=== PATIENT | male | born 1950 | race Caucasian/White ===

== ENCOUNTER 2018-06-02 07:58 | Day surgery (SDC) | payer MEDICARE, SELFPAY ==
[2018-06-02] VITALS (7 sets, daily range): BP systolic 91–133; BP diastolic 58–88; PULSE 68–73; RESP 16–18; TEMP 36.1–36.5; O2SAT 90–98; BMI 29.9
--- NOTE | 2018-06-02 09:47 | PCM.HP.STD ---
Problem List (1) Screening for intestinal cancer Status: Acute History of Present Illness Date of Admission: 06/02/18 The patient is a 68 year old M presents for screening colonoscopy. He enjoys good health. He denies any personal history of colon polyps. No family history of colon cancer. He denies any abdominal pain or bright red blood per rectum or melena.. He otherwise enjoys good health. Past Medical History Allergies hydrocodone [From Vicodin] Allergy (Verified 05/29/18 10:38) HYPOTENSION Home Medications: Ambulatory Orders Medication Instructions Recorded Gabapentin [Neurontin] 100 mg PO TIDCM 05/29/18 Lansoprazole 15 mg PO DAILY 05/29/18 Propranolol HCl [Inderal (Beta 20 mg PO BID 05/29/18 Jimbo)] Quinapril HCl [Accupril] 10 mg PO DAILY 05/29/18 Smoking Status: Never smoker Tobacco Use: Non-smoker Review of Systems Constitutional: Denies: Anorexia HEENT: Denies: Difficulty Hearing Cardiovascular: Denies: Chest Pain, Claudication, Chest Pressure, Chest Tightness Respiratory: Denies: Cough Gastrointestinal: Denies: Abdominal Pain Genitourinary: Denies: Dysuria Psychiatric: Denies: Anxiety Endocrine: Denies: Change in Body Habitus VTE Information - Inpt Only VTE Present on Admission: No Patient Problems: Active and Suspected Problems Screening for intestinal cancer (Acute) - Physical Exam General: Alert, Oriented x3, Cooperative, No apparent distress HEENT: Atraumatic Oral: Moist Mucosa Neck: Supple Lungs: Clear to auscultation Cardiovascular: Regular rate, Regular Rhythm Abdomen: Bowel Sounds Present, Soft, Non Tender, Non-Distended Extremities: No clubbing Skin: No rashes Musculoskeletal: No Tenderness to Palpation of Joints or Extremities Lymphatic: No Cervical, Supraclavicular, or Inguinal Adenopathy Neurological: Cranial nerves II-XII grossly intact Psych/Mental Status: Normal Affect Vital Signs Temp Pulse Resp BP Pulse Ox 97.2 F L 73 16 133/88 H 93 06/02/18 08:14 06/02/18 08:14 06/02/18 08:14 06/02/18 08:14 06/02/18 08:14 Oxygen Delivery Method Room Air Weight: 221 lb 1.978 oz Body Mass Index (BMI) 29.9 Assessment/Plan All Active Problems Screening for intestinal cancer (Acute) I am recommending a screening colonoscopy with possible biopsy or polypectomy is indicated. He is aware of the technique, benefits, risks, alternatives. He has had an opportunity to ask and have questions answered. We will proceed as noted. Primary care physician is Dr. Abdoulaye Davidson, [facility] Rashi Davidson M.D., F.A.C.S.
--- NOTE | 2018-06-02 10:51 | OP.ENDO_ITS ---
Patient Name: Brennon Souza Procedure Date: 06/02/2018 9:39 AM Date of : 1950 Age: 68 Procedure: Colonoscopy Indications: Screening for colorectal malignant neoplasm Patient Profile: Last Colonoscopy: more than 10 years ago. Providers: Rashi Davidson MD Referring MD: Rashi Davidson MD Medicines: See the Anesthesia note for documentation of the administered medications Complications: No immediate complications. Procedure: Pre-Anesthesia Assessment: - Prior to the procedure, a History and Physical was performed, and patient medications and allergies were reviewed. The patient's tolerance of previous anesthesia was also reviewed. The risks and benefits of the procedure and the sedation options and risks were discussed with the patient. All questions were answered, and informed consent was obtained. Prior Anticoagulants: The patient has taken no previous anticoagulant or antiplatelet agents. ASA Grade Assessment: II - A patient with mild systemic disease. After reviewing the risks and benefits, the patient was deemed in satisfactory condition to undergo the procedure. After I obtained informed consent, the scope was passed under direct vision. Throughout the procedure, the patient's blood pressure, pulse, and oxygen saturations were monitored continuously. The pediatric colonoscope was introduced through the anus and advanced to the cecum, identified by appendiceal orifice and ileocecal valve. The colonoscopy was performed without difficulty. The patient tolerated the procedure well. The quality of the bowel preparation was good. Scope In: 9:55:10 AM Scope Withdrawal Time 0 hours 7 minutes 30 seconds Scope Out: 10:08:16 AM Total Procedure Duration Time 0 hours 13 minutes 6 seconds Findings: The perianal and digital rectal examinations were normal. Pertinent negatives include normal sphincter tone. The perianal and digital rectal examinations were normal. Pertinent negatives include normal prostate (size, shape, and consistency). A few diverticula were found in the sigmoid colon. The exam was otherwise without abnormality. Impression: - Diverticulosis in the sigmoid colon. - The examination was otherwise normal. - No specimens collected. Recommendation: - Discharge patient to home. - Resume previous diet. - Continue present medications. - Repeat colonoscopy in 10 years for screening purposes. Procedure Code(s): --- Professional --- 76293, Colonoscopy, flexible; diagnostic, including collection of specimen(s) by brushing or washing, when performed (separate procedure) Diagnosis Code(s): --- Professional --- Z12.11, Encounter for screening for malignant neoplasm of colon K57.30, Diverticulosis of large intestine without perforation or abscess without bleeding CPT copyright 2017 [employer]. All rights reserved. The codes documented in this report are preliminary and upon hims coder review may be revised to meet current compliance requirements. MD Rashi Martinez MD 06/02/2018 10:12:19 AM This report has been signed electronically. Number of Addenda: 0 Note Initiated On: 06/02/2018 9:39 AM
== END 2018-06-02 10:53 | disposition home or self-care (01) ==
LOC: EN 07:59 → AC 08:01
PROVIDERS: Family Provider Family Medicine; PCP Family Medicine; Visit Provider Surgery
PROC: 0DJD8ZZ Inspection of Lower Intestinal Tract, Via Natural or Artificial Opening Endoscopic (ICD-10-PCS; CPT 45378; principal; 2018-06-02 09:10)
DX: Z12.11 Encounter for screening for malignant neoplasm of colon (principal); K57.30 Diverticulosis of large intestine without perforation or abscess without bleeding; K21.9 Gastro-esophageal reflux disease without esophagitis; I10 Essential (primary) hypertension; G47.30 Sleep apnea, unspecified; Z79.899 Other long term (current) drug therapy
CPT/HCPCS: G0121; J7120

== ENCOUNTER → 2020-10-10 20:43 | Outpatient (CLI) | payer MEDICARE, SELFPAY | PROVIDERS: PCP Family Medicine; Referring Provider Psychiatry & Neurology Sleep Medicine; Visit Provider Psychiatry & Neurology Sleep Medicine | DX: G47.33 Obstructive sleep apnea (adult) (pediatric) (principal) | CPT/HCPCS: 95811 ==

== ENCOUNTER → 2021-06-14 13:06 | Outpatient (CLI) | payer MEDICARE, SELFPAY ==
--- NOTE | 2021-06-14 13:08 | CT_ITS ---
STUDY: CT SCAN LOWER EXTREMITY RIGHT REASON FOR EXAM: Male, 71 years old. UNILATERAL PRIMARY OSTEOARTHRITIS, R KNEE.APOLINAR protocol. RADIATION DOSAGE (If Supplied By Facility): CTDIvol = ( 20.10 ) mGy, DLP = ( 1863.03 ) mGycm. Individualized dose optimization techniques were used for this CT.? TECHNIQUE: Multiple axial tomographic images of the hip joint, knee joint and ankle joint were obtained. Coronal and sagittal reconstruction was obtained as well. COMPARISON: None. FINDINGS: Imaging of the right hip joint was obtained. Small acetabular spur along the superior aspect of the acetabulum. No significant joint space narrowing is seen. Incidental note was made of the disc space narrowing and disc degeneration of the lower lumbar spine. Imaging of the right knee joint was obtained. There is a marked degree of joint space narrowing with degenerative spur formation of the medial compartment of the knee joint. Mild degree of Osteoarthritis of the patellofemoral joint. Imaging of the ankle joint was obtained. There is evidence of a small plantar spur. CT/Extremity Lower without Contra IMPRESSION: Marked degree of joint space narrowing of the medial compartment of the knee joint with mild degree of joint space narrowing of the femoral patellar joint. Electronically Signed: Abhilash Gustafson MD at 14:20 EDT , Service support ,
== END ==
PROVIDERS: PCP Family Medicine; Referring Provider Specialist; Visit Provider Specialist
DX: M17.11 Unilateral primary osteoarthritis, right knee (principal)
CPT/HCPCS: 73700

== ENCOUNTER 2021-06-27 05:26 | Day surgery (SDC) | payer MEDICARE, SELFPAY ==
--- NOTE | 2021-06-08 14:01 | HP.PCM_ITS ---
History and Physical History and Physical [facility] Patient Name: Brennon Souza : 1950 From: NICKY DANG PA-C DATE OF SURGERY: 06/27/2021 SCHEDULED PROCEDURE: right total knee arthroplasty HISTORY OF PRESENT ILLNESS: Preoperative history and physical exam was performed on June 06, 2021. This is a 71-year-old male who has had ongoing pain since October 2020. At that time patient was pushing a cart when he felt a twinge in his knee. Patient also reports tweaking his knee again while shopping with his granddaughters. Patient has had pain going up and down stairs and sitting. Pain has been intermittent, aching, stabbing, sore. He has difficulty with leisure activities such as walking and cycling. Patient has tripped/stumbled due to the knee pain. He does report having a previous right [place] arthrosc[place] [address] Brennon Torres. He has also had a left unicompartmental knee [place] [address] Brennon Torres. He has attempted conservative measures including ice, elevation with minimal relief. He has had previous corticosteroid injection with no relief in symptoms. Patient has had previous gel injection with the last injection on March 16, 2021. This provided no relief in symptoms. Patient has tried previous bracing without relief. He has tried oral medications including Tylenol and Advil minimal relief. He has had previous MRI of the right knee which does show chronic ACL tear with medial meniscus tear and chondromalacia in the medial compartment, patellofemoral compartment and lateral compartment. After failing conservative measures and discussing treatment options, the patient does wish to proceed with a right total knee arthroplasty. He does have medical history pertinent for essential tremor, sleep apnea, gastroesophageal reflux disease and a previous blood clot in 1972. We have obtain surgical clearance from the primary care physician Dr. Funk. Patient recently one week ago sustained a dog bite to his right hand in which he has been treating with the primary care physician. He states it is continuing to improve. No fevers, chills at home. No drainage. He currently denies any chest pain, shortness of breath, fevers chills. REVIEW OF SYSTEMS: ROS: Const: Denies anorexia, anxiety, change in appetite, fever and weight change,hard of hearing, and vision problems. REPORTS HARD OF HEARING CV: Denies chest pain, heart murmur, irregular heartbeat and peripheral vascular disease. Resp: Reports sleep apnea, but denies asthma, cough, pneumonia, shortness of breath, tuberculosis and wheezing. GI: Denies constipation, diarrhea, heartburn, nausea, bloody stools and vomiting, and difficulty swallowing. : Denies incontinence. Musculo: Denies leg swelling, trouble walking and weakness and limp. REPORTS TROUBLE WALKING AND LIMP Skin: Denies Raynaud's, history of shingles and tattoo. Neuro: Reports tremor but denies ambulatory dysfunction, dizziness and numbness/tingling. Psych: Denies anxiety, depression, insomnia, mental illness and stress. Feliciano/Lymph: Denies anemia, bleeding/bruising tendency and past transfusion. Reviewed and updated. PAST MEDICAL HISTORY: Advance Care Plan: Other Directive, POA Effective Date: 07/22/2018 Other Directive, LIVING WILL Effective Date: 07/22/2018 PMH: Medical Problems: Essential Benign Tremor History of a blood clot - 1972 Sleep Apnea, Reflux Accidents: Fracture - Ankle/Fall Surgical Hx: Kidney - (1989) Vessel Repair - [facility] Arthroscopy - (1984) KNEE R [facility] - [facility] LT Knee - (1974) [facility] - [place] Arthroscopy - (08/21/2006) LT KNEE [facility] LT Knee Arhthroscopy - (2007) [place] [place] LT Unicompartmental Knee Replacement - (09/19/2009) [email or web address] Cement Removal LT Knee - (12/28/2009) NELLIE @ [facility] Anesthesia Complications: Nausea - YEARS AGO Assistive Devices: Glasses, Brace, Hearing Aid, Cpap Reviewed and updated. SOCIAL HISTORY: SH: Marital: .Occupation: Retired.Work Status: Retired.Hand Dominance: Right- handed. Personal Habits: Tobacco Use: Patient has never smoked.Cigarette Use: Never.Smokeless Tobacco: Never Used Smokeless Tobacco.E-Cigarette Use: Never used.Alcohol: Weekly use.Drug Use: Denies Use.Enjoy Exercising: Exercises 1-3 X/Week. Reviewed, no changes. VITALS: Ht: 71 Wt: 227lb Wt k.967 BMI: 31.7 BP: 134/88 Pulse: 68 Resp: 16 T: 97 T: 36.1C Pain Level: 2 ALLERGIES: Vicodin - Severe Drop In Blood Pressure MEDICATIONS: Oxycodone HCL 5 mg 1-2 tab by mouth every 4 hours, Promethazine HCL 12.5 mg 1-2 tablets by mouth every 6 hours, Xarelto 10 mg 1 by mouth every day, Lansoprazole 15 mg 1 po qdAY, Propranolol HCL 20 mg 1 tab PO bid, Ibuprofen 200 mg 2 tablets by mouth for pain as needed, Gabapentin 300 mg up to 3 daily, Vitamin D 1000 Unit daily, Multivitamin take one(1) tablet daily., Glucosamine Chondroitin Complex 400-500 PRE-OP EXAM: General appearance:NORMAL Other: Eyes: Conjunctivae and lids: NORMAL Pupils: ERR Ears, Nose, Mouth, and Throat: NORMAL Other: Inspection of lips, teeth and gums: NORMAL Other: Neck: Examination of neck: no masses noted. Respiratory: Assessment of respiratory effort: NORMAL Other: Auscultation of lungs: clear to auscultation no wheezes, rhonchi or rales. Cardiovascular: Auscultation of heart: regular rate and rhythm, no murmurs, gallops or rubs. Exam of carotid arteries: NORMAL Other: PHYSICAL EXAMINATION: Patient does walk with an antalgic gait. Right knee is cool to touch without erythema or signs of infection. Patient does have moderate effusion. There is tenderness to palpation along the medial joint line. Patient has varus alignment which is correctable on exam. Range of motion: 0 extension to 115 flexion. There is also laxity appreciated on the anterior drawer exam. Negative varus/valgus stress test. IMAGING STUDIES: Previous MRI and x-rays revealed chondromalacia and thinning of the cartilage in the medial compartment and patellofemoral compartment. There is thinning in the lateral compartment on the MRI. He has chronic ACL tear. There is medial meniscus tear. Previous x-rays reveal medial joint space narrowing, subchondral sclerosis, osteophyte formation consistent with moderate osteoarthritis. IMPRESSION: 1. Right knee osteoarthritis with chronic ACL tear and medial meniscus tear 2. Essential benign tremor 3. Sleep apnea 4. Gastroesophageal reflux disease 5. History of blood clot 1973 PLAN: I did discuss and review with the patient all treatment options including surgical versus nonsurgical options. Patient does wish to proceed with the above-stated procedure. Potential risks, benefits, and complications of the procedure were discussed in detail including but not limited to , infection, nerve and blood vessel damage, persistent pain, numbness, tingling, paresthesias, blood clot, pulmonary embolism, and requirement for possible further surgery. The patient expressed full understanding and has no further questions for the doctor. Patient does agree to proceed with the above-stated procedure and has signed the surgery consent form. We discussed the current risks associated with COVID 19. This does include the risk of exposure while in the hospital. Patient was reassured local hospitals have low infection rates and are taking all necessary precautions to avoid exposure to patients. In addition, we discussed strategies that can be used to help limit exposure including those that limit the patient's time in the hospital. Also using strategies to limit the patient's need for continued inpatient services after being discharged from the hospital. Patient was notified that we will need to comply with any screening or testing the hospital wishes to perform or that surgery may be delayed for any positive results. This dictation was created using voice recognition software. Phonetic and/or grammatical errors may exist. ___ I have re-examined the patient. There are no clinical changes since date of exam. ___ See progress notes for changes. ___ Dictated on admission Date: Time: Signature:
[2021-06-14 15:01] LABS: Magnesium 2.1 mg/dL (1.6-2.6)
[2021-06-27] VITALS (13 sets, daily range): BP systolic 120–138; BP diastolic 76–89; PULSE 51–71; RESP 16–18; TEMP 35.7–36.5; O2SAT 94–100; BMI 32.6
[2021-06-27] MEDS: Lactated Ringers 1,000 ML 999 ML IV ×2 (06:00→10:01)
[2021-06-27] MEDS: Celecoxib 200 MG Capsule 400 MG PO (06:30)
[2021-06-27] MEDS: Acetaminophen 500 MG Tablet 1000 MG PO ×2 (06:30→13:22)
[2021-06-27] MEDS: Gabapentin 600 MG Tablet PO (06:41)
--- NOTE | 2021-06-27 07:11 | RAD_ITS ---
STUDY: X-RAY - RIGHT KNEE REASON FOR EXAM: Male, 71 years old. TKA. TECHNIQUE: 2 view(s) of the knee. COMPARISON: CTA of the right lower extremity, 06/14/2021. FINDINGS: There is a total knee replacement. The prosthetic components are intact and articulate normally with each other. There is no evidence of loosening from the underlying bone. There is no evidence of osseous fracture or destructive osseous pathology. There is air and swelling in the anterior soft tissues with midline skin clips. . RAD/Knee 1 or 2 Views IMPRESSION: Status post right TKA. Electronically Signed: Williams Ace DO at 17:03 EDT Tel [phone], Service support ,
--- NOTE | 2021-06-27 07:13 | PCM.OPRPT ---
Report of Operation Date of Procedure: 06/27/21 Pre-Operative Diagnosis: Right knee primary osteoarthritis Post-Operative Diagnosis: Right knee primary osteoarthritis Surgery/Procedure Performed:: Right minimally invasive robotic total knee replacement Description of Surgical Findings:: Stable knee with good patella tracking Surgeon: Nasim Jacobson external grinder tender: Fredy Mercer Type of Anesthesia: Spinal Anesthesiologist: Mak Samson Special Medications: 2 g Ancef, 1 g TXA at incision, 1 g TXA closure, 10 mg Decadron, joint cocktail (5 mg Duramorph, 30 mL of 0.5% Ropivicaine, 1000 units of epinephrine, 30 mg of Toradol) Specimen's removed: Bony cuts Estimated Blood Loss (mL): 50 Fluids Replaced: 1400 ML Description of Procedure: Implants used: 1. Rosa Elena size 5 triathlon cruciate retaining distal femoral press-fit component 2. Rosa Elena size 5 press-fit tritanium tibial baseplate 3. [place] X3 9 mm CS polyethylene 4. [place] X3 38 mm asymmetric patella Brief history operative indications: 71-year-old M with history of right knee osteoarthritis with radiographic findings with loss of joint space, osteophyte formation and subchondral sclerosis. Failed conservative measures as mentioned in the H&P. Discussion of total knee arthroplasty as well as risk and benefits were discussed the patient including but not limited to blood loss, DVTs, PEs, neurovascular damage, general risk of anesthesia including loss of life, and stiffness or instability were discussed with patient. Patient demonstrated understanding and was able to sign informed consent. Procedure: On the date of procedure patient's right lower extremity was marked in the preoperative area. The patient was then taken back to the operating room where the patient was placed on the table in the supine position. All bony prominences were identified a well-padded. Anesthesia assumed control of the C-spine and airway and remained controlled throughout the remainder of the procedure. A tourniquet was placed on the right upper thigh and the leg was prepped in a sterile fashion. The surgeon then scrubbed at this time .Upon reentering the room right lower extremity was draped in a standard orthopedic fashion. A timeout was then called and everyone agreed upon the side, the site, the procedure to be performed, patient's identity and antibiotics given. Esmarch bandage was used to exsanguinate the extremity and the tourniquet was placed up to 250 mmHg with the knee in flexion. A midline skin incision was made and sharp dissection was taken down through skin subcutaneous tissue and fat. The standard medial parapatellar incision was made and the patella was subluxed laterally. An Appropriate deep MCL release was done and the fat pad was resected. Our attention was then directed to the patella. The patella was everted and a flat resection was made. The knee was then flexed up in 2 femoral pins were placed inside the incision and 2 tibial pins were placed outside the incision in the medial tibia bicortically. Once this was completed the 2 checkpoints in the femur and tibia were placed. Knee was then flexed up and the bony landmarks were registered. Once this was completed knee was taken through range of motion and manually stressed allowing us to a plan for an appropriate tibial cut. The robotic arm was brought into the field sterilely and checkpoint and saw were registered. Based on the patient's deformity the tibial cut was made 2 degrees of varus. At this time the tensioner was then placed in the joint and ligament tension was checked at 90 degrees and full extension. Based on the patient's ligamentous tension appropriate adjustments were made to the operative plan and ligament releases were done. Once we were happy with our operative plan with balanced flexion and extension gaps our attention was directed to the femur. The robot was brought into the field sterilely and registered. Posterior condylar cuts, anterior chamfer cuts and anterior cuts were appropriately made for a size 5 femur. When these were completed the saws were switched out in the distal femoral and posterior chamfer cuts were made. Protecting the soft tissue throughout this time. A size 5 tibial base plate was selected. the knee was flexed to 90 degrees and the soft tissues and posterior osteophytes were removed from the joint. 40 cc of the periarticular injection was injected into the posterior medial corner of the joint. The appropriate trials were then placed on the femur and tibia. A trial polyethylene was trialed to ensure proper balancing and stability of the knee. The appropriate tibial internal rotation was then marked with a bovie. Our attention was then directed to the patella. The lug holes were drilled and the patella trial was placed. Patellar tracking was checked and deemed appropriate. Once we were happy lug holes were drilled for the femur and trial components were removed. the tibia was subluxed and pinned into place and the keel was punched and drilled appropriately. Final components were verified and opened, and cement was mixed in a vacuum. [employer] Simplex cement was used. The wound was copiously irrigated with normal saline. When the cement was ready the components were impacted into place starting with the tibia, femur and finally cementing the patella. The trial poly component was placed and the knee was placed in full extension. All excess cement was removed in the process. Once the cement had cured the tracking, alignment and balance were verified and a size 9 mm CS polyethylene component was placed. Once the final components were placed a 3-minute dilute Betadine lavage was performed followed by an Irrisept lavage was performed and the wound was copiously irrigated with normal saline solution and the periarticular injection was given. The wound was closed in a layer thompson fashion using #1 vicryl interrupted sutures for the arthrotomy, 2-0 interrupted Vicryl suture for the subcuticular layer and meet for final skin closure. A sterile compressive dressing was then placed. The patient was then awakened from anesthesia, transferred to the [place] and transferred to the PACU for recovery. Post op plan DVT ppx: ASA 81mg BID, thigh high compression stockings Follow up: in office in 2 weeks for wound check PT: to start POD #0 at hospital, outpatient PT should be arranged. My physician operational assistant was a vital part of this case. He was important in appropriate retraction during the case, and protection of soft tissues during bony cuts. His intimate knowledge of the case and my steps aided in safe and expedient completion of the procedure as well as appropriate position of the leg during the case. He was also vital in assisting with closure under my direct supervision. Due to the complexity of this case robotic arm was used to assist in the surgery to improve accuracy and clinical outcomes. Complications No intraoperative complications Admit VTE Documentation VTE Present on Admission: No VTE Mechan Device Prophylaxis: SCD's and Thigh High DAVIDSON Hose VTE Pharm Prophylaxis ordered?: Yes
[2021-06-27] MEDS: Cefazolin 2 GM in 0.9% Normal Saline 100 ML IV (07:37)
[2021-06-27] MEDS: Lactated Ringers 1,000 ML 75 ML IV (08:48)
[2021-06-27] MEDS: Lactated Ringers 1,000 ML 125 ML IV (10:56)
[2021-06-27] MEDS: Cefazolin 1 GM/50 ML BAG IV (12:17)
[2021-06-27] MEDS: oxyCODONE 5 MG Tablet PO (13:22)
--- NOTE | 2021-06-27 14:26 | SUR.PHASEII ---
ABLE TO STAND AT BEDSIDE AND MARCH IN PLACE USING WALKER WITH 1 ASSIST. REPORTS PAIN TOLERABLE AFTER MEDICATING. NOTIFIED SARAH PT, THAT PATIENT READY FOR EVAL & EDUCATION.
== END 2021-06-27 15:22 | disposition home or self-care (01) ==
LOC: SDC 05:28 → AC 05:29
PROVIDERS: Anesthesiology; PCP Family Medicine; Referring Provider Specialist; Visit Provider Specialist
PROC: 0SRC0JZ Replacement of Right Knee Joint with Synthetic Substitute, Open Approach (ICD-10-PCS; CPT 27447; principal; 2021-06-27 07:00)
DX: M17.11 Unilateral primary osteoarthritis, right knee (principal); K21.9 Gastro-esophageal reflux disease without esophagitis; G47.30 Sleep apnea, unspecified; G25.0 Essential tremor; Z86.718 Personal history of other venous thrombosis and embolism; Z79.01 Long term (current) use of anticoagulants; Z79.899 Other long term (current) drug therapy
CPT/HCPCS: 01402; 27447; 64447; S2900; 36415; 73560; 83735; 97162; C1776; J7120; A4216; J2405; J3475

== ENCOUNTER 2022-06-03 05:53 | Day surgery (SDC) | payer MEDICARE, SELFPAY ==
--- NOTE | 2022-05-28 11:11 | EKG12_ITS ---
Test Reason : PRE OP Blood Pressure : / mmHG Vent. Rate : 055 BPM Atrial Rate : 055 BPM P-R Int : 210 ms QRS Dur : 090 ms QT Int : 426 ms P-R-T Axes : 046 006 023 degrees QTc Int : 407 ms Sinus bradycardia with 1st degree A-V block Otherwise normal ECG Confirmed by CAROLINE SANTOS, EULALIO ([id number]), story editor ARTUR PALUINO ([id number]) on 05/29/2022 8:40:27 AM Referred By: Rashi Davidson Confirmed By:EULALIO VELAZQUEZ MD
[2022-05-28 12:00] LABS: Hematocrit 49.2 % (40-54); Hemoglobin 16.3 g/dL (13.0-16.5); Mean Corp Hgb Conc 33.1 g/dL (32-36); Mean Corpuscular Hgb 31.3 pg (27.0-32.0); Mean Corpuscular Volume 94.6 fL (80-94); Platelet Count 201 K/mm3 (150-450); RBC Distribution Width CV 12.7 % (11.6-14.6); RBC Distribution Width SD 44.3 fl (35.1-43.9); White Blood Count 6.2 K/mm3 (4.4-11.0)
[2022-05-28 12:19] LABS: Anion Gap 5 (5-15); BUN 21 mg/dL (7-18); BUN/Creat Ratio 16.5 RATIO (10-20); Calcium,Total 9.4 mg/dL (8.5-10.1); Chloride 107 mmol/L (98-107); Creatinine, Serum 1.27 mg/dL (0.70-1.30); EST Glomerular Filtration Rate 59 mL/min (>60); Est Glom Filt Rate - Afr Amer 72 mL/min (>60); Glucose 94 mg/dL (74-106); Potassium 4.3 mmol/L (3.5-5.1); Sodium Level 141 mmol/L (136-145)
[2022-06-03] VITALS (8 sets, daily range): BP systolic 115–126; BP diastolic 81–97; PULSE 50–58; RESP 14–18; TEMP 36.2–37; O2SAT 92–99; BMI 30.1
--- NOTE | 2022-06-03 06:32 | HP.PCM_ITS ---
History and Physical Date of Admission: 06/03/22 Visit Reasons:?Umbilical Hernia Chief Complaint: Umbilical Hernia [place] Turner Required: No Is patient in pain?: No Allergies hydrocodone [From Vicodin] Allergy (Verified 05/08/22 13:06) HYPOTENSION Medications lansoprazole 15 mg capsule,delayed release 15 mg PO DAILY 05/29/18 [History Confirmed 05/08/22] propranolol 20 mg tablet 20 mg PO BID 05/29/18 [History Confirmed 05/08/22] glucosamine sulf dipot chlr,msm,chond 550 mg-C 30 mg-shahbaz 1 mg capsule (Glucosamine Chondroitin) 1 cap PO DAILY 06/13/21 [History Confirmed 05/08/22] PFSH Medical History?(Updated 05/08/22 @ 13:[address] Rashi Davidson MD) Artery dissection Arthritis Back pain Benign essential tremor Blackout Cardiology follow-up encounter CPAP (continuous positive airway pressure) dependence DVT (deep venous thrombosis) Gastric reflux History of edema History of pain when walking History of stress test Hypertension Non-smoker Open wound Restless legs Wears glasses Wears hearing aid Surgical History?(Updated 05/08/22 @ 13:03 by Nancy Friday) History of kidney surgery History of right knee joint replacement Hx of colonoscopy Hx of left knee surgery Hx of left knee surgery Family History?(Updated 05/08/22 @ 13:04 by Nancy Friday) Father Cancer ?? ? prostate DiabetesMother CVA (cerebral vascular accident)Sister Psoriatic arthritis Social History?(Updated 05/08/22 @ 13:04 by Nancy Friday) Smoking Status:? Never smoker alcohol intake:? current details:? occasional substance use type:? does not use HPI HPI HPI: YURIY REBOLLAR, is a 72 M who presents to the office today for Surgical consultation regarding an umbilical hernia.? The patient is referred by Vane Mart PA-C and a written copy of my surgical consult and recommendations will return to her.? I have assisted this gentleman June 02, 2018 with a screening colonoscopy.? Those findings were notable for diverticulosis of the sigmoid colon but otherwise were not acute. Patient over the past years noted a progressively enlarging umbilical hernia.? He has not had any surgery there.? He is quite active.? He walks and he rides bike and he does treadmill.? He does not recall any specific injury.? He has not had COVID-19.? No coughing spells.? Because its progressively enlarging however he thought that he better seek attention. ROS General General: No weight change, appetite, fatigue, colon cancer, breast cancer or weakness HEENT HEENT: No difficulty swallowing, eye injury, eye surgery, swollen glands or hoarseness Endo Endocrine: No thyroid disease, diabetes mellitus, thyroid cancer, Hair loss, heat intolerance or cold intolerance Skin Skin: No rash or changing moles Musc Musculoskeletal: Yes arthritis; No back problems, rheumatoid arthritis, gout or joint pain Cardio Cardiovascular: No murmur, pacemaker, heart disease, atrial fibrillation, high blood pressure, heart attack, heart stent, palpitations, shortness of breat with exertion or chest pain Psych Psychiatric: No depression, anxiety or hearing voices Resp Respiratory: No shortness of breath, Yes sleep apnea, No cough, No COPD, No asthma, No emphysema and No wheezing Gastro Gastrointestinal: No abdominal pain, No nausea or vomiting, No diarrhea, No constipation, No blood in stool, Yes acid reflux, Yes hemorrhoids, No ulcers, No gallbladder problem and No black,tarry stools Feliciano Hematologic: No blood thinners, No blood disorders, No bleeding, No anemia and No blood clots Neuro Neurologic: No system reviewed and no additional complaints, except as documented, No as per HPI, No abnormal gait, No abnormal hearing, No abnormal movements, No abnormal speech, No behavioral changes, No burning sensations, No confusion, No convulsions, No disequilibrium, No dizziness, No localized weakness, No frequent falls, No headache(s), No lack of coordination, No loss of vision, No memory loss, No numbness, No other visual disturbances, No radicular pain, No restless legs, No sensory deficit, No syncope, No tingling, No tremor(s), No weakness and No other Exam Const General: cooperative, comfortable and no acute distress [facility] Head: normal to inspection Eyes General: appearance normal, both eyes and all related structures Neck Neck: normal visual inspection Chest Chest palpation & inspection: normal inspection of the chest Resp Effort & Inspection: normal respiratory effort Auscultation: clear to auscultation bilaterally Cardio Rate: regular rate Rhythm: regular rhythm GI Inspection: normal to inspection Auscultation: normal bowel sounds Other: Partially incarcerated umbilical hernia with very slight erythema to the skin and thinning of the skin.? I am in the supine position able to get it partially reduced.? This feels like fibrofatty tissue. Musc Cervical Spine: normal cervical lordosis Skin General: no rashes or lesions noted Neuro General: patient alert, patient awake and patient oriented x3 Extrem General: no calf tenderness Psych Appearance: grossly normal Assessment and Plan Assessment and Plan (1) Umbilical hernia without obstruction or gangrene: ?Status:?Acute ?Plan: I have offered the patient umbilical herniorrhaphy with mesh.? I described the technique, benefit, risk of alternatives.? No guarantees of success have been offered.? The patient is aware that he would have to curtail some of his physical activities to allow for resolution and healing.? He has had an opportunity to ask and have questions answered.? He has concerns that I prefer doing this with general anesthesia.? He will consider his treatment options.? I have cautioned him that his skin is starting to thin.? I would not want this to ulcerate and provide for a much more complicated repair. Copy:MARC العلي M.D., F.A.C.S. I have re-examined the patient. There are no clinical changes since date of exa mMarialuisa Davidson M.D., F.A.C.S.
[2022-06-03] MEDS: Lactated Ringers 1,000 ML 15 ML IV (06:36)
--- NOTE | 2022-06-03 07:15 | DCINST_ITS ---
Discharge Instructions Procedure General Surgery Diet Discharge Diet: Light diet - advance as tolerated (if you have questions about your diet instructions, please talk to you doctor.) Activity Discharge Activity: May Not Drive (for 3-5 days or while taking narcotic pain medicine.) May shower in (days): 1 Lifting Restrictions: 10 pounds Dressing / Incision Call your doctor if your incision/area has: Continuous Slow Oozing, Sudden Increased Bleeding, Increased Pain/ Swelling, Increased Redness and Foul Smelling Discharge Call your doctor if you observe: Fever of 101 or Higher Suture Line Care: Avoid Pulling/Pushing and Avoid Pinching/Bending Additional Dressing/Incision Instructions:: Change or remove dressing in 4 days. Leave steri-strips in place for 1 week. Follow Up Care Please Follow Up With: Rashi Davidson MD When: Call [phone] to make an appointment to be seen in about 10 days. Test Results: Test results from this visit will be discussed in further detail at your follow- up appointment, if applicable. Discharge Plan Admission Attending Provider: Rashi Davidson Primary Care Provider: Hermann Funk Discharge Orders/Prescriptions Prescriptions: No Action lansoprazole 15 MG capsule,delayed release(DR/EC) 15 mg PO DAILY propranolol 20 MG tablet 20 mg PO BID Glucosamine Chondroitin 550-30-1 mg Capsule 1 cap PO DAILY Vitamin D3 100 mcg (4,000 unit) Capsule 100 mcg PO DAILY gabapentin 300 mg capsule 600 - 900 mg PO QHS PRN PRN (Reason: RLS) Referrals / Follow Up: Hermann Funk MD [Primary Care Provider] - Disposition Disposition (needs filled in before D/C Order can be placed): Home, Self Care
[2022-06-03] MEDS: Cefazolin 2 GM in 0.9% Normal Saline 100 ML IV (07:30)
--- NOTE | 2022-06-03 07:30 | HERN_PTH ---
PATIENT: YURIY REBOLLAR [place] [facility] [id number] AGE/SX: 72/M ROOM: RE06/03/[address]: Dr. Rashi Davidson MD : 1950 BED: DIS: 06/03/2022 SPEC #: [id number] RECD: 06/03/22 10:58 STATUS: DONAL ELMORE #: [id number] FRANCISCA: 06/03/22 07:[address]: Rashi Davidson DEPT: SURGICAL PATHOLOGY RECD BY: Chris Boyd ENTERED: 06/03/22 12:11 SP TYPE: Hernia OTHR DR: Dr. Hermann Funk MD Tissues: HERNIA Procedures: Surgery Specimen Level II HEADER OPERATION: Umbilical hernia repair with mesh PRE-OP DIAGNOSIS: Umbilical hernia TISSUE SUBMITTED: Hernia sac and contents MICROSCOPIC DIAGNOSIS Hernia sac and contents: A piece of fibroadipose and fibroconnective tissue, clinically hernia sac and contents. SJ:daniel 06/04/2022 MICROSCOPIC DESCRIPTION Slides are reviewed. GROSS DESCRIPTION Received in fixative is one container labeled with the patient's name and designated hernia sac and contents. The specimen consists of an irregular piece of adipose tissue measuring 5 x 3 x 1.5 cm. Sections do not reveal any mass lesion. [employer] sections are submitted in one cassette. / CHECO:daniel 06/03/2022 TC:5 [facility]: [id number]
[2022-06-03] MEDS: Bupivacaine 0.25% 30 ML Vial (07:36)
[2022-06-03] MEDS: Lidocaine 1% (20 ml mdv) 20 ML Vial (07:36)
--- NOTE | 2022-06-03 08:21 | OP.PCM_ITS ---
Problems Associated Problem List Diagnoses (1) Umbilical hernia without obstruction or gangrene: Report of Operation Date of Procedure: 06/03/22 Pre-Operative Diagnosis: Umbilical hernia with preperitoneal fat Post-Operative Diagnosis: Same Surgery/Procedure Performed:: Umbilical herniorrhaphy with [address] mesh Reference [id number] Lot number [id number] expiry date 07/12/2023 Description of Surgical Findings:: Timeout informed consent was obtained. 72-year-old gentleman was taken to the operating placed upon the table underwent monitored anesthesia care. 1% lidocai ne mixed 50-50 with 0.25% Marcaine was used as a local anesthetic. A total of 40 cc was used. Local was instilled. A curvilinear incision was made inferior to the umbilicus sharp and blunt dissection was used to identify the preperitoneal fat which was partially amputated submitted to specimen. A retrorectus plane was developed elevating the peritoneum to allow positioning of the mesh directly against the posterior fascia. 8 cm Ventralex mesh was inserted. The tails were secured with interrupted 0 Nurolon. The fascia was closed transversely with multiple simple sutures of 0 Nurolon. Good approximation was achieved and good placement of the mesh. With each Nurolon suture the central portion of the mesh was additionally secured. The skin was then approximated with interrupted 4 Monocryl subdermal stitches. Dermabond cottonball Telfa OpSite dressings applied. Sponge and instrument and needle counts were reported to the surgeon to be correct. Specimen hernia sac and contents. Drains none. Blood loss minimal. The patient was taken to the recovery room in satisfactory addition without apparent complication Rashi Davidson M.D., F.A.C.S. Surgeon: Rashi Davidson Type of Anesthesia: Local MAC Anesthesiologist: Leonardo Jordan
[2022-06-03] MEDS: Acetaminophen 325 MG Tablet 650 MG PO (09:53)
== END 2022-06-03 10:00 | disposition home or self-care (01) ==
LOC: SDC 05:53 → AC 05:55
PROVIDERS: PCP Family Medicine; Referring Provider Surgery; Visit Provider Surgery
PROC: (CPT 49585; principal; 2022-06-03 07:15)
DX: K42.9 Umbilical hernia without obstruction or gangrene (principal); G25.0 Essential tremor; K21.9 Gastro-esophageal reflux disease without esophagitis; I10 Essential (primary) hypertension; Z86.718 Personal history of other venous thrombosis and embolism; Z79.899 Other long term (current) drug therapy
CPT/HCPCS: 49585; 00830; 36415; 80048; 85027; 87081; 88302; 93005; J7120; C1781; J2405

== ENCOUNTER 2025-09-05 12:02 | Observation (INO) | payer MEDICARE, SELFPAY ==
[2025-09-05] VITALS (17 sets, daily range): BP systolic 104–142; BP diastolic 64–90; PULSE 62–80; RESP 15–22; TEMP 36.6–37.8; O2SAT 92–99; BMI 28.4; BMI 28.8
--- NOTE | 2025-09-05 14:18 | CT_ITS ---
PROCEDURE: BRAIN/HEAD WITHOUT CONTRAST 09/05/2025 REASON FOR EXAM: Lightheaded/dizzy, cold symptoms, fever at home. TECHNIQUE: Procedure Code: CTBR Modality: CT Procedure: BRAIN/HEAD WITHOUT CONTRAST Coronal and Sagittal reconstruction series were provided. One or more dose reduction techniques were used (e.g., Automated exposure control, adjustment of the mA and/or kV according to patient size, use of iterative reconstruction technique. RADIATION DOSE SUMMARY: CTDlvol: 47.06 mGy DLP: 908 mGycm COMPARISON: None. FINDINGS: BRAIN: No acute intraparenchymal hemorrhage. No mass lesion. No CT evidence for acute territorial infarct. No midline shift or extra-axial collection. Mild diffuse cerebral volume loss. Patchy periventricular white matter low attenuation, likely microvascular ischemic changes. VENTRICLES: No hydrocephalus. ORBITS: The orbits are unremarkable. SINUSES AND MASTOIDS: The paranasal sinuses and mastoid air cells are clear. SOFT TISSUES: No acute abnormality seen. BONES: No acute osseous abnormality seen. OTHER: Mildly calcified carotid siphons and vertebral arteries. CT/Brain/Head without Contrast IMPRESSION: 1. No acute intracranial abnormality. 2. Age-related senescent changes. Reading Location: [id number]
--- NOTE | 2025-09-05 14:19 | EKG12_ITS ---
Test Reason : Blood Pressure : */* mmHG Vent. Rate : 61 BPM Atrial Rate : 61 BPM P-R Int : 220 ms QRS Dur : 86 ms QT Int : 396 ms P-R-T Axes : 35 1 18 degrees QTcB Int : 398 ms Sinus rhythm with 1st degree A-V block Otherwise normal ECG Confirmed by Walter Hays ([id number]), offline editor TEMI CORNEJO ([id number]) on 09/06/2025 11:00:19 AM Also confirmed by Walter Hays ([id number]), offline editor TEMI CORNEJO ([id number]) on 09/07/2025 11:09:50 AM Referred By: Confirmed By: Walter Hays
--- NOTE | 2025-09-05 14:55 | EX.ED.DYSGE1 ---
HPI History of Present Illness Chief Complaint: Neuro S/Sx Narrative Narrative: Chief complaint and HPI: 75-year-old male with past medical history of essential tremor, restless leg syndrome, HTN presents for evaluation of lightheadedness and cold-like symptoms. Patient states he took his gabapentin yesterday evening which helps him sleep due to his restless leg syndrome. He accidentally took more medication than he is supposed too. States he woke up in the middle of the night with fever, congestion, and lightheadedness. states that she called the primary care physician office in which they told her to go to the ED for concerns of possible stroke. He denies any chest pain, shortness of breath, abdominal pain, nausea, vomiting, diarrhea, dysuria. Review of systems: See HPI Medications: As listed on the chart Allergies: As listed on the chart PFSH: Per chart Vital signs: As listed on the chart. Reviewed. Physical exam: Gen: A&O x3, NAD Head: Normocephalic, atraumatic Eyes: No sclera icterus, conjunctiva clear, PERRL, EOMI ENT: TMs clear BL, moist mucous membranes, posterior oropharynx unremarkable, uvula midline, tonsils not enlarged, no tonsillar exudates, + congestion without sinus tenderness Neck: Trachea midline, No JVD, Full ROM, No meningismus Resp: Lungs CTA BL, no w/r/c GI: Abd soft, non-distended, non-tender, no r/r/g Musc: Full ROM, no deformity, strength +5/5 in all extremities, no pronator drift Skin: Warm, dry Neuro: Alert, oriented, grossly intact, sensation intact, no focal deficits, no dysarthria, no aphasia, no ataxia Psych: Cooperative, appropriate mood and affect [facility] Medical History Artery dissection Arthritis Back pain Benign essential tremor Blackout Cardiology follow-up encounter CPAP (continuous positive airway pressure) dependence DVT (deep venous thrombosis) Gastric reflux History of edema History of pain when walking History of stress test Hoarseness Hypertension Non-smoker Restless legs Wears glasses Wears hearing aid Home Medications ?Medication ?Instructions ?Recorded ?Last Taken ?Type lansoprazole 15 mg capsule,delayed 15 mg PO DAILY 05/29/18 09/05/25 History release propranolol 20 mg tablet 20 mg PO BID 05/29/18 09/05/25 History glucosamine sulf dipot 1 cap PO DAILY 06/13/21 06/02/22 History chlr,msm,chond 550 mg-C 30 mg-shahbaz 1 mg capsule (Glucosamine Chondroitin) gabapentin 300 mg capsule 900 mg PO QHS PRN PRN RLS 05/27/22 09/04/25 History Allergy/AdvReac Type Severity Reaction Status Date / Time hydrocodone (From Vicodin) Allergy HYPOTENSION Verified 09/05/25 12:07 Family History Father Cancer prostate Diabetes Mother CVA (cerebral vascular accident) Sister Psoriatic arthritis Surgical History S/P hernia repair History of kidney surgery History of right knee joint replacement Hx of left knee surgery Hx of left knee surgery Hx of colonoscopy Social History Smoking Status: Never smoker alcohol intake: current details: occasional substance use type: does not use EXAM Physical Exam Const Vital Signs: 09/05/25 12:07 09/05/25 13:00 09/05/25 13:03 Temperature 100.1 F H 98.7 F Temperature Source Oral Oral Pulse Rate 68 67 62 Pulse Rate [Lying] Pulse Rate [Sitting (for 1 minute prior to obtaining)] Pulse Rate [Standing (for 1 minute prior to obtaining)] Respiratory Rate 20 H 15 Blood Pressure 126/84 H 135/82 H 121/74 H Blood Pressure [Lying] Blood Pressure [Sitting (for 1 minute prior to obtaining)] Blood Pressure [Standing (for 1 minute prior to obtaining)] Blood Pressure Mean 98 99 89 Blood Pressure Mean [Lying] Blood Pressure Mean [Sitting (for 1 minute prior to obtaining)] Blood Pressure Mean [Standing (for 1 minute prior to obtaining)] Pulse Ox 99 97 Oxygen Delivery Method Room Air 09/05/25 14:16 09/05/25 15:13 09/05/25 15:13 Temperature 98.9 F 98.9 F Temperature Source Oral Oral Pulse Rate 62 65 Pulse Rate [Lying] Pulse Rate [Sitting (for 1 minute prior to obtaining)] Pulse Rate [Standing (for 1 minute prior to obtaining)] Respiratory Rate 18 19 H Blood Pressure 133/79 H 132/83 H 132/83 H Blood Pressure [Lying] Blood Pressure [Sitting (for 1 minute prior to obtaining)] Blood Pressure [Standing (for 1 minute prior to obtaining)] Blood Pressure Mean 97 99 99 Blood Pressure Mean [Lying] Blood Pressure Mean [Sitting (for 1 minute prior to obtaining)] Blood Pressure Mean [Standing (for 1 minute prior to obtaining)] Pulse Ox 97 96 Oxygen Delivery Method Room Air Room Air 09/05/25 15:21 09/05/25 16:40 09/05/25 17:14 Temperature 98.4 F 98.5 F Temperature Source Oral Oral Pulse Rate 63 67 Pulse Rate [Lying] 62 Pulse Rate [Sitting (for 1 minute prior to obtaining)] 65 Pulse Rate [Standing (for 1 minute prior to obtaining)] 66 Respiratory Rate 22 H 18 Blood Pressure 142/86 H 137/89 H Blood Pressure [Lying] 131/90 H Blood Pressure [Sitting (for 1 minute prior to obtaining)] 137/86 H Blood Pressure [Standing (for 1 minute prior to obtaining)] 139/81 H Blood Pressure Mean 104 105 Blood Pressure Mean [Lying] 103 Blood Pressure Mean [Sitting (for 1 minute prior to obtaining)] 103 Blood Pressure Mean [Standing (for 1 minute prior to obtaining)] 100 Pulse Ox 99 99 Oxygen Delivery Method Room Air Room Air 09/05/25 18:00 Temperature 98.9 F Temperature Source Oral Pulse Rate 69 Pulse Rate [Lying] Pulse Rate [Sitting (for 1 minute prior to obtaining)] Pulse Rate [Standing (for 1 minute prior to obtaining)] Respiratory Rate 22 H Blood Pressure 132/64 H Blood Pressure [Lying] Blood Pressure [Sitting (for 1 minute prior to obtaining)] Blood Pressure [Standing (for 1 minute prior to obtaining)] Blood Pressure Mean 86 Blood Pressure Mean [Lying] Blood Pressure Mean [Sitting (for 1 minute prior to obtaining)] Blood Pressure Mean [Standing (for 1 minute prior to obtaining)] Pulse Ox 96 Oxygen Delivery Method MDM MDM MDM Narrative Medical decision making narrative: 75-year-old male with past medical history of essential tremor, restless leg syndrome, HTN presents for evaluation of lightheadedness and cold-like symptoms. Patient states he took his gabapentin yesterday evening which helps him sleep due to his restless leg syndrome. He accidentally took more medication than he is supposed too. States he woke up in the middle of the night with fever, congestion, and lightheadedness. was concerned about stroke. On presentation, patient was originally febrile. Currently afebrile now despite no antipyretics. See physical exam findings. HPI and exam is not consistent with CVA. Differential diagnosis includes but is not limited to medication side effect, dehydration, electrolyte abnormality, viral illness, pneumonia, ACS, UTI suspect less likely intracranial abnormality. NS bolus ordered. Laboratory workup ordered including CT of the head. Orthostatic vital signs negative. CBC without leukocytosis or anemia. Platelets unremarkable. CMP shows mild dehydration with renal insufficiency with creatinine of 1.36. Lactic acid unremarkable. Magnesium mildly elevated at 2.5. Patient receiving fluids. Troponin unremarkable. UA negative for UTI. Negative for ketones. CT of the head shows no acute intracranial abnormality. Age-related changes. Coagulation panel unremarkable. Patient positive for COVID-19 infection. Patient symptoms are likely secondary to COVID-19 infection. He was ambulated on pulse ox. No hypoxia, but patient was unable to ambulate. He unsteady on his feet and needed assistance. Endorsed lightheadedness. Given patient inability to ambulate he will warrant admission. Patient and family confirmed understand the plan. Hospitalist paged. Patient discussed with the hospitalist who accept admission. EKG: Interpreted by me/EM physician: EKG shows sinus rhythm with first-degree AV block. No acute ischemic changes. No QTc prolongation. Heart rate 61 Diagnostic: Interpreted by me/EM physician: Chest x-ray without pneumonia, effusion, cardiomegaly, pneumothorax. Radiology in agreement. Impression: 1. COVID-19 infection 2. Lightheadedness with inability to ambulate Lab Data Labs: Laboratory Results - last 24 hr 09/05/25 09/05/25 09/05/25 15:09 15:09 15:31 WBC Cancelled Corrected WBC Cancelled RBC Cancelled Hgb Cancelled Hct Cancelled MCV Cancelled MCH Cancelled MCHC Cancelled RDW Std Deviation Cancelled RDW Coeff of Charly Cancelled Plt Count Cancelled MPV Cancelled Immature Gran % (Auto) Cancelled Neut % (Auto) Cancelled Lymph % (Auto) Cancelled [place] % (Auto) Cancelled Eos % (Auto) Cancelled Baso % (Auto) Cancelled Absolute Neuts (auto) Cancelled Absolute Lymphs (auto) Cancelled Total Counted Cancelled Neutrophils % (Manual) Cancelled Band Neutrophils % Cancelled Lymphocytes % (Manual) Cancelled Monocytes % (Manual) Cancelled Eosinophils % (Manual) Cancelled Basophils % (Manual) Cancelled Metamyelocytes % Cancelled Myelocytes % Cancelled Promyelocytes % Cancelled Blast Cells % Cancelled Plasma Cell % (Manual) Cancelled Other Cells % Cancelled Nucleated RBC % Cancelled Nucleated RBCs/100 WBC Cancelled Differential Comment Cancelled Diff Path Review Cancelled Hypersegmented Neuts Cancelled Atypical Lymphocytes Cancelled Reactive Lymphocytes Cancelled Smudge Cells Cancelled Toxic Granulation Cancelled Toxic Vacuolation Cancelled Dohle Bodies Cancelled Monserrat Rods Cancelled Platelet Estimate Cancelled Plt Morphology Comment Cancelled RBC Morphology Cancelled Cancelled Polychromasia Cancelled Hypochromasia Cancelled Basophilic Stippling Cancelled Anisocytosis Cancelled Microcytosis Cancelled Macrocytosis Cancelled Spherocytes Cancelled Sickle Cells Cancelled Target Cells Cancelled Tear Drop Cells Cancelled Ovalocytes Cancelled Stomatocytes Cancelled [place] Bodies Cancelled [place] Cells Cancelled Bite Cells Cancelled Crenated Cell Cancelled Acanthocytes (Spur) Cancelled Rouleaux Cancelled Schistocytes Cancelled PT Cancelled INR Cancelled APTT Cancelled Sodium 137 Potassium 4.3 Chloride 102 Carbon Dioxide 25.0 Anion Gap 10 BUN 20 H Creatinine 1.36 H Estim Creat Clear Calc 56.18 Est GFR (MDRD) Non-Af 54 L BUN/Creatinine Ratio 14.4 Glucose 96 Lactic Acid < 1.0 Calcium 9.6 Magnesium 2.5 H Total Bilirubin 0.46 AST 23 ALT 14 Alkaline Phosphatase 65 Troponin T High Sens 16 Troponin T Hi Sens 2 Hr Total Protein 7.1 Albumin 4.2 Globulin 2.9 Albumin/Globulin Ratio 1.5 Urine Color Yellow Urine Clarity Clear Urine pH 6.0 Ur Specific [place] 1.015 Urine Protein 15 H Urine Glucose (UA) Normal Urine Ketones Negative Urine Occult Blood 10 H Urine Nitrite Negative Urine Bilirubin Negative Urine Urobilinogen Normal Ur Leukocyte Esterase Negative Urine RBC 0-5 SEEN Urine WBC 0 SEEN Ur Squamous Epith Cells 0 SEEN Urine Bacteria 0 SEEN Urine Mucus 0 SEEN 09/05/25 09/05/25 15:58 17:38 WBC 6.0 Corrected WBC RBC 4.92 Hgb 15.4 Hct 47.1 MCV 95.7 H MCH 31.3 MCHC 32.7 RDW Std Deviation 44.2 H RDW Coeff of Charly 12.5 Plt Count 171 MPV 10.0 Immature Gran % (Auto) 0.700 Neut % (Auto) 78.5 H Lymph % (Auto) 9.3 L [place] % (Auto) 11.0 H Eos % (Auto) 0.2 Baso % (Auto) 0.3 Absolute Neuts (auto) 4.7 Absolute Lymphs (auto) 0.56 L Total Counted Neutrophils % (Manual) Band Neutrophils % Lymphocytes % (Manual) Monocytes % (Manual) Eosinophils % (Manual) Basophils % (Manual) Metamyelocytes % Myelocytes % Promyelocytes % Blast Cells % Plasma Cell % (Manual) Other Cells % Nucleated RBC % 0 Nucleated RBCs/100 WBC Differential Comment Diff Path Review Hypersegmented Neuts Atypical Lymphocytes Reactive Lymphocytes Smudge Cells Toxic Granulation Toxic Vacuolation Dohle Bodies Monserrat Rods Platelet Estimate Plt Morphology Comment RBC Morphology Polychromasia Hypochromasia Basophilic Stippling Anisocytosis Microcytosis Macrocytosis Spherocytes Sickle Cells Target Cells Tear Drop Cells Ovalocytes Stomatocytes [place] Bodies [place] Cells Bite Cells Crenated Cell Acanthocytes (Spur) Rouleaux Schistocytes PT 13.4 INR 1.0 APTT 29.4 Sodium Potassium Chloride Carbon Dioxide Anion Gap BUN Creatinine Estim Creat Clear Calc Est GFR (MDRD) Non-Af BUN/Creatinine Ratio Glucose Lactic Acid Calcium Magnesium Total Bilirubin AST ALT Alkaline Phosphatase Troponin T High Sens Troponin T Hi Sens 2 Hr 20 Total Protein Albumin Globulin Albumin/Globulin Ratio Urine Color Urine Clarity Urine pH Ur Specific [place] Urine Protein Urine Glucose (UA) Urine Ketones Urine Occult Blood Urine Nitrite Urine Bilirubin Urine Urobilinogen Ur Leukocyte Esterase Urine RBC Urine WBC Ur Squamous Epith Cells Urine Bacteria Urine Mucus Radiography Diagnostic Testing: Clinical Impression(s) from Imaging Studies Brain CT 09/05/25 14:18 IMPRESSION: 1. No acute intracranial abnormality. 2. Age-related senescent changes. Reading Location: [facility] Chest X-Ray 09/05/25 15:50 IMPRESSION: NO ACUTE FINDINGS. Reading [facility] Discharge Plan Triage Chief Complaint: Neuro S/Sx ED Provider: Tanmay Faust Dx/Rx/DC Orders Prescriptions: No Action lansoprazole 15 MG capsule,delayed release(DR/EC) 15 mg PO DAILY propranolol 20 MG tablet 20 mg PO BID Glucosamine Chondroitin 550-30-1 mg Capsule 1 cap PO DAILY gabapentin 300 mg capsule 900 mg PO QHS PRN PRN (Reason: RLS) Primary Care Provider: Hermann Funk Referrals: Hermann Funk MD [Primary Care Provider, Family Practice] Print Language: Danish
[2025-09-05] MEDS: 0.9% Normal Saline (1000mL) 1,000 ML 1000 ML IV (15:29)
[2025-09-05 15:39] LABS: Mucous, Urine 0 SEEN /hpf (<or=2+); Squamous Epithelial Cells - UA 0 SEEN /hpf (0-5)
[2025-09-05 15:42] LABS: Color, Urine Yellow (Yellow); Glucose, Dipstick Normal (Normal); Ketone-Dipstick Negative (Negative); Leukocyte Esterase-Dipstick Negative /ul (Negative); Nitrite-Dipstick Negative (Negative); Occult Blood-Urine 10 /ul (Negative); Protein-Dipstick 15 mg/dl (Negative); Specific Gravity, Urine 1.015 (1.002-1.030); Urine Bilirubin Dipstick Negative (Negative)
--- NOTE | 2025-09-05 15:50 | RAD_ITS ---
PROCEDURE: CHEST PA AND LATERAL 09/05/2025 REASON FOR EXAM: FEVER TECHNIQUE: Procedure Code: RADCXR Modality: DX Procedure: CHEST PA AND LATERAL COMPARISON: None available. FINDINGS: Hardware: None. Heart: The heart size is normal. Mediastinum: The mediastinal contour is unremarkable. Lungs: The lungs are clear. No pneumothorax or pleural effusion. Bones: The bones are unremarkable. RAD/Chest PA and Lateral IMPRESSION: NO ACUTE FINDINGS. Reading [facility]
[2025-09-05 15:54] LABS: Magnesium 2.5 mg/dL (1.5-2.2)
[2025-09-05 15:55] LABS: AST(SGOT) 23 U/L (<=37); Alanine Aminotransfer ALT/SGPT 14 U/L (<=46); Albumin, Serum 4.2 g/dL (3.4-4.8); Alkaline Phosphatase 65 U/L (40-129); Anion Gap 10 (7-18); BUN 20 mg/dL (4-19); BUN/Creat Ratio 14.4 RATIO (10-20); Calcium,Total 9.6 mg/dL (7.6-11.0); Carbon Dioxide 25.0 mmol/L (20.0-29.0); Chloride 102 mmol/L (96-106); Estimated Creatinine Clearance 56.18 ml/min (50-250); Globulin 2.9 g/dL (2.2-4.2); Glucose 96 mg/dL (70-99); Potassium 4.3 mmol/L (3.5-5.1)
[2025-09-05 15:56] LABS: Red Blood Cells-Urine 0-5 SEEN /hpf (0-5)
[2025-09-05 16:08] LABS: Troponin T High Sensitivity 16 ng/L (<=22)
[2025-09-05 16:08] LABS: Hematocrit 47.1 % (40-54); Hemoglobin 15.4 g/dL (13.0-16.5); Immature Granulocytes Count 0.040 X10^3/uL (0.0-0.0); Mean Corp Hgb Conc 32.7 g/dL (32-36); Mean Corpuscular Volume 95.7 fL (80-94); Mean Platelet Vol. 10.0 fl (6.2-12.0); NRBC Flagged by Analyzer 0 % (0-5); POSITIVE DIFFERENTIAL YES; Platelet Count 171 K/mm3 (150-450); RBC Distribution Width CV 12.5 % (11.6-14.6); RBC Distribution Width SD 44.2 fl (35.1-43.9); Red Blood Count 4.92 M/mm3 (4.6-6.2); White Blood Count 6.0 K/mm3 (4.4-11.0)
[2025-09-05 16:23] LABS: Partial Thromboplast Time 29.4 Seconds (24.1-36.2); Prothrombin Time (Protime)PT. 13.4 SECONDS (11.7-14.9)
[2025-09-05 18:06] LABS: Troponin T High Sens 2 HR 20 ng/L (<=22)
--- NOTE | 2025-09-05 18:23 | PCM.HP.STD ---
HPI - General General Date of Admission: 09/05/25 Date of Service: 09/05/25 Chief Complaint: LH/dizziness, F/C, congestion. HPI Narrative The patient is a 75 y/o M w/ PMHx: Hx VTE, RLS, GERD, JESSICA on CPAP, HTN, Hx arterial dissection who presents to [facility] ED on 09/05/2025 with history of recent onset of lightheadedness, dizziness and cold-like symptoms noted that he had taken his gabapentin a day prior secondary to needing to sleep with his restless leg syndrome unfortunately taking too much medication specifically more than he supposed to waking in the middle of the night however with fever, congestion and ongoing lightheadedness prompting to call primary care physician who recommended patient present to the ED for evaluation to be cautious. Patient denies any specific dyspnea, nausea, emesis, diarrhea, dysuria or shortness of breath. Patient in the ED has no neurological deficits per ED physician. No one else in the house has been sick but they did recently have their grandchildren over for making cookies the day prior. Workup in the ED included T1 100.1, heart rate 68, BP 126/84, respiratory rate 20, 97% on room air, orthostatics not marked appearing, most recent repeat vitals T98.5, heart rate 67, BP 137/89, respiratory rate 18, 99% on room air, CBC with WC 6.0, hemoglobin 15.4, platelet 171 with lymphopenia, unremarkable coags, CMP with BUN/creatinine 20/1.36, GFR 56, mag 2.5, lactic acid less than 1, troponin initial 16 with repeat delta 20, urinalysis not marked appearing, CT brain with no acute intracranial abnormality with age-related senescent changes, chest x-ray with no acute cardiopulmonary findings, EKG with SR with no acute evidence ischemia, rapid SARS COVID/influenza/RSV with positive COVID, EKG with sinus rhythm with first-degree AV block with no acute evidence of ischemia. Patient in the ED significantly weak and debilitated, unable to ambulate very unsteady on his feet needing an assistance secondary to his lightheadedness. In the ED patient ministered 1 L normal saline. [facility] Medical History Hoarseness Benign essential tremor Wears hearing aid Wears glasses Arthritis DVT (deep venous thrombosis) Restless legs Back pain Blackout Gastric reflux Non-smoker CPAP (continuous positive airway pressure) dependence History of pain when walking History of edema History of stress test Cardiology follow-up encounter Hypertension Artery dissection Home Medications ?Medication ?Instructions ?Recorded ?Last Taken ?Type lansoprazole 15 mg capsule,delayed 15 mg PO DAILY 05/29/18 09/05/25 History release propranolol 20 mg tablet 20 mg PO BID 05/29/18 09/05/25 History glucosamine sulf dipot 1 cap PO DAILY 06/13/21 06/02/22 History chlr,msm,chond 550 mg-C 30 mg-shahbaz 1 mg capsule (Glucosamine Chondroitin) gabapentin 300 mg capsule 900 mg PO QHS PRN PRN RLS 05/27/22 09/04/25 History Allergy/AdvReac Type Severity Reaction Status Date / Time hydrocodone (From Vicodin) Allergy HYPOTENSION Verified 09/05/25 12:07 Family History Father Cancer prostate Diabetes Mother CVA (cerebral vascular accident) Sister Psoriatic arthritis Surgical History S/P hernia repair History of kidney surgery History of right knee joint replacement Hx of left knee surgery Hx of left knee surgery Hx of colonoscopy Social History Smoking Status: Never smoker alcohol intake: current details: occasional substance use type: does not use ROS ROS Narrative Admission Review of Systems: CONSTITUTIONAL: No weight loss, + fever, chills, weakness or fatigue. HEENT: + Headache, congestion. Eyes: No visual loss, blurred vision, double vision or yellow sclerae. Ears, Nose, Throat: No hearing loss, sneezing. SKIN: No rash or itching, lesions, wounds. CARDIOVASCULAR: No chest pain, chest pressure or chest discomfort, palpitations, edema, orthopnea, syncopal events. RESPIRATORY: No dyspnea, cough, marked sputum, wheezing, hemoptysis. GASTROINTESTINAL: + anorexia. No nausea, vomiting, diarrhea, abdominal pain, melena, BRBPR. GENITOURINARY: No dysuria, frequency, urgency or retention. NEUROLOGICAL: + headache, dizziness/lightheadedness, confusion. No syncope, paralysis, ataxia, numbness or tingling in the extremities, focal weakness, change in bowel or bladder control, seizure. MUSCULOSKELETAL: + muscle, back pain, joint pain or stiffness. HEMATOLOGIC: No anemia, bleeding or bruising. LYMPHATICS: No enlarged nodes. No history of splenectomy. PSYCHIATRIC: No history of depression or anxiety. ENDOCRINOLOGIC: No reports of sweating, cold or heat intolerance. No polyuria or polydipsia. ALLERGIES: No history of asthma, hives, eczema or rhinitis. Patient's Goals Of Care . What would you like to achieve or improve as a result of your hospital stay?: Improved from acute illness, able to be more active, less weak. Vital Signs Vital Signs Vital Signs: 09/05/25 12:07 09/05/25 13:00 09/05/25 13:03 Temperature 100.1 F H 98.7 F Temperature Source Oral Oral Pulse Rate 68 67 62 Pulse Rate [Lying] Pulse Rate [Sitting (for 1 minute prior to obtaining)] Pulse Rate [Standing (for 1 minute prior to obtaining)] Respiratory Rate 20 H 15 Blood Pressure 126/84 H 135/82 H 121/74 H Blood Pressure [Lying] Blood Pressure [Sitting (for 1 minute prior to obtaining)] Blood Pressure [Standing (for 1 minute prior to obtaining)] Blood Pressure Mean 98 99 89 Blood Pressure Mean [Lying] Blood Pressure Mean [Sitting (for 1 minute prior to obtaining)] Blood Pressure Mean [Standing (for 1 minute prior to obtaining)] Pulse Ox 99 97 Oxygen Delivery Method Room Air 09/05/25 14:16 09/05/25 15:13 09/05/25 15:13 Temperature 98.9 F 98.9 F Temperature Source Oral Oral Pulse Rate 62 65 Pulse Rate [Lying] Pulse Rate [Sitting (for 1 minute prior to obtaining)] Pulse Rate [Standing (for 1 minute prior to obtaining)] Respiratory Rate 18 19 H Blood Pressure 133/79 H 132/83 H 132/83 H Blood Pressure [Lying] Blood Pressure [Sitting (for 1 minute prior to obtaining)] Blood Pressure [Standing (for 1 minute prior to obtaining)] Blood Pressure Mean 97 99 99 Blood Pressure Mean [Lying] Blood Pressure Mean [Sitting (for 1 minute prior to obtaining)] Blood Pressure Mean [Standing (for 1 minute prior to obtaining)] Pulse Ox 97 96 Oxygen Delivery Method Room Air Room Air 09/05/25 15:21 09/05/25 16:40 09/05/25 17:14 Temperature 98.4 F 98.5 F Temperature Source Oral Oral Pulse Rate 63 67 Pulse Rate [Lying] 62 Pulse Rate [Sitting (for 1 minute prior to obtaining)] 65 Pulse Rate [Standing (for 1 minute prior to obtaining)] 66 Respiratory Rate 22 H 18 Blood Pressure 142/86 H 137/89 H Blood Pressure [Lying] 131/90 H Blood Pressure [Sitting (for 1 minute prior to obtaining)] 137/86 H Blood Pressure [Standing (for 1 minute prior to obtaining)] 139/81 H Blood Pressure Mean 104 105 Blood Pressure Mean [Lying] 103 Blood Pressure Mean [Sitting (for 1 minute prior to obtaining)] 103 Blood Pressure Mean [Standing (for 1 minute prior to obtaining)] 100 Pulse Ox 99 99 Oxygen Delivery Method Room Air Room Air 09/05/25 18:00 Temperature 98.9 F Temperature Source Oral Pulse Rate 69 Pulse Rate [Lying] Pulse Rate [Sitting (for 1 minute prior to obtaining)] Pulse Rate [Standing (for 1 minute prior to obtaining)] Respiratory Rate 22 H Blood Pressure 132/64 H Blood Pressure [Lying] Blood Pressure [Sitting (for 1 minute prior to obtaining)] Blood Pressure [Standing (for 1 minute prior to obtaining)] Blood Pressure Mean 86 Blood Pressure Mean [Lying] Blood Pressure Mean [Sitting (for 1 minute prior to obtaining)] Blood Pressure Mean [Standing (for 1 minute prior to obtaining)] Pulse Ox 96 Oxygen Delivery Method Weight Weight: 209 lb 14.081 oz Body Mass Index (BMI) 28.4 Physical Exam Narrative Physical Examination: General: Awakens to stimuli, intermittently alert, oriented to self, place but does appear confused, notably warm to touch, does follow commands/remains cooperative, laying in ED bed, fatigued and ill-appearing. Skin: Normal color, normal turgor, no icterus, no cyanosis except occasional abrasion, stage ecchymoses. HEENT: AT/NC, EOM difficult to assess given falling back asleep, PERRLA, dry MM, no carotid bruits or JVD noted. Lungs: Diminished, greater bases, proper effort, no rales, ronchi or wheezing. Heart: Currently regular rate and rhythm; no gallop, rub audible. Abdomen: Soft, overweight, NTTP, ND, distant normal BS, no appreciated HSM. Extremities: No cyanosis, no clubbing, no marked significant distal edema. Neurological: Awakens to stimuli, intermittently alert, oriented to self, place but does appear confused, notably warm to touch, does follow commands/remains cooperative, laying in ED bed, fatigued and ill-appearing, cognitive function not baseline intact; pupils equally reactive to light and accommodation, cranial nerves grossly normal, moving all 4 extremities, strength severely globally decreased. Psychiatric: Affect appears flat, fatigued, ill-appearing, encephalopathic, no acute evidence of depressive or anxiety feelings. Results Lab / Micro Data 09/05/25 15:58 09/05/25 15:09 Labs: Laboratory Results - last 24 hr 09/05/25 15:09: WBC Cancelled, Corrected WBC Cancelled, RBC Cancelled, Hgb Cancelled, Hct Cancelled, MCV Cancelled, MCH Cancelled, MCHC Cancelled, RDW Std Deviation Cancelled, RDW Coeff of Charly Cancelled, Plt Count Cancelled, MPV Cancelled, Immature Gran % (Auto) Cancelled, Neut % (Auto) Cancelled, Lymph % (Auto) Cancelled, [place] % (Auto) Cancelled, Eos % (Auto) Cancelled, Baso % (Auto) Cancelled, Absolute Neuts (auto) Cancelled, Absolute Lymphs (auto) Cancelled, Total Counted Cancelled, Neutrophils % (Manual) Cancelled, Band Neutrophils % Cancelled, Lymphocytes % (Manual) Cancelled, Monocytes % (Manual) Cancelled, Eosinophils % (Manual) Cancelled, Basophils % (Manual) Cancelled, Metamyelocytes % Cancelled, Myelocytes % Cancelled, Promyelocytes % Cancelled, Blast Cells % Cancelled, Plasma Cell % (Manual) Cancelled, Other Cells % Cancelled, Nucleated RBC % Cancelled, Nucleated RBCs/100 WBC Cancelled, Differential Comment Cancelled, Diff Path Review Cancelled, Hypersegmented Neuts Cancelled, Atypical Lymphocytes Cancelled, Reactive Lymphocytes Cancelled, Smudge Cells Cancelled, Toxic Granulation Cancelled, Toxic Vacuolation Cancelled, Dohle Bodies Cancelled, Monserrat Rods Cancelled, Platelet Estimate Cancelled, Plt Morphology Comment Cancelled, RBC Morphology Cancelled 09/05/25 15:09: RBC Morphology Cancelled, Polychromasia Cancelled, Hypochromasia Cancelled, Basophilic Stippling Cancelled, Anisocytosis Cancelled, Microcytosis Cancelled, Macrocytosis Cancelled, Spherocytes Cancelled, Sickle Cells Cancelled, Target Cells Cancelled, Tear Drop Cells Cancelled, Ovalocytes Cancelled, Stomatocytes Cancelled, [place] Bodies Cancelled, [place] Cells Cancelled, Bite Cells Cancelled, Crenated Cell Cancelled, Acanthocytes (Spur) Cancelled, Rouleaux Cancelled, Schistocytes Cancelled, PT Cancelled, INR Cancelled, APTT Cancelled, Sodium 137, Potassium 4.3, Chloride 102, Carbon Dioxide 25.0, Anion Gap 10, BUN 20 H, Creatinine 1.36 H, Estim Creat Clear Calc 56.18, Est GFR (MDRD) Non-Af 54 L, BUN/Creatinine Ratio 14.4, Glucose 96, Lactic Acid < 1.0, Calcium 9.6, Magnesium 2.5 H, Total Bilirubin 0.46, AST 23, ALT 14, Alkaline Phosphatase 65, Troponin T High Sens 16, Total Protein 7.1, Albumin 4.2, Globulin 2.9, Albumin/Globulin Ratio 1.5 09/05/25 15:31: Urine Color Yellow, Urine Clarity Clear, Urine pH 6.0, Ur Specific [place] 1.015, Urine Protein 15 H, Urine Glucose (UA) Normal, Urine Ketones Negative, Urine Occult Blood 10 H, Urine Nitrite Negative, Urine Bilirubin Negative, Urine Urobilinogen Normal, Ur Leukocyte Esterase Negative, Urine RBC 0-5 SEEN, Urine WBC 0 SEEN, Ur Squamous Epith Cells 0 SEEN, Urine Bacteria 0 SEEN, Urine Mucus 0 SEEN 09/05/25 15:58: WBC 6.0, RBC 4.92, Hgb 15.4, Hct 47.1, MCV 95.7 H, MCH 31.3, MCHC 32.7, RDW Std Deviation 44.2 H, RDW Coeff of Charly 12.5, Plt Count 171, MPV 10.0, Immature Gran % (Auto) 0.700, Neut % (Auto) 78.5 H, Lymph % (Auto) 9.3 L, [place] % (Auto) 11.0 H, Eos % (Auto) 0.2, Baso % (Auto) 0.3, Absolute Neuts (auto) 4.7, Absolute Lymphs (auto) 0.56 L, Nucleated RBC % 0, PT 13.4, INR 1.0, APTT 29.4 09/05/25 17:38: Troponin T Hi Sens 2 Hr 20 Micro: Microbiology 09/05/25 16:08 Mucosa - Nose SARS-CoV-2, Influenza & RSV (PCR) - Final SARS-CoV-2 (COVID 19 PCR) Imaging Radiology Impression Brain CT 09/05/25 14:18 IMPRESSION: 1. No acute intracranial abnormality. 2. Age-related senescent changes. Reading Location: [id number] Chest X-Ray 09/05/25 15:50 IMPRESSION: NO ACUTE FINDINGS. [facility] Assessment & Plan Assessment/Plan (1) COVID: PLAN: Plan The patient is a 75 y/o M w/ PMHx: Hx VTE, RLS, GERD, JESSICA on CPAP, HTN, Hx arterial dissection who presents to [facility] ED on 09/05/2025 with history of recent onset of lightheadedness, dizziness and cold-like symptoms noted that he had taken his gabapentin a day prior secondary to needing to sleep with his restless leg syndrome unfortunately taking too much medication specifically more than he supposed to waking in the middle of the night however with fever, congestion and ongoing lightheadedness prompting to call primary care physician who recommended patient present to the ED for evaluation to be cautious. #1. Lightheadedness, dizziness,, acute encephalopathy, debility, weakness with adult failure to thrive secondary to Acute Viral Syndrome, COVID-19: Will admit to the [facility], maintain on COVID precautions, will have PRN albuterol, HOB, IS parameters, will obtain D-dimer, procalcitonin, CRP, CPK, Ferritin, LDH and BNP, continue supportive care, given patient is not hypoxic will defer Decadron and remdesivir at this time but continue to closely monitor and initiate if appropriate. Will maintain on chemoprophylaxis. #2. Hypertension: Continue home regimen including propranolol with hold parameters as needed, PRN hydralazine. #3. History VTE: Not currently chronically active coagulated, Will maintain on Lovenox therapy. #4. Restless leg syndrome: Will very cautiously continue gabapentin as needed nightly for symptoms. #5. Chart reported history of previous arterial dissection: Per record appears as though patient had surgical intervention for renal artery, unclear specifics, encourage follow-up outpatient as previously arranged. #6. GERD: Will continue patient on PPI. #7. JESSICA: CPAP nightly. #8. DVT prophylaxis: Lovenox. Charges/Coding Visit Charges Inpatient E&M: 14335 Init Hosp L2
[2025-09-05 19:22] LABS: D-Dimer Quantitative (DVT/PE) 1.85 FEU/ug/m (0.27-0.49)
[2025-09-05 19:40] LABS: CPK Total, Creatine Kinase 88 U/L (24-195); Ferritin 252 ng/mL (37-417); Pro- Brain NATRIURETIC PEPTIDE 278 pg/mL (<=1800)
[2025-09-05 19:56] LABS: CRP 11.20 mg/L (0.0-3.0); LDH 218 U/L (87-241)
--- NOTE | 2025-09-05 20:00 | CT_ITS ---
PROCEDURE: CTA CHEST W/WO CONTRAST 09/05/2025 REASON FOR EXAM: ELEVATED D-DIMER, POSSIBLE PE TECHNIQUE: Procedure Code: [id number] Modality: CT Procedure: CTA CHEST W/WO CONTRAST Multiplanar Sagittal and Coronal images were obtained. CONTRAST: Isovue 370 VOLUME: 100 mL One or more dose reduction techniques were used (e.g., Automated exposure control, adjustment of the mA and/or kV according to patient size, use of iterative reconstruction technique). RADIATION DOSE SUMMARY: CTDlvol: 19+ 13 mGy DLP: Artery 30 mGycm FINDINGS: The peripheral soft tissues are unremarkable. Degenerative changes of the spine. The esophagus is normal in caliber. Hepatic cysts. Partially visualized right kidney cyst. Normal caliber thoracic aorta with mild atherosclerosis. Coronary artery calcifications are present. No pulmonary artery filling defects. Bilateral lower lobe linear bands likely representing atelectasis versus scar. CT/CTA Chest W/WO Contrast IMPRESSION: No evidence of pulmonary embolism. Normal caliber thoracic aorta with mild atherosclerosis. Coronary artery calcifications. Bilateral lower lobe linear opacities, most consistent with atelectasis or scar ring. Incidental hepatic cysts and partially visualized right renal cyst. Reading [facility]
[2025-09-05 20:10] LABS: Troponin T High Sens 4 HR 18 ng/L (<=22)
--- OUTSIDE RECORDS SUMMARY | 2025-09-05 20:53 | XMS RPT_ITS | CCD ---
Author Organization [facility] Care Team Providers Care [place] Naturalist Name Role Phone Hermann Gonzales MD Primary Care Provider Dr. Hermann Gonzales Primary Care Provider Dr. Rashi Davidson Attending Provider SUDHA Bowers Referring Provider Dr. Rashi Davidson Referring Provider Dr. Rashi Davidson Other Provider [phone] Hermann Gonzales MD Primary Care Provider Nasim Jacobson Attending Unavailable Nasim Jacobson Referring Unavailable Christian Hermann Primary Care Unavailable Rashi Davidson Attending Unavailable Vane Mart Referring Unavailable Christian Hermann Primary Care Unavailable Rashi Davidson Referring [facility] Unavailable Alia Barragan Attending Unavailable Rene Estevez Attending Unavailable Rashi Davidson Referring Unavailable Hermann Gonzales Primary Care Unavailable Rashi Davidson Referring Unavailable Rashi Davidson Consulting Unavailable Christian Hermann Primary Care Unavailable Rashi Davidson Attending Unavailable Rashi Davidson Referring Unavailable Christian Hermann Primary Care Unavailable Rashi Davidson Attending Unavailable Hermann Gonzales MD Primary Care Provider Hermann Gonzales MD Primary Care Provider Richard STUDENT COUNSELOR.Madyson FLORES Unavailable Vane Mart PA-C Unavailable Richard PARK.Madyson FLORES Unavailable Vane Mart PA-C Unavailable LIZBETH PEREZ Attending Unavailable HERMANN GONZALES A Primary Care Unavailable HERMANN GONZALES Primary Care Unavailable VANE MART Attending Unavailable HERMANN GONZALES Primary Care Unavailable VANE MART Referring Unavailable HERMANN GONZALES Primary Care Unavailable KEN JOHNSON Attending Unavailable CHRISTIAN, HERMANN A Primary Care Unavailable CHELSEA FREEMAN Attending Unavailable VANE MART Referring Unavailable HERMANN GONZALES Primary Care Unavailable VANE MART Attending Unavailable HERMANN GONZALES Primary Care Unavailable HERMANN GONZALES Referring Unavailable CHRISTIANZULEYMAHERMANN A Primary Care Unavailable CHRISTIANZULEYMA TESFAYEREY A Primary Care Unavailable LIZBETH PEREZ Attending Unavailable HERMANN GONZALES Primary Care Unavailable HERMANN GONZALES Primary Care Unavailable VANE MART Referring Unavailable Allergies Allergy Classification Reported Allergen(s) Allergy Type Date of Onset Reaction(s) Facility (20 sources) Acetaminophen / HYDROcodone; Translations: [HYDROCODONE-ACET AMINOPHEN] Drug Allergy 0 Other: See Comments [facility] Work Phone: (1 source) HYDROcodone Drug Allergy [address] [facility] Work Phone: (1 source) HYDROcodone Drug Allergy [address] [facility] Repository (13 sources) Oseltamivir; Translations: [OSELTAMIVIR] Drug Allergy 5 Rash [facility] Medications Current Medications Medication Drug Class(es) Dates Sig (Normalized) Sig (Original) cholecalciferol 0.1 mg oral capsule (2 sources) Vitamin D Start: 05-27-2022 take 100 ug by mouth once daily Cholecalciferol (Vitamin D3) Active 100 MCG PO DAILY May 27, 2022 12:00am Start: 06-13-2021 End: 05-08-2022 take 1 tablet by mouth once daily Cholecalciferol (Vitamin D3) (Vitamin D3) 25 mcg (1,000 unit) Tablet Discontinued 25 MCG PO DAILY June 13, 2021 12:00am May 08, 2022 1:06pm CPAP (20 sources) Start: 01-27-2023 CPAP 1 Device by MISCELLANEOUS route daily at bedtime. NEW SET UP: Settings 10 - 14 cm H2O, suitable mask per pt preference, chin strap, head gear, humidity, tubing, lifetime supplies. G47.33 JESSICA DME - [facility] 1 Each 01/27/2023 Active Start: 02-08-2022 End: 01-03-2025 CPAP Change current settings : Settings 10 - 14 cm H2O, suitable mask per pt preference, chin strap, head gear, humidity, tubing, lifetime supplies. G47.33 JESSIAC 1 Each 02/08/2022 01/03/2025 Discontinued Start: 02-08-2022 End: 01-27-2023 CPAP 1 Device by [employer] route daily at bedtime. NEW SET UP: Settings 10 - 14 cm H2O, suitable mask per pt preference, chin strap, head gear, humidity, tubing, lifetime supplies. G47.33 JESSICA 1 Each 02/08/2022 01/27/2023 Discontinued Start: 02-08-2022 CPAP 1 Device by Screen[employer]ANE[employer] route daily at bedtime. NEW SET UP: Settings 10 - 14 cm H2O, suitable mask per pt preference, chin strap, head gear, humidity, tubing, lifetime supplies. G47.33 JESSICA 1 Each 02/08/2022 Active Start: 02-08-2022 CPAP Change cu rrent settings: Settings 10 - 14 cm H2O, suitable mask per pt preference, chin strap, head gear, humidity, tubing, lifetime supplies. G47.33 JESSICA 1 Each 02/08/2022 Active Start: 11-08-2020 End: 02-08-2022 CPAP 1 Device by [employer] route daily at bedtime. Pressure change: AutoCPAP 12-18 cm H2O, suitable mask per pt preference, head gear, humidity, tubing, filters, lifetime supplies, please fax 30 day download to [phone] G47.33 Obstructive Sleep Apnea DME: [facility] 1 Device 0 11/08/2020 02/08/2022 Discontinued Comment on above: 1 Device by ScreenCELLA [employer] route daily at bedtime. NEW SET UP: Settings 10 - 14 cm H2O, suitable mask per pt preference, chin strap, head gear, humidity, tubing, lifetime supplies. G47.33 JESSICA Change current setti ngs: Settings 10 - 14 cm H2O, suitable mask per pt preference, chin strap, head gear, humidity, tubing, lifetime supplies. G47.33 JESSICA 1 Device by MISCELLA NEOUS route daily at bedtime. Pressure change: AutoCPAP 12-18 cm H2O, suitable mask per pt preference, head gear, humidity, tubing, filters, lifetime supplies, please fax 30 day download to [phone] G47.33 Obstructive Sleep Apnea DME: [employer] 1 Device by MISCELLA NEOUS route daily at bedtime. NEW SET UP: Settings 10 - 14 cm H2O, suitable mask per pt preference, chin strap, head gear, humidity, tubing, lifetime supplies. G47.33 JESSICA [facility] - [facility] DAILY MULTI-VITAMIN ORAL (20 sources) DAILY MULTI-DONTE MIN ORAL Take by mouth as directed. Active DAILY MULTI-DONTE MIN ORAL Take by mouth as directed. 0 Active Comment on above: Take by mouth as dir ected. gabapentin 300 mg oral capsule (20 sources) Anti-epileptic Agent Start: 02-17-2022 End: 07-02-2025 take 3 capsules by mouth once daily at bedtime gabapentin (NEURONTIN) 300 mg capsule Indications: RLS (restless legs syndrome) Take 3 capsules by mouth daily at bedtime for 180 days. 270 capsule 1 01/03/2025 07/02/2025 Active Start: 11-23-2021 End: 02-08-2022 take 3 capsules by mouth once daily at bedtime, then take 1-3 capsules by mouth at bedtime gabapentin (NEURONTIN) 300 mg capsule Indications: RLS (restless legs syndrome) Take 3 capsules by mouth daily at bedtime for 90 days. Take 1-3 capsules 30 minutes prior to bedtime as instructed. 270 capsule 0 11/23/2021 02/08/2022 Discontinued Start: 05-29-2018 End: 05-08-2022 take 100 mg by mouth three times daily at mealtime Gabapentin Discontinued 100 MG PO 3 TIMES DAILY WITH MEALS May 29, 2018 12:00am May 08, 2022 1:06pm Comment on above: Take 3 capsules by m outh daily at bedtime for 180 days. Take 1-3 capsules 30 minutes prior to bedtime as instructed. Do not start before February 17, 2022. Take 3 capsules by m outh daily at bedtime for 90 days. Take 1-3 capsules 30 minutes prior to bedtime as instructed. Take 3 capsules by m outh daily at bedtime for 180 days. Take 1-3 capsules 30 minutes prior to bedtime as instructed. Take 3 capsules by m outh daily at bedtime for 180 days. Glucos Sul 5qub-Hue-Powef-C-Mn (Glucosamine Chondroitin) 550-30-1 mg Capsule (1 source) Start: take 1 capsule by mouth once daily Glucos Sul 5nya-Qvm-Unvrh-C-Mn (Glucosamine Chondroitin) 550-30-1 mg Capsule Active 1 CAP PO DAILY June 13, 2021 12:00am glucos sul 2KCl/msm/chond/C/Mn (GLUCOSAMINE CHONDROITIN ORAL) (20 sources) glucos sul 2KCl/msm/chond/C/Mn (GLUCOSAMINE CHONDROITIN ORAL) Take by mouth as directed. Active glucos sul 2KCl/ msm/chond/C/Mn (GLUCOSAMINE CHONDROITIN ORAL) Take by mouth as directed. 0 Active Comment on above: Take by mouth as dir ected. lansoprazole 15 mg delayed release oral capsule (20 sources) Proton Pump Inhibitor Start: 05-29-20 End: 05-20-20 take 1 capsule by mouth once daily lansoprazole (PREVACID) 15 mg capsule Take 1 capsule by mouth once daily. 90 capsule 1 05/20/2025 Active Comment on above: Take 1 capsule by [facility] once daily. oseltamivir 75 mg oral capsule (1 source) Neuraminidase Inhibitor Start: 10-24-19 End: 10-29-19 take 1 capsule by mouth twice daily oseltamivir (TAMIFLU) 75 mg capsule Take 1 capsule by mouth two times a day for 5 days. 10 capsule 10/24/2024 10/29/2024 Active propranolol hydrochloride 20 mg oral tablet (20 sources) beta-Adrenergic Jimbo Start: 05-19-20 take 1 tablet by mouth twice daily propranolol (INDERAL) 20 mg tablet Take 1 tablet by mouth two times a day. 180 tablet 3 05/19/2025 Active Start: 05-29-2018 End: 05-17-2025 take 1 tablet by mouth twice daily propranolol (INDERAL) 20 mg tablet take 1 tablet by mouth twice a day 180 tablet 3 03/29/2024 05/17/2025 Discontinued Comment on above: Take 1 tablet by [place] twice daily. triamcinolone acetonide 1 mg/ml topical cream (12 sources) Corticosteroid Start: 10-30-2024 triamcinolone acetonide (KENALOG) 0.1 % cream Apply 1 application to affected area three times a day. Apply sparingly to area for rash/itching. 30 g 10/30/2024 Active Completed/Discontinued Medications Medication Drug Class(es) Dates Sig (Normalized) Sig (Original) cetirizine hydrochloride 10 mg oral tablet (7 sources) Histamine-1 Receptor Antagonist Start: 10-30-2024 End: 01-03-2025 take 1 tablet by mouth once daily cetirizine (ZYRTEC) 10 mg tablet Take 1 tablet by mouth once daily. 30 tablet 10/30/2024 01/03/2025 Discontinued ergocalciferol, vitamin D2, (VITAMIN D2 ORAL) (11 sources) End: 11-29-2022 ergocalciferol, vitamin D2, (VITAMIN D2 ORAL) Take by mouth. 0 11/29/2022 Discontinued (Discontinued by Patient) ergocalciferol, vitamin D2, (VITAMIN D2 ORAL) Take by mouth. 0 Active Comment on above: Take by mouth. Problems Active Problems Problem Classification Problem Date Documented Da te Episodic/Chronic Administrative/social admission (20 sources) Advance directive discussed with patient; Translations: [Other specified counseling] Onset: 3 Episodic Chronic kidney disease (20 sources) Chronic kidney disease stage 3; Translations: [CKD (chronic kidney disease), stage III] Onset: 8 04-25-2021 Chronic Chronic kidney disease (1 source) Chronic kidney disease; Translations: [Stage 3a chronic kidney disease (HCC)] Onset: 4 Diabetes mellitus without complication (16 sources) Type 2 diabetes mellitus without complication; Translations: [Type 2 diabetes mellitus without complications] Onset: 5 11-17-2024 Chronic Disorders of lipid metabolism (20 sources) Mixed hyperlipidemia; Translations: [Mixed hyperlipidemia] Onset: 6 04-25-2021 Chronic Esophageal disorders (20 sources) Gastroesophageal reflux disease without esophagitis; Translations: [Gastro-esophageal reflux disease without esophagitis] Onset: 6 04-25-2021 Chronic Essential hypertension (20 sources) Benign essential hypertension; Translations: [Essential (primary) hypertension] Onset: 1 04-25-2021 Chronic Hyperplasia of prostate (20 sources) Benign prostatic hypertrophy with outflow obstruction; Translations: [Benign prostatic hyperplasia with lower urinary tract symptoms] Onset: 9 04-25-2021 Chronic Osteoarthritis (20 sources) Arthritis of right ankle; Translations: [Primary osteoarthritis, right ankle and foot] Onset: 9 Resolved: 5 04-25-2021 Chronic Other gastrointestinal disorders (1 source) Altered bowel function; Translations: [Change in bowel habit] 05-20-2025 Episodic Other gastrointestinal disorders (1 source) Change in bowel habit; Translations: [Bowel habit changes] Onset: 5 Episodic Other hereditary and degenerative nervous system conditions (20 sources) Restless legs; Translations: [Restless legs syndrome] Onset: 6 Chronic Other hereditary and degenerative nervous system conditions (20 sources) Essential tremor; Translations: [Essential tremor] Onset: 4 10-31-2021 Chronic Other hereditary and degenerative nervous system conditions (1 source) Essential tremor; Translations: [Essential tremor] Onset: 5 Chronic Other hereditary and degenerative nervous system conditions (2 sources) Restless legs syndrome; Translations: [Restless legs syndrome (RLS)] Onset: 1 Chronic Other nervous system disorders (20 sources) Disorder of autonomic nervous system; Translations: [Disorder of the autonomic nervous system, unspecified] Onset: 4 04-25-2021 Chronic Other nutritional; endocrine; and metabolic disorders (1 source) Obese class I; Translations: [Obesity, Class I, BMI 30-34.9] 11-30-2024 Chronic Other skin disorders (1 source) Eruption; Translations: [Rash and other nonspecific skin eruption] 10-30-2024 Episodic Residual codes; unclassified (20 sources) Obstructive sleep apnea syndrome; Translations: [Obstructive sleep apnea (adult) (pediatric)] Onset: 8 Chronic Residual codes; unclassified (5 sources) Hypoxia; Translations: [Idiopathic sleep related nonobstructive alveolar hypoventilation] Chronic Residual codes; unclassified (2 sources) Obstructive sleep apnea (adult) (pediatric); Translations: [JESSICA (obstructive sleep apnea)] Onset: 1 Chronic Residual codes; unclassified (1 source) Idiopathic sleep related nonobstructive alveolar hypoventilation; Translations: [Nocturnal hypoxia] Onset: 5 Chronic Residual codes; unclassified (1 source) Viral syndrome; Translations: [Other general symptoms and signs] 10-24-2024 Episodic Unclassified (1 source) NO SHOW 11-11-2023 Unclassified (1 source) Obesity, Class I, BMI 30-34.9; Translations: [Obesity, Class I, BMI 30-34.9] Onset: 5 Past or Other Problems Problem Classification Problem Date Documented Da te Episodic/Chronic Abdominal hernia (20 sources) Umbilical hernia; Translations: [Umbilical hernia without obstruction or gangrene] Onset: 05-10-2022 Resolved: 11-01-2022 Episodic Anal and rectal conditions (20 sources) Anorectal abscess; Translations: [Anorectal abscess] Onset: 05-01-2007 Resolved: 04-27-2015 04-27-2015 Episodic Diabetes mellitus without complication (20 sources) Hyperglycemia; Translations: [Hyperglycemia, unspecified] Onset: 05-05-2024 05-05-2024 Episodic Gastritis and duodenitis (17 sources) Acute gastritis; Translations: [Acute gastritis without bleeding] Onset: 11-21-2005 Resolved: 04-27-2015 04-27-2015 Episodic Other aftercare (20 sources) Patient encounter status; Translations: [Other shelter (current) drug therapy] Onset: 04-25-2021 04-25-2021 Episodic Other aftercare (1 source) Other shelter (current) drug therapy; Translations: [Medication management] Onset: 04-25-2021 Episodic Other diseases of kidney and ureters (1 source) Other obstructive and reflux uropathy; Translations: [BPH with obstruction/lower urinary tract symptoms] Onset: 04-25-2021 Episodic Other endocrine disorders (17 sources) Hypoglycemia; Translations: [Hypoglycemia, unspecified] Onset: 09-28-2013 Resolved: 04-27-2015 04-27-2015 Chronic Other male genital disorders (20 sources) Disorder of prostate; Translations: [Disorder of prostate, unspecified] Onset: 04-25-2021 04-25-2021 Episodic Other male genital disorders (1 source) Disorder of prostate, unspecified; Translations: [Prostate disorder] Onset: 04-25-2021 Episodic Other screening for suspected conditions (not mental disorders or infectious disease) (20 sources) Raised prostate specific antigen; Translations: [Elevated prostate specific antigen [PSA]] Onset: 10-31-2021 10-31-2021 Episodic Residual codes; unclassified (20 sources) Family history of prostate cancer; Translations: [Family history of malignant neoplasm of prostate] Onset: 08-24-2012 04-25-2021 Episodic Residual codes; unclassified (20 sources) Active living will ; Translations: [Other specified health status] Onset: 10-31-2021 10-31-2021 Episodic Residual codes; unclassified (1 source) Other specified health status; Translations: [Living will in place] Onset: 10-31-2021 Episodic Spondylosis; intervertebral disc disorders; other back problems (20 sources) Cervical radiculopathy; Translations: [Radiculopathy, cervical region] Onset: 11-14-2016 04-25-2021 Episodic Syncope (17 sources) Vasovagal syncope; Translations: [Syncope and collapse] Onset: 09-28-2013 Resolved: 04-27-2015 04-27-2015 Episodic Results Test Name Value Interpretation Reference Range Facility [facility] 05-27-2025 CNOV Office Visit (NRMDN) YURIY SOUZA ([id number]) 1950 M Date Time Provider Department 05/27/25 1:00 PM LIZBETH PEREZ During your visit today, we recorded the following information about you: Pulse Blood pressure Weight 56/minute 136/81 92.7 kg Lizbeth Perez MD 05/27/2025 7:06 PM Signed [facility] - FOLLOW UP EVALUATION Recording using Med[employer] software for draft documentation of the visit was discussed with the patient/authorized account manager sales representative; all questions welcomed and answered. Patient/authorized account manager sales representative agreed to proceed Hermann Gonzales MD [id number] [facility] [id number] Dear Hermann Gonzales MD: I had the pleasure of seeing Mr. Souza for follow-up today. As you know he is a 75 year old right-handed male with a history of ET since 20+ years . Subjective Previous Plan- 07/19/2024 Visit: Continue propranolol at current dose. It cannot be increased more at this time due to low HR. If additional tremor control is needed then primidone would be a reasonable next step - Interval History: Mike Souza is a 75-year-old male with a history of tremors, presenting for follow-up. He is accompanied by his , who provides additional history. Mike reports a slight worsening of his tremors, which he describes as manageable. He notes increased fidgeting and movement, particularly in his legs and feet, which he can control if necessary. He has experienced this fidgeting since adolescence and does not attribute it to anxiety. He is currently taking propranolol 40 mg daily for tremor management and does not wish to add additional medications at this time. He also reports difficulty with handwriting, particularly in cursive, noting that his letters are shaky but legible. He is able to write checks, though it takes longer than it used to. He takes gabapentin 900 mg at bedtime to help with leg movements during sleep and uses a CPAP machine. He notes that taking gabapentin all at once before bed can cause him to feel dragging or hungover in the morning. He has a history of pre-diabetes, diagnosed six months ago, and has since lost 20 pounds by reducing his intake of fruit juices and monitoring his sugar and carbohydrate intake. His most recent labs on May 18 showed improvement, and his primary care provider expressed satisfaction with his current levels. He aims to lose an additional 10 pounds. He reports stress related to family situations, including his daughter's multiple sclerosis diagnosis and his son's recent diagnosis at age 48. He also mentions concerns about his grandchildren's well-being and future. Despite these stressors, he remains active, attending family events and working in the yard. Movement Disorders Medications Schedule - as of the start of the visit: Medications propranolol 20 mg 1 1 gabapentin for RLS from sleep Other Movement Disorder Prior Therapies Propranolol Questionnaires: In addition, the following activities of daily living that may be affected by tremors were evaluated: Speaking: Affected (mild occasionally) Feeding: Affected (mild) Bringing Liquids to Mouth: Hygiene: Affected (mild) Dressing: Affected (mild) Writing: Affected (marked) Working: Affected (mild) Number of falls in the Last Month: 0 Mood/Behavior Depression: PHQ-9 Score: 5 usually representing mild (5-9) depression. Anxiety: URI-7 Total Score: 5 usually representing mild (5-9) anxiety. Finally, the following table shows the patient's overall global physical and mental health using the PROMIS scale: PROMIS-10 Flowsheet Row Office Visit from 05/27/2025 in Neurology Office Visit from 01/03/2025 in Neurology Global Physical Health T Score 54.1 57.7 Global Mental Health T Score 45.8 48.3 0-10 Standard Pain Scale 4 5 *PROMIS-10 scoring scale: mean = 50, over 50 is above average, under 50 is below average ALLERGIES Allergen Reactions Vicodin [Hydrocodon* Other: See Comments Severe drop in blood pressure, Tamiflu [Oseltamivi* Rash Developed after having influenza A, with tamiflu use, viral rash versus allergy Current Outpatient Medications Medication Sig lansoprazole (PREVACID) 15 mg capsule Take 1 capsule by mouth once daily. propranolol (INDERAL) 20 mg tablet Take 1 tablet by mouth two times a day. gabapentin (NEURONTIN) 300 mg capsule Take 3 capsules by mouth daily at bedtime for 180 days. CPAP 1 Device by MISCELLANEOUS route daily at bedtime. NEW SET UP: Settings 10 - 14 cm H2O, suitable mask per pt preference, chin strap, head gear, humidity, tubing, lifetime supplies. G47.33 JESSICA DME - [employer] glucos sul 2KCl/msm/chond/C/Mn (GLUCOSAMINE CHONDROITIN ORAL) Take by mouth as directed. DAILY MULTI-VITAMIN ORAL Take by mouth as directed. triamcinolone acetonide (KENALOG) 0.1 % cream Apply 1 appli (more content not included)... Normal [facility] CNOVon 05-20-2025 CNOV Office Visit (FAMPWS ) YURIY SOUZA ([id number]) 1950 M Date Time Provider Department 05/20/25 12:00 PM VANE MART During your visit today, we recorded the following information about you: Temperature Pulse Respiration Blood pressure 97.8 degrees 74/minute 16/minute 135/84 Weight Height 93.4 kg 1.782 m Vane Mart PA-C 05/20/2025 1:25 PM Signed Yuriy Souza is a 75 year old male here for a Medicare wellness visit. Medicare Health Risk Assessment General Health good Exercise: Minutes/Day 30min Exercise: Days/Week 7 Alcohol: Daily Use Neverno Alcohol: Drinks/Day Patient does not drink0 Alcohol: 6 or more drinks Nevernever Feel off balance some Concerns: Teeth/Dentures no Concerns: Sexual function no Troubled by feelings no Frequency: Eating healthy diet always ADLs requiring help no Safety precautions in home/vehicle yes Smoke, vape, chews tobacco no Difficulty hearing yes Difficulty seeing no Current Providers Specialists: I have reviewed specialist-related care of the patient in the medical record. Medical/Family history review Reviewed and updated problem list, medical/surgical/family/soci al history, medications, and allergies. Opioid use review Opioid Medications (last 90 days) No data to display Anxiety/Depression screening PHQ-2 Score: 1 (Lower risk for depression) Recommendation: no further intervention at this time Cognitive screening Mini Cog Score: 5 Cognitive screening reviewed and No further action needed (score 3-5). Functional Observation Was the patient's Timed Up AND Go test unsteady or >= 12 seconds? No Advance Care Planning Surrogate decision maker and/or advance care plan documented Measurements BP 144/90 Pulse 74 Temp 36.6 ?C (97.8 ?F) Resp 16 Ht 178.2 cm (5' 10.16) Wt 93.4 kg (206 lb) SpO2 97% BMI 29.43 kg/m? Vision Screening: Follows with optometry/ophthalmology Assessment/Plan Medicare annual wellness visit, subsequent (Z00.00) - Counseled on healthy diet and regular exercise - Fall avoidance information provided - Personalized prevention plan provided Chief Complaint Patient presents with: Medicare Wellness Exam HPI Yuriy Souza is a 75 year old male who presents here today for extensive exam. DM: - Recent A1c decreased from 6.8 to 6.0. - Eliminated sweet drinks from diet; follows dietary recommendations. - Goal to lose 30 lbs; currently lost 20 lbs, weighing 206 lbs. - Working on portion control; consumes high-fiber foods like celery, carrots, and broccoli. CKD: - Recent labs show stable creatinine and improved GFR, but elevated BUN. - Drinks approximately 50 oz of water daily, along with coffee. Tremors: - Managed with propranolol; Mike reports stability when taking medication. - Has an upcoming appointment with Dr. Perez. Restless Leg Syndrome: - Managed with gabapentin; takes one dose after dinner and two doses before bed. - Reports improved sleep quality, sleeping until 0730 or 0800. Balance Concerns: - Experiences mild balance issues, particularly in the morning after taking gabapentin at night. - No falls reported. Bowel Function Changes: - Mike reports smaller diameter stools and increased frequency (up to three times daily) with associated cramping and gas. - Takes a probiotic without noted improvement. Prostate Health: - Recent PSA level stable at 3.6. Past medical history, appointments, medications, allergies reviewed. 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 Benign essential tremor 02/10/2014 BPH with obstruction/lower urinary tract symptoms 04/11/2009 CKD (chronic kidney disease), stage III (HCC) 07/08/2018 Elevated blood sugar 05/05/2024 Elevated PSA 10/31/2021 Per Urology 11/2022: PCP to get PSA's Q 6 months Essential hypertension, benign FHx: prostate cancer 08/24/2012 GERD without esophagitis 10/14/[address] 10/31/2021 DPA: (nAa) Medicare annual wellness visit, subsequent 10/31/2021 Medicare part B: Not able to find, Last done:10/31/2021 Mixed hyperlipidemia 10/14/2005 JESSICA (obstructive sleep apnea) 11/12/2017 DME [facility] for AutoPAP Plantar fasciitis, bilateral 06/03/2017 Radiculopathy, cervical region 11/14/2016 Tremor 10/26/2009 Type 2 diabetes mellitus without complication, without long-term current use of insulin (HCC) 11/17/2024 Umbilical hernia without obstruction or gangrene 05/10/[address] Davidson. Recommended surgery due to thinning skin- patient considering. Previous Surgical H (more content not included)... Normal [facility] ALBUMIN/CREATININE RATIO, UR INEon 05-18-2025 Albumin DL <= 20 mg/L (U) [Mass/Vol] 12.1 mg/L Normal [facility] Comment on above: Order Comment: Speci men Type: URINE SPECIMENOrdering Facility: [facility] Address: [address] [place] [address] Performed By: #### U ACR ####[facility] LABCLIA [id number] [place] [address] [place] Albumin/Creatinin e (U) [Mass ratio] 17 mg/g Normal <30 [facility] Comment on above: Order Comment: Speci men Type: URINE SPECIMENOrdering Facility: [facility] Address: [address] [place] [address] Result Comment: Adul t Male and Female Nephrotic Criteria: <30 mg/g is considered normal to mildly increased 30-300 mg/g is considered moderately increased >300 mg/g is considered severely increased KDIGO. (2013). KDIGO 2012 Clinical Practice Guideline for the Evaluation and Management of Chronic Kidney Disease. Official Journal of the International Society of Nephrology, 3(1), 1-150. Performed By: #### U ACR ####[facility] LABCLIA [id number] [place] [address] [place] Creatinine (U) [Mass/Vol] 69.7 mg/dL Normal 20.0-300.0 [facility] Comment on above: Order Comment: Speci men Type: URINE SPECIMENOrdering Facility: [facility] Address: [address] [place] [address] Performed By: #### U ACR ####[facility] LABCLIA [id number] [place] [address] [place] Basic metabolic 2000 panelon 05-18-2025 Anion gap [Moles/Vol] 10 mmol/L Normal 8-15 [facility] Comment on above: Order Comment: Speci men Type: BLOOD SPECIMENOrdering Facility: [facility] Address: [address] [place] [address] Performed By: #### 2 4321-2 ####[facility] LABCLIA [id number] [place] [address] [place] Calcium [Mass/Vol] 9.9 mg/dL Normal 8.5-10.2 [facility] Comment on above: Order Comment: Speci men Type: BLOOD SPECIMENOrdering Facility: [facility] Address: [address] [place] [address] Performed By: #### 2 4321-2 ####[facility] LABCLIA [id number] [place] [id number] [place] Chloride [Moles/Vol] 105 mmol/L Normal 98-107 [facility] Comment on above: Order Comment: Speci men Type: BLOOD SPECIMENOrdering Facility: [facility] Address: [address] [place] [address] Performed By: #### 2 4321-2 ####[facility] LABCLIA [id number] [facility] [address] [place] [id number] [place] CO2 [Moles/Vol] 24 mmol/L Normal 22-30 [facility] Comment on above: Order Comment: Speci men Type: BLOOD SPECIMENOrdering Facility: [facility] Address: [address] [place] [address] Performed By: #### 2 4321-2 ####[facility] LABCLIA [id number] [address] [address] [place] [facility] Creatinine [Mass/Vol] 1.25 mg/dL High 0.73-1.22 [facility] Comment on above: Order Comment: Bill silveira Type: BLOOD SPECIMENOrdering Facility: [facility] Address: [address] [place] [address] Performed By: #### 2 4321-2 ####[facility] LABCLIA [id number] [place] [address] [place] eGFRcr SerPlBld CKD-EPI 2020 60 mL/min/1.73m??? Normal >=60 [facility] Comment on above: Order Comment: Bill silveira Type: BLOOD SPECIMENOrdering Facility: [facility] Address: [address] [place] [address] Result Comment: Taryn mated Glomerular Filtration Rate (eGFR) is calculated using the 2020 CKD-EPI creatinine equation. This equation utilizes serum creatinine, sex, and age as parameters. The creatinine assay has traceable calibration to isotope dilution-mass spectrometry. Refer to KDIGO guidelines for clinical interpretation. In patients with unstable renal function, e.g. those with acute kidney injury, the eGFR may not accurately reflect actual GFR. Performed By: #### 2 4321-2 ####[facility] LABCLIA [id number] [place] [address] [place] Glucose [Mass/Vol] 80 mg/dL Normal 74-99 [facility] Comment on above: Order Comment: Bill silveira Type: BLOOD SPECIMENOrdering Facility: [facility] Address: [address] [place] [address] Result Comment: The [place] Diabetes Association (ADA) provides guidance for cutoff values for fasting glucose and random glucose. The ADA defines fasting as no caloric intake for at least 8 hours. Fasting plasma glucose results between 100 to 125 mg/dL indicate increased risk for diabetes (prediabetes). Fasting plasma glucose results greater than or equal to 126 mg/dL meet the criteria for diagnosis of diabetes. In the absence of unequivocal hyperglycemia, results should be confirmed by repeat testing. In a patient with classic symptoms of hyperglycemia or hyperglycemic crisis, random plasma glucose results greater than or equal to 200 mg/dL meet the criteria for diagnosis of diabetes. Reference: Standards of Medical Care in Diabetes 2016, [place] Diabetes Association. Diabetes Care. 2016.39(Suppl 1). Performed By: #### 2 4321-2 ####[facility] LABCLIA [id number] [address] [address] [place] Potassium [Moles/Vol] 5.1 mmol/L Normal 3.7-5.1 [facility] Comment on above: Order Comment: Jamesi men Type: BLOOD SPECIMENOrdering Facility: [facility] Address: [address] [place] [address] Performed By: #### 2 4321-2 ####[facility] LABCLIA [id number] [place] [id number] [place] Sodium [Moles/Vol] 139 mmol/L Normal 136-144 [facility] Comment on above: Order Comment: Bill silveira Type: BLOOD SPECIMENOrdering Facility: [facility] Address: [address] [place] [address] Performed By: #### 2 4321-2 ####[facility] LABCLIA [id number] [place] [id number] [place] Urea nitrogen [Mass/Vol] 28 mg/dL High 9-24 [facility] Comment on above: Order Comment: Jamesi men Type: BLOOD SPECIMENOrdering Facility: [facility] Address: [address] [place] [address] Performed By: #### 2 4321-2 ####[facility] LABCLIA [id number] [address] [address] [place] HbA1c (Bld)on 05-18-2025 Average glucose Estimated from glycated hemoglobin (Bld) [Mass/Vol] 126 mg/dL Normal [facility] Comment on above: Order Comment: Bill men Type: BLOOD SPECIMENOrdering Facility: [facility] Address: [address] [place] [address] Result Comment: eAG: (Estimated average glucose) is a calculated value from HgbA1c and is account manager sales representative of the average blood glucose level in the last 2-3 month period. Performed By: #### 5 5454-3 ####[facility] LABCLIA [id number] [place] [address] [place] HbA1c (Bld) [Mass fraction] 6.0 % High 4.3-5.6 [facility] Comment on above: Order Comment: Speci men Type: BLOOD SPECIMENOrdering Facility: [facility] Address: [address] [place] [address] Result Comment: [place] Diabetes Association guidelines indicate that patients with HgbA1c in the range 5.7-6.4% are at increased risk for development of diabetes, and intervention by lifestyle modification may be beneficial. HgbA1c greater or equal to 6.5% is considered diagnostic of diabetes. Performed By: #### 5 5454-3 ####[facility] LABIA [id number] [place] [address] [place] PSA [facility] Prostate specific Ag [Mass/Vol] 3.60 ng/mL High <2.60 [facility] Comment on above: Order Comment: Speci men Type: BLOOD SPECIMENOrdering Facility: [facility] Address: [address] [place] [address] Result Comment: Tota l PSA test methodology used is the Electrochemiluminescence Immunoassay by [employer]. Total PSA values by differing methodologies cannot be interchanged. For an individual patient, the significance of a PSA level should be interpreted in a broad clinical context, including age, race, family history, digital rectal exam, prostate size, results of prior testing (prostate biopsy, free PSA, PCA3), and use of 5-alpha reductase inhibitors. Considering the high incidence of asymptomatic cancer in the general population that may not pose an ultimate risk to a patient, the decision to recommend urological evaluation or prostate biopsy should be individualized after consideration of all these factors. REFERENCE: Dhara Mueller M.D., M.P.H., Kirit Holt M.D., Ph.D., Dwayne Scott M.D., Ryann Crump M.P.H., Debbi Eckert Sc.D. Effect of Verification Bias on Screening for Prostate Cancer by Measurement of Prostatic Specific Antigen. N Engl J Med 2003,349:335-42. Performed By: #### 2 857-1 ####[facility] LABIA [id number] [address] OF [facility] CNOVon 01-03-2025 CNOV Office Visit (SLEWST ) LIBBYYURIY Marjorie ([id number]) 1950 M Date Time Provider Department 01/03/25 1:00 PM KEN JOHNSON During your visit today, we recorded the following information about you: Pulse Respiration Blood pressure Weight 52/minute 16/minute 126/79 99.8 kg Ken Johnson APRN.ICE DELIVERY DRIVER 01/03/2025 1:33 PM Signed [facility] Follow up/ Established patient visit Date of last visit : 12/01/2023 The following Impression/Plan was copied and pasted from the patient's last Sleep Disorders Center visit on 12/01/23: IMPRESSION: Nocturnal hypoxia (primary encounter diagnosis) Jessica on cpap Rls (restless legs syndrome) Yuriy Amador Ciscokamla is a 73 year old male with nocturnal hypoxia, JESSICA, RLS. PMH of benign essential tremor, HTN, HLD, GERD, BPH, CKD. He did an overnight oximetry test to try to determine if supplemental O2 is still needed, has 1 LPM bleed in to CPAP. Has lost 5 lbs since initial study. PLAN: - Continue Auto CPAP - Remember to clean your mask and equipment regularly, as directed. - You should be eligible for new supplies approximately every 3-6 months, depending on your insurance coverage. Contact your [employer] (DME) company for new supplies as needed. Continue gabapentin for treatment of RLS. I'll send pt a jessica msg once I see if there is more data from [employer] re his overnight oximetry. He did a 2 night study, one night with CPAP and O2, one night with just CPAP. Ken Johnson APRN.SANDRA Here for follow up for JESSICA, RLS, nocturnal hypoxia Last year his overnight oximetry showed he still needed the O2 bleed in to PAP, 1 LPM effective [employer] supplies his concentrator Diagnosed as prediabetic, so he is following a new diet and is losing weight, plans to lose another 30 lbs RLS He had been waking up 4x a night before gabapentin No urge to move the legs He takes 300 mg at 8 PM and 600 mg at close to HS at 1130 PM or MN Gabapentin 300 mg #270 filled 10/03/24 PDMP website checked and validated. All prescriptions have been APPROPRIATELY filled. No suspicious activity was identified. 01/03/2025 by Ken Johnson APRN.SANDRA SLEEP APNEA Sleep apnea type : JESSICA, Most Recent Apnea-Hypopnea Index (AHI): 17 on HSAT Treatment : PAP therapy DME: [facility] PAP History: Uses AutoPAP for 6.75 hours per night, 7 nights per week. Current PAP settin-14 cm H2O. With 1 LPM O2 bleed in Difficulties with AutoPAP: None Reviewed objective PAP compliance data: Mask type: nasal mask Mask issues: none There is a perceived benefit by the patient: no snoring -- SLEEP HYGIENE QUESTIONS: Bedtime : 1130 pm to MN Wake up Time : 7-8 AM Time it takes to fall sleep : not a problem Number of times patient wakes up per night : none Estimated total sleep time ( in a 24 hour period of time) : 7 Naps : No Patient Questionnaires Sleep Scores 01/01/2025 Sleep Questions Reason for visit: Sleep apnea Average hours of CPAP per night: 7 Percent of nights CPAP used at least 4 hours: 100 01/01/2025 [place] Sleepiness Scale Score Incomplete 01/01/2025 PROMIS CAT Sleep Disturbance PROMIS Sleep Disturbance T-Score 44 (within normal limits) PROMIS Sleep Disturbance Percentile 73 11/12/2017 Insomnia Severity Index Score 11 01/01/2025 PHQ-9 Score 4 01/01/2025 PROMIS Global Health - (T-Scores - the mean of general population = 50. Five points is a clinically meaningful difference.) Physical T-Score 57.7 Mental T-Score 48.3 SLEEP RELATED ROS Review of Systems Respiratory: Negative for difficulty breathing. Cardiovascular: Negative for chest pain and palpitations. Musculoskeletal: Negative for uncomfortable leg sensations. ALLERGIES Allergen Reactions Vicodin [Hydrocodon* Other: See Comments Severe drop in blood pressure, Tamiflu [Oseltamivi* Rash Developed after having influenza A, with tamiflu use, viral rash versus allergy CURRENT MEDICATIONS: lansoprazole (PREVACID) 15 mg capsule Take 1 capsule by mouth once daily. triamcinolone acetonide (KENALOG) 0.1 % cream Apply 1 application to affected area three times a day. Apply sparingly to area for rash/itching. gabapentin (NEURONTIN) 300 mg capsule Take 3 capsules by mouth daily at bedtime for 90 days. propranolol (INDERAL) 20 mg tablet take 1 tablet by mouth twice a day CPAP 1 Device by MISCELLANEOUS route daily at bedtime. NEW SET UP: Settings 10 - 14 cm H2O, suitable mask per pt preference, chin strap, head gear, humidity, tubing, lifetime supplies. G47.33 JESSICA DME - [facility] glucos sul 2KCl/msm/chond/C/Mn (GLUCOSAMINE CHONDROITIN ORAL) Take by mouth as directed. DAILY MULTI-VITAMIN ORAL Take by mouth as directed. PHYSICAL EXAMINATION: Donte (more content not included)... Normal [facility] [place] 11-26-2024 SYLVIA Telephone (FAMPWS) YURIY SOUZA ([id number]) 1950 M Date Time Provider Department 11/26/24 VANE MART During your visit today, we recorded the following information about you: Dixie Holt, RN 11/26/2024 10:17 AM Signed Pt saw Vane Barron on 11/17/24 and she mentioned to pt about referring him to a dietetic technician registered and pt declined at the time. He has now reconsidered and would like to proceed with that consult. Pt's request is to stay in [place] to see someone. Vane Mart PA-C 11/26/2024 11:05 AM Signed We discussed personal development educator and word processor operator. Does he want to meet with both? MARC العلي Rayanne, PA-C 11/26/2024 11:15 AM Signed Order placed Rubi Peña LPN 11/26/2024 11:27 AM Signed Pt was wanting to just see word processor operator at this time. Pt was assisted in transfer to schedule. Rubi Peña LPN Allergies As of Date: 11/26/2024 Noted Allergy Reaction VICODIN (HYDROCODONE-ACETAMINOPHE* 14 - Other: See Comments Comments: Severe drop in blood pressure, TAMIFLU (OSELTAMIVIR) 10/30/2024 2 - Rash Comments: Developed after having influenza A, with tamiflu use, viral rash versus allergy Date Reviewed: 11/17/2024 Reviewed by: Rubi Peña LPN - Fully Assessed Reason for Visit: Consult [502] Cmt: word processor operator Primary Visit Diagnosis:Type 2 diabetes mellitus without complication, without long-term current use of insulin (HCC) [E11.9] Order(s):CONSULT TO NUTRITION THERAPY [9058] Order #: [id number]: 4 FUTURE Prescriptions as of 11/26/2024 - lansoprazole (PREVACID) 15 mg capsule Take 1 capsule by mouth once daily. - triamcinolone acetonide (KENALOG) 0.1 % cream Apply 1 application to affected area three times a day. Apply sparingly to area for rash/itching. - cetirizine (ZYRTEC) 10 mg tablet Take 1 tablet by mouth once daily. - gabapentin (NEURONTIN) 300 mg capsule Take 3 capsules by mouth daily at bedtime for 90 days. - propranolol (INDERAL) 20 mg tablet take 1 tablet by mouth twice a day - CPAP 1 Device by MISCELLANEOUS route daily at bedtime. NEW SET UP: Settings 10 - 14 cm H2O, suitable mask per pt preference, chin strap, head gear, humidity, tubing, lifetime supplies. G47.33 JESSICA DME - [facility] - glucos sul 2KCl/msm/chond/C/Mn (GLUCOSAMINE CHONDROITIN ORAL) Take by mouth as directed. - DAILY MULTI-VITAMIN ORAL Take by mouth as directed. - CPAP Change current settings: Settings 10 - 14 cm H2O, suitable mask per pt preference, chin strap, head gear, humidity, tubing, lifetime supplies. G47.33 JESSICA Problem List As Of Date 11/26/2024 Noted Resolved Essential hypertension, benign [I10] GERD without esophagitis [K21.9] 10/14/2005 Mixed hyperlipidemia [E78.2] 10/14/2005 Acute gastritis without mention of hemorrhage [*11/21/2005 04/27/2015 Restless legs syndrome (RLS) [G25.81] 07/16/2006 Abscess of anal and rectal regions [K61.2] 05/01/2007 04/27/2015 FISTULA ANAL [K60.30] 07/17/2007 04/27/2015 Primary localized osteoarthrosis, lower leg [M1*02/20/2009 04/27/2015 BPH with obstruction/lower urinary tract sympto*04/11/2009 FHx: prostate cancer [Z80.42] 08/24/2012 Hypoglycemia [E16.2] 09/28/2013 04/27/2015 Vaso-vagal reaction [R55] 09/28/2013 04/27/2015 Autonomic nervous system disorder [G90.9] 09/28/2013 Benign essential tremor [G25.0] 02/10/2014 Radiculopathy, cervical region [M54.12] 11/14/2016 JESISCA (obstructive sleep apnea) [G47.33] 11/12/2017 Stage 3a chronic kidney disease (HCC) [N18.31] 07/08/2018 Arthritis of right ankle [M19.071] 11/23/2019 Arthritis of right knee [M17.11] 04/25/2021 Prostate disorder [N42.9] 04/25/2021 Medication management [Z79.899] 04/25/2021 Medicare annual wellness visit, subsequent [Z00*10/31/[address] [Z78.9] 10/31/2021 Elevated PSA [R97.20] 10/31/2021 Umbilical hernia without obstruction or gangren*05/10/2022 11/01/2022 Advance directive discussed with patient [Z71.8*11/01/2022 Elevated blood sugar [R73.9] 05/05/2024 Type 2 diabetes mellitus without complication, *11/17/2024 Encounter Status:Closed by RUBI PEÑA on 11/26/24 [facility] CNOVon 11-17-2024 CNOV Office Visit (FAMPWS ) CISCOKAMLAYURIY Marjorie ([id number]) 1950 M Date Time Provider Department 11/17/24 1:00 PM [facility] During your visit today, we recorded the following information about you: Temperature Pulse Respiration Blood pressure 98.5 degrees 61/minute 18/minute 120/78 Weight 101.6 kg Vane Mart PA-C 11/17/2024 2:21 PM Signed Chief Complaint Patient presents with: 6 Month Exam HPI Yuriy Chbrandonalphonse is a 74 year old male who presents here today for Chronic Medical Conditions.. Patient with Hx of HTN, GERD, Hyperlipidemia, CKD, RLS, autonomic disorder, JESSICA, essential tremor, BPH as well as those reviewed and addressed below and in ROS. Patient wants to lose more weight. Also had rash after dx of influenza and on tamiflu. Has noted improvement. Last 6 Encounter Wt Readings: Date: Wt: 11/17/2024 101.6 kg (224 lb) 10/30/2024 100.3 kg (221 lb 1.9 oz) 10/24/2024 102.1 kg (225 lb 1.4 oz) 07/19/2024 102.4 kg (225 lb 12 oz) 05/05/2024 101.2 kg (223 lb) 12/01/2023 105.3 kg (232 lb 3.2 oz) Past medical history, appointments, medications, allergies reviewed. 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 Benign essential tremor 02/10/2014 BPH with obstruction/lower urinary tract symptoms 04/11/2009 CKD (chronic kidney disease), stage III (HCC) 07/08/2018 Elevated blood sugar 05/05/2024 Elevated PSA 10/31/2021 Per Urology 11/2022: PCP to get PSA's Q 6 months Essential hypertension, benign FHx: prostate cancer 08/24/2012 GERD without esophagitis 10/14/[address] 10/31/2021 DPA: (Ana) Medicare annual wellness visit, subsequent 10/31/2021 Medicare part B: Not able to find, Last done:10/31/2021 Mixed hyperlipidemia 10/14/2005 JESSICA (obstructive sleep apnea) 11/12/2017 DME [facility] for [facility] Plantar fasciitis, bilateral 06/03/2017 Radiculopathy, cervical region 11/14/2016 Tremor 10/26/2009 Umbilical hernia without obstruction or gangrene 05/10/[address] Davidson. Recommended surgery due to thinning skin- patient considering. Previous Surgical History PAST SURGICAL HISTORY Procedure Laterality Date COLONOSCOPY FLX DX W/COLLJ SPEC WHEN PFRMD 07/17/2007 Repeat [id number] abscess/[id number] EGD TRANSORAL BIOPSY SINGLE/MULTIPLE 11/21/2005 I/D PERIANAL ABSCESS, SUPERFICIAL 05/01/2007 Left anterolateral perianal abscess PAST SURGICAL HISTORY OF Kidney repair PAST SURGICAL HISTORY OF partial knee replacement REPAIR UMBILICAL ISAIAH,5+Y/O,REDUC 06/27/2022 TONSILLECTOMY AND ADENOIDECTOMY TOTAL KNEE REPLACEMENT Right 06/27/2021 Family History FAMILY HISTORY Problem Relation Age of Onset Stroke Mother Hypertension Mother Cancer Father VOCAL CORD Diabetes Father Prostate Cancer Father Prostate Cancer Brother Stroke Paternal Grandfather Coronary Artery Disease No Family History Thyroid No Family History Blood Disease No Family History Blood Clots No Family History DVT No Family History Factor 5 Leiden No Family History Systemic Lupus Erythematosus No Family History Multiple Sclerosis No Family History Bipolar disorder No Family History Schizophrenia No Family History Alzheimer's Disease No Family History Parkinson?s Disease No Family History Dementia No Family History Aneurysm No Family History COPD No Family History Patient Allergies ALLERGIES Allergen Reactions Vicodin [Hydrocodon* Other: See Comments Severe drop in blood pressure, Tamiflu [Oseltamivi* Rash Developed after having influenza A, with tamiflu use, viral rash versus allergy Current Medications Current Outpatient Medications on File Prior to Visit Medication Sig triamcinolone acetonide (KENALOG) 0.1 % cream Apply 1 application to affected area three times a day. Apply sparingly to area for rash/itching. cetirizine (ZYRTEC) 10 mg tablet Take 1 tablet by mouth once daily. gabapentin (NEURONTIN) 300 mg capsule Take 3 capsules by mouth daily at bedtime for 90 days. lansoprazole (PREVACID) 15 mg capsule Take 1 capsule by mouth once daily. propranolol (INDERAL) 20 mg tablet take 1 tablet by mouth twice a day CPAP 1 Device by MISCELLANEOUS route daily at bedtime. NEW SET UP: Settings 10 - 14 cm H2O, suitable mask per pt preference, chin strap, head gear, humidity, tubing, lifetime supplies. G47.33 [facility] [employer] - [employer] glucos sul 2KCl/msm/chond/C/Mn (GLUCOSAMINE CHONDROITIN ORAL) Take by mouth as directed. DAILY MULTI-VITAMIN ORAL Take by mouth as directed. CPAP Change current settings: Settings 10 - 14 cm H2O, lety (more content not included)... Normal [facility] Free PSA [Mass/Vol]on 2024 Free PSA/Total PSA [Mass fraction] 16 % Normal [facility] Comment on above: Order Comment: Speci men Type: BLOOD SPECIMENOrdering Facility: [facility] Address: [address] [place] [address] Result Comment: Tota l and free PSA test methodology used is the Electrochemiluminescence Immunoassay by [employer]. Total or free PSA values by differing methodologies cannot be interchanged. The below table lists the probability of finding prostate cancer upon needle biopsy, for men 50 years or older and total PSA concentrations from 4.0-10.0 ng/mL. Results should be interpreted within the broader clinical context. Free PSA(%) 50-59 years 60-69 years >69 years <11 49.2% 57.5% 64.5% 11-18 26.9% 33.9% 40.8% 19-25 18.3% 23.9% 29.7% >25 9.1% 12.2% 15.8% Performed By: #### 1 0886-0 ####[facility] LABCLIA [id number] [place] [address] [place] Prostate specific Ag [Mass/Vol] 3.58 ng/mL High <2.60 [facility] Comment on above: Order Comment: Speci men Type: BLOOD SPECIMENOrdering Facility: [facility] Address: [address] [place] [address] Result Comment: Tota l PSA test methodology used is the Electrochemiluminescence Immunoassay by [employer]. Total PSA values by differing methodologies cannot be interchanged. For an individual patient, the significance of a PSA level should be interpreted in a broad clinical context, including age, race, family history, digital rectal exam, prostate size, results of prior testing (prostate biopsy, free PSA, PCA3), and use of 5-alpha reductase inhibitors. Considering the high incidence of asymptomatic cancer in the general population that may not pose an ultimate risk to a patient, the decision to recommend urological evaluation or prostate biopsy should be individualized after consideration of all these factors. REFERENCE: Dhara Mueller M.D., M.P.H., Kirit Holt M.D., Ph.D., Dwayne Scott M.D., Ryann Crump, M.P.H., Debbi Eckert Sc.D. Effect of Verification Bias on Screening for Prostate Cancer by Measurement of Prostatic Specific Antigen. N Engl J Med 2003,349:335-42. Performed By: #### 1 0886-0 ####[facility] LABCLIA [id number] [place] [address] [place] CBC W Auto Differential pane l (Bld)on 11-15-2024 Basophils (Bld) [#/Vol] 0.03 10*3/uL Normal <0.11 [facility] Comment on above: Order Comment: Speci men Type: BLOOD SPECIMENOrdering Facility: [facility] Address: [address] [place] [address] Performed By: #### 5 7021-8 ####[facility] [id number] [place] [address] [place] Basophils/100 WBC (Bld) 0.6 % Normal [facility] Comment on above: Order Comment: Speci men Type: BLOOD SPECIMENOrdering Facility: [facility] Address: [address] [place] [address] Performed By: #### 5 7021-8 ####[facility] [id number] [place] [address] [place] Differential cell count method Nom (Bld) Auto Normal [facility] Comment on above: Order Comment: Speci men Type: BLOOD SPECIMENOrdering Facility: [facility] Address: [address] [place] [address] Performed By: #### 5 7021-8 ####[facility] [id number] [place] [address] [place] Eosinophils (Bld) [#/Vol] 0.08 10*3/uL Normal <0.46 [facility] Comment on above: Order Comment: Speci men Type: BLOOD SPECIMENOrdering Facility: [facility] Address: [address] [place] [address] Performed By: #### 5 7021-8 ####[facility] [id number] [place] [address] [place] Eosinophils/100 WBC (Bld) 1.5 % Normal [facility] Comment on above: Order Comment: Speci men Type: BLOOD SPECIMENOrdering Facility: [facility] Address: [address] [place] [address] Performed By: #### 5 7021-8 ####[facility] [id number] [place] [address] [place] Erythrocyte distribution width (RBC) [Ratio] 12.7 % Normal 11.5-15.0 [facility] Comment on above: Order Comment: Speci men Type: BLOOD SPECIMENOrdering Facility: [facility] Address: [address] [place] [address] Performed By: #### 5 7021-8 ####[facility] [id number] [place] [address] [place] Hematocrit (Bld) [Volume fraction] 46.9 % Normal 39.0-51.0 [facility] Comment on above: Order Comment: Speci men Type: BLOOD SPECIMENOrdering Facility: [facility] Address: [address] [place] [address] Performed By: #### 5 7021-8 ####[facility] [id number] [place] [address] [place] Hemoglobin (Bld) [Mass/Vol] 15.5 g/dL Normal 13.0-17.0 [facility] Comment on above: Order Comment: Speci men Type: BLOOD SPECIMENOrdering Facility: [facility] Address: [address] [place] [address] Performed By: #### 5 7021-8 ####[facility] [id number] [place] [address] [place] Immature granulocytes (Bld) [#/Vol] 0.04 10*3/uL Normal <0.10 [facility] Comment on above: Order Comment: Speci men Type: BLOOD SPECIMENOrdering Facility: [facility] Address: [address] [place] [address] Performed By: #### 5 7021-8 ####[facility] EMILYLIA [id number] [place] [address] [place] Immature granulocytes/100 WBC (Bld) 0.8 % Normal [facility] Comment on above: Order Comment: Speci men Type: BLOOD SPECIMENOrdering Facility: [facility] Address: [address] [place] [address] Performed By: #### 5 7021-8 ####[facility]INGSTIERALIA [id number] [place] [address] [place] Lymphocytes (Bld) [#/Vol] 1.09 10*3/uL Normal 1.00-4.00 [facility] Comment on above: Order Comment: Speci men Type: BLOOD SPECIMENOrdering Facility: [facility] Address: [address] [place] [address] Performed By: #### 5 7021-8 ####[facility]ST[facility]AL[facility] [id number] [place] [address] [place] Lymphocytes/100 WBC (Bld) 21.0 % Normal [facility] Comment on above: Order Comment: Speci men Type: BLOOD SPECIMENOrdering Facility: [facility] Address: [address] [place] [address] Performed By: #### 5 7021-8 ####[facility] H[facility]ITALLIA [id number] [place] [address] [place] MCH (RBC) [Entitic mass] 31.3 pg Normal 26.0-34.0 [facility] Comment on above: Order Comment: Speci men Type: BLOOD SPECIMENOrdering Facility: [facility] Address: [address] [place] [address] Performed By: #### 5 7021-8 ####[facility] [id number] [place] [address] [place] MCHC (RBC) [Mass/Vol] 33.0 g/dL Normal 30.5-36.0 [facility] Comment on above: Order Comment: Speci men Type: BLOOD SPECIMENOrdering Facility: [facility] Address: [address] [place] [address] Performed By: #### 5 7021-8 ####[facility] [id number] [place] [address] [place] MCV (RBC) [Entitic vol] 94.6 fL Normal 80.0-100.0 [facility] Comment on above: Order Comment: Speci men Type: BLOOD SPECIMENOrdering Facility: [facility] Address: [address] [place] [address] Performed By: #### 5 7021-8 ####[facility] [id number] [place] [address] [place] Monocytes (Bld) [#/Vol] 0.59 10*3/uL Normal <0.87 [facility] Comment on above: Order Comment: Speci men Type: BLOOD SPECIMENOrdering Facility: [facility] Address: [address] [place] [address] Performed By: #### 5 7021-8 ####[facility] [id number] [place] [address] [place] Monocytes/100 WBC (Bld) 11.4 % Normal [facility] Comment on above: Order Comment: Speci men Type: BLOOD SPECIMENOrdering Facility: [facility] Address: [address] [place] [address] Performed By: #### 5 7021-8 ####[facility] SPRINGSNCLIA [id number] [place] [address] [place] Neutrophils (Bld) [#/Vol] 3.35 10*3/uL Normal 1.45-7.50 [facility] Comment on above: Order Comment: Speci men Type: BLOOD SPECIMENOrdering Facility: [facility] Address: [address] [place] [address] Performed By: #### 5 7021-8 ####[facility] [id number] [place] [address] [place] Neutrophils/100 WBC (Bld) 64.7 % Normal [facility] Comment on above: Order Comment: Speci men Type: BLOOD SPECIMENOrdering Facility: [facility] Address: [address] [place] [address] Performed By: #### 5 7021-8 ####[facility] [id number] [place] [address] [place] Nucleated RBC (Bld) [#/Vol] 10*3/uL Normal <0.01 [facility] Comment on above: Order Comment: Speci men Type: BLOOD SPECIMENOrdering Facility: [facility] Address: [address] [place] [address] Performed By: #### 5 7021-8 ####[facility] [id number] [place] [address] [place] Nucleated RBC/100 WBC (Bld) [Ratio] 0.0 /100 WBC Normal [facility] Comment on above: Order Comment: Speci men Type: BLOOD SPECIMENOrdering Facility: [facility] Address: [address] [place] [address] Performed By: #### 5 7021-8 ####[facility] [id number] [place] [address] [place] Platelet mean volume (Bld) [Entitic vol] 10.4 fL Normal 9.0-12.7 [facility] Comment on above: Order Comment: Speci men Type: BLOOD SPECIMENOrdering Facility: [facility] Address: [address] [place] [address] Performed By: #### 5 7021-8 ####[facility] [id number] [address] Platelets (Bld) [#/Vol] 200 10*3/uL Normal 150-400 [facility] Comment on above: Order Comment: Speci men Type: BLOOD SPECIMENOrdering Facility: [facility] Address: [address] [place] [address] Performed By: #### 5 7021-8 ####[facility] CHATONCLIA [id number] [place] [address] [place] RBC (Bld) [#/Vol] 4.96 10*6/uL Normal 4.20-6.00 [facility] Comment on above: Order Comment: Speci men Type: BLOOD SPECIMENOrdering Facility: [facility] Address: [address] [place] [address] Performed By: #### 5 7021-8 ####[facility] SPRINGSNCLIA [id number] [place] [address] [place] WBC (Bld) [#/Vol] 5.18 10*3/uL Normal 3.70-11.00 [facility] Comment on above: Order Comment: Speci men Type: BLOOD SPECIMENOrdering Facility: [facility] Address: [address] [place] [address] Performed By: #### 5 7021-8 ####[facility] SPRINGSNCLIA [id number] [place] [address] [facility] [place] Comprehensive metabolic 2000 panelon 11-15-2024 Albumin [Mass/Vol] 4.0 g/dL Normal 3.9-4.9 [facility] Comment on above: Order Comment: Speci men Type: BLOOD SPECIMENOrdering Facility: [facility] Address: [address] [place] [address] Performed By: #### 2 132-9, 99894-6, LIPNF, 78831-9 ####[facility] LABORATORYCLIA [id number] [place], [place] [address] [place] [address] STATES [place] [facility] ALP [Catalytic activity/Vol] 75 U/L Normal 38-113 [facility] Comment on above: Order Comment: Speci men Type: BLOOD SPECIMENOrdering Facility: [facility] Address: [address] [place] [address] Performed By: #### 2 132-9, 15190-9, LIPNF, 70936-7 ####[facility] LABORATORYCLIA [id number] [address] ALT With P-5'-P [Catalytic activity/Vol] 17 U/L Normal 10-54 [facility] Comment on above: Order Comment: Speci men Type: BLOOD SPECIMENOrdering Facility: [facility] Address: [address] [place] [address] Performed By: #### 2 132-9, 46096-7, LIPNF, 32626-2 ####[facility] LABORATORYCLIA [id number] [address] STATES OF [facility] Anion gap [Moles/Vol] 9 mmol/L Normal 8-15 [facility] Comment on above: Order Comment: Speci men Type: BLOOD SPECIMENOrdering Facility: [facility] Address: [address] [place] [address] Performed By: #### 2 132-9, 18629-3, LIPNF, 99229-9 ####[facility] LABORATORYCLIA [id number] [place] [address] [place] AST With P-5'-P [Catalytic activity/Vol] 25 U/L Normal 14-40 [facility] Comment on above: Order Comment: Speci men Type: BLOOD SPECIMENOrdering Facility: [facility] Address: [address] [place] [address] Performed By: #### 2 132-9, 37117-5, LIPNF, 53080-6 ####[facility]ORATORYCLIA [id number] [place] [address] [place] Bilirubin [Mass/Vol] 0.5 mg/dL Normal 0.2-1.3 [facility] Comment on above: Order Comment: Speci men Type: BLOOD SPECIMENOrdering Facility: [facility] Address: [address] [place] [address] Performed By: #### 2 132-9, 06870-2, LIPNF, 09471-1 ####[facility] LABORATORYCLIA [id number] [place] [address] [place] Calcium [Mass/Vol] 9.7 mg/dL Normal 8.5-10.2 [facility] Comment on above: Order Comment: Speci men Type: BLOOD SPECIMENOrdering Facility: [facility] Address: [address] [place] [address] Performed By: #### 2 132-9, 52964-0, LIPNF, 59161-2 ####[facility] LABORATORYCLIA [id number] [place] [id number] [place] Chloride [Moles/Vol] 106 mmol/L Normal 98-107 [facility] Comment on above: Order Comment: Speci men Type: BLOOD SPECIMENOrdering Facility: [facility] Address: [address] [place] [address] Performed By: #### 2 132-9, 34446-1, LIPNF, 87399-5 ####[facility] LABORATORYCLIA [id number] [place] [address] [place] CO2 [Moles/Vol] 27 mmol/L Normal 22-30 [facility] Comment on above: Order Comment: Speci men Type: BLOOD SPECIMENOrdering Facility: [facility] Address: [address] [place] [address] Performed By: #### 2 132-9, 11834-2, LIPNF, 12783-8 ####[facility]ORATORYCLIA [id number] [place] [address] [place] Creatinine [Mass/Vol] 1.28 mg/dL High 0.73-1.22 [facility] Comment on above: Order Comment: Bill silveira Type: BLOOD SPECIMENOrdering Facility: [facility] Address: [address] [place] [address] Performed By: #### 2 132-9, 18764-5, LIPNF, 66809-3 ####[facility] LABORATORYCLIA [id number] [place] [id number] [place] Creatinine and Glomerular filtration rate.predicted panel (S/P/Bld) 59 mL/min/1.73m??? Low >=60 [facility] Comment on above: Order Comment: Bill silveira Type: BLOOD SPECIMENOrdering Facility: [facility] Address: [address] [place] [address] Result Comment: Taryn mated Glomerular Filtration Rate (eGFR) is calculated using the 2020 CKD-EPI creatinine equation. This equation utilizes serum creatinine, sex, and age as parameters. The creatinine assay has traceable calibration to isotope dilution-mass spectrometry. Refer to KDIGO guidelines for clinical interpretation. In patients with unstable renal function, e.g. those with acute kidney injury, the eGFR may not accurately reflect actual GFR. Performed By: #### 2 132-9, 96262-5, LIPLIZET, 97686-4 ####[facility] LABORATORYCLIA [id number] [place] [address] [place] Glucose [Mass/Vol] 95 mg/dL Normal 74-99 [facility] Comment on above: Order Comment: Bill silveira Type: BLOOD SPECIMENOrdering Facility: [facility] Address: [address] [place] [address] Result Comment: The [place] Diabetes Association (ADA) provides guidance for cutoff values for fasting glucose and random glucose. The ADA defines fasting as no caloric intake for at least 8 hours. Fasting plasma glucose results between 100 to 125 mg/dL indicate increased risk for diabetes (prediabetes). Fasting plasma glucose results greater than or equal to 126 mg/dL meet the criteria for diagnosis of diabetes. In the absence of unequivocal hyperglycemia, results should be confirmed by repeat testing. In a patient with classic symptoms of hyperglycemia or hyperglycemic crisis, random plasma glucose results greater than or equal to 200 mg/dL meet the criteria for diagnosis of diabetes. Reference: Standards of Medical Care in Diabetes 2016, [place] Diabetes Association. Diabetes Care. 2016.39(Suppl 1). Performed By: #### 2 132-9, 35325-9, LIPNF, 57803-0 ####[facility] LABORATORYCLIA [id number] [place] [address] [place] Potassium [Moles/Vol] 4.8 mmol/L Normal 3.7-5.1 [facility] Comment on above: Order Comment: Speci men Type: BLOOD SPECIMENOrdering Facility: [facility] Address: [address] [place] [address] Performed By: #### 2 132-9, 59798-2, LIPNF, 42094-7 ####[facility] LABORATORYCLIA [id number] [place] [address] [place] Protein [Mass/Vol] 6.6 g/dL Normal 6.3-8.0 [facility] Comment on above: Order Comment: Speci men Type: BLOOD SPECIMENOrdering Facility: [facility] Address: [address] [place] [address] Performed By: #### 2 132-9, 98568-7, LIPNF, 24511-8 ####[facility] LABORATORYCLIA [id number] [place] [address] [place] Sodium [Moles/Vol] 142 mmol/L Normal 136-144 [facility] Comment on above: Order Comment: Speci men Type: BLOOD SPECIMENOrdering Facility: [facility] Address: [address] [place] [address] Performed By: #### 2 132-9, 16474-2, LIPNF, 84532-4 ####[facility] LABORATORYCLIA [id number] [place] [id number] [place] Urea nitrogen [Mass/Vol] 21 mg/dL Normal 9-24 [facility] Comment on above: Order Comment: Speci men Type: BLOOD SPECIMENOrdering Facility: [facility] Address: [address] [place] [address] Performed By: #### 2 132-9, 50728-9, LIPNF, 32182-0 ####[facility] LABORATORYCLIA [id number] [place] [address] [place] HbA1c (Bld)on 11-15-2024 Average glucose Estimated from glycated hemoglobin (Bld) [Mass/Vol] 148 mg/dL Normal [facility] Comment on above: Order Comment: Bill silveira Type: BLOOD SPECIMENOrdering Facility: [facility] Address: [address] [place] [address] Result Comment: eAG: (Estimated average glucose) is a calculated value from HgbA1c and is account manager sales representative of the average blood glucose level in the last 2-3 month period. Performed By: #### 5 5454-3 ####[facility] LABCLIA [id number] [address] [place] HbA1c (Bld) [Mass fraction] 6.8 % High 4.3-5.6 [facility] Comment on above: Order Comment: Bill [facility] Type: BLOOD SPECIMENOrdering Facility: [facility] Address: [address] [place] [address] Result Comment: [place] Diabetes Association guidelines indicate that patients with HgbA1c in the range 5.7-6.4% are at increased risk for development of diabetes, and intervention by lifestyle modification may be beneficial. HgbA1c greater or equal to 6.5% is considered diagnostic of diabetes. Performed By: #### 5 5454-3 ####[facility] LABCLIA [id number] [address] [place] LIPID PANEL, NONFASTINGon Cholesterol [Mass/Vol] 176 mg/dL Normal <200 [facility] Comment on above: Order Comment: Bill [facility] Type: BLOOD SPECIMENOrdering Facility: [facility] Address: [address] [place] [address] Result Comment: <200 mg/dL, Desirable 200-239 mg/dL, Borderline high >239 mg/dL, High Performed By: #### 2 132-9, 06526-2, SHANTI, 02841-2 ####[facility]IS EN[facility] LABORATORYCLIA [id number] [address] HDL CHOLESTEROL, NF 57 mg/dL Normal >39 [facility] Comment on above: Order Comment: Bill jordana Type: BLOOD SPECIMENOrdering Facility: [facility] Address: [address] [place] [address] Result Comment: 40-5 9 mg/dL, Acceptable >59 mg/dL, High: Negative risk factor for coronary heart disease <40 mg/dL, Low: Positive risk factor for coronary heart disease Performed By: #### 2 132-9, 32746-7, LIPNF, 48352-7 ####[facility] LABORATORYCLIA [id number] [address] LDL CHOLESTEROL, NF 93 mg/dL Normal <100 [facility] Comment on above: Order Comment: Bill jordana Type: BLOOD SPECIMENOrdering Facility: [facility] Address: [address] [place] [address] Result Comment: <100 mg/dL, Optimal 100-129 mg/dL, Near optimal/above optimal 130-159 mg/dL, Borderline high 160-189 mg/dL, High >189 mg/dL, Very high Secondary prevention optimal LDL Cholesterol levels are recommended to be < 70 mg/dL Performed By: #### 2 132-9, 22233-8, LIPNF, 30724-2 ####[facility] LABORATORYCLIA [id number] [address] LDL/HDL RATIO, NF 1.63 mg/dL Normal <2.54 [facility] Comment on above: Order Comment: Bill silveira Type: BLOOD SPECIMENOrdering Facility: [facility] Address: [address] [place] [address] Result Comment: Refe rence: 1. National Cholesterol Education Program ATP III Guideline At-A-Glance Quick Desk Reference: National Heart, Lung, and Blood Cascade. National Institutes of Health. 2001: NIH Publication No. 01-3305. 2. An International Atherosclerosis Society position paper: global recommendations for the management of dyslipidemia: executive summary, Atherosclerosis. 2014: 232(2):410-413. Performed By: #### 2 132-9, 13135-6, LIPNF, 26940-0 ####[facility] LABORATORYCLIA [id number] [place] [address] [place] NON HDL CHOL, NF 119 mg/dL Normal <130 [facility] Comment on above: Order Comment: Speci men Type: BLOOD SPECIMENOrdering Facility: [facility] Address: [address] [place] [address] Result Comment: <130 mg/dL, Optimal 130-159 mg/dL, Near optimal/above optimal 160-189 mg/dL, Borderline high 190-219 mg/dL, High >219 mg/dL, Very high Secondary prevention optimal non HDL Cholesterol levels are recommended to be <100 mg/dL Performed By: #### 2 132-9, , LIPNF, 89323-3 ####[facility] LABORATORYCLIA [id number] [address] [place] T CHOL/HDL RATIO NF 3.09 mg/dL Normal <5.10 [facility] Comment on above: Order Comment: Speci men Type: BLOOD SPECIMENOrdering Facility: [facility] Address: [address] [place] [address] Performed By: #### 2 132-9, , LIPNF, 03653-2 ####[facility] LABORATORYCLIA [id number] [place] [address] [place] TRIGLYCERIDES, NF 130 mg/dL Normal <150 [facility] Comment on above: Order Comment: Speci men Type: BLOOD SPECIMENOrdering Facility: [facility] Address: [address] [place] [address] Result Comment: <150 mg/dL, Normal 150-199 mg/dL, Borderline high 200-499 mg/dL, High >499 mg/dL, Very high Performed By: #### 2 132-9, , LIPNF, 34331-4 ####[facility] LABORATORYCLIA [id number] [place] [address] [place] VLDL CHOLESTEROL, NF 26 mg/dL Normal <30 [facility] Comment on above: Order Comment: Speci men Type: BLOOD SPECIMENOrdering Facility: [facility] Address: [address] [place] [address] Performed By: #### 2 132-9, 48329-4, LIPLIZET, 59880-8 ####[facility] LABORATORYIA [id number] [place] [id number] [place] Magnesium SerPl-mCncon 11-15 Magnesium [Mass/Vol] 2.2 mg/dL Normal 1.7-2.3 [facility] Comment on above: Order Comment: Speci men Type: BLOOD SPECIMENOrdering Facility: [facility] Address: [address] [place] [address] Performed By: #### 2 132-9, 53765-8, SHANTI, 37083-2 ####[facility] HOSPITALIA [id number] [place] [address] [place] Urinalysis complete panel (U )on 11-15-2024 Bacteria LM.HPF (Urine sed) [#/Area] Negative Normal Negative [facility] Comment on above: Order Comment: Speci men Type: URINE SPECIMENOrdering Facility: [facility] Address: [address] [place] [address] Performed By: #### 2 4356-8 ####[facility] LABCLIA [id number] [place] [address] [place] Bilirubin Ql (U) Negative Normal Negative [facility] Comment on above: Order Comment: Speci men Type: URINE SPECIMENOrdering Facility: [facility] Address: [address] [place] [address] Performed By: #### 2 4356-8 ####[facility] LABCLIA [id number] [place] [address] [place] Clarity (Unsp spec) Clear Normal Clear [facility] Comment on above: Order Comment: Speci men Type: URINE SPECIMENOrdering Facility: [facility] Address: [address] [place] [address] Performed By: #### 2 4356-8 ####[facility] LABCLIA [id number] [place] [address] [place] Color (U) Yellow Normal Yellow [facility] Comment on above: Order Comment: Speci men Type: URINE SPECIMENOrdering Facility: [facility] Address: [address] [place] [address] Performed By: #### 2 4356-8 ####[facility] LABCLIA [id number] [place] [address] [place] Epithelial cells LM.HPF (Urine sed) [#/Area] None Seen Normal [facility] Comment on above: Order Comment: Speci men Type: URINE SPECIMENOrdering Facility: [facility] Address: [address] [place] [address] Performed By: #### 2 4356-8 ####[facility] LABCLIA [id number] [place] [address] [place] Glucose Test strip (U) [Mass/Vol] Negative Normal Negative [facility] Comment on above: Order Comment: Speci men Type: URINE SPECIMENOrdering Facility: [facility] Address: [address] [place] [address] Performed By: #### 2 4356-8 ####[facility] LABCLIA [id number] [place] [address] [place] Hemoglobin Ql (U) Negative Normal Negative [facility] Comment on above: Order Comment: Speci men Type: URINE SPECIMENOrdering Facility: [facility] Address: [address] [place] [address] Performed By: #### 2 4356-8 ####[facility] LABCLIA [id number] [place] [address] [place] Hyaline casts (Urine sed) [#/Area] 0 /[LPF] Normal 0 /LPF [facility] Comment on above: Order Comment: Speci men Type: URINE SPECIMENOrdering Facility: [facility] Address: [address] [place] [address] Performed By: #### 2 4356-8 ####[facility] LABCLIA [id number] [address] [place] [address] [place] Ketones Ql (U) Negative Normal Negative [facility] Comment on above: Order Comment: Speci men Type: URINE SPECIMENOrdering Facility: [facility] Address: [address] [place] [address] Performed By: #### 2 4356-8 ####[facility] LABCLIA [id number] [address], [facility]95 [place] Leukocyte esterase Test strip Ql (U) Negative Normal Negative [facility] Comment on above: Order Comment: Speci men Type: URINE SPECIMENOrdering Facility: [facility] Address: [address] [place] [address] Performed By: #### 2 4356-8 ####[facility] LABCLIA [id number] [address], [facility]95 [place] Nitrite Ql (U) Negative Normal Negative [facility] Comment on above: Order Comment: Speci men Type: URINE SPECIMENOrdering Facility: [facility] Address: [address] [place] [address] Performed By: #### 2 4356-8 ####[facility] LABCLIA [id number] [address], [facility]95 [place] pH (U) 6.5 [pH] Normal <8.5 [facility] Comment on above: Order Comment: Speci men Type: URINE SPECIMENOrdering Facility: [facility] Address: [address] [place] [address] Performed By: #### 2 4356-8 ####[facility] LABCLIA [id number] [address] [place] [address] [place] Protein (U) [Mass/Vol] Negative Normal Negative [facility] Comment on above: Order Comment: Speci men Type: URINE SPECIMENOrdering Facility: [facility] Address: [address] [place] [address] Performed By: #### 2 4356-8 ####[facility] [id number] [place] [address] [place] RBC LM.HPF (Urine sed) [#/Area] 0-2 /HPF Normal 0-2 /HPF [facility] Comment on above: Order Comment: Speci men Type: URINE SPECIMENOrdering Facility: [facility] Address: [address] [place] [address] Performed By: #### 2 4356-8 ####[facility] [id number] [place] [address] [place] Specific gravity (U) [Rel density] 1.015 Normal 1.005-1.030 [facility] Comment on above: Order Comment: Speci men Type: URINE SPECIMENOrdering Facility: [facility] Address: [address] [place] [address] Performed By: #### 2 4356-8 ####[facility] [id number] [address] [place] [facility] Urobilinogen Ql (U) 0.2 EU/dL Normal 0.2-1.0 EU/dL [facility] Comment on above: Order Comment: Speci men Type: URINE SPECIMENOrdering Facility: [facility] Address: [address] [place] [address] Performed By: #### 2 4356-8 ####[facility] [id number] [place] [address] [place] WBC LM.HPF (Urine sed) [#/Area] 0-5 /HPF Normal 0-5 /HPF [facility] Comment on above: Order Comment: Speci men Type: URINE SPECIMENOrdering Facility: [facility] Address: [address] [place] [address] Performed By: #### 2 4356-8 ####[facility] LABCLIA [id number] [facility] [place] [id number] [place] Vit B12 SerPl-mCncon 025 Cobalamin (Vitamin B12) [Mass/Vol] 510 pg/mL Normal 232-1245 [facility] Comment on above: Order Comment: Speci men Type: BLOOD SPECIMENOrdering Facility: [facility] Address: [address] [place], [place] [address] [address] Performed By: #### 2 132-9, 83458-7, LIPNF, 38725-0 ####[facility] LABORATORYCLIA [id number] [place] [id number] [facility] CNOVon 10-30-2024 CNOV Office Visit (UCWSTR ) EDDABRANDONYURIY RBYANT ([id number]) 1950 M Date Time Provider Department 10/30/24 12:00 PM CAROLYNE SPENCE [facility] During your visit today, we recorded the following information about you: Temperature Pulse Respiration Blood pressure 98.5 degrees 60/minute 16/minute 118/66 Weight 100.3 kg Carloyne Spence APRN.ICE DELIVERY DRIVER 10/30/2024 12:34 PM Signed Subjective The history is provided by the patient. No healthcare management consultant was used. Patient presents with: Rash: ? tamiflu, acrossed chest and upper back, itching started on , rash on Yuriy Souza is a 74 year old male who presents with a complaint of a rash on the trunk for the past 1 day(s) that is stable. The patients reports no new exposures, no recent contact with unusual or new material, no recent change in detergents, soap, or shampoo, no other family members with the same rash, and using new medications - tamiflu The rash is discribed as Erythema, papular, pruritic Past treatments No Does the patient have a personal history of: Seasonal allergies: no Recent travel: no Recent infections: no Beginning a new medication: yes: tamilfu Symptoms are triggered by: nothing Other symtoms include: none of the following - appetite change, weight change, fever, chills, malaise, and fatigue Review of Systems Constitutional: Negative for chills and fever. Musculoskeletal: Negative for joint pain and myalgias. Skin: Positive for rash. Negative for itching. All other systems reviewed and are negative. Objective Physical Exam Vitals and nursing note reviewed. Pulmonary: Effort: Pulmonary effort is normal. Skin: General: Skin is warm and dry. Findings: Rash present. Rash is macular and papular. Neurological: Mental Status: He is alert and oriented to person, place, and time. Psychiatric: Mood and Affect: Affect normal. ASSESSMENT/PLAN: 1. Rash - ICD9: 782.1, ICD10: R21 Possible viral exanthem, allergy Triamcinolone, zyrtec Follow up with PCP as needed Diagnosis and treatment plan were discussed and questions were answered to the patient's satisfaction. Pt acknowledged understanding of concepts and follow up plan. Specific signs and symptoms that would indicate the need for higher level of care were discussed in detail warranting prompt ER evaluation. Carolyne Spence APRN.Carolyne Morrow APRN.SANDRA 10/30/2024 12:27 PM Signed Use triamcinolone cream as needed for itching, fine layer Zyrtec 10 mg By mouth daily at bedtime for one month Follow up with PCP prn Allergies As of Date: 10/30/2024 Noted Allergy Reaction VICODIN (HYDROCODONE-ACETAMINOPHE* 14 - Other: See Comments Comments: Severe drop in blood pressure, TAMIFLU (OSELTAMIVIR) 10/30/2024 2 - Rash Comments: Developed after having influenza A, with tamiflu use, viral rash versus allergy Date Reviewed: 10/30/2024 Reviewed by: Carolyne Spence APRN.ICE DELIVERY DRIVER - Fully Assessed Reason for Visit: Rash [1087] Cmt: ? tamiflu, acrossed chest and upper back, itching started on , rash on Primary Visit Diagnosis:Rash [R21] Order(s):triamcinolone acetonide (KENALOG) 0.1 % creamApply 1 application to affected area three times a day. Apply sparingly to area for rash/itching.Disp: 30 gRfl: 0 cetirizine (ZYRTEC) 10 mg tabletTake 1 tablet by mouth once daily.Disp: 30 tabletRfl: 0 Prescriptions as of 10/30/2024 - triamcinolone acetonide (KENALOG) 0.1 % cream Apply 1 application to affected area three times a day. Apply sparingly to area for rash/itching. - cetirizine (ZYRTEC) 10 mg tablet Take 1 tablet by mouth once daily. - gabapentin (NEURONTIN) 300 mg capsule Take 3 capsules by mouth daily at bedtime for 90 days. - lansoprazole (PREVACID) 15 mg capsule Take 1 capsule by mouth once daily. - propranolol (INDERAL) 20 mg tablet take 1 tablet by mouth twice a day - CPAP 1 Device by MISCELLANEOUS route daily at bedtime. NEW SET UP: Settings 10 - 14 cm H2O, suitable mask per pt preference, chin strap, head gear, humidity, tubing, lifetime supplies. G47.33 JESSICA DME - [employer] - glucos sul 2KCl/msm/chond/C/Mn (GLUCOSAMINE CHONDROITIN ORAL) Take by mouth as directed. - DAILY MULTI-VITAMIN ORAL Take by mouth as directed. - CPAP Change current settings: Settings 10 - 14 cm H2O, suitable mask per pt preference, chin strap, head gear, humidity, tubing, lifetime supplies. G47.33 JESSICA Problem List As Of Date 10/30/2024 Noted Resolved Essential hypertension, benign [I10] GERD without esophagitis [K21.9] 10/14/2005 Mixed hyperlipidemia [E78.2] 10/14/2005 Acute gastritis without mention of hemorrhage [*11/21/2005 04/27/2015 Restless legs syndrome (RLS) [G25.81] 07/16/2006 Abscess of anal and rectal regions [K61.2] 05/01/2007 04/27/2015 FISTULA ANAL [K60.30] 07/17/2007 04/27/2015 Primary localized osteoarthrosis, lower l (more content not included)... Normal [facility] CNOVon 10-24-2024 CNOV Office Visit (WSTR ) YURIY SOUZA ([id number]) 1950 M Date Time Provider Department 10/24/24 10:45 AM HERMANN LUTZ [facility] During your visit today, we recorded the following information about you: Temperature Pulse Respiration Blood pressure 102.1 degrees 92/minute 18/minute 122/70 Weight 102.1 kg Hermann Lutz, VIVIAN.ICE DELIVERY DRIVER 10/24/2024 11:22 AM Signed Subjective HPI Nontoxic-appearing 74-year-old male presents urgent care chief complaint flulike symptoms. Duration of symptoms 1 day. Associated symptoms with today's chief complaint are on and off headache, muscle aches, fatigue, nonproductive cough, and fever. Patient stated symptoms started abruptly. Patient states they have used opmf-zwh-[id number] medication with some success. Patient states they were in contact with individuals who were diagnosed with influenza. Patient denies any pain at this time. Patient denies any visual changes, visual disturbance, shortness of breath, rash, exercise intolerance, pleuritic pain, productive cough, abdominal pain, nausea, vomiting, chest pain, or change in bowel or bladder habits. Past medical history prescription medications allergies reviewed. 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 CKD (chronic kidney disease), stage III (HCC) 07/08/2018 Elevated blood sugar 05/05/2024 Elevated PSA 10/31/2021 Per Urology 11/2022: PCP to get PSA's Q 6 months Essential hypertension, benign FHx: prostate cancer 08/24/2012 GERD without esophagitis 10/14/[address] 10/31/2021 DPA: (Ana) Medicare annual wellness visit, subsequent 10/31/2021 Medicare part B: Not able to find, Last done:10/31/2021 Mixed hyperlipidemia 10/14/2005 JESSICA (obstructive sleep apnea) 11/12/2017 DME [employer] for Auto[employer]AP Plantar fasciitis, bilateral 06/03/2017 Radiculopathy, cervical region 11/14/2016 Tremor 10/26/2009 Umbilical hernia without obstruction or gangrene 05/10/[address] Davidson. Recommended surgery due to thinning skin- patient considering. PAST SURGICAL HISTORY Procedure Laterality Date COLONOSCOPY FLX DX W/COLLJ SPEC WHEN PFRMD 07/17/2007 Repeat 15-1710-Regvvibv abscess/cagcgbj-ok-nif EGD TRANSORAL BIOPSY SINGLE/MULTIPLE 11/21/2005 I/D PERIANAL ABSCESS, SUPERFICIAL 05/01/2007 Left anterolateral perianal abscess PAST SURGICAL HISTORY OF Kidney repair PAST SURGICAL HISTORY OF partial knee replacement REPAIR UMBILICAL ISAIAH,5+Y/O,REDUC 06/27/2022 TONSILLECTOMY AND ADENOIDECTOMY TOTAL KNEE REPLACEMENT Right 06/27/2021 ALLERGIES Vicodin [Hydrocodone-Acetaminophen] MEDICATIONS gabapentin (NEURONTIN) 300 mg capsule Take 3 capsules by mouth daily at bedtime for 90 days. lansoprazole (PREVACID) 15 mg capsule Take 1 capsule by mouth once daily. propranolol (INDERAL) 20 mg tablet take 1 tablet by mouth twice a day CPAP 1 Device by MISCELLANEOUS route daily at bedtime. NEW SET UP: Settings 10 - 14 cm H2O, suitable mask per pt preference, chin strap, head gear, humidity, tubing, lifetime supplies. G47.33 JESSICA DME - [employer] glucos sul 2KCl/msm/chond/C/Mn (GLUCOSAMINE CHONDROITIN ORAL) Take by mouth as directed. DAILY MULTI-VITAMIN ORAL Take by mouth as directed. CPAP Change current settings: Settings 10 - 14 cm H2O, suitable mask per pt preference, chin strap, head gear, humidity, tubing, lifetime supplies. G47.33 JESSICA oseltamivir (TAMIFLU) 75 mg capsule Take 1 capsule by mouth two times a day for 5 days. FAMILY HISTORY Problem Relation Age of Onset Stroke Mother Hypertension Mother Cancer Father VOCAL CORD Diabetes Father Prostate Cancer Father Prostate Cancer Brother Stroke Paternal Grandfather Coronary Artery Disease No Family History Thyroid No Family History Blood Disease No Family History Blood Clots No Family History DVT No Family History Factor 5 Leiden No Family History Systemic Lupus Erythematosus No Family History Multiple Sclerosis No Family History Bipolar disorder No Family History Schizophrenia No Family History Alzheimer's Disease No Family History Parkinson?s Disease No Family History Dementia No Family History Aneurysm No Family History COPD No Family History Social History Tobacco Use Smoking status: Never Smokeless tobacco: Never Vaping Use Vaping status: Never Used Substance Use Topics Alcohol use: No Drug use: No BP 122/70 Pulse 92 Temp (!) 38. (more content not included)... Normal [facility] CNOVon 07-19-2024 CNOV Office Visit (NRMDN) YURIY SOUZA ([id number]) 1950 M Date Time Provider Department 07/19/24 3:00 PM LIZBETH PEREZ During your visit today, we recorded the following information about you: Pulse Blood pressure Weight 52/minute 163/83 102.4 kg Lizbeth Perez MD 07/19/2024 7:38 PM Signed [facility] - FOLLOW UP EVALUATION Hermann Gonzales MD [address] [facility] [address] Dear Hermann Gonzales MD: I had the pleasure of seeing Mr. Souza for follow-up today. As you know he is a 74 year old right-handed male with a history of ET since 20+ years . He is seen with his . Subjective Previous Plan-07/24/2023 Visit: Continue your medications as you have been taking them. We are not making any changes today. If you feel you are not tolerating them or your symptoms are changing before your next appointment, please feel free to send me a [employer] message or contact the office - Interval History: Tremor is a little worse. 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 Stress- son and daughter both have MS. Notices when he reaches for a glass during dinner in his living room his hand can jerk. Doesn't notice this under any other circumstance. Concerned he has PD. Movement Disorders Medications Schedule - as of the start of the visit: Medications propranolol 20 mg 1 1 gabapentin for RLS from sleep Other Movement Disorder Prior Therapies Propranolol Questionnaires: In addition, the following activities of daily living that may be affected by tremors were evaluated: Speaking: Feeding: Not affected does ok. Bringing Liquids to Mouth: does ok Hygiene: Not affected ok Dressing: ok Writing: Affected (moderate) awful. no t legible cursive. printing a little better Working: Affected (mild) Number of falls in the Last Month: 0 Mood/Behavior Depression: Anxiety: Finally, the following table shows the patient's overall global physical and mental health using the PROMIS scale: PROMIS-10 Flowsheet Row Office Visit from 07/19/2024 in Neurology [facility] from 11/11/2023 in Neurology Global Physical Health T Score 54.1 54.1 Global Mental Health T Score 50.8 53.3 0-10 Standard Pain Scale 4 4 *PROMIS-10 scoring scale: mean = 50, over 50 is above average, under 50 is below average ALLERGIES Allergen Reactions Vicodin [Hydrocodon* Other: See Comments Severe drop in blood pressure, Current Outpatient Medications Medication Sig lansoprazole (PREVACID) 15 mg capsule Take 1 capsule by mouth once daily. gabapentin (NEURONTIN) 300 mg capsule Take 3 capsules by mouth daily at bedtime for 180 days. propranolol (INDERAL) 20 mg tablet take 1 tablet by mouth twice a day CPAP 1 Device by MISCELLANEOUS route daily at bedtime. NEW SET UP: Settings 10 - 14 cm H2O, suitable mask per pt preference, chin strap, head gear, humidity, tubing, lifetime supplies. G47.33 JESSICA DME - [employer] glucos sul 2KCl/msm/chond/C/Mn (GLUCOSAMINE CHONDROITIN ORAL) Take by mouth as directed. DAILY MULTI-VITAMIN ORAL Take by mouth as directed. CPAP Change current settings: Settings 10 - 14 cm H2O, suitable mask per pt preference, chin strap, head gear, humidity, tubing, lifetime supplies. G47.33 JESSICA No current facility-administered medications for this visit. Objective Vital Signs: BP 163/83 (BP Site: Left Arm, BP Position: Sitting, BP Cuff Size: Large Adult) Pulse (!) 52 Wt 102.4 kg (225 lb 12 oz) SpO2 97% BMI 31.05 kg/m? Orthostatic Vitals: None for this encounter Weight: 102.4 kg (225 lb 12 oz) No LMP for male patient. Body mass index is 31.05 kg/m?. General Physical Examination: General: Awake, alert, interactive, no acute distress, good nutritional status, normal development, well-kept General Neurological Examination: Neurological Exam Mental Status Awake and alert. Language is fluent with no aphasia. Motor No hypomimia or hypophonia. Bilateral upper extremity action>postural tremors. No rigidity or bradykinesia. Gait Casual gait is normal including stance, stride, and arm swing. Assessment and Plan: Assessment Mr. Souza is a right-handed 74 year old year old male with ET. Tremors are manageable and noticed by family more than him. He is currently happy with control of his symptoms. He doesn't wish to take additional medication at this time. Continue current dose of propranolol. The following are the current problems noted and addressed during this visit: Essential tremor (primary encounter diagnosis) Plan 07/19/2024 Visit: Continue propranolol at current dose. It cannot be increased more at this time due to low HR. If additional tremor control is needed then primidone would be a reasonable next step - Updated Movement Disorders Medication Schedule: Medications propranolol 20 mg 1 1 gabapentin for RLS f (more content not included)... Normal [facility] UA DIP, URINE (POC)on 2022 BILIRUBIN UA (POCT) Negative Negative [facility] CLARITY UA (POCT) Clear [facility] COLOR UA (POCT) Yellow [facility] GLUCOSE UA (POCT) Negative Negative mg/dL [facility] HEMOGLOBIN/BLOOD UA (POCT) Negative Negative [facility] KETONE UA (POCT) Negative Negative mg/dL [facility] LEUKOCYTES UA (POCT) Negative Negative [facility] NITRITE UA (POCT) Negative Negative [facility] PH UA (POCT) 6.0 4.5 - 8.0 [facility] Protein Ql (U) Negative Negative mg/dL [facility] SPECIFIC GRAVITY UA (POCT) 1.025 1.005 - 1.030 [facility] UROBILINOGEN UA (POCT) 0.2 E.U./dL Normal E.U./dL [facility] Surgery Visit Reporton 06-13 Surgery Visit Report [facility] [address] [place] [address] OFFICE VISIT Date of Service: 06/13/22 MR#: [id number] Acct: [id number] Name: YURIY SOUZA Rep #: [id number] : 1950 Provider: MARC pate Age/Sex: 72/M Location: [facility] Status: Signed Intake Vital Signs 06/03/22 06:38 Height 6 ft Intake Visit Reasons: 06/03 Hernia Surg RC 10 DAY F/U Chief Complaint: post op f/u hernia surgery Enrollment Management Manager Required: No Is patient in pain?: No Allergies hydrocodone [From Vicodin] Allergy (Verified 06/13/22 09:00) HYPOTENSION Medications lansoprazole 15 mg capsule,delayed release 15 mg PO DAILY 05/29/18 [History Confirmed 06/13/22] propranolol 20 mg tablet 20 mg PO BID 05/29/18 [History Confirmed 06/13/22] glucosamine sulf dipot chlr,msm,chond 550 mg-C 30 mg-shahbaz 1 mg capsule (Glucosamine Chondroitin) 1 cap PO DAILY 06/13/21 [History Confirmed 06/13/22] cholecalciferol (vitamin D3) 100 mcg (4,000 unit) capsule 100 mcg PO DAILY 05/27/22 [History Confirmed 06/13/22] gabapentin 300 mg capsule 600 - 900 mg PO QHS PRN PRN RLS 05/27/22 [History Confirmed 06/13/22] Subjective Details: Patient is a 72 y/o M I am following s/p umbilical hernia repair. Dr. Davidson performed an umbilical hernia repair with mesh on 06/03/22. Patient tolerated the procedure well. Pathology demonstrated hernia sac. Patient notes minimal amount of incisional discomfort at the umbilicus. He denies nausea, vomiting, fever since discharge. Patient states he was taking a shower 24 hours after surgery and had a syncope episode. Patient's contacted our office following the episode. He was instructed to lay down, have a snack and drink fluids. Patient felt improved after an hour and did not have any repeat episodes. Patient's called in the following day and noted the patient was improved and did not feel he needed a sooner appointment. Objective Details: Abdomen- incision c/d/i. No erythema or infection noted. No recurrent hernia. Coding Level of Care Code Global Post Op Diagnoses Umbilical hernia without obstruction or gangrene K42.9 [facility] Medical History Artery dissection Arthritis Back pain Benign essential tremor Blackout Cardiology follow-up encounter CPAP (continuous positive airway pressure) dependence DVT (deep venous thrombosis) Gastric reflux History of edema History of pain when walking History of stress test Hoarseness Hypertension Non-smoker Restless legs Wears glasses Wears hearing aid Surgical History (Updated 06/13/22 @ 09:03 by Madeline Kenny) History of kidney surgery History of right knee joint replacement Hx of colonoscopy Hx of left knee surgery Hx of left knee surgery S/P hernia repair Family History Father Cancer prostate Diabetes Mother CVA (cerebral vascular accident) Sister Psoriatic arthritis Social History Smoking Status: Never smoker alcohol intake: current details: occasional substance use type: does not use Assessment and Plan (No Qualifiers) Assessment and Plan (1) Umbilical hernia without obstruction or gangrene: Status: Acute Plan: Recommend no lifting greater than 20 pounds for 6 additional weeks Discussed walking on the treadmill. No stationary bike until after the 6 weeks. Follow-up as needed 06/13/22957 Date Alia Barbosa Signature: Date (if applicable) CC: Dr. Hermann Gonzales MD Normal [facility] Discharge Instructionon 05-16 Discharge Instruction [facility] Medical Records Department [address] [place] [address] Instructions for Home/Discharge Instructions 06/03/22 0715 MR#: [id number] Acct: [id number] Name: YURIY SOUZA Rep #: [id number] : 1950 72 From: Rashi Davidson MD PCP: Dr. Hermann Gonzales MD [place] [facility] [place]charge Instructions Procedure General Surgery Diet Discharge Diet: Light diet - advance as tolerated (if you have questions about your diet instructions, please talk to you doctor.) Activity Discharge Activity: May Not Drive (for 3-5 days or while taking narcotic pain medicine.) May shower in (days): 1 Lifting Restrictions: 10 pounds Dressing / Incision Call your doctor if your incision/area has: Continuous Slow Oozing, Sudden Increased Bleeding, Increased Pain/ Swelling, Increased Redness and Foul Smelling Discharge Call your doctor if you observe: Fever of 101 or Higher Suture Line Care: Avoid Pulling/Pushing and Avoid Pinching/Bending Additional Dressing/Incision Instructions:: Change or remove dressing in 4 days. Leave steri-strips in place for 1 week. Follow Up Care Please Follow Up With: Rashi Davidson MD When: Call [phone] to make an appointment to be seen in about 10 days. Test Results: Test results from this visit will be discussed in further detail at your follow-up appointment, if applicable. Discharge Plan Admission Attending Provider: Rashi Davidson Primary Care Provider: Hermann Gonzales Discharge Orders/Prescriptions Prescriptions: No Action lansoprazole 15 MG capsule,delayed release(DR/EC) 15 mg PO DAILY propranolol 20 MG tablet 20 mg PO BID Glucosamine Chondroitin 550-30-1 mg Capsule 1 cap PO DAILY Vitamin D3 100 mcg (4,000 unit) Capsule 100 mcg PO DAILY gabapentin 300 mg capsule 600 - 900 mg PO QHS PRN PRN (Reason: RLS) Referrals / Follow Up: Hermann Gonzales MD [Primary Care Provider] - Disposition Disposition (needs filled in before D/C Order can be placed): Home, Self Care 06/03/22 1234 Rashi Davidson MD CC: Dr. Hermann Gonzales MD Signed Normal [facility] Operative Reporton 2 Operative Report [facility] Medical Records Department [address] [place] [address] Operative Report 06/03/22820 MR#: [id number] Acct: [id number] Name: YURIY SOUZA Rep #: [id number] : 1950 72 From: Rashi Davidson MD PCP: Dr. Hermann Gonzales MD Status:[facility] [place] [facility] Problems Associated Problem List Diagnoses (1) Umbilical hernia without obstruction or gangrene: Report of Operation Date of Procedure: 06/03/22 Pre-Operative Diagnosis: Umbilical hernia with preperitoneal fat Post-Operative Diagnosis: Same Surgery/Procedure Performed:: Umbilical herniorrhaphy with [address] mesh Reference [id number] Lot number [id number] expiry date 07/12/2023 Description of Surgical Findings:: Timeout informed consent was obtained. 72-year-old gentleman was taken to the operating placed upon the table underwent monitored anesthesia care. 1% lidocaine mixed 50-50 with 0.25% Marcaine was used as a local anesthetic. A total of 40 cc was used. Local was instilled. A curvilinear incision was made inferior to the umbilicus sharp and blunt dissection was used to identify the preperitoneal fat which was partially amputated submitted to specimen. A retrorectus plane was developed elevating the peritoneum to allow positioning of the mesh directly against the posterior fascia. 8 cm Ventralex mesh was inserted. The tails were secured with interrupted 0 Nurolon. The fascia was closed transversely with multiple simple sutures of 0 Nurolon. Good approximation was achieved and good placement of the mesh. With each Nurolon suture the central portion of the mesh was additionally secured. The skin was then approximated with interrupted 4 Monocryl subdermal stitches. Dermabond cottonball Telfa OpSite dressings applied. Sponge and instrument and needle counts were reported to the surgeon to be correct. Specimen hernia sac and contents. Drains none. Blood loss minimal. The patient was taken to the recovery room in satisfactory addition without apparent complication Rashi Davidson M.D., F.A.C.S. Surgeon: Rashi Davidson Type of Anesthesia: Local MAC Anesthesiologist: Leonardo Jordan 06/03/22 1234 Cosigner Signature (if applicable): CC: Dr. Hermann Gonzales MD; Dr. Rashi Davidson MD Signed [facility] Surgery Specimen Level IIon 06-03-2022 Surgery Specimen Level II OPERATION: Umbilical hernia repair with mesh PRE-OP DIAGNOSIS: Umbilical hernia TISSUE SUBMITTED: Hernia sac and contents -------- Hernia sac and contents: A piece of fibroadipose and fibroconnective tissue, clinically hernia sac and contents. CHECO:daniel 06/04/2022 Slides are reviewed. Received in fixative is one container labeled with the patient's name and designated hernia sac and contents. The specimen consists of an irregular piece of adipose tissue measuring 5 x 3 x 1.5 cm. Sections do not reveal any mass lesion. [employer] Supervisor sections are submitted in one cassette. / CHECO:adniel 06/03/2022 TC:5 CPT: 80464 -------- Signed (signature on file) Dr. Karlos Miranda MD 06/04/22 1055 -------- [facility] Comment on above: Performed By: #### P SUII #### [facility] Laboratory [address] [place], [place], [id number] MRSA/SAID NASAL SCREENon MRSA+SAID SCRN Reason for Exam: PRE OP PREOP MRSA MRSA Negative S. AUREUS S. aureus Negative Normal [facility] Comment on above: Performed By: #### M 100.651 #### [facility] Laboratory [address] [facility] [place], [place], [id number] 12 Lead EKGon 05-28-[address] [facility] Cardiovascular Services [address] [place] [address] 12 Lead EKG 05/28/22 1113 MR#: [id number] Acct: [id number] Name: YURIY SOUZA Rep #: [id number] : 1950 72 From: Rene Estevez MD Attending Dr: Dr. Rashi Davidson MD Status: [place] E SDC Ordering Dr: Rashi Davidson MD Date: 05/28/22 [place] [facility] Sex: M C Admitted: Test Reason : PRE OP Blood Pressure : / mmHG Vent. Rate : 055 BPM Atrial Rate : 055 BPM P-R Int : 210 ms QRS Dur : 090 ms QT Int : 426 ms P-R-T Axes : 046 006 023 degrees QTc Int : 407 ms Sinus bradycardia with 1st degree A-V block Otherwise normal ECG Confirmed by CAROLINE SANTOS, RENE ([id number]), senior technical editor ALIA PAULINO ([id number]) on 05/29/2022 8:40:27 AM Referred By: Rashi Davidson Confirmed By:RENE ESTEVEZ MD 05/29/22 0840 Date Rene Estevez MD CC: Dr. Hermann Gonzales MD; Dr. Rashi Davidson MD Signed Normal [facility] Automated blood hematocrit ( percentage)on 05-28-2022 Hematocrit (Bld) [Volume fraction] 49.2 % Normal 40-[address] [facility] Work Phone: Comment on above: Performed By: #### L 500.2500, L100.0500 #### [facility] Laboratory [address] [place], [address] Basic Metabolic Profile (BMP )on 05-28-2022 BUN/CRE 16.5 RATIO Normal 10-[address] [facility] Comment on above: Performed By: #### L 500.2500, L100.0500 #### [facility] [address] [place], [address] CA,Total 9.4 mg/dL Normal 8.5-10.[address] [facility] Comment on above: Performed By: #### L 500.2500, L100.0500 #### [facility] [address] [place], [address] Chloride [Moles/Vol] 107 mmol/L Normal 98-[address] [facility] Comment on above: Performed By: #### L 500.2500, L100.0500 #### [facility] [address] [place], [address] CO2 [Moles/Vol] 29.0 mmol/L Normal 21.0-32.[address] [facility] Comment on above: Performed By: #### L 500.2500, L100.0500 #### [facility] [address] [place], [address] Creatinine [Mass/Vol] 1.27 mg/dL Normal 0.70-1.[address] [facility] Comment on above: Result Comment: The validity of the calculated GFR GFRAA in patients over 70 years has not been determined. Clinical correlation is essential. Performed By: #### L 500.2500, L100.0500 #### [facility] [address] [place], [address] EST GFR - AA 72 mL/min Normal >[address] [facility] Comment on above: Result Comment: Afri can Guatemalan GFR Calc Performed By: #### L 500.2500, L100.0500 #### [facility] [address] [place], [address] GAP 5 Normal 5-[address] [facility] Comment on above: Performed By: #### L 500.2500, L100.0500 #### [facility] [address] [place], [address] GFR/1.73 sq M.predicted among non-blacks MDRD (S/P/Bld) [Vol rate/Area] 59 mL/min/{1.73_m2} Low >[address] [facility] Comment on above: Result Comment: Non- GFR Calc Performed By: #### L 500.2500, L100.0500 #### [facility] [address] [place], [address] Glucose [Mass/Vol] 94 mg/dL Normal 74-[address] [facility] Comment on above: Performed By: #### L 500.2500, L100.0500 #### [facility] [address] [place], [address] Potassium [Moles/Vol] 4.3 mmol/L Normal 3.5-5.[address] [facility] Comment on above: Performed By: #### L 500.2500, L100.0500 #### [facility] [address] [place], [address] Sodium [Moles/Vol] 141 mmol/L Normal 136-[address] [facility] Comment on above: Performed By: #### L 500.2500, L100.0500 #### [facility] [address] [place], [address] Urea nitrogen [Mass/Vol] 21 mg/dL High 7-[address] [facility] Comment on above: Performed By: #### L 500.2500, L100.0500 #### [facility] [address] [place], [place], [address] Basophil percentageon 2021 Chloride [Moles/Vol] 107 mmol/L 98-[address] [facility] Work Phone: [phone] Glucose [Mass/Vol] 94 mg/dL 74-[address] [facility] Work Phone: [phone] Potassium [Moles/Vol] 4.3 mmol/L 3.5-5.[address] [facility] Work Phone: [phone] Sodium [Moles/Vol] 141 mmol/L 136-[address] [facility] Work Phone: [phone] WBC (Bld) [#/Vol] 6.2 10*3/uL Normal 4.4-11.0 [facility] Work Phone: [phone] Comment on above: Performed By: #### L 500.2500, L100.0500 #### [facility] [address] [place], [place], [id number] [phone] Blood erythrocytes count (nu mber/volume)on 05-28-2022 RBC (Bld) [#/Vol] 5.20 10*6/uL Normal 4.6-6.2 [facility] Work Phone: [phone] Comment on above: Performed By: #### L 500.2500, L100.0500 #### [facility] [address] [place], [place], [phone] Blood hemoglobin measurement (mass/volume)on 05-28-2022 Hemoglobin (Bld) [Mass/Vol] 16.3 g/dL Normal 13.0-16.[address] [facility] Work Phone: [phone] Comment on above: Performed By: #### L 500.2500, L100.0500 #### [facility] [address] [place], [address] Blood platelet mean volumeon 05-28-2022 Platelet mean volume (Bld) [Entitic vol] 10.0 fL Normal 6.2-12.[address] [facility] Work Phone: Comment on above: Performed By: #### L 500.2500, L100.0500 #### [facility] [address] [place], [place], [address] CBC-Complete Blood Cnt No Di ffon 05-28-2022 RDW SD 44.3 fl High 35.1-43.[address] [facility] Comment on above: Performed By: #### L 500.2500, L100.0500 #### [facility] [address] [place], [address] Erythrocyte distribution width (RBC) [Ratio] 12.7 % Normal 11.6-14.[address] [facility] Work Phone: Comment on above: Performed By: #### L 500.2500, L100.0500 #### [facility] [address] [place], [place], [address] MCH (RBC) [Entitic mass] 31.3 pg Normal 27.0-32.[address] [facility] Work Phone: Comment on above: Performed By: #### L 500.2500, L100.0500 #### [facility] [address] [place], [place], [address] Determination of erythrocyte mean corpuscular volume (MCV)on 05-28-2022 MCV (RBC) [Entitic vol] 94.6 fL High 80-[address] [facility] Work Phone: Comment on above: Performed By: #### L 500.2500, L100.0500 #### [facility] [address] [place], [place], [address] Laboratory - Chemistry and C hemistry - challengeon 05-28-2022 CO2 [Moles/Vol] 29.0 mmol/L 21.0-32.[address] [facility] Work Phone: Urea nitrogen/Creatini ne [Mass ratio] 16.5 mg/mg 10-[address] [facility] Work Phone: Laboratory - Hematology and Cell countson 05-28-2022 Erythrocyte distribution width (RBC) [Entitic vol] 44.3 fL 35.1-43.[address] [facility] Work Phone: MCHC [Mass/volume] by Automa freddie counton 05-28-2022 MCHC (RBC) [Mass/Vol] 33.1 g/dL Normal 32-[address] [facility] Work Phone: Comment on above: Performed By: #### L 500.2500, L100.0500 #### [facility] [address] [place], [place], [address] No Panel Informationon 05-28 Estimated GFR (MDRD) Amer 72 mL/min >[address] [facility] Work Phone: Comment on above: GFR Calc Estimated GFR (MDRD) Non-Af Amer 59 mL/min >[address] [facility] Work Phone: Comment on above: Non- GFR Calc Platelets bldon 05-28-2022 Platelets (Bld) [#/Vol] 201 10*3/uL Normal 150-[address] [facility] Work Phone: Comment on above: Performed By: #### L 500.2500, L100.0500 #### [facility] [address] [place], [place], [address] Serum or plasma calcium glenn urement (mass/volume)on 05-28-2022 Calcium [Mass/Vol] 9.4 mg/dL 8.5-10.[address] [facility] Work Phone: Serum or plasma creatinine m easurement (mass/volume)on 05-28-2022 Creatinine [Mass/Vol] 1.27 mg/dL 0.70-1.[address] [facility] Work Phone: Comment on above: The validity of the calculated GFR & GFRAA in patients over 70 years has not been determined. Clinical correlation is essential. Serum or plasma urea nitroge n measurement (mass/volume)on 05-28-2022 Urea nitrogen [Mass/Vol] 21 mg/dL 7-[address] [facility] Work Phone: Thin prep Papanicolaou smear with manual screeningon 05-28-2022 Thin prep Papanicolaou smear with manual screening 5 5-[address] [facility] Work Phone: Surgery Visit Reporton 05-08 Surgery Visit Report [facility] [address] [place] [address] OFFICE VISIT Date of Service: 05/08/22 MR#: [id number] Acct: [id number] Name: YURIY SOUZA Rep #: [id number] : 1950 Provider: Dr. Rashi mayer MD Age/Sex: 72/M Location: [facility] Status: Signed Intake Vital Signs 06/27/21 06:00 05/08/22 13:05 Height 5 ft 10 in 6 ft Weight: 226 lb BMI 30.6 BP 146/87 H Blood Pressure Location Rt brachial Position Sitting Respiration 17 Pulse 86 Pulse Source Monitor Temp 97.6 F L Temp Source Temporal Pulse Oximetry (%) 96 Oxygen Delivery Method room air Intake Visit Reasons: Umbilical Hernia Chief Complaint: Umbilical Hernia Enrollment Management Manager Required: No Is patient in pain?: No Allergies hydrocodone [From Vicodin] Allergy (Verified 05/08/22 13:06) HYPOTENSION Medications lansoprazole 15 mg capsule,delayed release 15 mg PO DAILY 05/29/18 [History Confirmed 05/08/22] propranolol 20 mg tablet 20 mg PO BID 05/29/18 [History Confirmed 05/08/22] glucosamine sulf dipot chlr,msm,chond 550 mg-C 30 mg-shahbaz 1 mg capsule (Glucosamine Chondroitin) 1 cap PO DAILY 06/13/21 [History Confirmed 05/08/22] [facility] Medical History (Updated 05/08/22 @ 13:[address] Rashi Davidson MD) Artery dissection Arthritis Back pain Benign essential tremor Blackout Cardiology follow-up encounter CPAP (continuous positive airway pressure) dependence DVT (deep venous thrombosis) Gastric reflux History of edema History of pain when walking History of stress test Hypertension Non-smoker Open wound Restless legs Wears glasses Wears hearing aid Surgical History (Updated 05/08/22 @ 13:03 by Nancy Friday) History of kidney surgery History of right knee joint replacement Hx of colonoscopy Hx of left knee surgery Hx of left knee surgery Family History (Updated 05/08/22 @ 13:04 by Nancy Friday) Father Cancer prostate Diabetes Mother CVA (cerebral vascular accident) Sister Psoriatic arthritis Social History (Updated 05/08/22 @ 13:04 by Nancy Friday) Smoking Status: Never smoker alcohol intake: current details: occasional substance use type: does not use HPI HPI HPI: YURIY SOUZA, is a 72 M who presents to the office today for Surgical consultation regarding an umbilical hernia. The patient is referred by Vane Mart PA-C and a written copy of my surgical consult and recommendations will return to her. I have assisted this gentleman June 02, 2018 with a screening colonoscopy. Those findings were notable for diverticulosis of the sigmoid colon but otherwise were not acute. Patient over the past years noted a progressively enlarging umbilical hernia. He has not had any surgery there. He is quite active. He walks and he rides bike and he does treadmill. He does not recall any specific injury. He has not had COVID-19. No coughing spells. Because its progressively enlarging however he thought that he better seek attention. ROS General General: No weight change, appetite, fatigue, colon cancer, breast cancer or weakness HEENT HEENT: No difficulty swallowing, eye injury, eye surgery, swollen glands or hoarseness Endo Endocrine: No thyroid disease, diabetes mellitus, thyroid cancer, Hair loss, heat intolerance or cold intolerance Skin Skin: No rash or changing moles Musc Musculoskeletal: Yes arthritis; No back problems, rheumatoid arthritis, gout or joint pain Cardio Cardiovascular: No murmur, pacemaker, heart disease, atrial fibrillation, high blood pressure, heart attack, heart stent, palpitations, shortness of breat with exertion or chest pain Psych Psychiatric: No depression, anxiety or hearing voices Resp Respiratory: No shortness of breath, Yes sleep apnea, No cough, No COPD, No asthma, No emphysema and No wheezing Gastro Gastrointestinal: No abdominal pain, No nausea or vomiting, No diarrhea, No constipation, No blood in stool, Yes acid reflux, Yes hemorrhoids, No ulcers, No gallbladder problem and No black,tarry stools Feliciano Hematologic: No blood thinners, No blood disorders, No bleeding, No anemia and No blood clots Neuro Neurologic: No system reviewed and no additional complaints, except as documented, No as per HPI, No abnormal gait, No abnormal hearing, No abnormal movements, No abnormal speech, No behavioral changes, No burning sensations, No confusion, No convulsions, No disequilibrium, No dizziness, No localized weakness, No frequent falls, No headache(s), No lack of coordination, No loss of vision, No memory loss, No numbness, No other visual disturbances, No radicular pain, No restless legs, No sensory deficit, No syncope, No tingling, No tremor(s), No weakness and No other Exam Const General: cooperative, comfortable an (more content not included)... Normal [facility] OBSOLETEon 07-09-2021 OBSOLETE Refill (NESLBA) YURIY SOUZA ( ) 1950 M Date Time Provider Department 07/09/21 DWAYNE MENDES JR During your visit today, we recorded the following information about you: Elaina Esqueda LPN 07/09/2021 4:29 PM Signed Patient has been identified by name and date of : Yes Patient phones for refill(s): Pending Prescriptions Disp Refills GABAPENTIN 300 MG CAPSULE 90 capsule 0 Sig: Take 1-3 capsules 30 minutes prior to bedtime as instructed. RANJEET: No Date of last office visit in primary care: 02/05/21 Last 2 Encounter Wt Readings: Date: Wt: 05/31/2021 104.8 kg (231 lb) 05/23/2021 104.3 kg (230 lb) Previous labs/tests for medication: Not applicable Please advise. Thank you. Elaina Tomas 07/10/2021 3:19 PM Signed Physician: Dr. Mendes Call from pharmacy requesting refill. Please E-Scribe Last OV: 11/06/20 with Charlene Wahl Future OV: none scheduled witn sleep provider. Dr. Perez's patient for Tremors Pending Prescriptions Disp Refills GABAPENTIN 300 MG CAPSULE 90 capsule 0 Sig: Take 1-3 capsules 30 minutes prior to bedtime as instructed. RANJEET: No Pharmacy Name: [facility] Phone #: [phone] Cuca Johnson [facility] Charlene Wahl APRN.SANDRA, PhD 07/10/2021 9:21 PM Signed Per my office note, 11/06/2020, gabapentin was Rx'd for essential tremors, not RLS. Pt was advised to follow up in April of 2021 with sleep medicine, no follow up noted. Per Dr. Mendes's phone encounter 06/07/2021, needs additional follow up before any medication refills. Pt is scheduled 07/23/[address] Perez who is following him for the essential tremor. Will need CPAP annual check up 10/2021. Charlene Wahl APRN.SANDRA, PhD [employer] [facility] 07/12/2021 10:34 AM Signed Message given Allergies As of Date: 07/09/2021 Noted Allergy Reaction VICODIN (HYDROCODONE-ACETAMINOPHE* 14 - Other: See Comments Comments: Severe drop in blood pressure, Date Reviewed: 05/31/2021 Reviewed by: Rubi Peña LPN - Fully Assessed Reason for Visit: Refill Request [94] Refill Request [94] Visit Diagnosis:RLS (restless legs syndrome) [G25.81] Prescriptions as of 07/12/2021 - gabapentin (NEURONTIN) 300 mg capsule Take 1-3 capsules 30 minutes prior to bedtime as instructed. - propranolol (INDERAL) 20 mg tablet Take 1 tablet by mouth twice daily. - lansoprazole (PREVACID) 15 mg capsule take 1 capsule by mouth once daily - CPAP 1 Device by MISCELLANEOUS route daily at bedtime. Pressure change: AutoCPAP 12-18 cm H2O, suitable mask per pt preference, head gear, humidity, tubing, filters, lifetime supplies, please fax 30 day download to [phone] G47.33 Obstructive Sleep Apnea DME: Kimberly Problem List As Of Date 07/09/2021 Noted Resolved Essential hypertension, benign [I10] GERD without esophagitis [K21.9] 10/14/2005 Mixed hyperlipidemia [E78.2] 10/14/2005 Acute gastritis without mention of hemorrhage [*11/21/2005 04/27/2015 Restless legs syndrome (RLS) [G25.81] 07/16/2006 Abscess of anal and rectal regions [K61.2] 05/01/2007 04/27/2015 FISTULA ANAL [K60.3] 07/17/2007 04/27/2015 Primary localized osteoarthrosis, lower leg [M1*02/20/2009 04/27/2015 BPH with obstruction/lower urinary tract sympto*04/11/2009 FHx: prostate cancer [Z80.42] 08/24/2012 Hypoglycemia [E16.2] 09/28/2013 04/27/2015 Vaso-vagal reaction [R55] 09/28/2013 04/27/2015 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 Imaging Services [address] [place] [address] Knee 1 or 2 Views MR#: [id number] Acct: [id number] Name: YURIY SOUZA Rep #: [id number] : 1950 M 71 From: Williams Ace DO PCP: Dr. Hermann Gonzales MD Status: [facility] Study: Knee 1 or 2 Views Date of Exam: 06/27/21 Exam# [id number] Ordering Dr: Nasim Jacobson MD STUDY: X-RAY - RIGHT KNEE REASON FOR EXAM: Male, 71 years old. TKA. TECHNIQUE: 2 view(s) of the knee. COMPARISON: CTA of the right lower extremity, 06/14/2021. FINDINGS: There is a total knee replacement. The prosthetic components are intact and articulate normally with each other. There is no evidence of loosening from the underlying bone. There is no evidence of osseous fracture or destructive osseous pathology. There is air and swelling in the anterior soft tissues with midline skin clips. . RAD/Knee 1 or 2 Views IMPRESSION: Status post right TKA. Electronically Signed: Williams Ace DO at 17:03 EDT Tel [phone], Service support , CC: Dr. Hermann Gonzales MD; Dr. Nasim Jacobson MD Manufacturing Specialist: Signed Normal [facility] Operative Reporton Operative Report [facility] Medical Records Department [address] [place] [id number] Operative Report 06/27/21 0713 MR#: [id number] Acct: [id number] Name: YURIY SOUZA Rep #: [id number] : 1950 71 From: Nasim Jacobson MD PCP: Dr. Hermann Gonzales MD Status:[facility] Location: [place] [address] Report of Operation Date of Procedure: 06/27/21 Pre-Operative Diagnosis: Right knee primary osteoarthritis Post-Operative Diagnosis: Right knee primary osteoarthritis Surgery/Procedure Performed:: Right minimally invasive robotic total knee replacement Description of Surgical Findings:: Stable knee with good patella tracking Surgeon: Nasim Jacobson network support: Fredy Mercer Type of Anesthesia: Spinal Anesthesiologist: Mak Samson Special Medications: 2 g Ancef, 1 g TXA at incision, 1 g TXA closure, 10 mg Decadron, joint cocktail (5 mg Duramorph, 30 mL of 0.5% Ropivicaine, 1000 units of epinephrine, 30 mg of Toradol) Specimen's removed: Bony cuts Estimated Blood Loss (mL): 50 Fluids Replaced: 1400 ML Description of Procedure: Implants used: 1. Napoleon size 5 triathlon cruciate retaining distal femoral press-fit component 2. Napoleon size 5 press-fit tritanium tibial baseplate 3. Rosa Elena X3 9 mm CS polyethylene 4. Rosa Elena X3 38 mm asymmetric patella Brief history operative indications: 71-year-old M with history of right knee osteoarthritis with radiographic findings with loss of joint space, osteophyte formation and subchondral sclerosis. Failed conservative measures as mentioned in the H P. Discussion of total knee arthroplasty as well as risk and benefits were discussed the patient including but not limited to blood loss, DVTs, PEs, neurovascular damage, general risk of anesthesia including loss of life, and stiffness or instability were discussed with patient. Patient demonstrated understanding and was able to sign informed consent. Procedure: On the date of procedure patient's right lower extremity was marked in the preoperative area. The patient was then taken back to the operating room where the patient was placed on the table in the supine position. All bony prominences were identified a well-padded. Anesthesia assumed control of the C-spine and airway and remained controlled throughout the remainder of the procedure. A tourniquet was placed on the right upper thigh and the leg was prepped in a sterile fashion. The surgeon then scrubbed at this time .Upon reentering the room right lower extremity was draped in a standard orthopedic fashion. A timeout was then called and everyone agreed upon the side, the site, the procedure to be performed, patient's identity and antibiotics given. Esmarch bandage was used to exsanguinate the extremity and the tourniquet was placed up to 250 mmHg with the knee in flexion. A midline skin incision was made and sharp dissection was taken down through skin subcutaneous tissue and fat. The standard medial parapatellar incision was made and the patella was subluxed laterally. An Appropriate deep MCL release was done and the fat pad was resected. Our attention was then directed to the patella. The patella was everted and a flat resection was made. The knee was then flexed up in 2 femoral pins were placed inside the incision and 2 tibial pins were placed outside the incision in the medial tibia bicortically. Once this was completed the 2 checkpoints in the femur and tibia were placed. Knee was then flexed up and the bony landmarks were registered. Once this was completed knee was taken through range of motion and manually stressed allowing us to a plan for an appropriate tibial cut. The robotic arm was brought into the field sterilely and checkpoint and saw were registered. Based on the patient's deformity the tibial cut was made 2 degrees of varus. At this time the tensioner was then placed in the joint and ligament tension was checked at 90 degrees and full extension. Based on the patient's ligamentous tension appropriate adjustments were made to the operative plan and ligament releases were done. Once we were happy with our operative plan with balanced flexion and extension gaps our attention was directed to the femur. The robot was brought into the field sterilely and registered. Posterior condylar cuts, anterior chamfer cuts and anterior cuts were appropriately made for a size 5 femur. When these were completed the saws were switched out in the distal femoral and posterior chamfer cuts were made. Protecting the soft tissue throughout this time. A size 5 tibial base plate was selected. the knee was flexed to 90 degrees and the soft tissues and posterior osteophytes were removed from the joint. 40 cc of the periarticular injection was injected into the posterior medial corner of the joint. The appropriate trials were then placed on the femur and tibia. A trial polyethylene was trialed to e (more content not included)... [facility] PROGRESSon 11-07-2020 PROGRESS HNO ID: [id number] Author: Charlene Wahl Service: ? Author Type: Nurse Practitioner Type: Progress Notes Filed: 11/09/2020 9:55 PM Note Text: [facility] Follow up/ Established patient visit - via [employer] virtual visit, identity confirmed via and address Date of last visit : 10/02/2020 Assessment and Plan: ASSESSMENT/PLAN: 1. Obstructive sleep apnea (adult) (pediatric) - ICD9: 327.23, ICD10: G47.33 (primary diagnosis) 2. Sleep related hypoxia - ICD9: 327.24, ICD10: G47.34 PAP downloads continue to show normalization of AHI with no mask leaks, yet nocturnal oximetry study showing hypoxia. Evaluated by pulmonary with negative workup. No cardiac symptoms. No recent labs and will get CBC to confirm no anemia. Discussed with patient and at this time feel appropriate for pt to undergo overnight PAP titration with tcCO2 to evaluate for other sleep related breathing process and to reevaluate sleep related hypoxia with possible O2 titration. Titration to start at 11 cmH2O based on 95% pressure on download. Pt agrees. He is requesting study be performed at [facility]. Orders placed. He will follow up post study. ? 3. RLS (restless legs syndrome) - ICD9: 333.94, ICD10: G25.81 Appear to be improved with use of gabapentin 600mg QHS. Will evaluate for PLMs during titration. No change in meds for now. ? 4. Tremor - ICD9: 781.0, ICD10: R25.1 No improvement on gabapentin. Encouraged follow up with Dr. Perez. ? ? Dwayne Mendes MD ? I spent a total of 35 minutes on the date of the service which included preparing to see the patient, [id number] patient care, completing clinical documentation, obtaining and/or reviewing separately obtained history, performing a medically appropriate examination, counseling and educating the patient/family/caregiver, ordering medications, tests, or procedures, independently interpreting results (not separately reported) and communicating results to the patient/family/caregiver. ? PDMP website checked and validated. All prescriptions have been APPROPRIATELY filled. No suspicious activity was identified. 10/02/2020 by Dwayne Mendes MD ? Here for follow up for sleep study results Interval history : Had PAP titration end of October 09, 2020 CPAP wears consistently Walks 3.5 miles yesterday No history of known COVID infection Did not sleep well on night of sleep study, his mask was not working well RLS in the past, has not been an issue recently Gabapentin has improved restless sleep, but he is still waking ~2 times per night History of essential tremor - treated with propranolol Gabapentin 600 mg for essential tremor Has tried to increase 900 mg but was unsteady on his feet the next morning SLEEP APNEA Sleep apnea type : JESSICA, Most Recent Apnea-Hypopnea Index (AHI): 17.3 (08/26/17) Nocturnal pulse ox study 07/14/2020 shows 50% of the time pulse ox < 90% on PAP Treatment : PAP therapy DME: [facility] PAP History: last download 06/2020-09/2020 Uses CPAP for 7:37 hours per night, 7 nights per week. Current PAP settin-20. AHI 1.6 95% 10.3 Difficulties with CPAP: None Reviewed objective PAP compliance data: Yes,compliant 99% Mask type: full face mask Mask issues: none Uses chin strap: No Uses ramp function: Yes Uses humidity: Yes There is a perceived benefit by the patient: Yes Observers report abolition of snoring with CPAP use. ------ PATIENT-ENTERED QUESTIONNAIRE SLEEP SCORES Sleep Questions 04/19/2019 Average hours slept in 24 hours: 7 [place] Sleepiness Scale 08/28/2020 Score 4 (No daytime sleepiness) KP Score 4 PROMIS CAT Sleep Disturbance 04/19/2019 PROMIS Sleep Disturbance T-Score 49 (within normal limits) Insomnia Severity Index 11/12/2017 Score 11 PHQ-9 02/17/2017 11/12/2017 04/19/2019 Score 5 9 4 PROMIS Global Health - (T-Scores - the mean of general population = 50. Five points is a clinically meaningful difference.) 04/19/2019 11/23/2019 08/28/2020 Physical T-Score 54.1 42.3 50.8 Mental T-Score 53.3 56 50.8 PMH, PSH, SH: No significant interval history SLEEP RELATED ROS Review of Systems Constitutional: Negative. HENT: Negative. Respiratory: Negative. Cardiovascular: Negative. ALLERGIES Allergen Reactions - Vicodin [Hydrocodon* Severe drop in blood pressure, CURRENT MEDICATIONS: lansoprazole (PREVACID) 15 mg capsule Take 1 capsule by mouth once daily. gabapentin (NEURONTIN) 300 mg capsule Take 1-3 capsules 30 minutes prior to bedtime as instructed. CPAP Change pressure setting range to 5-11 cmH2O. propranolol (INDERAL) 20 mg tablet Take 1 tablet by mouth twice daily. CPAP 1 Device by MISCELLANEOUS route daily at bedtime. Settings 5 - 20 cm H2O, suitable mask per pt preference, chin strap, head gear, humidity, tubing, filters, lifetime supplies. G47.33 Obstructive Sleep Apnea please fax 30 day download to [phone] Prior RLS Medications (last 20 years) Some values may be hidden. Unless noted otherwise, only the newest values recorded on each date are displayed. RLS Medications acetaminophen-hydrocodone 5-500 mg ORAL Tab Dose: Take one(1) tablet every four(4) to six(6) hours as needed for pain. Starting date: 05/01/2007 Ending date: 10/28/2007 (Discontinued) REQUIP 0.25 MG (2)-0.5 MG(5)-1 MG(7) TABS IN A DOSE PACK Dose: Take one(1) tablet daily at bedtime. Starting date: 07/16/2006 Ending date: 05/01/2007 (Discontinued) REQUIP 1 MG TAB Dose: Take one(1) tablet daily at bedtime. Starting date: 07/16/2006 Ending date: 05/01/2007 (Discontinued) PHYSICAL EXAMINATION: VIDEO EXAM: performed via video enabled technology General: Well developed, No acute distress Eyes: clear, no drainage Nose: no exudate OP: moist mucous membranes Neck: Full ROM Lungs: nonlabored breathing, no audible wheezing, no retractions Skin: no rashes IMPRESSION: Mike is a 70 year old male with JESSICA. He is a consistent user of CPAP and notes some benefit. There has been concern for sleep related hypoxia, however, recent PAP titration did not demonstrate any sleep related hypoxia. Sleep has improved with initiation of gapapentin for essential tremor although Mike does still report some night time waking. Jessica on cpap (primary encounter diagnosis) Rls (restless legs syndrome) Sleep disturbance Clinical Global Impression of Change ( CGI-C) Compared to the patient's condition at baseline, how much has the patient changed? Much improved PLAN: - Sleep study results scanned into [employer] - Continue Auto CPAP but will increase pressure to 12-18 cmH2O. Download in 4 weeks. - Remember to clean your mask and equipment regularly, as directed. - You should be eligible for new supplies approximately every 3-6 months, depending on your insurance coverage. Contact your [employer] (DME) company for new supplies as needed. - Follow up in 2-3 months, sooner if any concerns Poor sleep quality, nocturnal wakings, insomnia vs. under-treated JESSICA? Sleep initiation improved on gabapentin (for essential tremor) Continues with night time waking ~2 xper night Re- evaluate after CPAP pressure change Consider insomnia treatment I spent a total of 25 minutes on the date of the service which included preparing to see the patient, completing clinical documentation, obtaining and/or reviewing separately obtained history and counseling and educating the patient/family/caregiver. Charlene Wahl, PHD, STUDENT COUNSELOR Normal [facility] No Panel Information Nasal Screen MRSA/MSSA [facility] Work Phone: Vital Signs Date Time Vital Sign Value Performing Clinician Faci lity 05-27-2025 12:47-0400 Body mass index (BMI) [Ratio] 29.19 kg/m2 Lizbeth Perez MD Work Phone: [facility] 05-27-2025 12:47-0400 Body weight 92.7 kg Lizbeth Perez MD Work Phone: [facility] 05-27-2025 12:47-0400 Diastolic blood pressure 81 mm[Hg] Lizbeth Perez MD Work Phone: [facility] 05-27-2025 12:47-0400 Heart rate 56 /min Lizbeth Perez MD Work Phone: [facility] 05-27-2025 12:47-0400 SaO2% (BldA) [Mass fraction] 95 % Lizbeth Perez MD Work Phone: [facility] 05-27-2025 12:47-0400 Systolic blood pressure 136 mm[Hg] Lizbeth Perez MD Work Phone: [facility] 05-20-2025 13:31-0400 Diastolic blood pressure 84 mm[Hg] Vane Mart PA-C Work Phone: [facility] Comment on above: Repeat BP 05-20-2025 13:31-0400 Systolic blood pressure 135 mm[Hg] Vane Mart PA-C Work Phone: [facility] Comment on above: Repeat BP 05-20-2025 12:17-0400 Body height 178.2 cm Vane Jonas Work Phone: [facility] 05-20-2025 12:17-0400 Body mass index (BMI) [Ratio] 29.43 kg/m2 Vane Mart PA-C Work Phone: [facility] 05-20-2025 12:17-0400 Body temperature 97.81 [degF] Vane Mart PA- C Work Phone: [facility] 05-20-2025 12:17-0400 Body weight 93.44 kg Vaneella Mart PA- C Work Phone: [facility] 05-20-2025 12:17-0400 Heart rate 74 /min Vaneella Mart PA- C Work Phone: [facility] 05-20-2025 12:17-0400 Respiratory rate 16 /min Vaneella Mart PA- C Work Phone: [facility] 05-20-2025 12:17-0400 SaO2% (BldA) [Mass fraction] 97 % Vane Mart PA-C Work Phone: [facility] 01-03-2025 12:58-0400 Body mass index (BMI) [Ratio] 30.26 kg/m2 Ken Elizabeth STUDENT COUNSELOR.ICE DELIVERY DRIVER Work Phone: [facility] 01-03-2025 12:58-0400 Body weight 99.79 kg Ken Elizabeth STUDENT COUNSELOR.ICE DELIVERY DRIVER Work Phone: [facility] 01-03-2025 12:58-0400 Diastolic blood pressure 79 mm[Hg] Ken Elizabeth STUDENT COUNSELOR.ICE DELIVERY DRIVER Work Phone: [facility] 01-03-2025 12:58-0400 Heart rate 52 /min Ken Elizabeth STUDENT COUNSELOR.ICE DELIVERY DRIVER Work Phone: [facility] 01-03-2025 12:58-0400 Respiratory rate 16 /min Ken Elizabeth STUDENT COUNSELOR.ICE DELIVERY DRIVER Work Phone: [facility] 01-03-2025 12:58-0400 SaO2% (BldA) [Mass fraction] 97 % Ken Elizabeth STUDENT COUNSELOR.ICE DELIVERY DRIVER Work Phone: [facility] 01-03-2025 12:58-0400 Systolic blood pressure 126 mm[Hg] Ken Johnson STUDENT COUNSELOR.ICE DELIVERY DRIVER Work Phone: [facility] 11-29-2024 14:28-0400 Body height 181.6 cm Chelsea Freeman [facility] 11-29-2024 14:28-0400 Body mass index (BMI) [Ratio] 30.26 kg/m2 Chelsea Pete CRESPO [facility] 11-29-2024 14:28-0400 Body weight 99.79 kg Chelsea Pete CRESPO [facility] 11-17-2024 13:05-0500 Body mass index (BMI) [Ratio] 30.81 kg/m2 Vane Mart PA-C Work Phone: [facility] 11-17-2024 13:05-0500 Body temperature 98.49 [degF] Vane Mart PA- C Work Phone: [facility] 11-17-2024 13:05-0500 Body weight 101.61 kg Vane Mart PA- C Work Phone: [facility] 11-17-2024 13:05-0500 Diastolic blood pressure 78 mm[Hg] Vane Mart PA-C Work Phone: [facility] 11-17-2024 13:05-0500 Heart rate 61 /min Vane Mart PA- C Work Phone: [facility] 11-17-2024 13:05-0500 Respiratory rate 18 /min Vane Mart PA- C Work Phone: [facility] 11-17-2024 13:05-0500 SaO2% (BldA) [Mass fraction] 94 % Vane Mart PA-C Work Phone: [facility] 11-17-2024 13:05-0500 Systolic blood pressure 120 mm[Hg] Vane Mart PA-C Work Phone: [facility] 10-30-2024 12:13-0500 Body mass index (BMI) [Ratio] 30.41 kg/m2 Carolyne Bebe STUDENT COUNSELOR.ICE DELIVERY DRIVER Work Phone: [facility] 10-30-2024 12:13-0500 Body temperature 98.49 [degF] Carolyne Bebe STUDENT COUNSELOR.ICE DELIVERY DRIVER Work Phone: [facility] 10-30-2024 12:13-0500 Body weight 100.3 kg Carolyne Bebe STUDENT COUNSELOR.ICE DELIVERY DRIVER Work Phone: [facility] 10-30-2024 12:13-0500 Diastolic blood pressure 66 mm[Hg] Carolyne Bebe STUDENT COUNSELOR.ICE DELIVERY DRIVER Work Phone: [facility] 10-30-2024 12:13-0500 Heart rate 60 /min Carolyne Bebe STUDENT COUNSELOR.ICE DELIVERY DRIVER Work Phone: [facility] 10-30-2024 12:13-0500 Respiratory rate 16 /min Carolyne Bebe STUDENT COUNSELOR.ICE DELIVERY DRIVER Work Phone: [facility] 10-30-2024 12:13-0500 SaO2% (BldA) [Mass fraction] 96 % Carolyne Spence STUDENT COUNSELOR.ICE DELIVERY DRIVER Work Phone: [facility] 10-30-2024 12:13-0500 Systolic blood pressure 118 mm[Hg] Carolyne Odellk STUDENT COUNSELOR.ICE DELIVERY DRIVER Work Phone: [facility] 10-24-2024 10:49-0500 Body mass index (BMI) [Ratio] 30.96 kg/m2 Hermann Lutz STUDENT COUNSELOR.ICE DELIVERY DRIVER Work Phone: [facility] 10-24-2024 10:49-0500 Body temperature 102.09 [degF] Hermann Bolivar STUDENT COUNSELOR.ICE DELIVERY DRIVER Work Phone: [facility] 10-24-2024 10:49-0500 Body weight 102.1 kg Hermann Lutz STUDENT COUNSELOR.ICE DELIVERY DRIVER Work Phone: [facility] 10-24-2024 10:49-0500 Diastolic blood pressure 70 mm[Hg] Hermann Bolivar STUDENT COUNSELOR.ICE DELIVERY DRIVER Work Phone: [facility] 10-24-2024 10:49-0500 Heart rate 92 /min [facility] STUDENT COUNSELOR.ICE DELIVERY DRIVER Work Phone: [facility] 10-24-2024 10:49-0500 Respiratory rate 18 /min Hermann Stuartkathleen STUDENT COUNSELOR.ICE DELIVERY DRIVER Work Phone: [facility] 10-24-2024 10:49-0500 SaO2% (BldA) [Mass fraction] 95 % Hermann Stuartkathleen STUDENT COUNSELOR.ICE DELIVERY DRIVER Work Phone: [facility] 10-24-2024 10:49-0500 Systolic blood pressure 122 mm[Hg] Hermann Stuartkathleen STUDENT COUNSELOR.ICE DELIVERY DRIVER Work Phone: [facility] 07-19-2024 14:53-0500 Body mass index (BMI) [Ratio] 31.05 kg/m2 Lizbeth Perez MD Work Phone: [facility] 07-19-2024 14:53-0500 Body weight 102.4 kg Lizbeth Perez MD Work Phone: [facility] 07-19-2024 14:53-0500 Diastolic blood pressure 83 mm[Hg] Lizbeth Perez MD Work Phone: [facility] 07-19-2024 14:53-0500 Heart rate 52 /min Lizbeth Perez MD Work Phone: [facility] 07-19-2024 14:53-0500 SaO2% (BldA) [Mass fraction] 97 % Lizbeth Perez MD Work Phone: [facility] 07-19-2024 14:53-0500 Systolic blood pressure 163 mm[Hg] Lizbeth Perez MD Work Phone: [facility] 05-05-2024 10:46-0400 Body mass index (BMI) [Ratio] 30.67 kg/m2 Hermann Gonzales MD Work Phone: [facility] 05-05-2024 10:46-0400 Body weight 101.15 kg Hermann Gonzales MD Work Phone: [facility] 05-05-2024 10:46-0400 Diastolic blood pressure 78 mm[Hg] Hermann Gonzales MD Work Phone: [facility] 05-05-2024 10:46-0400 Heart rate 60 /min Hermann Gonzales MD Work Phone: [facility] 05-05-2024 10:46-0400 Respiratory rate 16 /min Hermann Gonzales MD Work Phone: [facility] 05-05-2024 10:46-0400 Systolic blood pressure 118 mm[Hg] Hermann Gonzales MD Work Phone: [facility] 12-01-2023 12:57-0400 Body weight 105.33 kg Ken Elizabeth STUDENT COUNSELOR.ICE DELIVERY DRIVER Work Phone: [facility] 12-01-2023 12:57-0400 Diastolic blood pressure 82 mm[Hg] Ken Elizabeth STUDENT COUNSELOR.ICE DELIVERY DRIVER Work Phone: [facility] 12-01-2023 12:57-0400 Heart rate 64 /min Ken Elizabeth STUDENT COUNSELOR.ICE DELIVERY DRIVER Work Phone: [facility] 12-01-2023 12:57-0400 Respiratory rate 16 /min Ken Elizabeth STUDENT COUNSELOR.ICE DELIVERY DRIVER Work Phone: [facility] 12-01-2023 12:57-0400 SaO2% (BldA) [Mass fraction] 96 % Ken Elizabeth STUDENT COUNSELOR.ICE DELIVERY DRIVER Work Phone: [facility] [facility] 12-01-2023 12:57-0400 Systolic blood pressure 138 mm[Hg] Ken Elizabeth STUDENT COUNSELOR.ICE DELIVERY DRIVER Work Phone: [facility] 11-05-2023 10:34-0500 Body height 181.6 cm Hermann Gonzales MD Work Phone: [facility] 11-05-2023 10:34-0500 Body weight 102.97 kg Hermann Gonzales MD Work Phone: [facility] 11-05-2023 10:34-0500 Diastolic blood pressure 76 mm[Hg] Hermann Gonzales MD Work Phone: [facility] 11-05-2023 10:34-0500 Heart rate 62 /min Hermann Gonzales MD Work Phone: [facility] 11-05-2023 10:34-0500 Respiratory rate 16 /min Hermann Gonzales MD Work Phone: [facility] 11-05-2023 10:34-0500 Systolic blood pressure 130 mm[Hg] Hermann Gonzales MD Work Phone: [facility] 09-01-2023 10:44-0500 Body weight 102.6 kg Marjorie Calderon Jr. Work Phone: [facility] 09-01-2023 10:44-0500 Diastolic blood pressure 82 mm[Hg] Dwayne Mendes Jr., MD Work Phone: [facility] 09-01-2023 10:44-0500 Heart rate 76 /min Marjorie Calderon Jr. Work Phone: [facility] 09-01-2023 10:44-0500 Respiratory rate 16 /min Marjorie Calderon Jr. Work Phone: [facility] 09-01-2023 10:44-0500 Systolic blood pressure 138 mm[Hg] Dwayne Mendes Jr., MD Work Phone: [facility] 07-24-2023 09:58-0500 Diastolic blood pressure 82 mm[Hg] Lizbeth Perez MD Work Phone: [facility] 07-24-2023 09:58-0500 Heart rate 54 /min Lizbeth Perez MD Work Phone: [facility] 07-24-2023 09:58-0500 Systolic blood pressure 142 mm[Hg] Lizbeth Perez MD Work Phone: [facility] 07-24-2023 09:26-0500 Body height 181.6 cm Lizbeth Perez MD Work Phone: [facility] 07-24-2023 09:26-0500 Body weight 97.48 kg Lizbeth Perez MD Work Phone: [facility] 07-24-2023 09:26-0500 SaO2% (BldA) [Mass fraction] 99 % Lizbeth Perez MD Work Phone: [facility] 01-27-2023 16:44-0400 Body temperature 97.81 [degF] Marjorie Calderon Jr. Work Phone: [facility] 01-27-2023 16:44-0400 Body weight 102.06 kg Marjorie Calderon Jr. Work Phone: [facility] 01-27-2023 16:44-0400 Diastolic blood pressure 85 mm[Hg] Dwayne Mendes Jr., MD Work Phone: [facility] 01-27-2023 16:44-0400 Heart rate 76 /min Marjorie Calderon Jr. Work Phone: [facility] 01-27-2023 16:44-0400 Respiratory rate 16 /min Marjorie Calderon Jr. Work Phone: [facility] 01-27-2023 16:44-0400 SaO2% (BldA) [Mass fraction] 96 % Dwayne Mendes Jr., MD Work Phone: [facility] 01-27-2023 16:44-0400 Systolic blood pressure 131 mm[Hg] Dwayne Mendes Jr., MD Work Phone: [facility] 11-29-2022 15:42-0400 Body height 182.9 cm Rodney Caldwell MD Work Phone: [facility] 11-29-2022 15:42-0400 Body weight 104.33 kg Rodney Caldwell MD Work Phone: [facility] 11-14-2022 11:40-0500 Body height 182.9 cm Rodney Caldwell MD Work Phone: [facility] 11-14-2022 11:40-0500 Body weight 104.33 kg Rodney Caldwell MD Work Phone: [facility] 11-01-2022 10:14-0500 Body weight 104.78 kg Hermann Gonzales MD Work Phone: [facility] 11-01-2022 10:14-0500 Diastolic blood pressure 82 mm[Hg] Hermann Gonzales MD Work Phone: [facility] 11-01-2022 10:14-0500 Heart rate 68 /min Hermann Gonzales MD Work Phone: [facility] 11-01-2022 10:14-0500 Respiratory rate 16 /min Hermann Gonzales MD Work Phone: [facility] 11-01-2022 10:14-0500 Systolic blood pressure 128 mm[Hg] Hermann Gonzales MD Work Phone: [facility] 06-03-2022 09:57-0400 Body temperature 98 [degF] Dr. Hermann Gonzales Work Phone: [facility] Work Phone: 06-03-2022 09:57-0400 Diastolic blood pressure 83 mm[Hg] Dr. Hermann Gonzales Work Phone: [facility] Work Phone: 06-03-2022 09:57-0400 Heart rate 50 /min Dr. Hermann Gonzales Work Phone: [facility] Work Phone: 06-03-2022 09:57-0400 Respiratory rate 18 /min Dr. Hermann Gonzales Work Phone: [facility] Work Phone: 06-03-2022 09:57-0400 SaO2% (BldA) [Mass fraction] 99 % Dr. Hermann Gonzales Work Phone: [facility] Work Phone: 06-03-2022 09:57-0400 Systolic blood pressure 123 mm[Hg] Dr. Hermann Gonzales Work Phone: [facility] Work Phone: 06-03-2022 06:38-0400 Body height 182.[address] Hermann Gonzales Work Phone: [facility] Work Phone: 06-03-2022 06:38-0400 Body mass index (BMI) [Ratio] 30.1 kg/m2 Dr. Hermann Gonzales Work Phone: [facility] Work Phone: 06-03-2022 06:38-0400 Body weight 100.[address] Hermann Gonzales Work Phone: [facility] Work Phone: 05-08-2022 13:05-0400 Body mass index (BMI) [Ratio] 30.6 kg/m2 Dr. Hermann Gonzales Work Phone: [facility] Work Phone: 05-08-2022 13:05-0400 Body temperature 97.6 [degF] Dr. Hermann Gonzales Work Phone: [facility] Work Phone: 05-08-2022 13:05-0400 Body weight 102.[address] Hermann Gonzales Work Phone: [facility] Work Phone: 05-08-2022 13:05-0400 Diastolic blood pressure 87 mm[Hg] Dr. Hermann Gonzales Work Phone: [facility] Work Phone: 05-08-2022 13:05-0400 Heart rate 86 /min Dr. Hermann Gonzales Work Phone: [facility] Work Phone: 05-08-2022 13:05-0400 Respiratory rate 17 /min Dr. Hermann Gonzales Work Phone: [facility] Work Phone: 05-08-2022 13:05-0400 SaO2% (BldA) [Mass fraction] 96 % Dr. Hermann Gonzales Work Phone: [facility] Work Phone: 05-08-2022 13:05-0400 Systolic blood pressure 146 mm[Hg] Dr. Hermann Gonzales Work Phone: [facility] Work Phone: 02-08-2022 13:48-0400 Body height 182.9 cm Gabriella Coombs STUDENT COUNSELOR.ICE DELIVERY DRIVER Work Phone: [facility] 02-08-2022 13:48-0400 Body weight 99.79 kg Gabriella Coombs STUDENT COUNSELOR.ICE DELIVERY DRIVER Work Phone: [facility] 02-08-2022 13:48-0400 Diastolic blood pressure 88 mm[Hg] Gabriella Coombs STUDENT COUNSELOR.ICE DELIVERY DRIVER Work Phone: [facility] 02-08-2022 13:48-0400 Heart rate 57 /min Gabriella Coombs STUDENT COUNSELOR.ICE DELIVERY DRIVER Work Phone: [facility] 02-08-2022 13:48-0400 Systolic blood pressure 131 mm[Hg] Gabriella Coombs STUDENT COUNSELOR.ICE DELIVERY DRIVER Work Phone: [facility] Encounters Encounter Date Encounter Type Care Provider Facility Start: 05-27-2025 End: 05-27-2025 Office outpatient visit 15 minutes Lizbeth Perez MD Work Phone: Neurology Comment on above: Essential tremor (Pr imary Dx) Start: 05-27-2025 End: 05-27-2025 ambulatory LIZBETH PEREZ Facility:[facility] Start: 05-20-2025 End: 05-20-2025 ambulatory HERMANN GONZALES Facility:[facility] Start: 05-20-2025 End: 05-20-2025 Patient encounter procedure Vane Mart PA-C Work Phone: [facility] Comment on above: Medicare annual [facility] visit, subsequent (Primary Dx); Advance directive discussed with patient; Living will in place; Type 2 diabetes mellitus without complication, without long-term current use of insulin (HCC); Essential hypertension, benign; Mixed hyperlipidemia; Elevated blood sugar; Stage 3a chronic kidney disease (HCC); BPH with obstruction/lower urinary tract symptoms; JESSICA (obstructive sleep apnea); Restless legs syndrome (RLS); Elevated PSA; Prostate disorder; Medication management; GERD without esophagitis; Bowel habit changes Start: 05-18-2025 End: 05-18-2025 ambulatory HERMANN GONZALES Facility:[facility] Start: 05-17-2025 End: 05-19-2025 Refill Hermann Gonzales MD Work Phone: [facility] [place] Comment on above: Refill Request Start: 2025 End: 2025 ambulatory Hermann Gonzales MD Work Phone: [employer] [facility] Start: 2025 End: 2025 Patient encounter procedure Hermann Gonzales MD Work Phone: [facility] Comment on above: Population Health Na vigation Outreach ([facility] [place] ) Start: 01-03-2025 End: 01-03-2025 Patient encounter procedure Ken Johnson APRN.CNP Work Phone: Neurology Comment on above: JESSICA on CPAP (Primary Dx); RLS (restless legs syndrome); Nocturnal hypoxia Start: 01-03-2025 End: 01-03-2025 ambulatory HERMANN GONZALES Facility:[facility] Start: 11-29-2024 End: 11-29-[address] RD [facility] Comment on above: Assessment; Patient Education Start: 11-29-2024 End: 11-29-[address] [facility] Start: 11-26-2024 End: 11-26-2024 Telephone encounter Vane Mart PA-C Work Phone: [facility] [place] Comment on above: Consult (word processor operator) Start: 11-24-2024 End: 11-24-2024 Refill Hermann Gonzales MD Work Phone: [facility] [place] Comment on above: Refill Request Start: 11-19-2024 End: 01-19-2025 Follow-up encounter Vane Mart PA-C Work Phone: [facility] [place] Start: 11-17-2024 End: 11-17-2024 ambulatory HERMANN GONZALES Facility:[facility] Start: 11-17-2024 End: 11-17-2024 Patient encounter procedure Vane Mart PA-C Work Phone: [facility] [place] Comment on above: Type 2 diabetes arturo itus without complication, without long- term current use of insulin (HCC) (Primary Dx); Essential hypertension, benign; Mixed hyperlipidemia; Screening for depression; Elevated PSA; Prostate disorder; Benign essential tremor; GERD without esophagitis; BPH with obstruction/lower urinary tract symptoms; Stage 3a chronic kidney disease (HCC); Elevated blood sugar; Medication management Start: 11-15-2024 End: 11-15-2024 ambulatory HERMANN GONZALES Facility:[facility] Start: 11-09-2024 End: 11-09-2024 ambulatory Nimo Marine [facility] Start: 11-09-2024 End: 11-09-2024 Patient encounter procedure Nimo Hawthorne [facility] Comment on above: Population Health Na vigation Outreach (delmy guillory) Start: 10-30-2024 End: 10-30-2024 ambulatory HERMANN GONZALES Facility:[facility] Start: 10-30-2024 End: 10-30-2024 Patient encounter procedure Carolyne Spence APRN.ICE DELIVERY DRIVER Work Phone: [facility] Comment on above: Rash (Primary Dx) Start: 10-24-2024 End: 10-24-2024 ambulatory HERMANN GONZALES Facility:[facility] Start: 10-24-2024 End: 10-24-2024 Office outpatient visit 25 minutes Hermann Lutz APRN.CNP Work Phone: [facility] Comment on above: Influenza-like sympt oms (Primary Dx) Start: 09-28-2024 End: 09-29-2024 Refill Dwayne Mendes MD Work Phone: Neurology Comment on above: Refill Request Start: 07-19-2024 End: 07-19-2024 ambulatory LIZBETH PEREZ Facility:[facility] Start: 07-19-2024 End: 07-19-2024 Office outpatient visit 25 minutes Lizbeth Perez MD Work Phone: Neurology Comment on above: Essential tremor (Pr imary Dx) Start: 05-05-2024 End: 05-05-2024 Patient encounter procedure Hermann Gonzales MD Work Phone: [facility] [place] Comment on above: Essential hypertensi on, benign (Primary Dx); Mixed hyperlipidemia; GERD without esophagitis; Stage 3a chronic kidney disease (HCC); Benign essential tremor; Restless legs syndrome (RLS); Elevated PSA; Medication management; Elevated blood sugar Start: 03-31-2024 End: 06-22-2024 Refill Dwayne Mendes MD Work Phone: Neurology Comment on above: Refill Request Start: 12-02-2023 Telephone encounter Ken tyler APRN.ICE DELIVERY DRIVER Work Phone: Neurology Comment on above: Orders Start: 12-01-2023 End: 12-01-2023 Patient encounter procedure Ken Johnson APRN.ICE DELIVERY DRIVER Work Phone: Neurology Comment on above: Nocturnal hypoxia (P rimary Dx); JESSICA on CPAP; RLS (restless legs syndrome) Start: 11-11-2023 End: 11-11-2023 Unlisted evaluation and management service Ken Johnson APRN.ICE DELIVERY DRIVER Work Phone: Neurology Comment on above: NO SHOW (Primary Dx) Start: 11-05-2023 End: 11-05-2023 Patient encounter procedure Hermann Gonzales MD Work Phone: [facility] [place] Comment on above: Medicare annual well ness visit, subsequent (Primary Dx); Essential hypertension, benign; Mixed hyperlipidemia; GERD without esophagitis; Stage 3a chronic kidney disease (HCC); Restless legs syndrome (RLS); JESSICA (obstructive sleep apnea); Benign essential tremor; Elevated PSA; BPH with obstruction/lower urinary tract symptoms; Advance directive discussed with patient; Encounter for immunization Start: 11-03-2023 Get Medical Advice Hermann Gonzales MD Work Phone: [facility] Comment on above: lab orders PAP Therapy Follow U p (10/04/23 - 11/02/23 ) Start: 09-01-2023 End: 09-01-2023 Patient encounter procedure Dwayne Mednes MD Work Phone: Neurology Comment on above: JESSICA on CPAP (Primary Dx); Sleep related hypoxia; RLS (restless legs syndrome) Start: 07-24-2023 End: 07-24-2023 Office outpatient visit 15 minutes Lizbeth Perez MD Work Phone: Neurology Comment on above: Essential tremor (Pr imary Dx) Start: 06-02-2023 ambulatory Hermann tesfaye MD Work Phone: [facility] Comment on above: vaccinations Start: 05-26-2023 Telephone encounter Hermann Gonzales MD Work Phone: Orthopaedics Start: 04-17-2023 Telephone encounter Hermann Gonzales MD Work Phone: [facility] Comment on above: Orders Start: 03-31-2023 Refill Lizbeth zepeda MD Work Phone: Neurology Comment on above: Refill Request Start: 01-28-2023 Telephone encounter Dwayne Mendes MD Work Phone: Neurology Comment on above: Orders Start: 01-27-2023 End: 01-27-2023 Patient encounter procedure Dwayne Mendes MD Work Phone: Neurology Comment on above: JESSICA (obstructive sle ep apnea) (Primary Dx); RLS (restless legs syndrome); Sleep related hypoxia Start: 01-01-2023 Telephone encounter Gabriella Mujica APRN.ICE DELIVERY DRIVER Work Phone: Neurology Comment on above: CMN- PAP supplies ([employer] ) Start: 11-29-2022 End: 11-29-2022 Patient encounter procedure Rodney Caldwell MD Work Phone: Urology Comment on above: Elevated PSA (Primar y Dx) Start: 11-14-2022 End: 11-14-2022 Patient encounter procedure Rodney Caldwell MD Work Phone: Urology Comment on above: Elevated PSA (Primar y Dx); FHx: prostate cancer Start: 11-01-2022 End: 11-01-2022 Patient encounter procedure Hermann Gonzales MD Work Phone: [facility] Comment on above: Medicare annual [facility] visit, subsequent (Primary Dx); Essential hypertension, benign; Mixed hyperlipidemia; GERD without esophagitis; Stage 3a chronic kidney disease (HCC); Restless legs syndrome (RLS); JESSICA (obstructive sleep apnea); Benign essential tremor; Elevated PSA; FHx: prostate cancer; Advance directive discussed with patient Refill Request Start: 10-21-2022 ambulatory Hermann tesfaye MD Work Phone: [facility] Comment on above: lab work Start: 08-26-2022 Refill Gabriella mae APRN.CNP Work Phone: Neurology Comment on above: Refill Request Start: 06-13-2022 End: 06-13-2022 ambulatory Rashi Davidson Facility:[facility] Start: 06-06-2022 Encounter for other preprocedural examination Rashi Ruizadnilo [facility] Start: 06-03-2022 End: 06-03-[address] Hermann Gonzales Work Phone: [facility] Work Phone: Comment on above: Refill Request (OUT OF MEDICATION) Start: 06-03-2022 End: 06-03-[facility] Start: 06-03-2022 Non-patient / Non-visit Dr. Cameron Gonzales Work Phone: [facility] Start: 06-03-2022 End: 06-03-2022 Admission to same day surgery center Dr. Hermann Gonzales Work Phone: [facility] Start: 05-28-2022 End: 06-03-2022 ambulatory Rene Estevez Facility:[facility] Start: 05-08-2022 End: 05-08-2022 ambulatory Rashi Davidson Facility:[facility] Start: 05-08-2022 End: 05-08-[address] Hermann Gonzales Work Phone: [facility] Start: 03-19-2022 Refill Lizbeth zepeda MD Work Phone: Neurology Comment on above: Refill Request Start: 02-12-2022 Telephone encounter Gabriella Mujica STUDENT COUNSELOR.ICE DELIVERY DRIVER Work Phone: Neurology Comment on above: PAP Therapy Follow U p Orders Start: 02-08-2022 End: 02-08-2022 Patient encounter procedure Gabriella Coombs APRN.ICE DELIVERY DRIVER Work Phone: Neurology Comment on above: JESSICA on CPAP (Primary Dx); RLS (restless legs syndrome) Start: 10-31-2021 Patient encounter procedure Gabriella Coombs APRN.ICE DELIVERY DRIVER Work Phone: [facility] Work Phone: Start: 06-27-2021 End: 06-27-2021 ambulatory Nasim Jacobson Facility:[facility] Procedures Date Procedure Procedure Detail Performing Clinician Start: 11-17-2024 Adult depression screening assessment Vane Mart PA-C Work Phone: Start: 11-04-2023 Lipid 1996 panel - S lucia or Plasma Hermann Gonzales MD Work Phone: Start: 11-14-2022 Urnls dip stick/tabl et rgnt auto w/o microscopy Rodney Caldwell MD Work Phone: Start: 10-30-2022 Lipid 1996 panel - S lucia or Plasma Hermann Gonzales MD Work Phone: Start: 06-03-[address] Hermann Gonzales Work Phone: Start: 07-23-2021 Adult depression screening assessment Gabriella Coombs APRN.SANDRA Work Phone: Start: 06-02-2018 Colonoscopy Gabriella Mujica APRN.SANDRA Work Phone: Nasal Screen MRSA/MSSA Dr. Stefano Gonzales Work Phone: Plan of Treatment Date Care Activity Detail Author Start: 05-16-2031 Urine microalbumin profile [facility] Start: 11-04-2028 Lipid panel Lipid Screening [facility] Start: 06-02-2028 Colonoscopy COLONOSCOPY [facility] Start: 06-02-2028 COLORECTAL CANCER SCREENING COLORECTAL CANCER SCREENING [facility] Start: 06-02-2028 Screening for malign ant neoplasm of colon [facility] Start: 10-30-2027 Lipid 1996 panel - Serum or Plasma Lipid Screening [facility] Start: 10-30-2027 Lipid panel Lipid Screening [facility] Start: 10-30-2027 LIPID SCREEN LIPID SCREEN [facility] Start: 04-30-2027 Diabetes Screening Diabetes Screenin g [facility] Start: 11-04-2026 Diabetes Screening Diabetes Screenin g [facility] Start: 10-26-2026 LIPID SCREEN LIPID SCREEN [facility] Start: 05-20-2026 Annual PCP Team Furniture [employer]ator harris Disease Visit Annual PCP Team Chronic Disease Visit [facility] Start: 05-20-2026 Diabetic foot examination Diabetic Foot Exam [facility] Start: 05-18-2026 Creatinine measurement Serum Creatin ine [facility] Start: 05-18-2026 Hepatitis B screening Urine Al bumin:Creatinine Ratio [facility] Start: 04-29-2026 DIABETES SCREEN DIABETES SCREEN [facility] Start: 04-29-2026 Diabetes Screening Diabetes Screenin g [facility] Start: 01-03-2026 BP Controlled (<130/80) BP Controlle d (<130/80) [facility] Start: 11-21-2025 End: 11-21-2025 Patient encounter procedure 11/21/2025 11:20 AM EDT Office Visit [facility] [place] [address] [place], [place] [id number] Hermann Gonzales MD [address] [place] [address] [id number] 6 month follow up [facility] [place] Comment on above: 6 month follow up Start: 11-17-2025 Annual PCP Team Furniture Fabricator harris Disease Visit Annual PCP Team Chronic Disease Visit [facility] Start: 11-17-2025 Anxiety Screening Anxiety Screening [facility] Start: 11-17-2025 BP Controlled (<130/80) BP Controlle d (<130/80) [facility] Start: 11-17-2025 Depression Screening Depression Scre ening [facility] Start: 11-15-2025 Complete blood count Hemoglobin/Feliciano tocrit [facility] Start: 11-15-2025 Creatinine measurement Serum Creatin ine [facility] Start: 11-15-2025 Hemoglobin A1c measurement HbA1C [facility] Start: 11-15-2025 Hepatitis B surface antibody level LDL Cholesterol [facility] Start: 11-06-2025 End: 02-05-2026 CBC W Auto Differential panel - Blood COMPLETE BLOOD COUNT AND DIFFERENTIAL Lab Routine Stage 3a chronic kidney disease (HCC) Medication management Expected: 11/06/2025, Expires: 02/05/2026 [facility] Comment on above: Expected: 11/06/2025 , Expires: 02/05/2026 Start: 11-06-2025 End: 02-05-2026 Cobalamin (Vitamin B12) [Mass/volume] in Serum or Plasma VITAMIN B12 Lab Routine Medication management GERD without esophagitis Expected: 11/06/2025, Expires: 02/05/2026 [facility] Comment on above: Expected: 11/06/2025 , Expires: 02/05/2026 Start: 11-06-2025 End: 02-05-2026 Comprehensive metabolic 2000 panel - Serum or Plasma COMPREHENSIVE METABOLIC PANEL Lab Routine Stage 3a chronic kidney disease (HCC) Mixed hyperlipidemia Essential hypertension, benign Expected: 11/06/2025, Expires: 02/05/2026 [facility] Comment on above: Expected: 11/06/2025 , Expires: 02/05/2026 Start: 11-06-2025 End: 02-05-2026 Hemoglobin A1c in Blood HEMOGLOBIN A1C Lab Routine Elevated blood sugar Expected: 11/06/2025, Expires: 02/05/2026 [facility] Comment on above: Expected: 11/06/2025 , Expires: 02/05/2026 Start: 11-06-2025 End: 02-05-2026 LIPID PANEL, NONFASTING LIPID PANEL, NONFASTING Lab Routine Mixed hyperlipidemia Essential hypertension, benign Expected: 11/06/2025, Expires: 02/05/2026 [facility] Comment on above: Expected: 11/06/2025 , Expires: 02/05/2026 Start: 11-06-2025 End: 02-05-2026 Magnesium [Mass/volume] in Serum or Plasma MAGNESIUM Lab Routine Medication management GERD without esophagitis Expected: 11/06/2025, Expires: 02/05/2026 [facility] Comment on above: Expected: 11/06/2025 , Expires: 02/05/2026 Start: 11-06-2025 End: 02-05-2026 Prostate Specific Ag Free [Mass/volume] in Serum or Plasma PROSTATE SPECIFIC ANTIGEN, FREE AND TOTAL Lab Routine Elevated PSA Prostate disorder Expected: 11/06/2025, Expires: 02/05/2026 [facility] Work Phone: Comment on above: Expected: 11/06/2025 , Expires: 02/05/2026 Start: 11-06-2025 End: 02-05-2026 Urinalysis complete panel - Urine URINALYSIS, WITH MICROSCOPIC Lab Routine Stage 3a chronic kidney disease (HCC) Mixed hyperlipidemia Essential hypertension, benign Expected: 11/06/2025, Expires: 02/05/2026 [facility] Comment on above: Expected: 11/06/2025 , Expires: 02/05/2026 Start: 10-30-2025 BP Controlled (<130/80) BP Controlle d (<130/80) [facility] Start: 08-01-2025 End: 08-01-2025 Patient encounter procedure 08/01/2025 11:00 AM EST Office Visit Neurology [address] [place], [place] [id number] Dwayne Mendes Jr., MD [address] [place], [place] [id number] 6 month follow up Neurology Comment on above: 6 month follow up Start: 05-27-2025 End: 05-27-2025 Patient encounter procedure 05/27/2025 8:00 AM EDT Office Visit Neurology [address] [id number] Lizbeth Perez MD [address] [address] annual follow up for tremors Neurology Comment on above: annual follow up for tremors Start: 05-20-2025 End: 08-19-2025 Basic metabolic 2000 panel - Serum or Plasma BASIC METABOLIC PANEL Lab Routine Essential hypertension, benign Elevated PSA Prostate disorder Expected: 05/20/2025, Expires: 08/19/2025 [facility] Comment on above: Expected: 05/20/2025 , Expires: 08/19/2025 Start: 05-20-2025 End: 08-19-2025 Hemoglobin A1c in Blood HEMOGLOBIN A1C Lab Routine Type 2 diabetes mellitus without complication, without long-term current use of insulin (HCC) Expected: 05/20/2025, Expires: 08/19/2025 [facility] Comment on above: Expected: 05/20/2025 , Expires: 08/19/2025 Start: 05-20-2025 End: 08-19-2025 Microalbumin/Creatinine [Mass Ratio] in Urine ALBUMIN/CREATININE RATIO, URINE Lab Routine Type 2 diabetes mellitus without complication, without long-term current use of insulin (HCC) Expected: 05/20/2025, Expires: 08/19/2025 [facility] Comment on above: Expected: 05/20/2025 , Expires: 08/19/2025 Start: 05-20-2025 End: 08-19-2025 Prostate specific Ag [Mass/volume] in Serum or Plasma PROSTATE-SPECIFIC ANTIGEN DIAGNOSTIC Lab Routine Essential hypertension, benign Elevated PSA Prostate disorder Expected: 05/20/2025, Expires: 08/19/2025 [facility] Comment on above: Expected: 05/20/2025 , Expires: 08/19/2025 Start: 05-20-2025 End: 05-20-2025 Patient encounter procedure Family Medicine K[facility]il Comment on above: medicare wellness Start: 05-18-2025 Hemoglobin A1c measurement HbA1C [facility] Start: 05-16-2025 Influenza vaccination Influenza Vacc ine (#1) [facility] Start: 05-05-2025 Annual PCP Team Furniture Fabricator harris Disease Visit Annual PCP Team Chronic Disease Visit [facility] Start: 05-05-2025 Anxiety Screening Anxiety Screening [facility] Comment on above: Postponed from 02/15 (Declined at this time) Start: 05-05-2025 BP Controlled (<130/80) BP Controlle d (<130/80) [facility] Start: 05-05-2025 Covid-19 Vaccine () Covid-19 Vaccine () [facility] Comment on above: Postponed from 08/28 (Declined at this time) Start: 04-30-2025 Creatinine measurement Serum Creatin ine [facility] Start: 04-29-2025 DIABETES SCREEN DIABETES SCREEN [facility] Start: 2025 RSV Vaccine (1 - 1-d ose 75+ series) RSV Vaccine (1 - 1-dose 75+ series) [facility] Start: 12-28-2024 Covid-19 Vaccine () Covid-19 Vaccine () [facility] Start: 11-29-2024 End: 11-29-2024 Nutrition therapy 11/29/2024 2:30 PM EDT Education Nutrition Therapy [address] [place] [address] Chelsea Freeman, CHERIE [address] [place] [address] Type 2 diabetes mellitus without complication, without long-term current use of ... Nutrition Therapy Comment on above: Type 2 diabetes arturo itus without complication, without long- term current use of ... Start: 11-17-2024 End: 02-16-2025 Prostate Specific Ag Free [Mass/volume] in Serum or Plasma [facility] Work Phone: Comment on above: Expected: 11/17/2024 , Expires: 02/16/2025 Start: 11-09-2024 End: 11-09-2024 Patient encounter procedure Family Medicine [facility] Comment on above: Medicare wellness Start: 11-05-2024 Annual PCP Team Furniture Fabricator harris Disease Visit Annual PCP Team Chronic Disease Visit [facility] Start: 11-05-2024 BP Controlled (<130/80) BP Controlle d (<130/80) [facility] Start: 11-05-2024 RSV Vaccine (1 - 1-d ose 60+ series) RSV Vaccine (1 - 1-dose 60+ series) [facility] Comment on above: Postponed from 02/15 (Insurance Coverage) Start: 11-04-2024 Creatinine measurement Serum Creatin ine [facility] Start: 10-26-2024 DIABETES SCREEN DIABETES SCREEN [facility] Start: 10-22-2024 End: 01-21-2025 CBC W Auto Differential panel - Blood COMPLETE BLOOD COUNT AND DIFFERENTIAL Lab Routine Stage 3a chronic kidney disease (HCC) Medication management Expected: 10/22/2024, Expires: 01/21/2025 [facility] Comment on above: Expected: 10/22/2024 , Expires: 01/21/2025 Start: 10-22-2024 End: 01-21-2025 Cobalamin (Vitamin B12) [Mass/volume] in Serum or Plasma VITAMIN B12 Lab Routine GERD without esophagitis Medication management Expected: 10/22/2024, Expires: 01/21/2025 [facility] Work Phone: Comment on above: Expected: 10/22/2024 , Expires: 01/21/2025 Start: 10-22-2024 End: 01-21-2025 Comprehensive metabolic 2000 panel - Serum or Plasma COMPREHENSIVE METABOLIC PANEL Lab Routine Essential hypertension, benign Mixed hyperlipidemia Stage 3a chronic kidney disease (HCC) Expected: 10/22/2024, Expires: 01/21/2025 [facility] Comment on above: Expected: 10/22/2024 , Expires: 01/21/2025 Start: 10-22-2024 End: 01-21-2025 Hemoglobin A1c in Blood HEMOGLOBIN A1C Lab Routine Elevated blood sugar Expected: 10/22/2024, Expires: 01/21/2025 [facility] Comment on above: Expected: 10/22/2024 , Expires: 01/21/2025 Start: 10-22-2024 End: 01-21-2025 LIPID PANEL, NONFASTING LIPID PANEL, NONFASTING Lab Routine Essential hypertension, benign Mixed hyperlipidemia Expected: 10/22/2024, Expires: 01/21/2025 [facility] Comment on above: Expected: 10/22/2024 , Expires: 01/21/2025 Start: 10-22-2024 End: 01-21-2025 Magnesium [Mass/volume] in Serum or Plasma MAGNESIUM Lab Routine GERD without esophagitis Medication management Expected: 10/22/2024, Expires: 01/21/2025 [facility] Comment on above: Expected: 10/22/2024 , Expires: 01/21/2025 Start: 10-22-2024 End: 01-21-2025 Urinalysis complete panel - Urine URINALYSIS, WITH MICROSCOPIC Lab Routine Essential hypertension, benign Mixed hyperlipidemia Stage 3a chronic kidney disease (HCC) Expected: 10/22/2024, Expires: 01/21/2025 [facility] Comment on above: Expected: 10/22/2024 , Expires: 01/21/2025 Start: 09-15-2024 Advance Directive Discussion Advance Directive Discussion [facility] Start: 09-15-2024 Medicare Advantage Annual Wellness Visit Medicare [facility] Annual Wellness Visit [facility] Start: 07-19-2024 End: 07-19-2024 Patient encounter procedure 07/19/2024 3:00 PM EST Office Visit Neurology [address] [phone] Lizbeth Perez MD [address] [address] Tremors follow up Neurology Comment on above: Tremors follow up Start: 05-16-2024 Covid-19 Vaccine () Covid-19 Vaccine () [facility] Start: 05-16-2024 Influenza vaccination Influenza Vacc ine (#1) [facility] Start: 05-05-2024 Depression Screening Depression Scre ening [facility] Comment on above: Postponed from 02/15 (Declined at this time) Start: 05-01-2024 ANNUAL PCP TEAM SLICING MACHINE FEEDER HARRIS DISEASE VISIT ANNUAL PCP TEAM CHRONIC DISEASE VISIT [facility] Start: 05-01-2024 BP CONTROLLED (<130/80) BP CONTROLLE D (<130/80) [facility] Start: 04-29-2024 Creatinine measurement Serum Creatin ine [facility] Start: 04-29-2024 SERUM CREATININE SERUM CREATININE Cl [facility] Start: 04-23-2024 End: 07-23-2024 Basic metabolic 2000 panel - Serum or Plasma BASIC METABOLIC PNL Lab Routine Essential hypertension, benign Mixed hyperlipidemia Stage 3a chronic kidney disease (HCC) Expected: 04/23/2024, Expires: 07/23/2024 [facility] Work Phone: Comment on above: Expected: 04/23/2024 , Expires: 07/23/2024 Start: 04-23-2024 End: 07-23-2024 Prostate Specific Ag Free [Mass/volume] in Serum or Plasma PSA FREE Lab Routine Elevated PSA Expected: 04/23/2024, Expires: 07/23/2024 [facility] Work Phone: Comment on above: Expected: 04/23/2024 , Expires: 07/23/2024 Start: 11-03-2023 End: 02-02-2024 Cobalamin (Vitamin B12) [Mass/volume] in Serum or Plasma VITAMIN B12 BLOOD Lab Routine GERD without esophagitis Medication management Expected: 11/03/2023, Expires: 02/02/2024 [facility] Work Phone: Comment on above: Expected: 11/03/2023 , Expires: 02/02/2024 Start: 11-03-2023 End: 02-02-2024 Comprehensive metabolic 2000 panel - Serum or Plasma COMP METABOLIC PANEL Lab Routine Stage 3a chronic kidney disease (HCC) Mixed hyperlipidemia Essential hypertension, benign Expected: 11/03/2023, Expires: 02/02/2024 [facility] Work Phone: Comment on above: Expected: 11/03/2023 , Expires: 02/02/2024 Start: 11-03-2023 End: 02-02-2024 LIPID PANEL, NONFASTING LIPID PANEL, NONFASTING Lab Routine Mixed hyperlipidemia Essential hypertension, benign Expected: 11/03/2023, Expires: 02/02/2024 [facility] Work Phone: Comment on above: Expected: 11/03/2023 , Expires: 02/02/2024 Start: 11-03-2023 End: 02-02-2024 Magnesium [Mass/volume] in Serum or Plasma MAGNESIUM BLD Lab Routine GERD without esophagitis Medication management Expected: 11/03/2023, Expires: 02/02/2024 [facility] Work Phone: Comment on above: Expected: 11/03/2023 , Expires: 02/02/2024 Start: 11-03-2023 End: 02-02-2024 Prostate Specific Ag Free [Mass/volume] in Serum or Plasma PSA FREE Lab Routine Elevated PSA Expected: 11/03/2023, Expires: 02/02/2024 [facility] Work Phone: Comment on above: Expected: 11/03/2023 , Expires: 02/02/2024 Start: 11-03-2023 End: 02-02-2024 Urinalysis complete panel - Urine URINALYSIS, WITH MICROSCOPIC Lab Routine Stage 3a chronic kidney disease (HCC) Mixed hyperlipidemia Essential hypertension, benign Expected: 11/03/2023, Expires: 02/02/2024 [facility] Work Phone: Comment on above: Expected: 11/03/2023 , Expires: 02/02/2024 Start: 11-01-2023 ANNUAL PCP TEAM SLICING MACHINE FEEDER HARRIS DISEASE VISIT ANNUAL PCP TEAM CHRONIC DISEASE VISIT [facility] Start: 11-01-2023 BP CONTROLLED (<130/80) BP CONTROLLE D (<130/80) [facility] Start: 10-30-2023 HEMOGLOBIN/HEMATOCRIT HEMOGLOBIN/HEM ATOCRIT [facility] Start: 09-15-2023 Advance Directive Discussion Advance Directive Discussion [facility] Start: 09-15-2023 Depression Assessment Depression Ass essment [facility] Start: 08-28-2023 Covid-19 Vaccine ( season) Covid-19 Vaccine () [facility] Start: 05-16-2023 Covid-19 Vaccine () Covid-19 Vaccine ( season) [facility] Start: 05-16-2023 Influenza vaccination C [facility] Start: 05-01-2023 ANNUAL PCP TEAM SLICING MACHINE FEEDER HARRIS DISEASE VISIT ANNUAL PCP TEAM CHRONIC DISEASE VISIT [facility] Start: 04-29-2023 SERUM CREATININE SERUM CREATININE [facility] Start: 04-17-2023 End: 06-17-2023 Basic metabolic 2000 panel - Serum or Plasma BASIC METABOLIC PNL Lab Routine Essential hypertension, benign Stage 3a chronic kidney disease (HCC) Expected: 04/17/2023, Expires: 06/17/2023 [facility] Work Phone: Comment on above: Expected: 04/17/2023 , Expires: 06/17/2023 Start: 04-17-2023 End: 06-17-2023 Cobalamin (Vitamin B12) [Mass/volume] in Serum or Plasma VITAMIN B12 BLOOD Lab Routine GERD without esophagitis Medication management Expected: 04/17/2023, Expires: 06/17/2023 [facility] Work Phone: Comment on above: Expected: 04/17/2023 , Expires: 06/17/2023 Start: 04-17-2023 End: 06-17-2023 Prostate Specific Ag Free [Mass/volume] in Serum or Plasma PSA FREE Lab Routine Elevated PSA Expected: 04/17/2023, Expires: 06/17/2023 [facility] Work Phone: Comment on above: Expected: 04/17/2023 , Expires: 06/17/2023 Start: 11-15-2022 End: 01-15-2023 Prostate Specific Ag Free [Mass/volume] in Serum or Plasma PSA FREE Lab Routine Elevated PSA Expected: 11/15/2022, Expires: 01/15/2023 [facility] Work Phone: Comment on above: Expected: 11/15/2022 , Expires: 01/15/2023 Start: 10-31-2022 ANNUAL PCP TEAM SLICING MACHINE FEEDER HARRIS DISEASE VISIT ANNUAL PCP TEAM CHRONIC DISEASE VISIT [facility] Start: 10-31-2022 BP CONTROLLED (<130/80) BP CONTROLLE D (<130/80) [facility] Start: 10-26-2022 COVID-19 VACCINE (6 - Moderna series) COVID-19 VACCINE (6 - Moderna series) [facility] Start: 10-26-2022 HEMOGLOBIN/HEMATOCRIT HEMOGLOBIN/HEM ATOCRIT [facility] Start: 10-26-2022 SERUM CREATININE SERUM CREATININE Cl [facility] Start: 09-15-2022 ADVANCE DIRECTIVE DISCUSSION ADVANCE DIRECTIVE DISCUSSION [facility] Start: 09-15-2022 DEPRESSION ASSESSMENT DEPRESSION ASS ESSMENT [facility] Start: 07-23-2022 Adult depression screening assessment DEPRESSION SCREENING [facility] Start: 06-03-2022 [facility] Start: 05-16-2022 Influenza vaccination INFLUENZA (#1) [facility] Start: 03-26-2022 COVID-19 VACCINE (5 - Booster for Moderna series) COVID-19 VACCINE (5 - Booster for Moderna series) [facility] Start: 09-15-2021 ADVANCE DIRECTIVE DISCUSSION ADVANCE DIRECTIVE DISCUSSION [facility] Start: 09-15-2021 DEPRESSION ASSESSMENT [facility] Start: 2010 RSV Vaccine (1 - 1-d ose 60+ series) RSV Vaccine (1 - 1-dose 60+ series) [facility] Start: 1995 COLOGUARD (FIT-DNA) COLOGUARD (FIT-D NA) [facility] Start: [address] COLONOGRAPHY [facility] Start: 1995 FECAL OCCULT BLOOD FECAL OCCULT BLOO D [facility] Start: 1995 Screening for malign ant neoplasm of colon [facility] Start: 1995 SIGMOIDOSCOPY SIGMOIDOSCOPY [facility] Start: 02-16-1968 Depression Screening Depression Scre ening [facility] Start: 02-16-1960 Diabetic foot examination Diabetic Foot Exam [facility] Start: 02-16-1960 Glaucoma screening Dilated Retinal E xam [facility] Start: 02-16-1960 Hepatitis B screening Urine Al bumin:Creatinine Ratio [facility] BLADDER SCAN BLADDER SCAN Pro cedures Routine Elevated PSA Ordered: 11/14/2022 [facility] Work Phone: Comment on above: Ordered: 11/14/2022 OXIMETRY - NOCTURNAL OXIMETRY - NOCTURNAL Procedures Routine JESSICA (obstructive sleep apnea) Sleep related hypoxia Ordered: 01/27/2023 [facility] Work Phone: Comment on above: Ordered: 01/27/2023 OXIMETRY - NOCTURNAL OXIMETRY - NOCTURNAL Procedures Routine JESSICA on CPAP Sleep related hypoxia Ordered: 09/01/2023 [facility] Work Phone: Comment on above: Ordered: 09/01/2023 OXIMETRY - NOCTURNAL OXIMETRY - NOCTURNAL Procedures Routine Nocturnal hypoxia JESSICA (obstructive sleep apnea) Ordered: 12/02/2023 [facility] Work Phone: Comment on above: Ordered: 12/02/2023 Patient referral [facility] Work Phone: [facility] Immunizations Immunization Date Immunization Notes Care Provider [facility] 06-15-2024 influenza virus vaccine, unspecified formulation Hermann Gonzales MD Work Phone: [facility] 11-05-2023 pneumococcal conjuga te (PCV20) vaccine, 20 valent (PREVNAR 20) Hermann Gonzales MD Work Phone: [facility] 11-05-2023 pneumococcal Conjuga te, unspecified formulation Hermann Gonzales MD Work Phone: [facility] Work Phone: 07-03-2023 COVID-19 original vaccine, booster dose, monovalent (MODERNA) Hermann Gonzales MD Work Phone: [facility] Work Phone: 07-03-2023 influenza (HD-IIV4) vaccine, age 65+ yr, high dose, quadrivalent, PF (FLUZONE HIGH-DOSE) Hermann Gonzales MD Work Phone: [facility] Work Phone: 07-03-2023 influenza virus vaccine, unspecified formulation Hermann Gonzales MD Work Phone: [facility] 07-11-2022 influenza, high dose seasonal, preservative-free Gabriella Coombs APRN.CNP Work Phone: [facility] 07-11-2022 influenza virus vaccine, unspecified formulation Hermann Gonzales MD Work Phone: [facility] 05-31-2021 influenza, high-dose , quadrivalent vaccine (FLUZONE HIGH DOSE QUADRIVALENT) Gabriella Coombs STUDENT COUNSELOR.ICE DELIVERY DRIVER Work Phone: [facility] 05-16-2021 tetanus and diphther ia toxoids, adsorbed, preservative free, for adult use (5 Lf of tetanus toxoid and 2 Lf of diphtheria toxoid) Gabriella Coombs STUDENT COUNSELOR.ICE DELIVERY DRIVER Work Phone: [facility] 07-18-2020 influenza, high dose seasonal, preservative-free Gabriella Coombs STUDENT COUNSELOR.ICE DELIVERY DRIVER Work Phone: [facility] 02-23-2020 zoster vaccine recombinant Gabriella Coombs STUDENT COUNSELOR.ICE DELIVERY DRIVER Work Phone: [facility] 11-04-2019 zoster vaccine recombinant Gabriella Coombs STUDENT COUNSELOR.ICE DELIVERY DRIVER Work Phone: [facility] 06-14-2019 influenza, high dose seasonal, preservative-free Gabriella Coombs STUDENT COUNSELOR.ICE DELIVERY DRIVER Work Phone: [facility] 07-08-2018 influenza, high dose seasonal, preservative-free Gabriella Coombs STUDENT COUNSELOR.ICE DELIVERY DRIVER Work Phone: [facility] 06-11-2017 influenza, high dose seasonal, preservative-free Gabriella Coombs STUDENT COUNSELOR.ICE DELIVERY DRIVER Work Phone: [facility] 06-11-2017 pneumococcal polysaccharide vaccine, 23 valent Gabriella Coombs STUDENT COUNSELOR.ICE DELIVERY DRIVER Work Phone: [facility] 07-12-2016 pneumococcal conjuga te vaccine, 13 valent Gabriella Coombs STUDENT COUNSELOR.ICE DELIVERY DRIVER Work Phone: [facility] Work Phone: 06-25-2016 influenza, high dose seasonal, preservative-free Gabriella Coombs STUDENT COUNSELOR.ICE DELIVERY DRIVER Work Phone: [facility] 06-29-2013 influenza virus vaccine, unspecified formulation Gabriella Coombs STUDENT COUNSELOR.ICE DELIVERY DRIVER Work Phone: [facility] 08-24-2012 zoster vaccine, live Kerrie Coombs STUDENT COUNSELOR.ICE DELIVERY DRIVER Work Phone: [facility] 06-12-2012 influenza virus vaccine, unspecified formulation Gabriella Coombs STUDENT COUNSELOR.ICE DELIVERY DRIVER Work Phone: [facility] 08-29-2008 influenza virus vaccine, unspecified formulation Gabriella Coombs STUDENT COUNSELOR.ICE DELIVERY DRIVER Work Phone: [facility] 10-28-2007 tetanus toxoid, redu kurtis diphtheria toxoid, and acellular pertussis vaccine, adsorbed Gabriella Coombs STUDENT COUNSELOR.ICE DELIVERY DRIVER Work Phone: [facility] Work Phone: 08-15-2000 influenza virus vaccine, whole virus Gabriella Coombs STUDENT COUNSELOR.ICE DELIVERY DRIVER Work Phone: [facility] Work Phone: 07-16-1993 diphtheria and tetan us toxoids, adsorbed for pediatric use Gabriellakatelyn GardunoCoombs STUDENT COUNSELOR.ICE DELIVERY DRIVER Work Phone: [facility] Work Phone: 01-17-1982 diphtheria and tetan us toxoids, adsorbed for pediatric use Gabriella Gardunolin STUDENT COUNSELOR.ICE DELIVERY DRIVER Work Phone: [facility] Work Phone: Payers Date Payer Category Payer Medicare [employer] MEDICARE HU[employer] MEDICARE PPO [id number] 2021-Present [phone] [id number] [place] [address] PPO [id number] 2021 Medicare [employer] MEDICARE [employer] MEDICARE PPO [id number] 2021-Present [phone] [address] [place] [id number] PPO [id number] 2021 Medicare (Managed Care) DELMY DO [id number] 2021 Self-pay [id number] 2015 Medicare [id number] Unknown [id number] Unknown [id number] Unknown [id number] Unknown [id number] Unknown [id number] Unknown [id number] Social History Date Type Detail Facility Start: 05-01-2022 Tobacco smoking stat us [facility] Never smoked tobacco [facility] Start: 02-08-2022 End: 05-27-2025 Alcohol intake Current non-drinker of alcohol (finding) [facility] Start: 05-29-2021 History SDOH Alcohol Frequency 1 [facility] Start: 05-29-2021 History SDOH Alcohol Std Drinks 98 [facility] Start: 05-29-2021 History SDOH Social Connections Phone 5 [facility] Start: 05-29-2021 History SDOH Social Connections Get Together 3 [facility] Start: 05-29-2021 History SDOH Physica l Activity DPW 0 [facility] Start: 05-29-2021 History SDOH Stress 2 [facility] Start: 1950 Sex Assigned At Not on file C [facility] Start: 01-29-2022 End: 02-08-2022 Exposure to SARS-CoV-2 (event) Not sure [facility] Start: 05-27-2022 Tobacco smoking stat [facility] Unknown if ever smoked [facility] Work Phone: Start: 06-02-2018 Non-smoker [facility] Work Phone: Start: 1950 Sex Assigned At Male W [facility] Work Phone: Start: 05-01-2022 Tobacco use and exposure Smokeless tobacco non-user [facility] Start: 01-27-2023 End: 05-20-2025 History of Social function [facility] Work Phone: Start: 01-27-2023 End: 05-20-2025 Tobacco use panel [facility] Work Phone: Start: 08-16-2012 Adult Depression Screening Assessment 0 [facility] Work Phone: Start: 04-10-2020 Gender identity Identifies as male gender (finding) [facility] Start: 04-10-2020 Sexual orientation Heterosexual (fin tana) [facility] Are you now , , , , never or living with a partner? [facility] How often to you hav e a drink containing alcohol? Never [facility] Do you feel stress - tense, restless, nervous, or anxious, or unable to sleep at night because your mind is troubled all the time - these days [OSQ] Only a little [facility] (I/We) worried kieran er (my/our) food would run out before (I/we) got money to buy more. Never true [facility] In the past 12 month s, was there a time when you were not able to pay the mortgage or rent on time? No [facility] Medical Equipment Procedure Code Equipment Code Equipment Origin al Text Equipment Identifier Dates CEMENT,BONE JORGE H 1/2 BATCH FDA Start: 06-27-2021 ([id number]) Polyethylene pat ryan prosthesis ()[id number] FDA Start: 06-27-2021 ([id number]) Coated knee femu r prosthesis ()[id number] FDA Start: 06-27-2021 ([id number]) Coated knee tibi a prosthesis ()[id number] FDA Start: 06-27-2021 ([id number]) Tibial insert ()[id number] FDA Start: 06-27-2021 Goals Date Patient Goal Desired Activity /State Functional Status Date Assessment Result Facility 05-20-2025 Total score [AUDIT-C] 0 05/20/20 12:48 PM EDT Vane Mart PA-C [facility] 06-03-2022 Functional status [facility] Work Phone: 12-02-2017 Are you deaf, or do you have serious difficulty hearing No 12/02/2017 10:25 AM ANGIET Abdoulaye Davidson III, MD [facility] 12-02-2017 Are you blind, or do you have serious difficulty seeing, even when wearing glasses No 12/02/2017 10:25 AM Abdoulaye Navarro III, MD No [facility] 12-02-2017 Do you have serious difficulty walking or climbing stairs No 12/02/2017 10:25 AM ANGIET Abdoulaye Davidson III, MD No [facility] 12-02-2017 Do you have difficul ty dressing or bathing No 12/02/2017 10:25 AM Abdoulaye Navarro III, MD No [facility] 12-02-2017 Because of a physica l, mental, or emotional condition, do you have difficulty doing errands alone such as visiting a physician's office or shopping No 12/02/2017 10:25 AM Abdoulaye Navarro III, MD No [place] Mental Status Date Assessment Result Facility 06-03-2022 Cognitive function Level Of Cons ciousness Appropriate;Drowsy [facility] Work Phone: 06-03-2022 Cognitive function Voice/Name [facility] Work Phone: 12-02-2017 Because of a physica l, mental, or emotional condition, do you have serious difficulty concentrating, remembering, or making decisions No 12/02/2017 10:25 AM EDT Abdoulaye Davidson III, MD No [facility] Clinical Notes 09-28-2013 to 05-27-2025 Lizbeth Perez MD - 05/27/2025 7:04 PM EDTPatient Vane Jolley PA-C - 05/20/2025 12:33 PM EDTTelephone Encounter - Lizbeth Perez MD - 05/19/2025 1:02 PM EDT Note Date & Type Note Facility 05-27-2025 Note HNO ID: [id number] Author: LIZBETH PEREZ MD Service: ? Author Type: Physician Type: Progress Notes Filed: 05/27/2025 19:06 Note Text: [facility] - FOLLOW UP EVALUATION Recording using MedCPU software for draft documentation of the visit was discussed with the patient/authorized account manager sales representative; all questions welcomed and answered. Patient/authorized account manager sales representative agreed to proceed Hermann Gonzales MD [id number] [facility] [id number] Dear Hermann Gonzales MD: I had the pleasure of seeing Mr. Souza for follow-up today. As you know he is a 75 year old right-handed male with a history of ET since 20+ years . Subjective Previous Plan- 07/19/2024 Visit: Continue propranolol at current dose. It cannot be increased more at this time due to low HR. If additional tremor control is needed then primidone would be a reasonable next step - Interval History: Mike Souza is a 75-year-old male with a history of tremors, presenting for follow-up. He is accompanied by his , who provides additional history. Mike reports a slight worsening of his tremors, which he describes as manageable. He notes increased fidgeting and movement, particularly in his legs and feet, which he can control if necessary. He has experienced this fidgeting since adolescence and does not attribute it to anxiety. He is currently taking propranolol 40 mg daily for tremor management and does not wish to add additional medications at this time. He also reports difficulty with handwriting, particularly in cursive, noting that his letters are shaky but legible. He is able to write checks, though it takes longer than it used to. He takes gabapentin 900 mg at bedtime to help with leg movements during sleep and uses a CPAP machine. He notes that taking gabapentin all at once before bed can cause him to feel dragging or hungover in the morning. He has a history of pre-diabetes, diagnosed six months ago, and has since lost 20 pounds by reducing his intake of fruit juices and monitoring his sugar and carbohydrate intake. His most recent labs on May 18 showed improvement, and his primary care provider expressed satisfaction with his current levels. He aims to lose an additional 10 pounds. He reports stress related to family situations, including his daughter's multiple sclerosis diagnosis and his son's recent diagnosis at age 48. He also mentions concerns about his grandchildren's well-being and future. Despite these stressors, he remains active, attending family events and working in the yard. Movement Disorders Medications Schedule - as of the start of the visit: Medications propranolol 20 mg 1 1 gabapentin for RLS from sleep Other Movement Disorder Prior Therapies Propranolol Questionnaires: In addition, the following activities of daily living that may be affected by tremors were evaluated: Speaking: Affected (mild occasionally) Feeding: Affected (mild) Bringing Liquids to Mouth: Hygiene: Affected (mild) Dressing: Affected (mild) Writing: Affected (marked) Working: Affected (mild) Number of falls in the Last Month: 0 Mood/Behavior Depression: PHQ-9 Score: 5 usually representing mild (5-9) depression. Anxiety: URI-7 Total Score: 5 usually representing mild (5-9) anxiety. Finally, the following table shows the patient's overall global physical and mental health using the PROMIS scale: PROMIS-10 Flowsheet Row Office Visit from 05/27/2025 in Neurology Office Visit from 01/03/2025 in Neurology Global Physical Health T Score 54.1 57.7 Global Mental Health T Score 45.8 48.3 0-10 Standard Pain Scale 4 5 *PROMIS-10 scoring scale: mean = 50, over 50 is above average, under 50 is below average ALLERGIES Allergen Reactions Vicodin [Hydrocodon* Other: See Comments Severe drop in blood pressure, Tamiflu [Oseltamivi* Rash Developed after having influenza A, with tamiflu use, viral rash versus allergy Current Outpatient Medications Medication Sig lansoprazole (PREVACID) 15 mg capsule Take 1 capsule by mouth once daily. propranolol (INDERAL) 20 mg tablet Take 1 tablet by mouth two times a day. gabapentin (NEURONTIN) 300 mg capsule Take 3 capsules by mouth daily at bedtime for 180 days. CPAP 1 Device by MISCELLANEOUS route daily at bedtime. NEW SET UP: Settings 10 - 14 cm H2O, suitable mask per pt preference, chin strap, head gear, humidity, tubing, lifetime supplies. G47.33 [facility] - [employer] glucos sul 2KCl/msm/chond/C/Mn (GLUCOSAMINE CHONDROITIN ORAL) Take by mouth as directed. DAILY MULTI-VITAMIN ORAL Take by mouth as directed. triamcinolone acetonide (KENALOG) 0.1 % cream Apply 1 application to affected area three times a day. Apply sparingly to area for rash/itching. (Patient not taking: Reported on 05/26/2025) No current facility-administered medications for this visit. Objective Vital Signs: BP 136/81 (BP Site: Left Arm, (more content not included)... [facility] 05-27-2025 History of Presen t illness Narrative [facility] - FOLLOW UP EVALUATION Recording using MedCPU software for draft documentation of the visit was discussed with the patient/authorized account manager sales representative; all questions welcomed and answered. Patient/authorized account manager sales representative agreed to proceed Hermann Gonzales MD [id number] [facility] [id number] Dear Hermann Gonzales MD: I had the pleasure of seeing Mr. Souza for follow-up today. As you know he is a 75 year old right-handed male with a history of ET since 20+ years . Subjective Previous Plan- 07/19/2024 Visit: Continue propranolol at current dose. It cannot be increased more at this time due to low HR. If additional tremor control is needed then primidone would be a reasonable next step - Interval History: Mike Souza is a 75-year-old male with a history of tremors, presenting for follow-up. He is accompanied by his , who provides additional history. Mike reports a slight worsening of his tremors, which he describes as manageable. He notes increased fidgeting and movement, particularly in his legs and feet, which he can control if necessary. He has experienced this fidgeting since adolescence and does not attribute it to anxiety. He is currently taking propranolol 40 mg daily for tremor management and does not wish to add additional medications at this time. He also reports difficulty with handwriting, particularly in cursive, noting that his letters are shaky but legible. He is able to write checks, though it takes longer than it used to. He takes gabapentin 900 mg at bedtime to help with leg movements during sleep and uses a CPAP machine. He notes that taking gabapentin all at once before bed can cause him to feel dragging or hungover in the morning. He has a history of pre-diabetes, diagnosed six months ago, and has since lost 20 pounds by reducing his intake of fruit juices and monitoring his sugar and carbohydrate intake. His most recent labs on May 18 showed improvement, and his primary care provider expressed satisfaction with his current levels. He aims to lose an additional 10 pounds. He reports stress related to family situations, including his daughter's multiple sclerosis diagnosis and his son's recent diagnosis at age 48. He also mentions concerns about his grandchildren's well-being and future. Despite these stressors, he remains active, attending family events and working in the yard. Movement Disorders Medications Schedule - as of the start of the visit: Medications propranolol 20 mg 1 1 gabapentin for RLS from sleep Other Movement Disorder Prior Therapies Propranolol Questionnaires: In addition, the following activities of daily living that may be affected by tremors were evaluated: Speaking: Affected (mild occasionally) Feeding: Affected (mild) Bringing Liquids to Mouth: Hygiene: Affected (mild) Dressing: Affected (mild) Writing: Affected (marked) Working: Affected (mild) Number of falls in the Last Month: 0 Mood/Behavior Depression: PHQ-9 Score: 5 usually representing mild (5-9) depression. Anxiety: URI-7 Total Score: 5 usually representing mild (5-9) anxiety. Finally, the following table shows the patient's overall global physical and mental health using the PROMIS scale: PROMIS-10 Flowsheet Row Office Visit from 05/27/2025 in Neurology Office Visit from 01/03/2025 in Neurology Global Physical Health T Score 54.1 57.7 Global Mental Health T Score 45.8 48.3 0-10 Standard Pain Scale 4 5 *PROMIS-10 scoring scale: mean = 50, over 50 is above average, under 50 is below average ALLERGIES Allergen Reactions Vicodin [Hydrocodon* Other: See Comments Severe drop in blood pressure, Tamiflu [Oseltamivi* Rash Developed after having influenza A, with tamiflu use, viral rash versus allergy Current Outpatient Medications Medication Sig lansoprazole (PREVACID) 15 mg capsule Take 1 capsule by mouth once daily. propranolol (INDERAL) 20 mg tablet Take 1 tablet by mouth two times a day. gabapentin (NEURONTIN) 300 mg capsule Take 3 capsules by mouth daily at bedtime for 180 days. CPAP 1 Device by MISCELLANEOUS route daily at bedtime. NEW SET UP: Settings 10 - 14 cm H2O, suitable mask per pt preference, chin strap, head gear, humidity, tubing, lifetime supplies. G47.33 [facility] - [employer] glucos sul 2KCl/msm/chond/C/Mn (GLUCOSAMINE CHONDROITIN ORAL) Take by mouth as directed. DAILY MULTI-VITAMIN ORAL Take by mouth as directed. triamcinolone acetonide (KENALOG) 0.1 % cream Apply 1 application to affected area three times a day. Apply sparingly to area for rash/itching. (Patient not taking: Reported on 05/26/2025) No current facility-administered medications for this visit. Objective Vital Signs: BP 136/81 (BP Site: Left Arm, BP Position: Sitting, BP Cuff Size: Regular Adult) Pulse (!) 56 Wt 92.7 kg (204 lb 5.9 oz) SpO2 95% BMI 29.19 kg/m Orthostatic Vitals: None for this encounter Weight: 92.7 kg (204 lb 5.9 oz) No LMP for male patient. Body mass index is 29.19 kg/m . Neurological Exam Mental Status Awake and alert. Language is fluent with no aphasia. Motor No hypomimia or hypophonia. Bilateral upper extremity action>postural tremors. No rigidity or bradykinesia. Gait Casual gait is normal including stance, stride, and arm swing. Assessment and Plan: Assessment Mr. Souza is a right-handed 75 year old year old male with ET. Tremors are manageable and noticed by family more than him. He is currently happy with control of his symptoms. He doesn't wish to take additional medication at this time. Continue current dose of propranolol. The following are the current problems noted and addressed during this visit: Essential tremor (primary encounter diagnosis) Plan 05/27/2025 Visit: 1. Essential tremor: - Slightly more pronounced tremor but remains manageable; patient declines additional medication at this time. - Continuing propranolol 20 mg twice daily; heart rate is in the mid-50s, so increasing propranolol is not advised. - Discussed option of adding primidone in the future if tremor worsens or becomes functionally limiting. - Advised patient to follow up in one year or sooner if symptoms markedly change. Patient's perception of importance for healthcare provider to let them know of research trials for which they may be eligible? Somewhat important Updated Movement Disorders Medication Schedule: Medications propranolol 20 mg 1 1 gabapentin for RLS from sleep Return at or around: 05/27/26 Thank you for allowing me to be part of the clinical care of this patient! I look forward to continued participation in the patient s care with you. Please do not hesitate to call with any questions. Sincerely, Lizbeth Perez MD documented in this encounter [facility] 05-20-2025 Instructions Vane Mart PA-C - 05/20/2025 1:24 PM EDT - Begin a daily fiber supplement (e.g., psyllium husk/Metamucil/Benefiber) each morning before eating; if needed, you may increase to twice daily to help bulk your stools and improve bowel regularity. - use Tylenol or Tylenol Arthritis at recommended doses. - Aim for about 64 ounces of fluids daily (including water and your usual coffee), with a 12-ounce glass of water at meals. - Continue your healthy eating plan with portion control: focus on vegetables, use thin-sliced 15-grain bread (two slices approximately equal to18 g carbs), and avoid sweet juices. - Maintain daily exercise of at least 30 minutes (walking, biking, or treadmill). - Weigh yourself first thing in the morning, without clothes, for the most accurate tracking. - Keep your upcoming eye exam appointment. - If your bowel symptoms do not improve after starting the fiber supplement, arrange an evaluation for possible colonoscopy. - Follow up in 6 months for a general check and lab review. WHAT YOU CAN DO TO PREVENT FALLS Many falls can be prevented. By making some changes, you can lower your chances of falling. Four things YOU can do to prevent falls for you* and your caregiver 1. Begin a regular exercise program Exercise is one of the most important ways to lower your chances of falling. It makes you stronger and helps you feel better. Exercises that improve balance and coordination (like Kaushik Chi) are the most helpful. Lack of exercise leads to weakness and increases your chances of falling. Ask your doctor or health care provider about the best type of exercise program for you. 2. Have your health care provider review your medicines Have your doctor or pharmacist review all the medicines you take, even [id number] medicines. As you get older, the way medicines work in your body can change. Some medicines, or combinations of medicines, can make you sleepy or dizzy and can cause you to fall. 3. Have your vision checked Have your eyes checked by an eye doctor at least once a year. You may be wearing the wrong glasses or have a condition like glaucoma or cataracts that limits your vision. Poor vision can increase your chances of falling. 4. Make your home safer About half of all falls happen at home. To make your home safer: Remove things you can trip over (like papers, books, clothes, and shoes) from stairs and places where you walk. Remove small throw rugs or use double-sided tape to keep the rugs from slipping. Keep items you use often in cabinets you can reach easily without using a step stool. Have grab bars put in next to your toilet and in the tub or shower. Use non-slip mats in the bathtub and on shower floors. Improve the lighting in your home. As you get older, you need brighter lights to see well. Hang light-weight curtains or shades to reduce glare. Have handrails and lights put in on all staircases. Wear shoes both inside and outside the house. Avoid going barefoot or wearing slippers. For more information, contact: Centers for Disease Control and Prevention www.cdc.gov/injury * This information may not apply if you have certain medical conditions. documented in this encounter [facility] 05-20-2025 Note HNO ID: [id number] Author: VANE MART PA-C Service: ? Author Type: Physician Seater Grinder Type: Progress Notes Filed: 05/20/2025 13:25 Note Text: Yuriy Souza is a 75 year old male here for a Medicare wellness visit. Medicare Health Risk Assessment General Health good Exercise: Minutes/Day 30min Exercise: Days/Week 7 Alcohol: Daily Use Neverno Alcohol: Drinks/Day Patient does not drink0 Alcohol: 6 or more drinks Nevernever Feel off balance some Concerns: Teeth/Dentures no Concerns: Sexual function no Troubled by feelings no Frequency: Eating healthy diet always ADLs requiring help no Safety precautions in home/vehicle yes Smoke, vape, chews tobacco no Difficulty hearing yes Difficulty seeing no Current Providers Specialists: I have reviewed specialist-related care of the patient in the medical record. Medical/Family history review Reviewed and updated problem list, medical/surgical/family/social history, medications, and allergies. Opioid use review Opioid Medications (last 90 days) No data to display Anxiety/Depression screening PHQ-2 Score: 1 (Lower risk for depression) Recommendation: no further intervention at this time Cognitive screening Mini Cog Score: 5 Cognitive screening reviewed and No further action needed (score 3-5). Functional Observation Was the patient's Timed Up AND Go test unsteady or >= 12 seconds? No Advance Care Planning Surrogate decision maker and/or advance care plan documented Measurements BP 144/90 Pulse 74 Temp 36.6 ?C (97.8 ?F) Resp 16 Ht 178.2 cm (5' 10.16) Wt 93.4 kg (206 lb) SpO2 97% BMI 29.43 kg/m? Vision Screening: Follows with optometry/ophthalmology Assessment/Plan Medicare annual wellness visit, subsequent (Z00.00) - Counseled on healthy diet and regular exercise - Fall avoidance information provided - Personalized prevention plan provided Chief Complaint Patient presents with: Medicare Wellness Exam HPI Yuriy Souza is a 75 year old male who presents here today for extensive exam. DM: - Recent A1c decreased from 6.8 to 6.0. - Eliminated sweet drinks from diet; follows dietary recommendations. - Goal to lose 30 lbs; currently lost 20 lbs, weighing 206 lbs. - Working on portion control; consumes high-fiber foods like celery, carrots, and broccoli. CKD: - Recent labs show stable creatinine and improved GFR, but elevated BUN. - Drinks approximately 50 oz of water daily, along with coffee. Tremors: - Managed with propranolol; Mike reports stability when taking medication. - Has an upcoming appointment with Dr. Perez. Restless Leg Syndrome: - Managed with gabapentin; takes one dose after dinner and two doses before bed. - Reports improved sleep quality, sleeping until 0730 or 0800. Balance Concerns: - Experiences mild balance issues, particularly in the morning after taking gabapentin at night. - No falls reported. Bowel Function Changes: - Mike reports smaller diameter stools and increased frequency (up to three times daily) with associated cramping and gas. - Takes a probiotic without noted improvement. Prostate Health: - Recent PSA level stable at 3.6. Past medical history, appointments, medications, allergies reviewed. 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 Benign essential tremor 02/10/2014 BPH with obstruction/lower urinary tract symptoms 04/11/2009 CKD (chronic kidney disease), stage III (HCC) 07/08/2018 Elevated blood sugar 05/05/2024 Elevated PSA 10/31/2021 Per Urology 11/2022: PCP to get PSA's Q 6 months Essential hypertension, benign FHx: prostate cancer 08/24/2012 GERD without esophagitis 10/14/[address] 10/31/2021 DPA: (Ana) Medicare annual wellness visit, subsequent 10/31/2021 Medicare part B: Not able to find, Last done:10/31/2021 Mixed hyperlipidemia 10/14/2005 JESSICA (obstructive sleep apnea) 11/12/2017 DME [facility] for AutoPAP Plantar fasciitis, bilateral 06/03/2017 Radiculopathy, cervical region 11/14/2016 Tremor 10/26/2009 Type 2 diabetes mellitus without complication, without long-term current use of insulin (HCC) 11/17/2024 Umbilical hernia without obstruction or gangrene 05/10/[address] Davidson. Recommended surgery due to thinning skin- patient considering. Previous Surgical History PAST SURGICAL HISTORY Procedure Laterality Date COLONOSCOPY FLX DX W/COLLJ SPEC WHEN PFRMD 07/17/2007 Repeat [id number] abscess/[id number] EGD TRANSORAL BIOPSY SINGLE/MULTIPLE 11/21/2005 I/D PERIANAL ABSCESS, SUPERFICIAL 05/01/2007 Left anterolateral perianal abscess PAST SURG (more content not included)... [facility] 05-20-2025 History of Presen t illness Narrative Images from the original note were not included. Yuriy Souza is a 75 year old male here for a Medicare wellness visit. Medicare Health Risk Assessment General Health good Exercise: Minutes/Day 30min Exercise: Days/Week 7 Alcohol: Daily Use Neverno Alcohol: Drinks/Day Patient does not drink0 Alcohol: 6 or more drinks Nevernever Feel off balance some Concerns: Teeth/Dentures no Concerns: Sexual function no Troubled by feelings no Frequency: Eating healthy diet always ADLs requiring help no Safety precautions in home/vehicle yes Smoke, vape, chews tobacco no Difficulty hearing yes Difficulty seeing no Current Providers Specialists: I have reviewed specialist-related care of the patient in the medical record. Medical/Family history review Reviewed and updated problem list, medical/surgical/family/social history, medications, and allergies. Opioid use review Opioid Medications (last 90 days) No data to display Anxiety/Depression screening PHQ-2 Score: 1 (Lower risk for depression) Recommendation: no further intervention at this time Cognitive screening Mini Cog Score: 5 Cognitive screening reviewed and No further action needed (score 3-5). Functional Observation Was the patient's Timed Up & Go test unsteady or >= 12 seconds? No Advance Care Planning Surrogate decision maker and/or advance care plan documented Measurements BP 144/90 Pulse 74 Temp 36.6 C (97.8 F) Resp 16 Ht 178.2 cm (5' 10.16) Wt 93.4 kg (206 lb) SpO2 97% BMI 29.43 kg/m Vision Screening: Follows with optometry/ophthalmology Assessment/Plan Medicare annual wellness visit, subsequent (Z00.00) - Counseled on healthy diet and regular exercise - Fall avoidance information provided - Personalized prevention plan provided Chief Complaint Patient presents with: Medicare Wellness Exam HPI Yuriy Souza is a 75 year old male who presents here today for extensive exam. DM: - Recent A1c decreased from 6.8 to 6.0. - Eliminated sweet drinks from diet; follows dietary recommendations. - Goal to lose 30 lbs; currently lost 20 lbs, weighing 206 lbs. - Working on portion control; consumes high-fiber foods like celery, carrots, and broccoli. CKD: - Recent labs show stable creatinine and improved GFR, but elevated BUN. - Drinks approximately 50 oz of water daily, along with coffee. Tremors: - Managed with propranolol; Mike reports stability when taking medication. - Has an upcoming appointment with Dr. Perez. Restless Leg Syndrome: - Managed with gabapentin; takes one dose after dinner and two doses before bed. - Reports improved sleep quality, sleeping until 0730 or 0800. Balance Concerns: - Experiences mild balance issues, particularly in the morning after taking gabapentin at night. - No falls reported. Bowel Function Changes: - Mike reports smaller diameter stools and increased frequency (up to three times daily) with associated cramping and gas. - Takes a probiotic without noted improvement. Prostate Health: - Recent PSA level stable at 3.6. Past medical history, appointments, medications, allergies reviewed. 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 Benign essential tremor 02/10/2014 BPH with obstruction/lower urinary tract symptoms 04/11/2009 CKD (chronic kidney disease), stage III (HCC) 07/08/2018 Elevated blood sugar 05/05/2024 Elevated PSA 10/31/2021 Per Urology 11/2022: PCP to get PSA's Q 6 months Essential hypertension, benign FHx: prostate cancer 08/24/2012 GERD without esophagitis 10/14/[address] 10/31/2021 DPA: (Ana) Medicare annual wellness visit, subsequent 10/31/2021 Medicare part B: Not able to find, Last done:10/31/2021 Mixed hyperlipidemia 10/14/2005 JESSICA (obstructive sleep apnea) 11/12/2017 DME [facility] for Auto[facility]AP Plantar fasciitis, bilateral 06/03/2017 Radiculopathy, cervical region 11/14/2016 Tremor 10/26/2009 Type 2 diabetes mellitus without complication, without long-term current use of insulin (HCC) 11/17/2024 Umbilical hernia without obstruction or gangrene 05/10/[address] Davidson. Recommended surgery due to thinning skin- patient considering. Previous Surgical History PAST SURGICAL HISTORY Procedure Laterality Date COLONOSCOPY FLX DX W/COLLJ SPEC WHEN PFRMD 07/17/2007 Repeat [id number] EGD TRANSORAL BIOPSY SINGLE/MULTIPLE 11/21/2005 I/D PERIANAL ABSCESS, SUPERFICIAL 05/01/2007 Left anterolateral perianal abscess PAST SURGICAL HISTORY OF Kidney repair PAST SURGICAL HISTORY OF partial knee replacement REPAIR UMBILICAL ISAIAH,5+Y/O,REDUC 06/27/2022 TONSILLECTOMY & ADENOIDECTOMY <AGE 12 TOTAL KNEE REPLACEMENT Right 06/27/2021 Family History FAMILY HISTORY Problem Relation Age of Onset Stroke Mother Hypertension Mother Cancer Father VOCAL CORD Diabetes Father Prostate Cancer Father Prostate Cancer Brother Stroke Paternal Grandfather Coronary Artery Disease No Family History Thyroid No Family History Blood Disease No Family History Blood Clots No Family History DVT No Family History Factor 5 Leiden No Family History Systemic Lupus Erythematosus No Family History Multiple Sclerosis No Family History Bipolar disorder No Family History Schizophrenia No Family History Alzheimer's Disease No Family History Parkinson s Disease No Family History Dementia No Family History Aneurysm No Family History COPD No Family History Patient Allergies ALLERGIES Allergen Reactions Vicodin [Hydrocodon* Other: See Comments Severe drop in blood pressure, Tamiflu [Oseltamivi* Rash Developed after having influenza A, with tamiflu use, viral rash versus allergy Current Medications Current Outpatient Medications on File Prior to Visit Medication Sig propranolol (INDERAL) 20 mg tablet Take 1 tablet by mouth two times a day. gabapentin (NEURONTIN) 300 mg capsule Take 3 capsules by mouth daily at bedtime for 180 days. lansoprazole (PREVACID) 15 mg capsule Take 1 capsule by mouth once daily. triamcinolone acetonide (KENALOG) 0.1 % cream Apply 1 application to affected area three times a day. Apply sparingly to area for rash/itching. CPAP 1 Device by MISCELLANEOUS route daily at bedtime. NEW SET UP: Settings 10 - 14 cm H2O, suitable mask per pt preference, chin strap, head gear, humidity, tubing, lifetime supplies. G47.33 JESSICA D[facility] - [facility] glucos sul 2KCl/msm/chond/C/Mn (GLUCOSAMINE CHONDROITIN ORAL) Take by mouth as directed. DAILY MULTI-VITAMIN ORAL Take by mouth as directed. No current facility-administered medications on file prior to visit. Social History SOCIAL HISTORY[1] Review of Symptoms REVIEW OF SYSTEMS Constitutional: (-) weight loss, (-) fever, (-) fatigue, (-) weakness Eyes: (-) visual changes Ears/Nose/Mouth/Throat: (+) hearing loss, (+) nasal drainage, (-) sore throat Neck: (-) neck swelling Cardiovascular: (+) ankle swelling, (-) chest pain, (-) palpitations Respiratory: (-) dyspnea, (-) wheezing, (-) cough Gastrointestinal: (+) increased stool frequency, (+) narrow caliber stool, (+) abdominal gas, (+) abdominal cramping Genitourinary: (-) sexual dysfunction Musculoskeletal: (+) left shoulder pain Neurological: (+) imbalance, (+) hand tremor, (-) paresthesias, (-) restless legs Psychiatric: (-) emotional distress SEE HPI EXAM: BP 144/90 Pulse 74 Temp 36.6 C (97.8 F) Resp 16 Ht 178.2 cm (5' 10.16) Wt 93.4 kg (206 lb) SpO2 97% BMI 29.43 kg/m Last 6 Encounter Wt Readings: Date: Wt: 05/20/2025 93.4 kg (206 lb) 01/03/2025 99.8 kg (220 lb) 11/29/2024 99.8 kg (220 lb) 11/17/2024 101.6 kg (224 lb) 10/30/2024 100.3 kg (221 lb 1.9 oz) 10/24/2024 102.1 kg (225 lb 1.4 oz) General Appearance: Well appearing, alert, in no acute distress, well-hydrated, well nourished.. Skin: Skin color, texture, turgor normal, no suspicious rashes or lesions. Head: Normocephalic, no masses, lesions, tenderness or abnormalities. Eyes: Anicteric sclera. Pupils are equally round and reactive to light. Extraocular movements are intact. . Ears: External ears normal, canals clear, TMs pearly real. Nose/Sinuses: Nares normal, septum midline, mucosa normal, no drainage or sinus tenderness. Oropharynx: Lips, mucosa, and tongue normal, teeth and gums normal, oropharynx normal. Neck: Supple, no adenopathy; thyroid symmetric, normal size, no bruits. Lungs: Lungs clear to auscultation. No wheezing, rhonchi, rales.. Heart: RRR without murmur, gallop, or rubs. No ectopy. Abdomen: Normal abdominal exam, Abdomen soft, non-tender. Bowel sounds normal. No masses, organomegaly. Extremities: No deformities, edema, skin discoloration, clubbing or cyanosis. Good capillary refill. . Peripheral Pulses: Normal. Neurologic: Gait normal. Reflexes normal and symmetric. Sensation grossly intact.. Feet:Shoes and socks removed, No deformities, ulcers, calluses, normal distal pulses, sensitive to 10 gm monofilament, and vibratory perception normal Health Maintenance List Dilated Retinal Exam Never done Diabetic Foot Exam Never done Medicare Advantage Annual Wellness Visit due on 09/15/2024 Influenza Vaccine(1) due on 05/16/2025 LDL Cholesterol due on 11/15/2025 HbA1C due on 11/15/2025 Depression Screening due on 11/17/2025 Anxiety Screening due on 11/17/2025 Urine Albumin:Creatinine Ratio due on 05/18/2026 Serum Creatinine due on 05/18/2026 Annual PCP Team Chronic Disease Visit due on 05/20/2026 Colorectal Cancer Screening due on 06/02/2028 DTaP,Tdap,Td Vaccine(5 - Td or Tdap) due on 05/16/2031 Advance Directive Discussion Completed RSV Vaccine Completed Hepatitis C Screening Completed Shingrix Vaccine Completed Pneumococcal Vaccine: 50+ Completed Data reviewed Latest Ref Rng 05/18/2025 Glucose 74 - 99 mg/dL 80 BUN 9 - 24 mg/dL 28 (H) Creatinine 0.73 - 1.22 mg/dL 1.25 (H) Sodium 136 - 144 mmol/L 139 Potassium 3.7 - 5.1 mmol/L 5.1 Chloride 98 - 107 mmol/L 105 CO2 22 - 30 mmol/L 24 Anion Gap 8 - 15 mmol/L 10 Calcium 8.5 - 10.2 mg/dL 9.9 eGFR >=60 mL/min/1.73m 60 Creatinine, Ur Random (UCRR) 20.0 - 300.0 mg/dL 69.7 Albumin, Urine Random mg/L 12.1 Albumin/Creat Ratio <30 mg/g 17 Hemoglobin A1C 4.3 - 5.6 % 6.0 (H) Estimated Average Glucose mg/dL 126 PSA <2.60 ng/mL 3.60 (H) Legend: (H) High Assessment and Plan 1. Medicare annual wellness visit, subsequent (Z00.00) - Completed annual wellness visit and Medicare-required health maintenance questions. - Encouraged continuation of daily exercise and healthy diet. - Follow-up in 6 months. 2. Advance directive discussed with patient (Z71.89) 3. Living will in place (Z78.9) - Advance directive and living will confirmed as in place. 4. Type 2 diabetes mellitus without complication, without long-term current use of insulin (HCC) (E11.9) 5. Elevated blood sugar (R73.9) - HbA1c improved from 6.8% to 6.0%. - Discussed goal HbA1c <6.5%, with <5.7% as ideal; no medication changes needed unless HbA1c rises above 6.5%. - Patient has eliminated sweetened beverages and is following dietary recommendations. - Encouraged portion control and increased dietary fiber intake. - Continue current management; recheck labs in 6 months. 6. Essential hypertension, benign (I10) - Slightly elevated BP in office, likely due to rushing to appointment. - Recheck BP before patient leaves. - Continue home BP monitoring. 7. Mixed hyperlipidemia (E78.2) - Labs ordered for next labs 8. Stage 3a chronic kidney disease (HCC) (N18.31) - Kidney function stable; GFR improved compared to last labs. - BUN slightly elevated, likely due to mild dehydration at time of lab draw. - Advised patient to maintain hydration with goal of 64 oz fluid intake daily. - Advised to avoid NSAIDs (Advil, Aleve); Tylenol is preferred for pain. - Continue monitoring renal function; recheck labs in 6 months. 9. BPH with obstruction/lower urinary tract symptoms (N40.1) 10. Elevated PSA (R97.20) 11. Prostate disorder (N42.9) - PSA stable at 3.6; no current concerns. - Reviewed Urology notes from Dr. Mathew Parr; follow-up if PSA rises to 5. - Continue monitoring PSA every 6 months. 12. JESSICA (obstructive sleep apnea) (G47.33) - Patient continues to use CPAP as prescribed. 13. Restless legs syndrome (RLS) (G25.81) - Symptoms well controlled with gabapentin. - Continue current regimen. - Follow-up with neurologist Dr. Perez next Friday. 14. Medication management (Z79.899) - Refill for Prevacid provided. - Propranolol prescription confirmed as sent to pharmacy. 15. GERD without esophagitis (K21.9) - Continue Prevacid as prescribed. 16. Bowel habit changes (R19.4) - Increased frequency and decreased caliber of bowel movements; likely related to dietary changes. - Recommended trial of psyllium husk (Metamucil, Benefiber) once daily in the morning before eating. - If no improvement, consider referral for updated colonoscopy. Vane Mart PA-C Recording using [employer] software for draft documentation of the visit was discussed with the patient/authorized account manager sales representative; all questions welcomed and answered. Patient/authorized account manager sales representative agreed to proceed [1] Social History Tobacco Use Smoking status: Never Smokeless tobacco: Never Vaping Use Vaping status: Never Used Substance Use Topics Alcohol use: No Drug use: No documented in this encounter [facility] 05-19-2025 Telephone encounter Note Done [facility] 05-19-2025 Miscellaneous Notes Done Has annual follow up with Lizbeth Perez 05/27/25. Prescription Refill Information The patient has been identified by name and date of : Yes Caregiver verified no other encounters exist for this prescription request: Yes Caregiver confirmed with patient/requestor that no other refills are due, in the near future, with this provider at this time: Yes The last office visit in the department: 07/19/24 Does the patient have a future office visit with this provider/department: Yes 06/16/25 Requested Prescriptions Pending Prescriptions Disp Refills propranolol (INDERAL) 20 mg tablet 180 tablet 3 Sig: Take 1 tablet by mouth two times a day. Alexa Bowles LPN May 17, 2025 8:56 AM documented in this encounter [facility] 05-17-2025 Telephone encounter Note Has annual follow up with Lizebth Perez 05/27/25. [facility] 05-17-2025 Telephone encounter Note Prescription Refill Information The patient has been identified by name and date of : Yes Caregiver verified no other encounters exist for this prescription request: Yes Caregiver confirmed with patient/requestor that no other refills are due, in the near future, with this provider at this time: Yes The last office visit in the department: 07/19/24 Does the patient have a future office visit with this provider/department: Yes 06/16/25 Requested Prescriptions Pending Prescriptions Disp Refills propranolol (INDERAL) 20 mg tablet 180 tablet 3 Sig: Take 1 tablet by mouth two times a day. Alexa Bowles LPN May 17, 2025 8:56 AM [facility] 2025 Note HNO ID: [id number] Author: ?, ?, ? Service: ? Author Type: ? Type: Progress Notes Filed: 2025 11:00 Note Text: POPULATION HEALTH NAVIGATION OUTREACH Action/FYI Patient outreach for Hcc gaps; DRE. RICO Lvm and sent mychart to close gaps. Updated appointment notes. Reason for Outreach Care Gap/HCC or Scheduling Wellness Visits Care Gaps due: Diabetic Eye Exam KED Patient Contacted: Unable or unnecessary to reach patient: Left message MyChart message sent HCC related Updated appointment notes Navigation Signature: Charlene Tomas 2025 10:48 AM [facility] 2025 History of Presen t illness Narrative POPULATION HEALTH NAVIGATION OUTREACH Action/FYI Patient outreach for Hcc gaps; DRE. RICO Lvm and sent mychart to close gaps. Updated appointment notes. Reason for Outreach Care Gap/HCC or Scheduling Wellness Visits Care Gaps due: Diabetic Eye Exam KED Patient Contacted: Unable or unnecessary to reach patient: Left message MyChart message sent HCC related Updated appointment notes Navigation Signature: Charlene Tomas 2025 10:48 AM documented in this encounter [facility] 2025 Note Patient Outreach (NE TNAV) YURIY SOUZA ([id number]) 1950 M Date Time Provider Department 02/15/25 HERMANN GONZALES During your visit today, we recorded the following information about you: Charlene Fuentes 2025 11:00 AM Signed POPULATION HEALTH NAVIGATION OUTREACH Action/FYI Patient outreach for Hcc gaps; DRE. RICO Lvm and sent mychart to close gaps. Updated appointment notes. Reason for Outreach Care Gap/HCC or Scheduling Wellness Visits Care Gaps due: Diabetic Eye Exam KED Patient Contacted: Unable or unnecessary to reach patient: Left message MyChart message sent HCC related Updated appointment notes Navigation Signature: Charlene Antony Pss 2025 10:48 AM Allergies As of Date: 2025 Noted Allergy Reaction VICODIN (HYDROCODONE-ACETAMINOPHE*01/08 14 - Other: See Comments Comments: Severe drop in blood pressure, TAMIFLU (OSELTAMIVIR) 10/30/2024 2 - Rash Comments: Developed after having influenza A, with tamiflu use, viral rash versus allergy Date Reviewed: 01/03/2025 Reviewed by: Ken Johnson APRN.ICE DELIVERY DRIVER - Fully Assessed Reason for Visit: Population Health Navigation Outreach [3910] Cmt: Delmy Guillory Prescriptions as of 2025 - gabapentin (NEURONTIN) 300 mg capsule Take 3 capsules by mouth daily at bedtime for 180 days. - lansoprazole (PREVACID) 15 mg capsule Take 1 capsule by mouth once daily. - triamcinolone acetonide (KENALOG) 0.1 % cream Apply 1 application to affected area three times a day. Apply sparingly to area for rash/itching. - propranolol (INDERAL) 20 mg tablet take 1 tablet by mouth twice a day - CPAP 1 Device by MISCELLANEOUS route daily at bedtime. NEW SET UP: Settings 10 - 14 cm H2O, suitable mask per pt preference, chin strap, head gear, humidity, tubing, lifetime supplies. G47.33 JESSICA DME - [facility] - glucos sul 2KCl/msm/chond/C/Mn (GLUCOSAMINE CHONDROITIN ORAL) Take by mouth as directed. - DAILY MULTI-VITAMIN ORAL Take by mouth as directed. Problem List As Of Date 2025 Noted Resolved Essential hypertension, benign [I10] GERD without esophagitis [K21.9] 10/14/2005 Mixed hyperlipidemia [E78.2] 10/14/2005 Acute gastritis without mention of hemorrhage [*11/21/2005 04/27/2015 Restless legs syndrome (RLS) [G25.81] 07/16/2006 Abscess of anal and rectal regions [K61.2] 05/01/2007 04/27/2015 FISTULA ANAL [K60.30] 07/17/2007 04/27/2015 Primary localized osteoarthrosis, lower leg [M1*02/20/2009 04/27/2015 BPH with obstruction/lower urinary tract sympto*04/11/2009 FHx: prostate cancer [Z80.42] 08/24/2012 Hypoglycemia [E16.2] 09/28/2013 04/27/2015 Vaso-vagal reaction [R55] 09/28/2013 04/27/2015 Autonomic nervous system disorder [G90.9] 09/28/2013 Benign essential tremor [G25.0] 02/10/2014 Radiculopathy, cervical region [M54.12] 11/14/2016 JESSICA (obstructive sleep apnea) [G47.33] 11/12/2017 Stage 3a chronic kidney disease (HCC) [N18.31] 07/08/2018 Arthritis of right ankle [M19.071] 11/23/2019 Arthritis of right knee [M17.11] 04/25/2021 Prostate disorder [N42.9] 04/25/2021 Medication management [Z79.899] 04/25/2021 Medicare annual wellness visit, subsequent [Z00*10/31/[address] [Z78.9] 10/31/2021 Elevated PSA [R97.20] 10/31/2021 Umbilical hernia without obstruction or gangren*05/10/2022 11/01/2022 Advance directive discussed with patient [Z71.8*11/01/2022 Elevated blood sugar [R73.9] 05/05/2024 Type 2 diabetes mellitus without complication, *11/17/2024 Encounter Status:Closed by CHARLENE FUENTES on 02/15/25 [facility] 01-03-2025 History of Presen t illness Narrative Images from the original note were not included. [facility] Follow up/ Established patient visit Date of last visit : 12/01/2023 The following Impression/Plan was copied and pasted from the patient's last Sleep Disorders Center visit on 12/01/23: IMPRESSION: Nocturnal hypoxia (primary encounter diagnosis) Jessica on cpap Rls (restless legs syndrome) Yuriy Souza is a 73 year old male with nocturnal hypoxia, JESSICA, RLS. PMH of benign essential tremor, HTN, HLD, GERD, BPH, CKD. He did an overnight oximetry test to try to determine if supplemental O2 is still needed, has 1 LPM bleed in to CPAP. Has lost 5 lbs since initial study. PLAN: - Continue Auto CPAP - Remember to clean your mask and equipment regularly, as directed. - You should be eligible for new supplies approximately every 3-6 months, depending on your insurance coverage. Contact your Durable Medical Equipment (DME) company for new supplies as needed. Continue gabapentin for treatment of RLS. I'll send pt a [employer] msg once I see if there is more data from [employer] re his overnight oximetry. He did a 2 night study, one night with CPAP and O2, one night with just CPAP. Ken Johnson APRN.SANDRA Here for follow up for JESSICA, RLS, nocturnal hypoxia Last year his overnight oximetry showed he still needed the O2 bleed in to PAP, 1 LPM effective [employer] supplies his concentrator Diagnosed as prediabetic, so he is following a new diet and is losing weight, plans to lose another 30 lbs RLS He had been waking up 4x a night before gabapentin No urge to move the legs He takes 300 mg at 8 PM and 600 mg at close to HS at 1130 PM or MN Gabapentin 300 mg #270 filled 10/03/24 PDMP website checked and validated. All prescriptions have been APPROPRIATELY filled. No suspicious activity was identified. 01/03/2025 by Ken Johnson APRN.SANDRA SLEEP APNEA Sleep apnea type : JESSICA, Most Recent Apnea-Hypopnea Index (AHI): 17 on HSAT Treatment : PAP therapy DME: [facility] PAP History: Uses AutoPAP for 6.75 hours per night, 7 nights per week. Current PAP settin-14 cm H2O. With 1 LPM O2 bleed in Difficulties with AutoPAP: None Reviewed objective PAP compliance data: Mask type: nasal mask Mask issues: none There is a perceived benefit by the patient: no snoring SLEEP HYGIENE QUESTIONS: Bedtime : 1130 pm to MN Wake up Time : 7-8 AM Time it takes to fall sleep : not a problem Number of times patient wakes up per night : none Estimated total sleep time ( in a 24 hour period of time) : 7 Naps : No Patient Questionnaires Sleep Scores 01/01/2025 Sleep Questions Reason for visit: Sleep apnea Average hours of CPAP per night: 7 Percent of nights CPAP used at least 4 hours: 100 01/01/2025 [place] Sleepiness Scale Score Incomplete 01/01/2025 PROMIS CAT Sleep Disturbance PROMIS Sleep Disturbance T-Score 44 (within normal limits) PROMIS Sleep Disturbance Percentile 73 11/12/2017 Insomnia Severity Index Score 11 01/01/2025 PHQ-9 Score 4 01/01/2025 PROMIS Global Health - (T-Scores - the mean of general population = 50. Five points is a clinically meaningful difference.) Physical T-Score 57.7 Mental T-Score 48.3 SLEEP RELATED ROS Review of Systems Respiratory: Negative for difficulty breathing. Cardiovascular: Negative for chest pain and palpitations. Musculoskeletal: Negative for uncomfortable leg sensations. ALLERGIES Allergen Reactions Vicodin [Hydrocodon* Other: See Comments Severe drop in blood pressure, Tamiflu [Oseltamivi* Rash Developed after having influenza A, with tamiflu use, viral rash versus allergy CURRENT MEDICATIONS: lansoprazole (PREVACID) 15 mg capsule Take 1 capsule by mouth once daily. triamcinolone acetonide (KENALOG) 0.1 % cream Apply 1 application to affected area three times a day. Apply sparingly to area for rash/itching. gabapentin (NEURONTIN) 300 mg capsule Take 3 capsules by mouth daily at bedtime for 90 days. propranolol (INDERAL) 20 mg tablet take 1 tablet by mouth twice a day CPAP 1 Device by MISCELLANEOUS route daily at bedtime. NEW SET UP: Settings 10 - 14 cm H2O, suitable mask per pt preference, chin strap, head gear, humidity, tubing, lifetime supplies. G47.33 JESSICA DME - [facility] glucos sul 2KCl/msm/chond/C/Mn (GLUCOSAMINE CHONDROITIN ORAL) Take by mouth as directed. DAILY MULTI-VITAMIN ORAL Take by mouth as directed. PHYSICAL EXAMINATION: Vital Signs: BP 126/79 Pulse (!) 52 Resp 16 Wt 99.8 kg (220 lb) SpO2 97% BMI 30.26 kg/m PHYSICAL EXAM: General appearance: pleasant, NAD Mental status: alert and oriented, able to provide own history Constitutional: overweight Skin: No visible rashes on exposed skin Neuro: No focal deficits observed, no tremors IMPRESSION: Jessica on cpap (primary encounter diagnosis) Rls (restless legs syndrome) Nocturnal hypoxia Yuriy Souza is a 74 year old male with at least moderate JESSICA, nocturnal hypoxia, RLS/nocturnal awakenings --Patient is compliant with PAP therapy and reports subjective benefits from treatment --We reviewed PAP compliance report; AHI is normalized (1.0) --doesn't have frequent nocturnal awakenings on gabapentin 300 mg at 8 PM and 600 mg at close to HS at 1130 PM or MN PLAN: - Continue Auto CPAP at 10-14 cmH2O. DME [facility]. - continue O2 1 LPM bleed in. 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 - Remember to clean your mask and equipment regularly, as directed. - You should be eligible for new supplies approximately every 3-6 months, depending on your insurance coverage. Contact your Durable Medical Equipment (DME) company for new supplies as needed. - he plans on losing another 30 lbs, once he reaches his goal weight we can send him for an updated in-lab study to re-evaluate JESSICA and hypoxia, and if he still needs APAP then is that enough or does he still need supplemental O2 - refill gabapentin - Follow up in [address] Mendes. Ken Johnson APRN.CNP documented in this encounter [facility] 01-03-2025 Note HNO ID: [id number] Author: KEN JOHNSON APRN.CNP Service: ? Author Type: Nurse Practitioner Type: Progress Notes Filed: 01/03/2025 13:33 Note Text: [facility] Sleep Disorders Center Follow up/ Established patient visit Date of last visit : 12/01/2023 The following Impression/Plan was copied and pasted [facility] on [facility]23: IMPRESSION: Nocturnal hypoxia (primary encounter diagnosis) Jessica on cpap Rls (restless legs syndrome) Yuriy Souza is a 73 year old male with nocturnal hypoxia, JESSICA, RLS. PMH of benign essential tremor, HTN, HLD, GERD, BPH, CKD. He did an overnight oximetry test to try to determine if supplemental O2 is still needed, has 1 LPM bleed in to CPAP. Has lost 5 lbs since initial study. PLAN: - Continue Auto CPAP - Remember to clean your mask and equipment regularly, as directed. - You should be eligible for new supplies approximately every 3-6 months, depending on your insurance coverage. Contact your Durable Medical Equipment (DME) company for new supplies as needed. Continue gabapentin for treatment of RLS. I'll send pt a [facility] msg once I see if there is more data from [employer] re his overnight oximetry. He did a 2 night study, one night with CPAP and O2, one night with just CPAP. Ken Johnson APRN.SANDRA Here for follow up for JESSICA, RLS, nocturnal hypoxia Last year his overnight oximetry showed he still needed the O2 bleed in to PAP, 1 LPM effective [employer] supplies his concentrator Diagnosed as prediabetic, so he is following a new diet and is losing weight, plans to lose another 30 lbs RLS He had been waking up 4x a night before gabapentin No urge to move the legs He takes 300 mg at 8 PM and 600 mg at close to HS at 1130 PM or MN Gabapentin 300 mg #270 filled 10/03/24 PDMP website checked and validated. All prescriptions have been APPROPRIATELY filled. No suspicious activity was identified. 01/03/2025 by Ken Johnson APRN.SANDRA SLEEP APNEA Sleep apnea type : JESSICA, Most Recent Apnea-Hypopnea Index (AHI): 17 on HSAT Treatment : PAP therapy DME: [facility] PAP History: Uses AutoPAP for 6.75 hours per night, 7 nights per week. Current PAP settin-14 cm H2O. With 1 LPM O2 bleed in Difficulties with AutoPAP: None Reviewed objective PAP compliance data: Mask type: nasal mask Mask issues: none There is a perceived benefit by the patient: no snoring SLEEP HYGIENE QUESTIONS: Bedtime : 1130 pm to MN Wake up Time : 7-8 AM Time it takes to fall sleep : not a problem Number of times patient wakes up per night : none Estimated total sleep time ( in a 24 hour period of time) : 7 Naps : No Patient Questionnaires Sleep Scores 01/01/2025 Sleep Questions Reason for visit: Sleep apnea Average hours of CPAP per night: 7 Percent of nights CPAP used at least 4 hours: 100 01/01/2025 [place] Sleepiness Scale Score Incomplete 01/01/2025 PROMIS CAT Sleep Disturbance PROMIS Sleep Disturbance T-Score 44 (within normal limits) PROMIS Sleep Disturbance Percentile 73 11/12/2017 Insomnia Severity Index Score 11 01/01/2025 PHQ-9 Score 4 01/01/2025 PROMIS Global Health - (T-Scores - the mean of general population = 50. Five points is a clinically meaningful difference.) Physical T-Score 57.7 Mental T-Score 48.3 SLEEP RELATED ROS Review of Systems Respiratory: Negative for difficulty breathing. Cardiovascular: Negative for chest pain and palpitations. Musculoskeletal: Negative for uncomfortable leg sensations. ALLERGIES Allergen Reactions Vicodin [Hydrocodon* Other: See Comments Severe drop in blood pressure, Tamiflu [Oseltamivi* Rash Developed after having influenza A, with tamiflu use, viral rash versus allergy CURRENT MEDICATIONS: lansoprazole (PREVACID) 15 mg capsule Take 1 capsule by mouth once daily. triamcinolone acetonide (KENALOG) 0.1 % cream Apply 1 application to affected area three times a day. Apply sparingly to area for rash/itching. gabapentin (NEURONTIN) 300 mg capsule Take 3 capsules by mouth daily at bedtime for 90 days. propranolol (INDERAL) 20 mg tablet take 1 tablet by mouth twice a day CPAP 1 Device by MISCELLANEOUS route daily at bedtime. NEW SET UP: Settings 10 - 14 cm H2O, suitable mask per pt preference, chin strap, head gear, humidity, tubing, lifetime supplies. G47.33 JESSICA DME - [employer] glucos sul 2KCl/msm/chond/C/Mn (GLUCOSAMINE CHONDROITIN ORAL) Take by mouth as directed. DAILY MULTI-VITAMIN ORAL Take by mouth as directed. PHYSICAL EXAMINATION: Vital Signs: BP 126/79 Pulse (!) 52 Resp 16 Wt 99.8 kg (220 lb) SpO2 97% BMI 30.26 kg/m? PHYSICAL EXAM: General appearance: pleasant, NAD Mental status: alert and oriented, able to provide own history Constitutional: overweight Skin: No visible rash (more content not included)... [facility] 11-29-2024 Instructions Chelsea Freeman, RD - 11/29/2024 3:08 PM EDT -Eat every 3-4 hours throughout the day. A consistent eating pattern helps manage blood sugars more effectively; Spread carbohydrate intake evenly throughout the day. This can be done by utilizing the plate method (1/2 plate vegetables, 1/4 plate starch, 1/4 plate protein/meat, and a serving of fruit on the side if desired). Carbs are the starch, fruit and milk group and is defined as 15 grams per servings. - Aim for ~2-3 carbs per meal or 30-45 grams and 1 carb per evening snack or 15grams ;if snacks needed during the day with high activity or long period between meals aim for protein and whole grain carb. - Consume whole grains (whole wheat, oatmeal, bran flakes, popcorn); high fiber foods are absorbed more slowly - Consume fresh or frozen fruits and vegetables in a variety of colors. Aim for half plate non-starchy veggies- Use lean meats (poultry, fish, lean beef or pork). - Use calorie-free or sugar-free beverages. -Use healthy fats: [place] oil, canola oil, walnuts, ground flaxseed or flaxseed oil, almonds, sunflower/pumpkin seeds, butter spray, margarine with no trans fatty acids, cooking spray. Limit foods high in saturated fat (fat/skin on meat, fish, and poultry, dairy fats, butter, coconut oil), as these fats can make it harder for your body to use insulin properly, leading to higher blood sugar levels -Include healthy snacks if needed. Pairing a protein with a carbohydrate at meals and snacks will help slow down the spike of blood sugar by slowing down digestion. -Keep a food journal week to monitor food choices and diet plan adherence. -Increase physical activity - Minimum of 30 minutes per day for 5-6 times per week; Exercise can also help to improve blood sugar control. Follow the guidance provided by exercise physiology and your physician. -Weigh and measure your serving sizes until you are comfortable with visibly estimating accurate portion sizes. documented in this encounter [facility] 11-29-2024 Note Education (NUTRWS) YURIY SOUZA ([id number]) 1950 M Date Time Provider Department 11/29/24 2:30 PM CHELSEA FREEMAN NUTRWS Reason for Visit: Assessment [673] Patient Education [91] Primary Visit Diagnosis:Obesity, Class I, BMI 30-34.9 [E66.811] Other Visit Diagnoses:Type 2 diabetes mellitus without complication, without long-term current use of insulin ([facility]) [E11.9] Dietary counseling [Z71.3] Order(s):CONSULT TO NUTRITION THERAPY [9020] Order #: [id number]: 4 During your visit today, we recorded the following information about you: Weight Height 99.8 kg 1.816 m Allergies As of Date: 11/29/2024 Noted Allergy Reaction VICODIN (HYDROCODONE-ACETAMINOPHE*01/08 14 - Other: See Comments Comments: Severe drop in blood pressure, TAMIFLU (OSELTAMIVIR) 10/30/2024 2 - Rash Comments: Developed after having influenza A, with tamiflu use, viral rash versus allergy Date Reviewed: 11/29/2024 Reviewed by: Chelsea Freeman RD - Fully Assessed Prescriptions as of 11/30/2024 - lansoprazole (PREVACID) 15 mg capsule Take 1 capsule by mouth once daily. - triamcinolone acetonide (KENALOG) 0.1 % cream Apply 1 application to affected area three times a day. Apply sparingly to area for rash/itching. - cetirizine (ZYRTEC) 10 mg tablet Take 1 tablet by mouth once daily. - gabapentin (NEURONTIN) 300 mg capsule Take 3 capsules by mouth daily at bedtime for 90 days. - propranolol (INDERAL) 20 mg tablet take 1 tablet by mouth twice a day - CPAP 1 Device by MISCELLANEOUS route daily at bedtime. NEW SET UP: Settings 10 - 14 cm H2O, suitable mask per pt preference, chin strap, head gear, humidity, tubing, lifetime supplies. G47.33 JESSICA DME - [employer] - glucos sul 2KCl/msm/chond/C/Mn (GLUCOSAMINE CHONDROITIN ORAL) Take by mouth as directed. - DAILY MULTI-VITAMIN ORAL Take by mouth as directed. - CPAP Change current settings: Settings 10 - 14 cm H2O, suitable mask per pt preference, chin strap, head gear, humidity, tubing, lifetime supplies. G47.33 JESSICA Encounter Status:Closed by CHELSEA FREEMAN on 11/30/24 [facility] 11-29-2024 Note HNO ID: [id number] Author: CHELSEA FREEMAN RD Service: ? Author Type: Registered Dietitian Type: Progress Notes Filed: 11/30/2024 08:37 Note Text: Nutrition Therapy Initial Assessment Nutrition Diagnosis: Behavioral-Environmental: Food and nutrition related knowledge deficit, related to, lack of prior exposure to information , as evidenced by new medical diagnosis. RECOMMENDED MALNUTRITION DIAGNOSIS: NO MALNUTRITION IDENTIFIED NUTRITION CARE PLAN Nutrition Intervention 11/29/2024: comprehensive nutrition education -Eat every 3-4 hours throughout the day. A consistent eating pattern helps manage blood sugars more effectively; Spread carbohydrate intake evenly throughout the day. This can be done by utilizing the plate method (1/2 plate vegetables, 1/4 plate starch, 1/4 plate protein/meat, and a serving of fruit on the side if desired). Carbs are the starch, fruit and milk group and is defined as 15 grams per servings. - Aim for ~2-3 carbs per meal or 30-45 grams and 1 carb per evening snack or 15grams ;if snacks needed during the day with high activity or long period between meals aim for protein and whole grain carb. - Consume whole grains (whole wheat, oatmeal, bran flakes, popcorn); high fiber foods are absorbed more slowly - Consume fresh or frozen fruits and vegetables in a variety of colors. Aim for half plate non-starchy veggies- Use lean meats (poultry, fish, lean beef or pork). - Use calorie-free or sugar-free beverages. -Use healthy fats: [place] oil, canola oil, walnuts, ground flaxseed or flaxseed oil, almonds, sunflower/pumpkin seeds, butter spray, margarine with no trans fatty acids, cooking spray. Limit foods high in saturated fat (fat/skin on meat, fish, and poultry, dairy fats, butter, coconut oil), as these fats can make it harder for your body to use insulin properly, leading to higher blood sugar levels -Include healthy snacks if needed. Pairing a protein with a carbohydrate at meals and snacks will help slow down the spike of blood sugar by slowing down digestion. -Keep a food journal week to monitor food choices and diet plan adherence. -Increase physical activity - Minimum of 30 minutes per day for 5-6 times per week; Exercise can also help to improve blood sugar control. Follow the guidance provided by exercise physiology and your physician. -Weigh and measure your serving sizes until you are comfortable with visibly estimating accurate portion sizes. Nutrition Monitoring AND Evaluation: weight loss and labs in target range Need for Follow up: 4-6 weeks Patient presents for initial MNT as relates to new diagnosis diabetes and for weight loss with class 1 obesity Body mass index is 30.26 kg/m?. Wants to lose weight to control diabetes without medication . Had made changes to diet, stopped juice, jelly, less bread. Intake noted for eating three meals and an evening snack . Occ meals high carb, limited protein. Making good choices of whole grains. Beverages appropriate. Exercise meets recommendations for cardio. Had lost ~4 lbs with changes for ~2lb per week. Patient's symptoms are: elevated blood sugars Diet History: Breakfast - before: eggs, 3 toast with jam and fruit and juice; now: instant oatmeal with pumpkin and cinn, walnuts, hot tea, water; may have 2 eggs, avocado, 2 slices WG and fruit; Snack - no Lunch - before: sandwich and soup, apple, peppers and hummus; now: tuna salad WG crackers, veggies, string cheese, appple; cheese, veggies/salad, chick peas Snack - not usually Dinner - pasta WG, sauce Snack - occ, popcorn Beverages - water, tea Alcohol- no Vitamins/Supplements - see medlist Activity: Activities of Daily Living: varies Additional Activity: Moderately active (Moderate intensity exercise: Planned physical activity 3-5 days/week) 30 min, treadmill or bike Walk outside Anthropometrics: Height: Last Ht 11/29/24 : 181.6 cm (5' 11.5) Current weight: Last Wt 11/29/24 : 99.8 kg (220 lb) Body mass index is 30.26 kg/m?. Resting Metabolic Rate: 1790 Malnutrition Screening Significant unintentional weight loss? No Eating less than 75% of usual intake for more than 2 weeks? No Potential Signs of Inflammation: no identifiable sources Education Materials Provided: None this visit READINESS TO LEARN Cognitive ability: Alert and oriented Motivation to learn: Interested Family support: High - Very involved in pt care Instruction provided to: Patient and Spouse Patient learns best by: Individual Instruction Factors affecting learning: None Physical limitations affecting learning: None Referred/Supervised by: Denise REYES Billing Type: Initial Assess/15 min 3 units SIGNATURE: Chelsea Freeman RD PATIENT NAME: Yuriy Souza DATE: November 29, 2024 TIME: 2:30 PM [facility] 11-29-2024 History of Presen t illness Narrative Nutrition Therapy Initial Assessment Nutrition Diagnosis: Behavioral-Environmental: Food and nutrition related knowledge deficit, related to, lack of prior exposure to information , as evidenced by new medical diagnosis. RECOMMENDED MALNUTRITION DIAGNOSIS: NO MALNUTRITION IDENTIFIED NUTRITION CARE PLAN Nutrition Intervention 11/29/2024: comprehensive nutrition education -Eat every 3-4 hours throughout the day. A consistent eating pattern helps manage blood sugars more effectively; Spread carbohydrate intake evenly throughout the day. This can be done by utilizing the plate method (1/2 plate vegetables, 1/4 plate starch, 1/4 plate protein/meat, and a serving of fruit on the side if desired). Carbs are the starch, fruit and milk group and is defined as 15 grams per servings. - Aim for ~2-3 carbs per meal or 30-45 grams and 1 carb per evening snack or 15grams ;if snacks needed during the day with high activity or long period between meals aim for protein and whole grain carb. - Consume whole grains (whole wheat, oatmeal, bran flakes, popcorn); high fiber foods are absorbed more slowly - Consume fresh or frozen fruits and vegetables in a variety of colors. Aim for half plate non-starchy veggies- Use lean meats (poultry, fish, lean beef or pork). - Use calorie-free or sugar-free beverages. -Use healthy fats: [place] oil, canola oil, walnuts, ground flaxseed or flaxseed oil, almonds, sunflower/pumpkin seeds, butter spray, margarine with no trans fatty acids, cooking spray. Limit foods high in saturated fat (fat/skin on meat, fish, and poultry, dairy fats, butter, coconut oil), as these fats can make it harder for your body to use insulin properly, leading to higher blood sugar levels -Include healthy snacks if needed. Pairing a protein with a carbohydrate at meals and snacks will help slow down the spike of blood sugar by slowing down digestion. -Keep a food journal week to monitor food choices and diet plan adherence. -Increase physical activity - Minimum of 30 minutes per day for 5-6 times per week; Exercise can also help to improve blood sugar control. Follow the guidance provided by exercise physiology and your physician. -Weigh and measure your serving sizes until you are comfortable with visibly estimating accurate portion sizes. Nutrition Monitoring & Evaluation: weight loss and labs in target range Need for Follow up: 4-6 weeks Patient presents for initial MNT as relates to new diagnosis diabetes and for weight loss with class 1 obesity Body mass index is 30.26 kg/m . Wants to lose weight to control diabetes without medication . Had made changes to diet, stopped juice, jelly, less bread. Intake noted for eating three meals and an evening snack . Occ meals high carb, limited protein. Making good choices of whole grains. Beverages appropriate. Exercise meets recommendations for cardio. Had lost ~4 lbs with changes for ~2lb per week. Patient's symptoms are: elevated blood sugars Diet History: Breakfast - before: eggs, 3 toast with jam and fruit and juice; now: instant oatmeal with pumpkin and cinn, walnuts, hot tea, water; may have 2 eggs, avocado, 2 slices WG and fruit; Snack - no Lunch - before: sandwich and soup, apple, peppers and hummus; now: tuna salad WG crackers, veggies, string cheese, appple; cheese, veggies/salad, chick peas Snack - not usually Dinner - pasta WG, sauce Snack - occ, popcorn Beverages - water, tea Alcohol- no Vitamins/Supplements - see medlist Activity: Activities of Daily Living: varies Additional Activity: Moderately active (Moderate intensity exercise: Planned physical activity 3-5 days/week) 30 min, treadmill or bike Walk outside Anthropometrics: Height: Last Ht 11/29/24 : 181.6 cm (5' 11.5) Current weight: Last Wt 11/29/24 : 99.8 kg (220 lb) Body mass index is 30.26 kg/m . Resting Metabolic Rate: 1790 Malnutrition Screening Significant unintentional weight loss? No Eating less than 75% of usual intake for more than 2 weeks? No Potential Signs of Inflammation: no identifiable sources Education Materials Provided: None this visit READINESS TO LEARN Cognitive ability: Alert and oriented Motivation to learn: Interested Family support: High - Very involved in pt care Instruction provided to: Patient and Spouse Patient learns best by: Individual Instruction Factors affecting learning: None Physical limitations affecting learning: None Referred/Supervised by: Barron/Christian REYES Billing Type: Initial Assess/15 min 3 units SIGNATURE: Chelsea Freeman RD PATIENT NAME: Yuriy Souza DATE: November 29, 2024 TIME: 2:30 PM documented in this encounter [facility] 11-26-2024 Telephone encounter Note Pt was wanting to just see word processor operator at this time. Pt was assisted in transfer to schedule. Rubi Peña LPN [facility] 11-26-2024 Miscellaneous Notes Pt was wanting to just see word processor operator at this time. Pt was assisted in transfer to schedule. Rubi Peña LPN Order placed We discussed personal development educator and word processor operator. Does he want to meet with both? Vane Mart PA-C Pt saw Vane Mart on 11/17/24 and she mentioned to pt about referring him to a dietetic technician registered and pt declined at the time. He has now reconsidered and would like to proceed with that consult. Pt's request is to stay in [place] to see someone. documented in this encounter [facility] 11-26-2024 Telephone encounter Note Order placed [facility] 11-26-2024 Telephone encounter Note We discussed personal development educator and word processor operator. Does he want to meet with both? Vane Mart PA-C [facility] 11-26-2024 Telephone encounter Note Pt saw Vane Mart on 11/17/24 and she mentioned to pt about referring him to a dietetic technician registered and pt declined at the time. He has now reconsidered and would like to proceed with that consult. Pt's request is to stay in [place] to see someone. [facility] 11-24-2024 Telephone encounter Note Prescription Refill Information The patient has been identified by name and date of : Yes Caregiver verified no other encounters exist for this prescription request: Yes Caregiver confirmed with patient/requestor that no other refills are due, in the near future, with this provider at this time: Yes The last office visit in the department: 11/2024 Does the patient have a future office visit with this provider/department: Yes Requested Prescriptions Pending Prescriptions Disp Refills lansoprazole (PREVACID) 15 mg capsule 90 capsule 1 Sig: Take 1 capsule by mouth once daily. Rebekah Willett MA November 24, 2024 1:56 PM [facility] 11-24-2024 Miscellaneous Notes Prescription Refill Information The patient has been identified by name and date of : Yes Caregiver verified no other encounters exist for this prescription request: Yes Caregiver confirmed with patient/requestor that no other refills are due, in the near future, with this provider at this time: Yes The last office visit in the department: 11/2024 Does the patient have a future office visit with this provider/department: Yes Requested Prescriptions Pending Prescriptions Disp Refills lansoprazole (PREVACID) 15 mg capsule 90 capsule 1 Sig: Take 1 capsule by mouth once daily. Rebekah Willett MA November 24, 2024 1:56 PM Prescription Refill Information The patient has been identified by name and date of : Yes Caregiver verified no other encounters exist for this prescription request: Yes Caregiver confirmed with patient/requestor that no other refills are due, in the near future, with this provider at this time: Yes The last office visit in the department: 11/17/24 Does the patient have a future office visit with this provider/department: Yes 05/20/25 Requested Prescriptions Pending Prescriptions Disp Refills lansoprazole (PREVACID) 15 mg capsule 90 capsule 1 Sig: Take 1 capsule by mouth once daily. Niharika Chambers November 24, 2024 11:54 AM documented in this encounter [facility] 11-24-2024 Telephone encounter Note Prescription Refill Information The patient has been identified by name and date of : Yes Caregiver verified no other encounters exist for this prescription request: Yes Caregiver confirmed with patient/requestor that no other refills are due, in the near future, with this provider at this time: Yes The last office visit in the department: 11/17/24 Does the patient have a future office visit with this provider/department: Yes 05/20/25 Requested Prescriptions Pending Prescriptions Disp Refills lansoprazole (PREVACID) 15 mg capsule 90 capsule 1 Sig: Take 1 capsule by mouth once daily. Niharika Chambers November 24, 2024 11:54 AM [facility] 11-19-2024 Telephone encounter Note Let patient know that his PSA is stable. Vane Mart PA-C [facility] 11-19-2024 Miscellaneous Notes Let patient know that his PSA is stable. Vane Mart PA-C documented in this encounter [facility] 11-17-2024 Instructions Vane Mart PA-C - 11/17/2024 1:38 PM EST Follow up in 6 months for wellness exam with Dr. Gonzales. Labs prior. PSA level today. Return sooner as needed. documented in this encounter [facility] 11-17-2024 Note HNO ID: [id number] Author: VANE MART PA-C Service: ? Author Type: Physician Seater Grinder Type: Progress Notes Filed: 11/17/2024 14:21 Note Text: Chief Complaint Patient presents with: 6 Month Exam HPI Yuriy Souza is a 74 year old male who presents here today for Chronic Medical Conditions.. Patient with Hx of HTN, GERD, Hyperlipidemia, CKD, RLS, autonomic disorder, JESSICA, essential tremor, BPH as well as those reviewed and addressed below and in ROS. Patient wants to lose more weight. Also had rash after dx of influenza and on tamiflu. Has noted improvement. Last 6 Encounter Wt Readings: Date: Wt: 11/17/2024 101.6 kg (224 lb) 10/30/2024 100.3 kg (221 lb 1.9 oz) 10/24/2024 102.1 kg (225 lb 1.4 oz) 07/19/2024 102.4 kg (225 lb 12 oz) 05/05/2024 101.2 kg (223 lb) 12/01/2023 105.3 kg (232 lb 3.2 oz) Past medical history, appointments, medications, allergies reviewed. 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 Benign essential tremor 02/10/2014 BPH with obstruction/lower urinary tract symptoms 04/11/2009 CKD (chronic kidney disease), stage III (HCC) 07/08/2018 Elevated blood sugar 05/05/2024 Elevated PSA 10/31/2021 Per Urology 11/2022: PCP to get PSA's Q 6 months Essential hypertension, benign FHx: prostate cancer 08/24/2012 GERD without esophagitis 10/14/[address] 10/31/2021 DPA: (Ana) Medicare annual wellness visit, subsequent 10/31/2021 Medicare part B: Not able to find, Last done:10/31/2021 Mixed hyperlipidemia 10/14/2005 JESSICA (obstructive sleep apnea) 11/12/2017 [facility] for Auto[facility] Plantar fasciitis, bilateral 06/03/2017 Radiculopathy, cervical region 11/14/2016 Tremor 10/26/2009 Umbilical hernia without obstruction or gangrene 05/10/[address] Davidson. Recommended surgery due to thinning skin- patient considering. Previous Surgical History PAST SURGICAL HISTORY Procedure Laterality Date COLONOSCOPY FLX DX W/COLLJ SPEC WHEN PFRMD 07/17/2007 Repeat [id number] abscess/[id number]-jr-ylm EGD TRANSORAL BIOPSY SINGLE/MULTIPLE 11/21/2005 I/D PERIANAL ABSCESS, SUPERFICIAL 05/01/2007 Left anterolateral perianal abscess PAST SURGICAL HISTORY OF Kidney repair PAST SURGICAL HISTORY OF partial knee replacement REPAIR UMBILICAL ISAIAH,5+Y/O,REDUC 06/27/2022 TONSILLECTOMY AND ADENOIDECTOMY TOTAL KNEE REPLACEMENT Right 06/27/2021 Family History FAMILY HISTORY Problem Relation Age of Onset Stroke Mother Hypertension Mother Cancer Father VOCAL CORD Diabetes Father Prostate Cancer Father Prostate Cancer Brother Stroke Paternal Grandfather Coronary Artery Disease No Family History Thyroid No Family History Blood Disease No Family History Blood Clots No Family History DVT No Family History Factor 5 Leiden No Family History Systemic Lupus Erythematosus No Family History Multiple Sclerosis No Family History Bipolar disorder No Family History Schizophrenia No Family History Alzheimer's Disease No Family History Parkinson?s Disease No Family History Dementia No Family History Aneurysm No Family History COPD No Family History Patient Allergies ALLERGIES Allergen Reactions Vicodin [Hydrocodon* Other: See Comments Severe drop in blood pressure, Tamiflu [Oseltamivi* Rash Developed after having influenza A, with tamiflu use, viral rash versus allergy Current Medications Current Outpatient Medications on File Prior to Visit Medication Sig triamcinolone acetonide (KENALOG) 0.1 % cream Apply 1 application to affected area three times a day. Apply sparingly to area for rash/itching. cetirizine (ZYRTEC) 10 mg tablet Take 1 tablet by mouth once daily. gabapentin (NEURONTIN) 300 mg capsule Take 3 capsules by mouth daily at bedtime for 90 days. lansoprazole (PREVACID) 15 mg capsule Take 1 capsule by mouth once daily. propranolol (INDERAL) 20 mg tablet take 1 tablet by mouth twice a day CPAP 1 Device by MISCELLANEOUS route daily at bedtime. NEW SET UP: Settings 10 - 14 cm H2O, suitable mask per pt preference, chin strap, head gear, humidity, tubing, lifetime supplies. G47.33 JESSICA DME - [facility] glucos sul 2KCl/msm/chond/C/Mn (GLUCOSAMINE CHONDROITIN ORAL) Take by mouth as directed. DAILY MULTI-VITAMIN ORAL Take by mouth as directed. CPAP Change current settings: Settings 10 - 14 cm H2O, suitable mask per pt preference, chin strap, head gear, humidity, tubing, lifetime supplies. G47.33 JESSICA No current facility-administered medications on file prior to visit. Social History Social History Tobacco Use Smoking status: Never Smokeless tobacco: Never Vapin (more content not included)... [facility] 11-17-2024 History of Presen t illness Narrative Chief Complaint Patient presents with: 6 Month Exam HPI Yuriy Souza is a 74 year old male who presents here today for Chronic Medical Conditions.. Patient with Hx of HTN, GERD, Hyperlipidemia, CKD, RLS, autonomic disorder, JESSICA, essential tremor, BPH as well as those reviewed and addressed below and in ROS. Patient wants to lose more weight. Also had rash after dx of influenza and on tamiflu. Has noted improvement. Last 6 Encounter Wt Readings: Date: Wt: 11/17/2024 101.6 kg (224 lb) 10/30/2024 100.3 kg (221 lb 1.9 oz) 10/24/2024 102.1 kg (225 lb 1.4 oz) 07/19/2024 102.4 kg (225 lb 12 oz) 05/05/2024 101.2 kg (223 lb) 12/01/2023 105.3 kg (232 lb 3.2 oz) Past medical history, appointments, medications, allergies reviewed. 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 Benign essential tremor 02/10/2014 BPH with obstruction/lower urinary tract symptoms 04/11/2009 CKD (chronic kidney disease), stage III (HCC) 07/08/2018 Elevated blood sugar 05/05/2024 Elevated PSA 10/31/2021 Per Urology 11/2022: PCP to get PSA's Q 6 months Essential hypertension, benign FHx: prostate cancer 08/24/2012 GERD without esophagitis 10/14/[address] 10/31/2021 DPA: (Ana) Medicare annual wellness visit, subsequent 10/31/2021 Medicare part B: Not able to find, Last done:10/31/2021 Mixed hyperlipidemia 10/14/2005 JESSICA (obstructive sleep apnea) 11/12/2017 [facility] for Auto[facility]AP Plantar fasciitis, bilateral 06/03/2017 Radiculopathy, cervical region 11/14/2016 Tremor 10/26/2009 Umbilical hernia without obstruction or gangrene 05/10/[address] Davidson. Recommended surgery due to thinning skin- patient considering. Previous Surgical History PAST SURGICAL HISTORY Procedure Laterality Date COLONOSCOPY FLX DX W/COLLJ SPEC WHEN PFRMD 07/17/2007 Repeat [id number] abscess/ppiggjr-hj-rgj EGD TRANSORAL BIOPSY SINGLE/MULTIPLE 11/21/2005 I/D PERIANAL ABSCESS, SUPERFICIAL 05/01/2007 Left anterolateral perianal abscess PAST SURGICAL HISTORY OF Kidney repair PAST SURGICAL HISTORY OF partial knee replacement REPAIR UMBILICAL ISAIAH,5+Y/O,REDUC 06/27/2022 TONSILLECTOMY & ADENOIDECTOMY <AGE 12 TOTAL KNEE REPLACEMENT Right 06/27/2021 Family History FAMILY HISTORY Problem Relation Age of Onset Stroke Mother Hypertension Mother Cancer Father VOCAL CORD Diabetes Father Prostate Cancer Father Prostate Cancer Brother Stroke Paternal Grandfather Coronary Artery Disease No Family History Thyroid No Family History Blood Disease No Family History Blood Clots No Family History DVT No Family History Factor 5 Leiden No Family History Systemic Lupus Erythematosus No Family History Multiple Sclerosis No Family History Bipolar disorder No Family History Schizophrenia No Family History Alzheimer's Disease No Family History Parkinson s Disease No Family History Dementia No Family History Aneurysm No Family History COPD No Family History Patient Allergies ALLERGIES Allergen Reactions Vicodin [Hydrocodon* Other: See Comments Severe drop in blood pressure, Tamiflu [Oseltamivi* Rash Developed after having influenza A, with tamiflu use, viral rash versus allergy Current Medications Current Outpatient Medications on File Prior to Visit Medication Sig triamcinolone acetonide (KENALOG) 0.1 % cream Apply 1 application to affected area three times a day. Apply sparingly to area for rash/itching. cetirizine (ZYRTEC) 10 mg tablet Take 1 tablet by mouth once daily. gabapentin (NEURONTIN) 300 mg capsule Take 3 capsules by mouth daily at bedtime for 90 days. lansoprazole (PREVACID) 15 mg capsule Take 1 capsule by mouth once daily. propranolol (INDERAL) 20 mg tablet take 1 tablet by mouth twice a day CPAP 1 Device by MISCELLANEOUS route daily at bedtime. NEW SET UP: Settings 10 - 14 cm H2O, suitable mask per pt preference, chin strap, head gear, humidity, tubing, lifetime supplies. G47.33 JESSICA DME - [facility] glucos sul 2KCl/msm/chond/C/Mn (GLUCOSAMINE CHONDROITIN ORAL) Take by mouth as directed. DAILY MULTI-VITAMIN ORAL Take by mouth as directed. CPAP Change current settings: Settings 10 - 14 cm H2O, suitable mask per pt preference, chin strap, head gear, humidity, tubing, lifetime supplies. G47.33 JESSICA No current facility-administered medications on file prior to visit. Social History Social History Tobacco Use Smoking status: Never Smokeless tobacco: Never Vaping Use Vaping status: Never Used Substance Use Topics Alcohol use: No Drug use: No Review of Symptoms REVIEW OF SYSTEMS GENERAL: No weight loss, malaise or fevers NECK: Negative for lumps, goiter, pain and significant neck swelling RESPIRATORY: Negative for cough, hemoptysis, wheezing, COPD, dyspnea or shortness of breath CARDIOVASCULAR: Negative for chest pain, worsening leg swelling, hypertension, CHF or palpitations NEURO: No history of headaches, syncope, paralysis, seizures or tremors EXAM: BP 120/78 (BP Site: Left Arm, BP Position: Sitting, BP Cuff Size: Large Adult) Pulse 61 Temp 36.9 C (98.5 F) Resp 18 Wt 101.6 kg (224 lb) SpO2 94% BMI 30.81 kg/m General Appearance: Well appearing, alert, in no acute distress, well-hydrated, well nourished.. Neck: Supple, no adenopathy; thyroid symmetric, normal size, no bruits. Lungs: Lungs clear to auscultation. No wheezing, rhonchi, rales.. Heart: RRR without murmur, gallop, or rubs. No ectopy. Extremities: No deformities, edema, skin discoloration, clubbing or cyanosis. Good capillary refill. . Peripheral Pulses: Normal. Health Maintenance List Depression Screening Never done Advance Directive Discussion due on 09/15/2024 Anxiety Screening due on 05/05/2025 Covid-19 Vaccine( season) due on 12/28/2024 Annual PCP Team Chronic Disease Visit due on 05/05/2025 BP Controlled (<130/80) due on 10/30/2025 Serum Creatinine due on 11/15/2025 Hemoglobin/Hematocrit due on 11/15/2025 Diabetes Screening due on 11/16/2027 Colorectal Cancer Screening due on 06/02/2028 Lipid Screening due on 11/15/2029 DTaP,Tdap,Td Vaccine(5 - Td or Tdap) due on 05/16/2031 Influenza Vaccine Completed RSV Vaccine Completed Hepatitis C Screening Completed Shingrix Vaccine Completed Pneumococcal Vaccine: 50+ Completed Data reviewed Latest Ref Rng 11/15/2024 WBC 3.70 - 11.00 k/uL 5.18 RBC 4.20 - 6.00 m/uL 4.96 Hemoglobin 13.0 - 17.0 g/dL 15.5 Hematocrit 39.0 - 51.0 % 46.9 MCV 80.0 - 100.0 fL 94.6 MCH 26.0 - 34.0 pg 31.3 MCHC 30.5 - 36.0 g/dL 33.0 RDW-CV 11.5 - 15.0 % 12.7 Platelet Count 150 - 400 k/uL 200 MPV 9.0 - 12.7 fL 10.4 Neut% % 64.7 Abs Neut (ANC) 1.45 - 7.50 k/uL 3.35 Lymph% % 21.0 Abs Lymph 1.00 - 4.00 k/uL 1.09 Glenn% % 11.4 Abs Glenn <0.87 k/uL 0.59 Eosin% % 1.5 Abs Eosin <0.46 k/uL 0.08 Baso% % 0.6 Abs Baso <0.11 k/uL 0.03 Immature Gran % % 0.8 IMMATURE GRANS (ABS) <0.10 k/uL 0.04 NRBC /100 WBC 0.0 Absolute nRBC <0.01 k/uL <0.01 DTYPE Auto Color Yellow Yellow Clarity Clear Clear Glucose, Urine Negative Negative Bilirubin, Urine Negative Negative Ketones, Urine Negative Negative Specific [place], Ur 1.005 - 1.030 1.015 Hemoglobin/Blood,Ur Negative Negative pH, Urine <8.5 6.5 Protein, Urine Negative Negative Urobilinogen 0.2-1.0 EU/dL 0.2 EU/dL Nitrites Negative Negative Leukest Negative Negative WBC, Urine 0-5 /HPF 0-5 /HPF RBC, Urine 0-2 /HPF 0-2 /HPF Bacteria Negative /HPF Negative Epithelial Cells /HPF None Seen Hyaline Cast 0 /LPF 0 /LPF Protein, Total 6.3 - 8.0 g/dL 6.6 Albumin 3.9 - 4.9 g/dL 4.0 Calcium 8.5 - 10.2 mg/dL 9.7 Bilirubin, Total 0.2 - 1.3 mg/dL 0.5 Alkaline Phosphatase 38 - 113 U/L 75 AST 14 - 40 U/L 25 ALT 10 - 54 U/L 17 Glucose 74 - 99 mg/dL 95 BUN 9 - 24 mg/dL 21 Creatinine 0.73 - 1.22 mg/dL 1.28 (H) Sodium 136 - 144 mmol/L 142 Potassium 3.7 - 5.1 mmol/L 4.8 Chloride 98 - 107 mmol/L 106 CO2 22 - 30 mmol/L 27 Anion Gap 8 - 15 mmol/L 9 eGFR >=60 mL/min/1.73m 59 (L) Total Cholesterol, Nonfasting <200 mg/dL 176 Triglycerides, Nonfasting <150 mg/dL 130 HDL Cholesterol, Nonfasting >39 mg/dL 57 LDL Cholesterol, Nonfasting <100 mg/dL 93 Non HDL Cholesterol, Nonfasting <130 mg/dL 119 VLDL Cholesterol, Nonfasting <30 mg/dL 26 Total Chol/HDL Ratio, Nonfasting <5.10 mg/dL 3.09 LDL/HDL Ratio, Nonfasting <2.54 mg/dL 1.63 Hemoglobin A1C 4.3 - 5.6 % 6.8 (H) Estimated Average Glucose mg/dL 148 Vitamin B12 232 - 1,245 pg/mL 510 Magnesium 1.7 - 2.3 mg/dL 2.2 ASSESSMENT/PLAN: 1. Type 2 diabetes mellitus without complication, without long-term current use of insulin (HCC) - ICD9: 250.00, ICD10: E11.9 (primary diagnosis) - New diagnosis - Counseled on healthy diet and regular exercise - Discussed need for and benefit of weight loss. BMI 30.81 kg/(m^2) - HEMOGLOBIN A1C - ALBUMIN/CREATININE RATIO, URINE 2. Essential hypertension, benign - ICD9: 401.1, ICD10: I10 - Controlled - - Recommend home blood pressure monitoring, to bring results to next visit - Encouraged sodium restriction, DASH or Mediterranean diet - Recommend regular aerobic exercise - PROSTATE-SPECIFIC ANTIGEN DIAGNOSTIC - BASIC METABOLIC PANEL 3. Mixed hyperlipidemia - ICD9: 272.2, ICD10: E78.2 - Controlled - Counseled on healthy diet and regular exercise 4. Screening for depression - ICD9: V79.0, ICD10: Z13.31 - DEPRESSION SCREENING 5. Elevated PSA - ICD9: 790.93, ICD10: R97.20 - PROSTATE SPECIFIC ANTIGEN, FREE - PROSTATE-SPECIFIC ANTIGEN DIAGNOSTIC - BASIC METABOLIC PANEL 6. Prostate disorder - ICD9: 602.9, ICD10: N42.9 - PROSTATE SPECIFIC ANTIGEN, FREE - PROSTATE-SPECIFIC ANTIGEN DIAGNOSTIC - BASIC METABOLIC PANEL 7. Benign essential tremor - ICD9: 333.1, ICD10: G25.0 Stable Continue with management by neuro. 8. GERD without esophagitis - ICD9: 530.81, ICD10: K21.9 stable 9. BPH with obstruction/lower urinary tract symptoms - ICD9: 600.01, 599.69, ICD10: N40.1, N13.8 stable 10. Stage 3a chronic kidney disease (HCC) - ICD9: 585.3, ICD10: N18.31 - eGFR: 59 Stable - Counseled on avoiding NSAIDs, adequate hydration 11. Elevated blood sugar - ICD9: 790.29, ICD10: R73.9 See #1 12. Medication management - ICD9: V58.69, ICD10: Z79.899 Follow up in 6 months with labs prior. Vane Mart PA-C documented in this encounter [facility] 11-09-2024 Note HNO ID: [id number] Author: NIMO HAWTHORNE MA Service: ? Author Type: Instructor Ballroom Dancing Type: Progress Notes Filed: 11/09/2024 11:41 Note Text: POPULATION HEALTH NAVIGATION OUTREACH Action/FYI msg to schedule wellness/ follow up for wellness, hcc gap closure Reason for Outreach Care Gap/HCC or Scheduling Wellness Visits Care Gaps due: Medicare Annual Wellness Visit Follow-up Appointment Patient Contacted: Unable or unnecessary to reach patient: Unable to leave message [employer] message sent HCC related Navigation Signature: Nimo Hawthorne MA November 09, 2024 11:40 AM [facility] 11-09-2024 History of Presen t illness Narrative POPULATION HEALTH NAVIGATION OUTREACH Action/FYI msg to schedule wellness/ follow up for wellness, hcc gap closure Reason for Outreach Care Gap/HCC or Scheduling Wellness Visits Care Gaps due: Medicare Annual Wellness Visit Follow-up Appointment Patient Contacted: Unable or unnecessary to reach patient: Unable to leave message [employer] message sent HCC related Navigation Signature: Nimo Hawthorne MA November 09, 2024 11:40 AM documented in this encounter [facility] 11-09-2024 Note Patient Outreach (NE TNAV) YURIY SOUZA ([id number]) 1950 M Date Time Provider Department 11/09/24 NIMO HAWTHORNE During your visit today, we recorded the following information about you: Nimo Hawthorne MA 11/09/2024 11:41 AM Signed POPULATION HEALTH NAVIGATION OUTREACH Action/FYI msg to schedule wellness/ follow up for wellness, hcc gap closure Reason for Outreach Care Gap/HCC or Scheduling Wellness Visits Care Gaps due: Medicare Annual Wellness Visit Follow-up Appointment Patient Contacted: Unable or unnecessary to reach patient: Unable to leave message [employer] message sent HCC related Navigation Signature: Nimo Hawthorne MA November 09, 2024 11:40 AM Allergies As of Date: 11/09/2024 Noted Allergy Reaction VICODIN (HYDROCODONE-ACETAMINOPHE*01/08 14 - Other: See Comments Comments: Severe drop in blood pressure, TAMIFLU (OSELTAMIVIR) 10/30/2024 2 - Rash Comments: Developed after having influenza A, with tamiflu use, viral rash versus allergy Date Reviewed: 10/30/2024 Reviewed by: Carolyne Spence APRN.ICE DELIVERY DRIVER - Fully Assessed Reason for Visit: Population Health Navigation Outreach [3910] Cmt: [facility] k[facility]il Prescriptions as of 11/09/2024 - triamcinolone acetonide (KENALOG) 0.1 % cream Apply 1 application to affected area three times a day. Apply sparingly to area for rash/itching. - cetirizine (ZYRTEC) 10 mg tablet Take 1 tablet by mouth once daily. - gabapentin (NEURONTIN) 300 mg capsule Take 3 capsules by mouth daily at bedtime for 90 days. - lansoprazole (PREVACID) 15 mg capsule Take 1 capsule by mouth once daily. - propranolol (INDERAL) 20 mg tablet take 1 tablet by mouth twice a day - CPAP 1 Device by MISCELLANEOUS route daily at bedtime. NEW SET UP: Settings 10 - 14 cm H2O, suitable mask per pt preference, chin strap, head gear, humidity, tubing, lifetime supplies. G47.33 JESSICA DME - [facility] - glucos sul 2KCl/msm/chond/C/Mn (GLUCOSAMINE CHONDROITIN ORAL) Take by mouth as directed. - DAILY MULTI-VITAMIN ORAL Take by mouth as directed. - CPAP Change current settings: Settings 10 - 14 cm H2O, suitable mask per pt preference, chin strap, head gear, humidity, tubing, lifetime supplies. G47.33 JESSICA Problem List As Of Date 11/09/2024 Noted Resolved Essential hypertension, benign [I10] GERD without esophagitis [K21.9] 10/14/2005 Mixed hyperlipidemia [E78.2] 10/14/2005 Acute gastritis without mention of hemorrhage [*11/21/2005 04/27/2015 Restless legs syndrome (RLS) [G25.81] 07/16/2006 Abscess of anal and rectal regions [K61.2] 05/01/2007 04/27/2015 FISTULA ANAL [K60.30] 07/17/2007 04/27/2015 Primary localized osteoarthrosis, lower leg [M1*02/20/2009 04/27/2015 BPH with obstruction/lower urinary tract sympto*04/11/2009 FHx: prostate cancer [Z80.42] 08/24/2012 Hypoglycemia [E16.2] 09/28/2013 04/27/2015 Vaso-vagal reaction [R55] 09/28/2013 04/27/2015 Autonomic nervous system disorder [G90.9] 09/28/2013 Benign essential tremor [G25.0] 02/10/2014 Radiculopathy, cervical region [M54.12] 11/14/2016 JESSICA (obstructive sleep apnea) [G47.33] 11/12/2017 Stage 3a chronic kidney disease (HCC) [N18.31] 07/08/2018 Arthritis of right ankle [M19.071] 11/23/2019 Arthritis of right knee [M17.11] 04/25/2021 Prostate disorder [N42.9] 04/25/2021 Medication management [Z79.899] 04/25/2021 Medicare annual wellness visit, subsequent [Z00*10/31/[address] [Z78.9] 10/31/2021 Elevated PSA [R97.20] 10/31/2021 Umbilical hernia without obstruction or gangren*05/10/2022 11/01/2022 Advance directive discussed with patient [Z71.8*11/01/2022 Elevated blood sugar [R73.9] 05/05/2024 Encounter Status:Closed by NIMO HAWTHORNE on 11/09/24 [facility] 10-30-2024 Instructions Carolyne Spence APRN.CNP - 10/30/2024 12:27 PM EST Use triamcinolone cream as needed for itching, fine layer Zyrtec 10 mg By mouth daily at bedtime for one month Follow up with PCP prn documented in this encounter [facility] 10-30-2024 Note HNO ID: [id number] Author: CAROLYNE SPENCE APRN.CNP Service: ? Author Type: Nurse Practitioner Type: Progress Notes Filed: 10/30/2024 12:34 Note Text: Subjective The history is provided by the patient. No healthcare management consultant was used. Patient presents with: Rash: ? tamiflu, acrossed chest and upper back, itching started on , rash on Yuriy Souza is a 74 year old male who presents with a complaint of a rash on the trunk for the past 1 day(s) that is stable. The patients reports no new exposures, no recent contact with unusual or new material, no recent change in detergents, soap, or shampoo, no other family members with the same rash, and using new medications - tamiflu The rash is discribed as Erythema, papular, pruritic Past treatments No Does the patient have a personal history of: Seasonal allergies: no Recent travel: no Recent infections: no Beginning a new medication: yes: tamilfu Symptoms are triggered by: nothing Other symtoms include: none of the following - appetite change, weight change, fever, chills, malaise, and fatigue Review of Systems Constitutional: Negative for chills and fever. Musculoskeletal: Negative for joint pain and myalgias. Skin: Positive for rash. Negative for itching. All other systems reviewed and are negative. Objective Physical Exam Vitals and nursing note reviewed. Pulmonary: Effort: Pulmonary effort is normal. Skin: General: Skin is warm and dry. Findings: Rash present. Rash is macular and papular. Neurological: Mental Status: He is alert and oriented to person, place, and time. Psychiatric: Mood and Affect: Affect normal. ASSESSMENT/PLAN: 1. Rash - ICD9: 782.1, ICD10: R21 Possible viral exanthem, allergy Triamcinolone, zyrtec Follow up with PCP as needed Diagnosis and treatment plan were discussed and questions were answered to the patient's satisfaction. Pt acknowledged understanding of concepts and follow up plan. Specific signs and symptoms that would indicate the need for higher level of care were discussed in detail warranting prompt ER evaluation. Carolyne Spence APRN.[facility] 10-30-2024 History of Presen t illness Narrative Images from the original note were not included. Subjective The history is provided by the patient. No healthcare management consultant was used. Patient presents with: Rash: ? tamiflu, acrossed chest and upper back, itching started on weds, rash on thurs Yuriy Souza is a 74 year old male who presents with a complaint of a rash on the trunk for the past 1 day(s) that is stable. The patients reports no new exposures, no recent contact with unusual or new material, no recent change in detergents, soap, or shampoo, no other family members with the same rash, and using new medications - tamiflu The rash is discribed as Erythema, papular, pruritic Past treatments No Does the patient have a personal history of: Seasonal allergies: no Recent travel: no Recent infections: no Beginning a new medication: yes: tamilfu Symptoms are triggered by: nothing Other symtoms include: none of the following - appetite change, weight change, fever, chills, malaise, and fatigue Review of Systems Constitutional: Negative for chills and fever. Musculoskeletal: Negative for joint pain and myalgias. Skin: Positive for rash. Negative for itching. All other systems reviewed and are negative. Objective Physical Exam Vitals and nursing note reviewed. Pulmonary: Effort: Pulmonary effort is normal. Skin: General: Skin is warm and dry. Findings: Rash present. Rash is macular and papular. Neurological: Mental Status: He is alert and oriented to person, place, and time. Psychiatric: Mood and Affect: Affect normal. ASSESSMENT/PLAN: 1. Rash - ICD9: 782.1, ICD10: R21 Possible viral exanthem, allergy Triamcinolone, zyrtec Follow up with PCP as needed Diagnosis and treatment plan were discussed and questions were answered to the patient's satisfaction. Pt acknowledged understanding of concepts and follow up plan. Specific signs and symptoms that would indicate the need for higher level of care were discussed in detail warranting prompt ER evaluation. Carolyne Spence APRN.SANDRA documented in this encounter [facility] 10-24-2024 Note HNO ID: [id number] Author: HERMANN LUTZ APRN.CNP Service: ? Author Type: Nurse Practitioner Type: Progress Notes Filed: 10/24/2024 11:22 Note Text: Subjective HPI Nontoxic-appearing 74-year-old male presents urgent care chief complaint flulike symptoms. Duration of symptoms 1 day. Associated symptoms with today's chief complaint are on and off headache, muscle aches, fatigue, nonproductive cough, and fever. Patient stated symptoms started abruptly. Patient states they have used xhtv-[id number] medication with some success. Patient states they were in contact with individuals who were diagnosed with influenza. Patient denies any pain at this time. Patient denies any visual changes, visual disturbance, shortness of breath, rash, exercise intolerance, pleuritic pain, productive cough, abdominal pain, nausea, vomiting, chest pain, or change in bowel or bladder habits. Past medical history prescription medications allergies reviewed. 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 CKD (chronic kidney disease), stage III (HCC) 07/08/2018 Elevated blood sugar 05/05/2024 Elevated PSA 10/31/2021 Per Urology 11/2022: PCP to get PSA's Q 6 months Essential hypertension, benign FHx: prostate cancer 08/24/2012 GERD without esophagitis 10/14/[address] 10/31/2021 DPA: (Ana) Medicare annual wellness visit, subsequent 10/31/2021 Medicare part B: Not able to find, Last done:10/31/2021 Mixed hyperlipidemia 10/14/2005 JESSICA (obstructive sleep apnea) 11/12/2017 DME [facility] for AutoPAP Plantar fasciitis, bilateral 06/03/2017 Radiculopathy, cervical region 11/14/2016 Tremor 10/26/2009 Umbilical hernia without obstruction or gangrene 05/10/[address] Davidson. Recommended surgery due to thinning skin- patient considering. PAST SURGICAL HISTORY Procedure Laterality Date COLONOSCOPY FLX DX W/COLLJ SPEC WHEN PFRMD 07/17/2007 Repeat [id number] abscess/[id number]-[id number]-[id number] EGD TRANSORAL BIOPSY SINGLE/MULTIPLE 11/21/2005 I/D PERIANAL ABSCESS, SUPERFICIAL 05/01/2007 Left anterolateral perianal abscess PAST SURGICAL HISTORY OF Kidney repair PAST SURGICAL HISTORY OF partial knee replacement REPAIR UMBILICAL ISAIAH,5+Y/O,REDUC 06/27/2022 TONSILLECTOMY AND ADENOIDECTOMY TOTAL KNEE REPLACEMENT Right 06/27/2021 ALLERGIES Vicodin [Hydrocodone-Acetaminophen] MEDICATIONS gabapentin (NEURONTIN) 300 mg capsule Take 3 capsules by mouth daily at bedtime for 90 days. lansoprazole (PREVACID) 15 mg capsule Take 1 capsule by mouth once daily. propranolol (INDERAL) 20 mg tablet take 1 tablet by mouth twice a day CPAP 1 Device by MISCELLANEOUS route daily at bedtime. NEW SET UP: Settings 10 - 14 cm H2O, suitable mask per pt preference, chin strap, head gear, humidity, tubing, lifetime supplies. G47.33 JESSICA DME - [facility] glucos sul 2KCl/msm/chond/C/Mn (GLUCOSAMINE CHONDROITIN ORAL) Take by mouth as directed. DAILY MULTI-VITAMIN ORAL Take by mouth as directed. CPAP Change current settings: Settings 10 - 14 cm H2O, suitable mask per pt preference, chin strap, head gear, humidity, tubing, lifetime supplies. G47.33 JESSICA oseltamivir (TAMIFLU) 75 mg capsule Take 1 capsule by mouth two times a day for 5 days. FAMILY HISTORY Problem Relation Age of Onset Stroke Mother Hypertension Mother Cancer Father VOCAL CORD Diabetes Father Prostate Cancer Father Prostate Cancer Brother Stroke Paternal Grandfather Coronary Artery Disease No Family History Thyroid No Family History Blood Disease No Family History Blood Clots No Family History DVT No Family History Factor 5 Leiden No Family History Systemic Lupus Erythematosus No Family History Multiple Sclerosis No Family History Bipolar disorder No Family History Schizophrenia No Family History Alzheimer's Disease No Family History Parkinson?s Disease No Family History Dementia No Family History Aneurysm No Family History COPD No Family History Social History Tobacco Use Smoking status: Never Smokeless tobacco: Never Vaping Use Vaping status: Never Used Substance Use Topics Alcohol use: No Drug use: No BP 122/70 Pulse 92 Temp (!) 38.9 ?C (102.1 ?F) Resp 18 Wt 102.1 kg (225 lb 1.4 oz) SpO2 95% BMI 30.96 kg/m? Review of Systems Constitutional: Positive for chills, fever and malaise/fatigue. HENT: Positive for congestion and sore throat. Negative for ear discharge, ear pain and sinus pain. Eyes: Negative for brandon (more content not included)... [facility] 10-24-2024 History of Presen t illness Narrative Subjective HPI Nontoxic-appearing 74-year-old male presents urgent care chief complaint flulike symptoms. Duration of symptoms 1 day. Associated symptoms with today's chief complaint are on and off headache, muscle aches, fatigue, nonproductive cough, and fever. Patient stated symptoms started abruptly. Patient states they have used umby-gpa-lgnzoiz medication with some success. Patient states they were in contact with individuals who were diagnosed with influenza. Patient denies any pain at this time. Patient denies any visual changes, visual disturbance, shortness of breath, rash, exercise intolerance, pleuritic pain, productive cough, abdominal pain, nausea, vomiting, chest pain, or change in bowel or bladder habits. Past medical history prescription medications allergies reviewed. 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 CKD (chronic kidney disease), stage III (HCC) 07/08/2018 Elevated blood sugar 05/05/2024 Elevated PSA 10/31/2021 Per Urology 11/2022: PCP to get PSA's Q 6 months Essential hypertension, benign FHx: prostate cancer 08/24/2012 GERD without esophagitis 10/14/[address] 10/31/2021 DPA: (Ana) Medicare annual wellness visit, subsequent 10/31/2021 Medicare part B: Not able to find, Last done:10/31/2021 Mixed hyperlipidemia 10/14/2005 JESSICA (obstructive sleep apnea) 11/12/2017 DME [facility] for AutoPAP Plantar fasciitis, bilateral 06/03/2017 Radiculopathy, cervical region 11/14/2016 Tremor 10/26/2009 Umbilical hernia without obstruction or gangrene 05/10/[address] Davidson. Recommended surgery due to thinning skin- patient considering. PAST SURGICAL HISTORY Procedure Laterality Date COLONOSCOPY FLX DX W/COLLJ SPEC WHEN PFRMD 07/17/2007 Repeat [id number] abscess/beiiehg-oe-ivo EGD TRANSORAL BIOPSY SINGLE/MULTIPLE 11/21/2005 I/D PERIANAL ABSCESS, SUPERFICIAL 05/01/2007 Left anterolateral perianal abscess PAST SURGICAL HISTORY OF Kidney repair PAST SURGICAL HISTORY OF partial knee replacement REPAIR UMBILICAL ISAIAH,5+Y/O,REDUC 06/27/2022 TONSILLECTOMY & ADENOIDECTOMY <AGE 12 TOTAL KNEE REPLACEMENT Right 06/27/2021 ALLERGIES Vicodin [Hydrocodone-Acetaminophen] MEDICATIONS gabapentin (NEURONTIN) 300 mg capsule Take 3 capsules by mouth daily at bedtime for 90 days. lansoprazole (PREVACID) 15 mg capsule Take 1 capsule by mouth once daily. propranolol (INDERAL) 20 mg tablet take 1 tablet by mouth twice a day CPAP 1 Device by MISCELLANEOUS route daily at bedtime. NEW SET UP: Settings 10 - 14 cm H2O, suitable mask per pt preference, chin strap, head gear, humidity, tubing, lifetime supplies. G47.33 JESSICA DME - [facility] glucos sul 2KCl/msm/chond/C/Mn (GLUCOSAMINE CHONDROITIN ORAL) Take by mouth as directed. DAILY MULTI-VITAMIN ORAL Take by mouth as directed. CPAP Change current settings: Settings 10 - 14 cm H2O, suitable mask per pt preference, chin strap, head gear, humidity, tubing, lifetime supplies. G47.33 JESSICA oseltamivir (TAMIFLU) 75 mg capsule Take 1 capsule by mouth two times a day for 5 days. FAMILY HISTORY Problem Relation Age of Onset Stroke Mother Hypertension Mother Cancer Father VOCAL CORD Diabetes Father Prostate Cancer Father Prostate Cancer Brother Stroke Paternal Grandfather Coronary Artery Disease No Family History Thyroid No Family History Blood Disease No Family History Blood Clots No Family History DVT No Family History Factor 5 Leiden No Family History Systemic Lupus Erythematosus No Family History Multiple Sclerosis No Family History Bipolar disorder No Family History Schizophrenia No Family History Alzheimer's Disease No Family History Parkinson s Disease No Family History Dementia No Family History Aneurysm No Family History COPD No Family History Social History Tobacco Use Smoking status: Never Smokeless tobacco: Never Vaping Use Vaping status: Never Used Substance Use Topics Alcohol use: No Drug use: No BP 122/70 Pulse 92 Temp (!) 38.9 C (102.1 F) Resp 18 Wt 102.1 kg (225 lb 1.4 oz) SpO2 95% BMI 30.96 kg/m Review of Systems Constitutional: Positive for chills, fever and malaise/fatigue. HENT: Positive for congestion and sore throat. Negative for ear discharge, ear pain and sinus pain. Eyes: Negative for blurred vision, pain, discharge and redness. Respiratory: Positive for cough. Negative for hemoptysis, sputum production, shortness of breath, wheezing and stridor. Cardiovascular: Negative for chest pain. Gastrointestinal: Negative for abdominal pain, diarrhea, nausea and vomiting. Musculoskeletal: Positive for myalgias. Skin: Negative for itching and rash. Neurological: Positive for headaches. Negative for dizziness. Objective Physical Exam Constitutional: General: He is not in acute distress. Appearance: He is not diaphoretic. HENT: Head: Normocephalic. Jaw: No trismus, tenderness, swelling or pain on movement. Nose: Congestion present. Mouth/Throat: Mouth: Mucous membranes are moist. Pharynx: Oropharynx is clear. Uvula midline. No pharyngeal swelling, oropharyngeal exudate, posterior oropharyngeal erythema or uvula swelling. Eyes: Conjunctiva/sclera: Conjunctivae normal. Pupils: Pupils are equal, round, and reactive to light. Cardiovascular: Rate and Rhythm: Normal rate and regular rhythm. Heart sounds: Normal heart sounds. Pulmonary: Effort: Pulmonary effort is normal. No tachypnea, accessory muscle usage or respiratory distress. Breath sounds: Normal breath sounds. No stridor. No wheezing, rhonchi or rales. Abdominal: General: There is no distension. Palpations: Abdomen is soft. Tenderness: There is no abdominal tenderness. There is no guarding or rebound. Musculoskeletal: Cervical back: Normal range of motion and neck supple. No edema, erythema, rigidity or tenderness. No pain with movement. Normal range of motion. Lymphadenopathy: Cervical: No cervical adenopathy. Skin: General: Skin is warm and dry. Neurological: Mental Status: He is alert and oriented to person, place, and time. ASSESSMENT/PLAN: 1. Influenza-like symptoms - ICD9: 780.99, ICD10: R68.89 Patient nontoxic-appearing. Empirically treat for influenza with Tamiflu with past medical history and son testing positive for influenza A being close contact with him. Will be placed on Tamiflu. Risk and benefits of medication discussed. GFR April. Patient was educated on supportive therapies. Patient will follow up with primary care provider as needed. Patient was instructed to immediately proceed to emergency room for any new, worsening, or symptoms lasting longer than anticipated. The patient's clinical presentation is otherwise unremarkable at this time. Based on exam and clinical finding, the patient is stable for discharge. Plan of care was discussed with patient. Patient verbalizes understanding and agrees to plan of care. This note was generated using [employer] software. It may contain errors in wording, punctuation, or spelling. Hermann Lutz APRN.SANDRA documented in this encounter [facility] 09-28-2024 Telephone encounter Note Needs to schedule follow up to continue to get gabapentin Rx filled Ken Johnson APRN.CNP PDMP website checked and validated. All prescriptions have been APPROPRIATELY filled. No suspicious activity was identified. 09/28/2024 by Ken Johnson APRN.CNP [facility] 09-28-2024 Miscellaneous Notes Needs to schedule follow up to continue to get gabapentin Rx filled Ken Johnson APRN.CNP PDMP website checked and validated. All prescriptions have been APPROPRIATELY filled. No suspicious activity was identified. 09/28/2024 by Ken Johnson APRN.CNP Prescription Refill Information The patient has been identified by name and date of : Yes Caregiver verified no other encounters exist for this prescription request: Yes The last office visit in the department: 12/01/23 RT IMPRESSION: Nocturnal hypoxia (primary encounter diagnosis) Jessica on cpap Rls (restless legs syndrome) Yuriy Souza is a 73 year old male with nocturnal hypoxia, JESSICA, RLS. PMH of benign essential tremor, HTN, HLD, GERD, BPH, CKD. He did an overnight oximetry test to try to determine if supplemental O2 is still needed, has 1 LPM bleed in to CPAP. Has lost 5 lbs since initial study. PLAN: - Continue Auto CPAP - Remember to clean your mask and equipment regularly, as directed. - You should be eligible for new supplies approximately every 3-6 months, depending on your insurance coverage. Contact your [employer] (DME) company for new supplies as needed. Continue gabapentin for treatment of RLS. I'll send pt a [employer] msg once I see if there is more data from [facility] re his overnight oximetry. He did a 2 night study, one night with CPAP and O2, one night with just CPAP. Ken Johnson APRN.ICE DELIVERY DRIVER Does the patient have a future office visit with this provider/department: No Requested Prescriptions Pending Prescriptions Disp Refills gabapentin (NEURONTIN) 300 mg capsule 270 capsule 1 Sig: Take 3 capsules by mouth daily at bedtime for 180 days. Beverly Hernández LPN September 28, 2024 11:36 AM The patient has been identified by name and date of : Yes Caregiver verified no other encounters exist for this prescription request: Yes Caregiver confirmed with patient/requestor that no other refills are due, in the near future, with this provider at this time: Yes The last office visit in the department: 12/01/2023 Does the patient have a future office visit with this provider/department: No Requested Prescriptions Pending Prescriptions Disp Refills gabapentin (NEURONTIN) 300 mg capsule 270 capsule 1 Sig: Take 3 capsules by mouth daily at bedtime for 180 days. Bernarda Velázquez RN September 28, 2024 9:31 AM documented in this encounter [facility] 09-28-2024 Telephone encounter Note Prescription Refill Information The patient has been identified by name and date of : Yes Caregiver verified no other encounters exist for this prescription request: Yes The last office visit in the department: 12/01/23 RT IMPRESSION: Nocturnal hypoxia (primary encounter diagnosis) Jessica on cpap Rls (restless legs syndrome) Yuriy Souza is a 73 year old male with nocturnal hypoxia, JESSICA, RLS. PMH of benign essential tremor, HTN, HLD, GERD, BPH, CKD. He did an overnight oximetry test to try to determine if supplemental O2 is still needed, has 1 LPM bleed in to CPAP. Has lost 5 lbs since initial study. PLAN: - Continue Auto CPAP - Remember to clean your mask and equipment regularly, as directed. - You should be eligible for new supplies approximately every 3-6 months, depending on your insurance coverage. Contact your [employer] (DME) company for new supplies as needed. Continue gabapentin for treatment of RLS. I'll send pt a [employer] msg once I see if there is more data from [facility] re his overnight oximetry. He did a 2 night study, one night with CPAP and O2, one night with just CPAP. Ken Johnson APRN.ICE DELIVERY DRIVER Does the patient have a future office visit with this provider/department: No Requested Prescriptions Pending Prescriptions Disp Refills gabapentin (NEURONTIN) 300 mg capsule 270 capsule 1 Sig: Take 3 capsules by mouth daily at bedtime for 180 days. Beverly Hernández LPN September 28, 2024 11:36 AM [facility] 09-28-2024 Telephone encounter Note The patient has been identified by name and date of : Yes Caregiver verified no other encounters exist for this prescription request: Yes Caregiver confirmed with patient/requestor that no other refills are due, in the near future, with this provider at this time: Yes The last office visit in the department: 12/01/2023 Does the patient have a future office visit with this provider/department: No Requested Prescriptions Pending Prescriptions Disp Refills gabapentin (NEURONTIN) 300 mg capsule 270 capsule 1 Sig: Take 3 capsules by mouth daily at bedtime for 180 days. Beranrda Velázquez RN September 28, 2024 9:31 AM [facility] 07-19-2024 Note HNO ID: [id number] Author: LIZBETH PEREZ MD Service: ? Author Type: Physician Type: Progress Notes Filed: 07/19/2024 19:38 Note Text: [facility] - FOLLOW UP EVALUATION Hermann Gonzales MD [address] [facility] [address] Dear Hermann Gonzales MD: I had the pleasure of seeing Mr. Souza for follow-up today. As you know he is a 74 year old right-handed male with a history of ET since 20+ years . He is seen with his . Subjective Previous Plan-07/24/2023 Visit: Continue your medications as you have been taking them. We are not making any changes today. If you feel you are not tolerating them or your symptoms are changing before your next appointment, please feel free to send me a [employer] message or contact the office - Interval History: Tremor is a little worse. 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 Stress- son and daughter both have MS. Notices when he reaches for a glass during dinner in his living room his hand can jerk. Doesn't notice this under any other circumstance. Concerned he has PD. Movement Disorders Medications Schedule - as of the start of the visit: Medications propranolol 20 mg 1 1 gabapentin for RLS from sleep Other Movement Disorder Prior Therapies Propranolol Questionnaires: In addition, the following activities of daily living that may be affected by tremors were evaluated: Speaking: Feeding: Not affected does ok. Bringing Liquids to Mouth: does ok Hygiene: Not affected ok Dressing: ok Writing: Affected (moderate) awful. no t legible cursive. printing a little better Working: Affected (mild) Number of falls in the Last Month: 0 Mood/Behavior Depression: Anxiety: Finally, the following table shows the patient's overall global physical and mental health using the PROMIS scale: PROMIS-10 Flowsheet Row Office Visit from 07/19/2024 in [facility]rology [facility] from 11/11/2023 in Neurology Global Physical Health T Score 54.1 54.1 Global Mental Health T Score 50.8 53.3 0-10 Standard Pain Scale 4 4 *PROMIS-10 scoring scale: mean = 50, over 50 is above average, under 50 is below average ALLERGIES Allergen Reactions Vicodin [Hydrocodon* Other: See Comments Severe drop in blood pressure, Current Outpatient Medications Medication Sig lansoprazole (PREVACID) 15 mg capsule Take 1 capsule by mouth once daily. gabapentin (NEURONTIN) 300 mg capsule Take 3 capsules by mouth daily at bedtime for 180 days. propranolol (INDERAL) 20 mg tablet take 1 tablet by mouth twice a day CPAP 1 Device by MISCELLANEOUS route daily at bedtime. NEW SET UP: Settings 10 - 14 cm H2O, suitable mask per pt preference, chin strap, head gear, humidity, tubing, lifetime supplies. G47.33 JESSICA DME - [facility] glucos sul 2KCl/msm/chond/C/Mn (GLUCOSAMINE CHONDROITIN ORAL) Take by mouth as directed. DAILY MULTI-VITAMIN ORAL Take by mouth as directed. CPAP Change current settings: Settings 10 - 14 cm H2O, suitable mask per pt preference, chin strap, head gear, humidity, tubing, lifetime supplies. G47.33 JESSICA No current facility-administered medications for this visit. Objective Vital Signs: BP 163/83 (BP Site: Left Arm, BP Position: Sitting, BP Cuff Size: Large Adult) Pulse (!) 52 Wt 102.4 kg (225 lb 12 oz) SpO2 97% BMI 31.05 kg/m? Orthostatic Vitals: None for this encounter Weight: 102.4 kg (225 lb 12 oz) No LMP for male patient. Body mass index is 31.05 kg/m?. General Physical Examination: General: Awake, alert, interactive, no acute distress, good nutritional status, normal development, well-kept General Neurological Examination: Neurological Exam Mental Status Awake and alert. Language is fluent with no aphasia. Motor No hypomimia or hypophonia. Bilateral upper extremity action>postural tremors. No rigidity or bradykinesia. Gait Casual gait is normal including stance, stride, and arm swing. Assessment and Plan: Assessment Mr. Souza is a right-handed 74 year old year old male with ET. Tremors are manageable and noticed by family more than him. He is currently happy with control of his symptoms. He doesn't wish to take additional medication at this time. Continue current dose of propranolol. The following are the current problems noted and addressed during this visit: Essential tremor (primary encounter diagnosis) Plan 07/19/2024 Visit: Continue propranolol at current dose. It cannot be increased more at this time due to low HR. If additional tremor control is needed then primidone would be a reasonable next step - Updated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 your eyes checked by an eye doctor at least once a year. You may be wearing the wrong glasses or have a condition like glaucoma or cataracts that limits your vision. Poor vision can increase your chances of falling. 4. Make your home safer About half of all falls happen at home. To make your home safer: Remove things you can trip over (like papers, books, clothes, and shoes) from stairs and places where you walk. Remove small throw rugs or use double-sided tape to keep the rugs from slipping. Keep items you use often in cabinets you can reach easily without using a step stool. Have grab bars put in next to your toilet and in the tub or shower. Use non-slip mats in the bathtub and on shower floors. Improve the lighting in your home. As you get older, you need brighter lights to see well. Hang light-weight curtains or shades to reduce glare. Have handrails and lights put in on all staircases. Wear shoes both inside and outside the house. Avoid going barefoot or wearing slippers. For more information, contact: Centers for Disease Control and Prevention www.cdc.gov/injury * This information may not apply if you have certain medical conditions. documented in this encounter [facility] 11-05-2023 History of Presen t illness Narrative Yuriy Souza is a 73 year old male here for a Medicare wellness visit. Medicare Health Risk Assessment General Health good Exercise: Minutes/Day 30 min Exercise: Days/Week daily Alcohol: Daily Use no Alcohol: Drinks/Day Alcohol: 6 or more drinks Feel off balance Sometimes with the gabapentin. Concerns: Teeth/Dentures Concerns: Sexual function Troubled by feelings none Frequency: Eating healthy diet 5 days a week ADLs requiring help none Safety precautions in home/vehicle Wears seat belts, one loose rug, has grab bars, has hand rails Smoke, vape, chews tobacco never Difficulty hearing Wearing hearing aids Difficulty seeing Wearing glasses Current Providers Specialists: I have reviewed specialist-related care of the patient in the medical record. Current care team: Patient Care Team: Hermann Gonzales MD as PCP - General (Family Medicine) Dr. Mendes: (Sleep Med) Dr. Perez (Neuro) Medical/Family history review Reviewed and updated problem list, medical/surgical/family/social history, medications, and allergies. Opioid use review Opioid Medications (last 90 days) Some values may be hidden. Unless noted otherwise, only the newest values recorded on each date are displayed. Opioid Medications No data to display. Depression screening Depression Screening PHQ-2 Score PHQ-9 Score URI-2 Total Score URI-7 Total Score 11/05/2023 0 - - - Depression screening tool completed and reviewed. Based on score and interview, patient is not at risk for depression. Screening tool discussed with patient, and I recommended no further intervention at this time. Cognitive screening Score: 4 Cognitive screening reviewed and no further action needed (score 3-5) Functional Observation Was the patient's Timed Up & Go test unsteady or ? 12 seconds? No Advance Care Planning Surrogate decision maker and/or advance care plan documented Measurements BP 130/76 Pulse 62 Resp 16 Ht 5' 11.5 (1.82m) Wt 227 lb (103.0kg) BMI 31.22 kg/(m^2). Seeing optho Additional screenings: No results found. Assessment/Plan Medicare annual wellness visit, subsequent (Z00.00) - Counseled on healthy diet and regular exercise - Fall avoidance information provided - Personalized prevention plan provided See Below Chief Complaint Patient presents with: Medicare Wellness Exam HPI Yuriy Souza is a 73 year old male who presents here today for Chronic Medical Conditions. and Medicare Annual Visit. Patient with Hx of HTN, GERD, Hyperlipidemia, CKD, RLS, autonomic disorder, JESSICA, essential tremor, BPH as well as those reviewed and addressed below and in ROS. Any new concerns today? None Any recent ER/hospital visits? None Patient sees Dr. Mendes/Dr. Perez last visit 08/[address] Amador with Urology last visit 11/2022 Past medical history, appointments, medications, allergies reviewed. 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 Benign essential tremor 02/10/2014 BPH with obstruction/lower urinary tract symptoms 04/11/2009 CKD (chronic kidney disease), stage III (HCC) 07/08/2018 Elevated PSA 10/31/2021 Per Urology 11/2022: PCP to get PSA's Q 6 months Essential hypertension, benign FHx: prostate cancer 08/24/2012 GERD without esophagitis 10/14/[address] 10/31/2021 DPA: (Ana) Medicare annual wellness visit, subsequent 10/31/2021 Medicare part B: Not able to find, Last done:10/31/2021 Mixed hyperlipidemia 10/14/2005 JESSICA (obstructive sleep apnea) 11/12/2017 DME [facility] for Auto[facility]AP Plantar fasciitis, bilateral 06/03/2017 Radiculopathy, cervical region 11/14/2016 Tremor 10/26/2009 Umbilical hernia without obstruction or gangrene 05/10/[address] Davidson. Recommended surgery due to thinning skin- patient considering. Previous Surgical History PAST SURGICAL HISTORY Procedure Laterality Date COLONOSCOPY FLX DX W/COLLJ SPEC WHEN PFRMD 07/17/2007 Repeat [id number] abscess/[id number] EGD TRANSORAL BIOPSY SINGLE/MULTIPLE 11/21/2005 I/D PERIANAL ABSCESS, SUPERFICIAL 05/01/2007 Left anterolateral perianal abscess PAST SURGICAL HISTORY OF Kidney repair PAST SURGICAL HISTORY OF partial knee replacement REPAIR UMBILICAL ISAIAH,5+Y/O,REDUC 06/27/2022 TONSILLECTOMY & ADENOIDECTOMY <AGE 12 TOTAL KNEE REPLACEMENT Right 06/27/2021 Family History FAMILY HISTORY Problem Relation Age of Onset Cancer Father VOCAL CORD Diabetes Father Prostate Cancer Father Stroke Mother Hypertension Mother Prostate Cancer Brother Stroke Brother Stroke Paternal Grandfather Coronary Artery Disease No Family History Thyroid No Family History Blood Disease No Family History Blood Clots No Family History DVT No Family History Factor 5 Leiden No Family History Systemic Lupus Erythematosus No Family History Multiple Sclerosis No Family History Bipolar disorder No Family History Schizophrenia No Family History Alzheimer's Disease No Family History Parkinson s Disease No Family History Dementia No Family History Aneurysm No Family History COPD No Family History Patient Allergies ALLERGIES Allergen Reactions Vicodin [Hydrocodon* Other: See Comments Severe drop in blood pressure, Current Medications Current Outpatient Medications on File Prior to Visit Medication Sig gabapentin (NEURONTIN) 300 mg capsule Take 3 capsules by mouth daily at bedtime for 180 days. lansoprazole (PREVACID) 15 mg capsule Take 1 capsule by mouth once daily. propranolol (INDERAL) 20 mg tablet Take 1 tablet by mouth twice daily. CPAP 1 Device by MISCELLANEOUS route daily at bedtime. NEW SET UP: Settings 10 - 14 cm H2O, suitable mask per pt preference, chin strap, head gear, humidity, tubing, lifetime supplies. G47.33 JESSICA DME - [facility] glucos sul 2KCl/msm/chond/C/Mn (GLUCOSAMINE CHONDROITIN ORAL) Take by mouth as directed. DAILY MULTI-VITAMIN ORAL Take by mouth as directed. CPAP Change current settings: Settings 10 - 14 cm H2O, suitable mask per pt preference, chin strap, head gear, humidity, tubing, lifetime supplies. G47.33 JESSICA No current facility-administered medications on file prior to visit. Social History Social History Tobacco Use Smoking status: Never Smokeless tobacco: Never Vaping Use Vaping Use: Never used Substance Use Topics Alcohol use: No Drug use: No Review of Symptoms REVIEW OF SYSTEMS GENERAL: No weight loss, malaise or fevers HEENT: Negative for frequent or significant headaches, No changes in hearing or vision, no nose bleeds or other nasal problems NECK: Negative for lumps, goiter, pain and significant neck swelling RESPIRATORY: Negative for cough, hemoptysis, wheezing, COPD, dyspnea or shortness of breath CARDIOVASCULAR: Negative for chest pain, leg swelling, hypertension, CHF or palpitations GI: No nausea, vomiting, or diarrhea, No heartburn or reflux symptoms, and no blood or melena. Had a period of time several months ago where he had more frequent and slimmer sized stools that were loose but this has since resolved. : No history of dysuria, frequency or blood MUSCULOSKELETAL: Negative for joint pain or swelling, back pain or muscle pain SKIN: Negative for lesions, rash, and itching PSYCH: Negative for sleep disturbance, mood disorder and recent psychosocial stressors HEMATOLOGY/LYMPHOLOGY: Negative for prolonged bleeding, bruising easily or swollen nodes ENDOCRINE: Negative for cold or heat intolerance, polyuria, polydipsia and goiter NEURO: No history of headaches, syncope, paralysis, seizures or increase in his tremors EXAM: BP 130/76 (BP Site: Left Arm, BP Position: Sitting, BP Cuff Size: Large Adult) Pulse 62 Resp 16 Ht 181.6 cm (5' 11.5) Wt 103 kg (227 lb) BMI 31.22 kg/m Last 4 Encounter Wt Readings: Date: Wt: 11/05/2023 103 kg (227 lb) 09/01/2023 102.6 kg (226 lb 3.2 oz) 07/24/2023 97.5 kg (214 lb 14.4 oz) 05/01/2023 103.1 kg (227 lb 3.2 oz) General Appearance: Well appearing, alert, in no acute distress, well-hydrated, well nourished.. Skin: Skin color, texture, turgor normal, no suspicious rashes or lesions. Head: Normocephalic, no masses, lesions, tenderness or abnormalities. Eyes: Anicteric sclera. Pupils are equally round and reactive to light. Extraocular movements are intact. . Ears: External ears, TM's normal, canals clear. Nose/Sinuses: Nares normal, septum midline, mucosa normal, no drainage or sinus tenderness. Oropharynx: Lips, mucosa, and tongue normal, teeth and gums normal, oropharynx normal. Neck: Supple, no adenopathy; thyroid symmetric, normal size, no bruits. Lungs: Lungs clear to auscultation. No wheezing, rhonchi, rales.. Heart: RRR without murmur, gallop, or rubs. No ectopy. Abdomen: Normal abdominal exam, Abdomen soft, non-tender. Bowel sounds normal. No masses, organomegaly. Extremities: No deformities, edema, skin discoloration, clubbing or cyanosis. Good capillary refill. . Musculoskeletal: Spine range of motion normal. Muscular strength intact, No joint swelling, deformity, or tenderness. Peripheral Pulses: Normal. Neurologic: Gait normal. Reflexes normal and symmetric. Sensation to light touch and crainal nerves 2-12 intact.. Genitalia: Normal, Penis normal. No urethral discharge. Scrotum normal to palpation. No hernia.. Rectal: Normal exam. Prostate enlarged with smooth firm capsule. Health Maintenance List RSV Vaccine(1 - 1-dose 60+ series) Never done Influenza Vaccine(1) due on 05/16/2023 Covid-19 Vaccine(2022-24 season) due on 05/16/2023 Advance Directive Discussion due on 09/15/2023 Depression Assessment due on 09/15/2023 BP Controlled (<130/80) due on 11/01/2023 Serum Creatinine due on 04/29/2024 Annual PCP Team Chronic Disease Visit due on 05/01/2024 Diabetes Screening due on 04/29/2026 Lipid Screening due on 10/30/2027 Colorectal Cancer Screening due on 06/02/2028 DTaP,Tdap,Td Vaccine(5 - Td or Tdap) due on 05/16/2031 Hepatitis C Screening Completed Shingrix Vaccine Completed Pneumococcal Vaccine: 65+ Completed Data reviewed Component Latest Ref Rng & Units 10/30/2022 04/29/2023 11/04/2023 WBC 3.70 - 11.00 k/uL 5.69 RBC 4.20 - 6.00 m/uL 5.32 Hemoglobin 13.0 - 17.0 g/dL 16.5 Hematocrit 39.0 - 51.0 % 51.1 (H) MCV 80.0 - 100.0 fL 96.1 MCH 26.0 - 34.0 pg 31.0 MCHC 30.5 - 36.0 g/dL 32.3 RDW-CV 11.5 - 15.0 % 12.7 Platelet Count 150 - 400 k/uL 190 MPV 9.0 - 12.7 fL 10.7 Neut% % 57.2 Abs Neut (ANC) 1.45 - 7.50 k/uL 3.26 Lymph% % 26.9 Abs Lymph 1.00 - 4.00 k/uL 1.53 Glenn% % 12.5 Abs Glenn <0.87 k/uL 0.71 Eosin% % 1.6 Abs Eosin <0.46 k/uL 0.09 Baso% % 0.9 Abs Baso <0.11 k/uL 0.05 Immature Gran % % 0.9 IMMATURE GRANS (ABS) <0.10 k/uL 0.05 NRBC /100 WBC 0.0 Absolute nRBC <0.01 k/uL <0.01 DTYPE Auto Color Yellow Light Yellow Yellow Clarity Clear Clear Clear Glucose, Urine Negative Negative Negative Bilirubin, Urine Negative Negative Negative Ketones, Urine Negative Negative Negative Specific [place], Ur 1.005 - 1.030 1.020 1.013 Hemoglobin/Blood,Ur Negative Negative Negative pH, Urine <8.5 5.5 5.5 Protein, Urine Negative Negative Trace (A) Urobilinogen 0.2-1.0 EU/dL Negative 0.2 EU/dL Nitrites Negative Negative Negative Leukest Negative Negative Negative WBC, Urine 0-5 /HPF 0-5 /HPF 0-5 /HPF RBC, Urine 0-2 /HPF 0-3 /HPF 0-2 /HPF Bacteria Negative /HPF Negative Epithelial Cells /HPF None Seen Hyaline Cast 0 /LPF 0 /LPF Protein, Total 6.3 - 8.0 g/dL 6.4 Albumin 3.9 - 4.9 g/dL 4.1 Calcium 8.5 - 10.2 mg/dL 9.8 9.4 Bilirubin, Total 0.2 - 1.3 mg/dL 0.4 Alkaline Phosphatase 38 - 113 U/L 76 AST 14 - 40 U/L 20 ALT 10 - 54 U/L 13 Glucose 74 - 99 mg/dL 89 129 (H) BUN 9 - 24 mg/dL 20 22 Creatinine 0.73 - 1.22 mg/dL 1.23 (H) 1.22 Sodium 136 - 144 mmol/L 139 142 Potassium 3.7 - 5.1 mmol/L 4.8 4.0 Chloride 97 - 105 mmol/L 102 104 CO2 22 - 30 mmol/L 26 29 Anion Gap 9 - 18 mmol/L 11 9 eGFR >=60 mL/min/1.73m 62 63 Total Cholesterol, Nonfasting <200 mg/dL 179 180 Triglycerides, Nonfasting <150 mg/dL 60 126 HDL Cholesterol, Nonfasting >39 mg/dL 62 56 LDL Cholesterol, Nonfasting <100 mg/dL 105 (H) 99 Non HDL Cholesterol, Nonfasting <130 mg/dL 117 124 VLDL Cholesterol, Nonfasting <30 mg/dL 12 25 Total Chol/HDL Ratio, Nonfasting <5.10 mg/dL 2.89 3.21 LDL/HDL Ratio, Nonfasting <2.54 mg/dL 1.69 1.77 PSA <2.60 ng/mL 3.50 (H) 3.46 (H) 3.15 (H) PSA, Percent Free % 14 12 15 Magnesium 1.7 - 2.3 mg/dL 2.0 1.9 Vitamin B12 232 - 1,245 pg/mL 626 621 A/P ASSESSMENT/PLAN: 1. Medicare annual wellness visit, subsequent - ICD9: V70.0, ICD10: Z00.00 (primary diagnosis) - Counseled on healthy diet and regular exercise - Discussed need for and benefit of weight loss. BMI 31.22 kg/(m^2) - Patient was counseled [id number] by myself (the billing provider) for the following immunizations and vaccine components, including side effects: Pneumococcal . Patient consents for immunization and understands risks and benefits. A VIS sheet on each immunization was given to the patient. - Follow up for annual exam in one year - advised on RSV 2. Essential hypertension, benign - ICD9: 401.1, ICD10: I10 - Controlled - Continue current medications - Recommend home blood pressure monitoring, to bring results to next visit - Encouraged sodium restriction, DASH or Mediterranean diet - Recommend regular aerobic exercise 3. Mixed hyperlipidemia - ICD9: 272.2, ICD10: E78.2 - Controlled - Counseled on healthy diet and regular exercise - Discussed need for and benefit of weight loss. BMI 31.22 kg/(m^2) 4. GERD without esophagitis - ICD9: 530.81, ICD10: K21.9 - Continue treatment with Prevacid 15 mg QD 5. Stage 3a chronic kidney disease (HCC) - ICD9: 585.3, ICD10: N18.31 - recent labs normal will monitor 6. Restless legs syndrome (RLS) - ICD9: 333.94, ICD10: G25.81 - stable no changes 7. JESSICA (obstructive sleep apnea) - ICD9: 327.23, ICD10: G47.33 - management per Sleep Med. 8. Benign essential tremor - ICD9: 333.1, ICD10: G25.0 - management per Neuro 9. Elevated PSA - ICD9: 790.93, ICD10: R97.20 - improved number. Will monitor 10. BPH with obstruction/lower urinary tract symptoms - ICD9: 600.01, 599.69, ICD10: N40.1, N13.8 - stable clinically. 11. Advance directive discussed with patient - ICD9: V65.49, ICD10: Z71.89 - patient needs to bring in copies. 12. Encounter for immunization - ICD9: V03.89, ICD10: Z23 - patient updated on Prev-20 Requested Prescriptions Signed Prescriptions Disp Refills lansoprazole (PREVACID) 15 mg capsule 90 capsule 1 Sig: Take 1 capsule by mouth once daily. F/u 6 months check BMP, Free PSA prior I spent a total of 40 minutes on the date of the service which included preparing to see the patient, [id number] patient care, completing clinical documentation, performing a medically appropriate examination, counseling and educating the patient/family/caregiver and ordering medications, tests, or procedures. Hermann Gonzales MD documented in this encounter [facility] 11-03-2023 Miscellaneous Notes Images from the original note were not included. documented in this encounter [facility] 11-03-2023 Miscellaneous Notes Orders placed. documented in this encounter [facility] 11-03-2023 Evaluation note Diagnosis Stage 3a chronic kidney disease (HCC)- Primary Mixed hyperlipidemia GERD without esophagitis Esophageal reflux Essential hypertension, benign Medication management Encounter for long-term (current) use of other medications Elevated PSA Elevated prostate specific antigen (PSA) documented in this encounter [facility]12-[facility]23 History of Present illness Narrative* Dwayne Mendes Jr., MD - 09/01/2023 10:44 AM EST ESTABLISHED PATIENT VISIT CHIEF COMPLAINT: Follow Up HISTORY OF PRESENT ILLNESS: Yuriy Souza is a 73 year old male, BMI 31.11 kg/m2 with a PMH significant for and per last office visit note of 01/27/23: 1. JESSICA (obstructive sleep apnea) - ICD9: 327.23, ICD10: G47.33 (primary diagnosis) AHI remains normalized by PAP therapy as per PAP data download. Pt continues to report subjective PAP compliance and further supported by objective data of PAP download. Encouraged continued compliance. Reminded pt of those med conditions that can be provoked or exacerbated by untreated JESSICA. Reminded pt to clean and replace equipment regularly. Will attempt to get new PAP device if DME/insurance feel pt meets criteria. 2. RLS (restless legs syndrome) - ICD9: 333.94, ICD10: G25.81 Stable. Continue gabapentin as Rx'd above. Refills provided. 3. Sleep related hypoxia - ICD9: 327.24, ICD10: G47.34 I have not seen pt since this dx was last discussed and testing ordered (PAP titratoin). O2 was still low during that titration on my review and still uncertain if pt should be on supplemental O2. Thus, will have patient repeat nocturnal oximetry study 2 years later. If O2 low, then would recommendstarting supplemental O2. Nocturnal oximetery study performed on 02/13/23 off O2 showed Mean O2 of 90.99% with patien spending 15:33 with O2 sat <=89% and 6:48 with O2 sat <=88%. PAP compliance of 89/90 days leading up to appt with avg use of 6 hours and 49 minutes. Set at 10-14 cmH2O. 95% pressure is 11 cmH2O. 95% leak is 22.3 LPM. AHI is 0.8. Subjectively pt states he is comfortable with PAP. Pt also has the O2 at 1 LPM. States that no SOB during the day. No FLORES. Exercises regularly. No known cardiac or pulmonary history. Pt wonders if still needs O2. 5 pound weight loss since sleepy study. RLS well controlled on gabapentin - usually takes 1 capsule at 9 PM and 2 at about 11 PM when goes to bed. REVIEW OF SYSTEMS GENERAL:No weight loss, malaise or fevers. HEENT:Negative for frequent or significant headaches, No changes in hearing or vision, no nose bleeds or other nasal problems RESPIRATORY: Negative for cough, wheezing or shortness of breath. CARDIOVASCULAR: Negative for chest pain, leg swelling or palpitations. LAB/IMAGING: Those performed since patient's last visit have been reviewed. WBC (k/uL) Date Value 10/30/2022 5.69 RBC (m/uL) Date Value 10/30/2022 5.32 Hemoglobin (g/dL) Date Value 10/30/2022 16.5 Hematocrit (%) Date Value 10/30/2022 51.1 (H) MCV (fL) Date Value 10/30/2022 96.1 MCH (pg) Date Value 10/30/2022 31.0 MCHC (g/dL) Date Value 10/30/2022 32.3 RDW-CV (%) Date Value 10/30/2022 12.7 Platelet Count (k/uL) Date Value 10/30/2022 190 MPV (fL) Date Value 10/30/2022 10.7 Glucose (mg/dL) Date Value 04/29/2023 89 BUN (mg/dL) Date Value 04/29/2023 20 Creatinine (mg/dL) Date Value 04/29/2023 1.23 (H) Sodium (mmol/L) Date Value 04/29/2023 139 Potassium (mmol/L) Date Value 04/29/2023 4.8 Chloride (mmol/L) Date Value 04/29/2023 102 CO2 (mmol/L) Date Value 04/29/2023 26 Protein, Total (g/dL) Date Value 10/26/2021 6.8 Albumin (g/dL) Date Value 10/26/2021 4.2 Calcium, Total (mg/dL) Date Value 04/29/2023 9.8 Alkaline Phosphatase (U/L) Date Value 10/26/2021 82 Bilirubin, Total (mg/dL) Date Value 10/26/2021 0.4 AST (U/L) Date Value 10/26/2021 20 ALT (U/L) Date Value 10/26/2021 16 Rheumatoid Factor (IU/mL) Date Value 03/08/2009 4 Hep C Antibody IA (no units) Date Value 08/10/2016 Negative MEDICATIONS: lansoprazole (PREVACID) 15 mg capsule Take 1 capsule by mouth once daily. propranolol (INDERAL) 20 mg tablet Take 1 tablet by mouth twice daily. CPAP 1 Device by MISCELLANEOUS route daily at bedtime. NEW SET UP: Settings 10 - 14 cm H2O, suitable mask per pt preference, chin strap, head gear, humidity, tubing, lifetime supplies. G47.33 JESSICA DME- [facility] glucos sul 2KCl/msm/chond/C/Mn (GLUCOSAMINE CHONDROITIN ORAL) Take by mouth as directed. DAILY MULTI-VITAMIN ORAL Take by mouth as directed. CPAP Change current settings: Settings 10 - 14 cm H2O, suitable mask per pt preference, chin strap,head gear, humidity, tubing, lifetime supplies. G47.33 JESSICA gabapentin (NEURONTIN) 300 mg capsule Take 3 capsules by mouth daily at bedtime for 180 days. Take 1-3 capsules 30 minutes prior to bedtime as instructed. 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 Benign essential tremor 02/10/2014 BPH with obstruction/lower urinary tract symptoms 04/11/2009 CKD (chronic kidney disease), stage III (HCC) 07/08/2018 Elevated PSA 10/31/2021 Per Urology 11/2022: PCP to get PSA's Q 6 months Essential hypertension, benign FHx: prostate cancer 08/24/2012 GERD without esophagitis 10/14/[address] 10/31/2021 DPA: (Ana) Medicare annual wellness visit, subsequent 10/31/2021 Medicare part B: Not able to find, Last done:10/31/2021 Mixed hyperlipidemia 10/14/2005 JESSICA (obstructive sleep apnea) 11/12/2017 DME [facility] for [facility] Plantar fasciitis, bilateral 06/03/2017 Radiculopathy, cervical region 11/14/2016 Tremor 10/26/2009 Umbilical hernia without obstruction or gangrene 05/10/[address] Davidson. Recommended surgery due to thinning skin- patient considering. FAMILY HISTORY Problem Relation Age of Onset Cancer Father VOCAL CORD Diabetes Father Prostate Cancer Father Stroke Mother Hypertension Mother Prostate Cancer Brother Stroke Brother Stroke Paternal Grandfather Coronary Artery Disease No Family History Thyroid No Family History Blood Disease No Family History Blood Clots No Family History DVT No Family History Factor 5 Leiden No Family History Systemic Lupus Erythematosus No Family History Multiple Sclerosis No Family History Bipolar disorder No Family History Schizophrenia No Family History Alzheimer's Disease No Family History Parkinson s Disease No Family History Dementia No Family History Aneurysm No Family History COPD No Family History SOCIAL HISTORY Social History Tobacco Use Smoking status: Never Smokeless tobacco: Never Vaping Use Vaping Use: Never used Substance Use Topics Alcohol use: No Drug use: No PHYSICAL EXAMINATION BP 138/82 Pulse 76 Resp 16 Wt 102.6 kg (226 lb 3.2 oz) BMI 31.11 kg/m GENERAL EXAM: General appearance: NAD, pleasant. HEENT: NC/AT, nasal congestion absent, no oral lesions, membranes moist. NECK: ROM nml. Lungs: CTA bilaterally. CV: RRR nl S1, S2 Extr: No cyanosis, clubbing or edema. Skin: Cool to touch. NEUROLOGICAL EXAM: General: Awake, alert, oriented x3 (person,place,time), speech fluent, no dysarthria; comprehension, naming, repetition intact. CN: PERRL, EOMI and without nystagmus, VFF to confrontation, facial sensation and strength are normal and symmetric, hearing is intact to finger rub bilaterally, palate and tongue movements are intact and symmetric. SCM and trapezius strength normal. Motor: Normal tone, bulk and strength (5/5) bilaterally (throughout extremities x4). Coordination: FNF, VIRGILIO, HTS intact. No tremors. Sensation: LT intact throughout. No evidence of neglect. Gait: Stable with normal stride and arm swing. Assessment and Plan: ASSESSMENT/PLAN: 1. JESSICA on CPAP - ICD9: 327.23, ICD10: G47.33 (primary diagnosis) 2. Sleep related hypoxia - ICD9: 327.24, ICD10: G47.34 Patient overall doing well on PAP. Demonstrated both subjective and objective compliance. AHI normalized. Pt questions if still needing O2. He would prefer not to have an in lab study. Noted weight loss as above. Will perform home nocturnal oximetry study - will attempt to perform first 1/2 of study off O2 and second have on 1LPM - purpose is to confirm if still needs O2 and then if needs O2, if 1LPM adequate. Pt agrees with plan. Reminded to clan and replace PAP equipment regularly. Advised ptnot to drive or operate heavy machinery if sleepy. 3. RLS (restless legs syndrome) - ICD9: 333.94, ICD10: G25.81 Well controlled. No changes to gabapentin dosing. Refills provided. Dwyane Mendes MD PDMP website checked and validated. All prescriptions have been APPROPRIATELY filled. No suspiciousactivity was identified. 09/01/2023 by Dwayne Mendes MD Medical Decision Making: Problems: Moderate: 2+ stable chronic illnesses Data: Unique test result(s) reviewed: 3+ Unique test(s) ordered: 1 Risk: Moderate: Drug management Medical Decision Making Level: 4 - Moderate [facility] History of Present illness Narrative* Lizbeth Perez MD - 07/24/2023 9:59 AM EST [facility] - FOLLOW UP EVALUATION Hermann Gonzales MD [id number] [facility] [id number] Dear Hermann Gonzales MD: I had the pleasure of seeing Mr. Souza for follow-up today. As you know he is a 73 year old right-handed male with a history of ET since 20+ years . He is seen with his . Subjective Previous Plan-07/23/2021 Visit: Essential tremor - continue propranolol Restless leg syndrome - short-term gabapentin Interval History: BP is high today which is unusual. Staying active. Keeping busy. Exercising. Tremor generally good. Occasionally bothersome with fine work like screwdriver. Writing has 'gone to hell.' hasn't noticed trouble eating as much as before. One fall lately was mechanical. Feels he would have compensated in the past. Movement Disorders Medications Schedule - as of the start of the visit: Medications propranolol 20 mg 1 1 gabapentin for RLS from sleep Other Movement Disorder Prior Therapies Propranolol Questionnaires: In addition, the following activities of daily living that may be affected by tremors were evaluated: Speaking: Not affected Feeding: Not affected Bringing Liquids to Mouth: Not affected Hygiene: Not affected Dressing: Not affected Writing: Affected (moderate) Working: Affected (moderate) Number of falls in the Last Month: ALLERGIES Allergen Reactions Vicodin [Hydrocodon* Other: See Comments Severe drop in blood pressure, Current Outpatient Medications Medication Sig lansoprazole (PREVACID) 15 mg capsule Take 1 capsule by mouth once daily. propranolol (INDERAL) 20 mg tablet Take 1 tablet by mouth twice daily. gabapentin (NEURONTIN) 300 mg capsule Take 3 capsules by mouth daily at bedtime for 180 days. Take 1-3 capsules 30 minutes prior to bedtime as instructed. CPAP 1 Device by MISCELLANEOUS route daily at bedtime. NEW SET UP: Settings 10 - 14 cm H2O, suitable mask per pt preference, chin strap, head gear, humidity, tubing, lifetime supplies. G47.33 JESSICA DME- [facility] glucos sul 2KCl/msm/chond/C/Mn (GLUCOSAMINE CHONDROITIN ORAL) Take by mouth as directed. DAILY MULTI-VITAMIN ORAL Take by mouth as directed. CPAP Change current settings: Settings 10 - 14 cm H2O, suitable mask per pt preference, chin strap,head gear, humidity, tubing, lifetime supplies. G47.33 JESSICA No current facility-administered medications for this visit. Objective Vital Signs: BP 142/82 (BP Site: Left Arm, BP Position: Sitting, BP Cuff Size: Large Adult) Pulse (!) 54 Ht 181.6 cm (5' 11.5) Wt 97.5 kg (214 lb 14.4 oz) SpO2 99% BMI 29.55 kg/m Orthostatic Vitals: None for this encounter Weight: 97.5 kg (214 lb 14.4 oz) Height: 181.6 cm (5' 11.5) No LMP for male patient. Body mass index is 29.55 kg/m . General Physical Examination: General: Awake, alert, interactive, no acute distress, good nutritional status, normal development,well-kept General Neurological Examination: Neurological Exam Mental Status Awake and alert. Language is fluent with no aphasia. Motor Normal muscle tone. Bilateral upper extremity tremors are mild. No rigidity or bradykinesia. Assessment and Plan: Assessment Mr. Souza is a right-handed 73 year old year old male with ET. Tremors are not impacting any activity to a significant degree. He is currently happy with control of his symptoms. Continue current dose of propranolol. The following are the current problems noted and addressed during this visit: Essential tremor (primary encounter diagnosis) Plan 07/24/2023 Visit: Continue your medications as you have been taking them. We are not making any changes today. If youfeel you are not tolerating them or your symptoms are changing before your next appointment, pleasefeel free to send me a [employer] message or contact the office - Updated Movement Disorders Medication Schedule: Medications propranolol 20 mg 1 1 gabapentin for RLS from sleep Return at or around: 07/24/24 Medical Decision Making: Problems: Low: Stable chronic illness Risk: Moderate: Drug management Medical Decision Making Level: 3 - Low Thank you for allowing me to be part of the clinical care of this patient! I look forward to continued participation in the patient s care with you. Please do not hesitate to call with any questions. Sincerely, Lizbeth Perez MD documented in this encounterOhiohealth [facility]09-18-2023 Miscellaneous Notes* Telephone Encounter - Rubi Peña LPN - 06/02/2023 2:54 PM EDT Please see pt's message. Rubi Peña LPN documented in this encounterOhiohealth Nelsonville [facility] Center09-11-2023 Miscellaneous Notes* Addendum Note - Hermann Gonzales MD - 05/26/2023 12:52 PM EDTAddended by: HERMANN GONZALES on: 05/26/2023 12:52 PM Modules accepted: Orders * Telephone Encounter - Hermann Gonzales MD - 05/26/2023 12:52 PM EDT The following approved medication requests have been transmitted electronically. Requested Prescriptions Signed Prescriptions Disp Refills lansoprazole (PREVACID) 15 mg capsule 90 capsule 1 Sig: Take 1 capsule by mouth once daily. Authorizing Provider: HERMANN GONZALES MD * Telephone Encounter - Audra Andrews - 05/26/2023 9:23 AM EDT Med refill - lansoprazole - [facility] in [place] - he is completely out. Wants it as soon as possible. documented in this encounterOhiohealth Nelsonville [facility] Center08-03-2023 Miscellaneous Notes* Telephone Encounter - Trish Mcknight Ma - 04/17/2023 4:59 PM EDT Patient left detailed message on Trish Mcknight Ma * Telephone Encounter - Hermann Gonzales MD - 04/17/2023 4:54 PM EDT Let patient know labs ordered to be done prior to upcoming appt. * Telephone Encounter - Luanne Espino Ma - 04/17/2023 11:30 AM EDT See pt message. Advise when this has been ordered. Luanne Espino Ma * Telephone Encounter - Lizbeth Lino - 04/17/2023 11:25 AM EDT Patient called in requesting a PSA lab order be placed so he can have the results to go over at hisupcoming appointment. Lizbeth Lino documented in this encounterOhiohealth Nelsonville [facility] Center07-17-2023 Miscellaneous Notes* Telephone Encounter - Alcira Browning - 03/31/2023 9:38 AM EDT Pharmacy verified in [facility] Patient has been identified by name and date of : Yes Patient requesting a call when RX is approved and sent to the pharmacy. Please call patient at: [phone] Patient phones for refill(s): Requested Prescriptions Pending Prescriptions Disp Refills propranolol (INDERAL) 20 mg tablet 180 tablet 3 Sig: Take 1 tablet by mouth twice daily. Date of last office visit : 07/23/2021 Date of next office visit : 07/24/2023 Last 2 Encounter Wt Readings: Date: Wt: 01/27/2023 102.1 kg (225 lb) 11/29/2022 104.3 kg (230 lb) Please advise. Alcira Browning documented in this encounterOhiohealth Nelsonville Health Center05-16-2023 Miscellaneous Notes* Telephone Encounter - LEDA Hatch - 01/28/2023 9:38 AM EDT Orders for PAP supplies also faxed to [facility]. LEDA Hatch * Telephone Encounter - LEDA Hatch - 01/28/2023 9:17 AM EDT TC to [facility] who states they do this testing and patients orders and information can be faxed to [phone]. Orders faxed as requested and patient notified of such. LEDA Hatch * Telephone Encounter - LEDA Hatch - 01/28/2023 8:06 AM EDT Images from the original note were not included. Dwayne Mendes Jr., MD P [facility] Ne[facility] [place] Nurse Please help pt schedule oximetry study. TC to patients DME, [facility], who states they do not complete this testing and patient will need to go through another DME to have this completed. This staff will call [facility] when they open at 9AM to inquire about testing. LEDA Hatch documented in this encounterOhiohealth Nelsonville Health Center05-15-2023 History of Present illness Narrative* Dwayne Mendes Jr., MD - 01/27/2023 4:49 PM EDT ESTABLISHED PATIENT VISIT CHIEF COMPLAINT: Follow up HISTORY OF PRESENT ILLNESS: Yuriy Souza is a 72 year old male, BMI 30.52 kg/m2 with a PMH significant for and per last office visit note of Jesse Coombs CNP on 02/08/22: G47.33, Z99.89 JESSICA on CPAP (primary encounter diagnosis) G25.81 RLS (restless legs syndrome) 71 yo sandoval who presents for follow up for JESSICA on CPAP and in need of Gabapentin 300 mg 1- 3 capsulesnightly. He is stable with regimen and denies SE or ADRs. He is doing well with regimen overall, but reports that CPAP device is quite noisy with use. Machine is about 5 years old and due for replacement. Orders [facility] to [facility] All prescriptions have been APPROPRIATELY filled. No suspiciousactivity was identified. 02/08/2022 by Gabriella Coombs APRN.ICE DELIVERY DRIVER Plan: - Continue Auto CPAP and lower pressure to 10-14 cmH2O. - Order for new device - sent to [facility] - Remember to clean your mask and equipment regularly, as directed. - You should be eligible for new supplies approximately every 3-6 months, depending on your insurance coverage. Contact your Durable Medical Equipment (DME) company for new supplies as needed. - Continue 900 mg Gabapentin spaced dosing, RF approved PAP data download shows use 90/90 days with 95% pressure of 11.2 cmH2O (range of 10-14 cmH2O). 95% leak is 18.1 LPM. Residual AHI is 2.3. Pt reports feeling refreshed upon waking in the AM. No issues falling asleep at night. Not waking up during the night. Not feeling tired during day. Per visit with Charlene Wahl APRN on 11/06/20: IMPRESSION: Mike is a 70 year old male with JESSICA. He is a consistent user of CPAP and notes some benefit. There has been concern for sleep related hypoxia, however, recent PAP titration did not demonstrate any sleep related hypoxia. Sleep has improved with initiation of gapapentin for essential tremor although Mike does still report some night time waking. Jessica on cpap (primary encounter diagnosis) Rls (restless legs syndrome) Sleep disturbance I CANNOT FIND RECORD OF THE ABOVE TITRATION IN EPIC Sleep Questionnaire Data Depression Screening 02/04/2021 07/23/2021 11/01/2022 PHQ-2 Score 2 1 0 PHQ-9 Score 7 4 - URI-2 Total Score 1 0 - URI-7 Total Score - 0 - PED PHQ-9 02/04/2021 07/23/2021 11/01/2022 Little interest or pleasure in doing things Several days Several days - Feeling down, depressed, or hopeless Several days Not at all - Trouble falling or staying asleep, or sleeping too much Several days More than half the days - Feeling tired or having little energy Several days Several days - Poor appetite or overeating Several days Not at all - Feeling bad about yourself - or that you are a failure or have let yourself or your family down Notat all Not at all - Trouble concentrating on things, such as reading the newspaper or watching television Not at all Not at all - Moving or speaking so slowly that other people could have noticed. Or the opposite - being so fidgety or restless that you have been moving around a lot more than usual More than half the days Not atall - Thoughts that you would be better off , or of hurting yourself in some way Not at all Not at all - If you checked off any problems, how difficult have these problems made it for you to do your work,take care of things at home, or get along with other people? - Not difficult at all - PHQ-9 Score 7 (Mild Depression) 4 (None-Minimal Depression) - Patient states due to sound of CPAP machine, he is sleeping away from his . No RLS symptoms that pt is aware of. He does toss and turn through the night. No scratches on legs. No leg pain or discomfort during night or in the AM. Still feels gabapentin gives a good night sleep - takes 1 300mg cap after dinner and then the other 2 300mg caps at bedtime. Bed time about MN with pt waking at 8AM. GFR increased to 58 but per pt was told due to dehydration. No oral or teeth issues REVIEW OF SYSTEMS GENERAL:No weight loss, malaise or fevers. HEENT:Negative for frequent or significant headaches, No changes in hearing or vision, no nose bleeds or other nasal problems RESPIRATORY: Negative for cough, wheezing or shortness of breath. CARDIOVASCULAR: Negative for chest pain, leg swelling or palpitations. LAB/IMAGING: Those performed since patient's last visit have been reviewed. WBC (k/uL) Date Value 10/30/2022 5.69 RBC (m/uL) Date Value 10/30/2022 5.32 Hemoglobin (g/dL) Date Value 10/30/2022 16.5 Hematocrit (%) Date Value 10/30/2022 51.1 (H) MCV (fL) Date Value 10/30/2022 96.1 MCH (pg) Date Value 10/30/2022 31.0 MCHC (g/dL) Date Value 10/30/2022 32.3 RDW-CV (%) Date Value 10/30/2022 12.7 Platelet Count (k/uL) Date Value 10/30/2022 190 MPV (fL) Date Value 10/30/2022 10.7 Glucose (mg/dL) Date Value 04/29/2022 80 BUN (mg/dL) Date Value 04/29/2022 20 Creatinine (mg/dL) Date Value 04/29/2022 1.31 (H) Sodium (mmol/L) Date Value 04/29/2022 142 Potassium (mmol/L) Date Value 04/29/2022 4.1 Chloride (mmol/L) Date Value 04/29/2022 106 (H) CO2 (mmol/L) Date Value 04/29/2022 27 Protein, Total (g/dL) Date Value 10/26/2021 6.8 Albumin (g/dL) Date Value 10/26/2021 4.2 Calcium, Total (mg/dL) Date Value 04/29/2022 9.6 Alkaline Phosphatase (U/L) Date Value 10/26/2021 82 Bilirubin, Total (mg/dL) Date Value 10/26/2021 0.4 AST (U/L) Date Value 10/26/2021 20 ALT (U/L) Date Value 10/26/2021 16 Rheumatoid Factor (IU/mL) Date Value 03/08/2009 4 Hep C Antibody IA (no units) Date Value 08/10/2016 Negative MEDICATIONS: lansoprazole (PREVACID) 15 mg capsule Take 1 capsule by mouth once daily. gabapentin (NEURONTIN) 300 mg capsule Take 3 capsules by mouth daily at bedtime for 90 days. Take 1-3 capsules 30 minutes prior to bedtime as instructed. glucos sul 2KCl/msm/chond/C/Mn (GLUCOSAMINE CHONDROITIN ORAL) Take by mouth as directed. propranolol (INDERAL) 20 mg tablet Take 1 tablet by mouth twice daily. CPAP 1 Device by MISCELLANEOUS route daily at bedtime. NEW SET UP: Settings 10 - 14 cm H2O, suitable mask per pt preference, chin strap, head gear, humidity, tubing, lifetime supplies. G47.33 JESSICA [id number] CPAP Change current settings: Settings 10 - 14 cm H2O, suitable mask per pt preference, chin strap,head gear, humidity, tubing, lifetime supplies. G47.33 JESSICA DAILY MULTI-VITAMIN ORAL Take by mouth as directed. 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 CKD (chronic kidney disease), stage III (HCC) 07/08/2018 Elevated PSA 10/31/2021 Per Urology 11/2022: PCP to get PSA's Q 6 months Essential hypertension, benign FHx: prostate cancer 08/24/2012 GERD without esophagitis 10/14/[address] 10/31/2021 DPA: (Ana) Medicare annual wellness visit, subsequent 10/31/2021 Medicare part B: Not able to find, Last done:10/31/2021 Mixed hyperlipidemia 10/14/2005 JESSICA (obstructive sleep apnea) 11/12/2017 DME [facility] for Auto[facility] Plantar fasciitis, bilateral 06/03/2017 Radiculopathy, cervical region 11/14/2016 Tremor 10/26/2009 Umbilical hernia without obstruction or gangrene 05/10/[address] Davidson. Recommended surgery due to thinning skin- patient considering. FAMILY HISTORY Problem Relation Age of Onset Cancer Father VOCAL CORD Diabetes Father Prostate Cancer Father Stroke Mother Hypertension Mother Prostate Cancer Brother Stroke Brother Stroke Paternal Grandfather Coronary Artery Disease No Family History Thyroid No Family History Blood Disease No Family History Blood Clots No Family History DVT No Family History Factor 5 Leiden No Family History Systemic Lupus Erythematosus No Family History Multiple Sclerosis No Family History Bipolar disorder No Family History Schizophrenia No Family History Alzheimer's Disease No Family History Parkinson s Disease No Family History Dementia No Family History Aneurysm No Family History COPD No Family History SOCIAL HISTORY Social History Tobacco Use Smoking status: Never Smokeless tobacco: Never Vaping Use Vaping Use: Never used Substance Use Topics Alcohol use: No Drug use: No PHYSICAL EXAMINATION BP 131/85 Pulse 76 Temp 36.6 C (97.8 F) Resp 16 Wt 102.1 kg (225 lb) SpO2 96% BMI 30.52kg/m GENERAL EXAM: General appearance: NAD, pleasant. HEENT: NC/AT, nasal congestion absent, no oral lesions, membranes moist. Lungs: CTA bilaterally. CV: RRR nl S1, S2 Extr: No cyanosis, clubbing or edema. Skin: Cool to touch. NEUROLOGICAL EXAM: General: Awake, alert, oriented x3 (person,place,time), speech fluent, no dysarthria; comprehension, naming, repetition intact. CN: PERRL, EOMI and without nystagmus, VFF to confrontation, facial sensation and strength are normal and symmetric, hearing is intact to finger rub bilaterally, palate and tongue movements are intact and symmetric. SCM and trapezius strength normal. Motor: Normal tone, bulk and strength (5/5) bilaterally (throughout extremities x4). Coordination: FNF, VIRGILIO, HTS intact. No tremors. Sensation: LT intact throughout. No evidence of neglect. Gait: Stable with normal stride and arm swing. Assessment and Plan: ASSESSMENT/PLAN: 1. JESSICA (obstructive sleep apnea) - ICD9: 327.23, ICD10: G47.33 (primary diagnosis) AHI remains normalized by PAP therapy as per PAP data download. Pt continues to report subjective PAP compliance and further supported by objective data of PAP download. Encouraged continued compliance. Reminded pt of those med conditions that can be provoked or exacerbated by untreated JESSICA. Reminded pt to clean and replace equipment regularly. Will attempt to get new PAP device if DME/insurance feel pt meets criteria. 2. RLS (restless legs syndrome) - ICD9: 333.94, ICD10: G25.81 Stable. Continue gabapentin as Rx'd above. Refills provided. 3. Sleep related hypoxia - ICD9: 327.24, ICD10: G47.34 I have not seen pt since this dx was last discussed and testing ordered (PAP titratoin). O2 was still low during that titration on my review and still uncertain if pt should be on supplemental O2. Thus, will have patient repeat nocturnal oximetry study 2 years later. If O2 low, then would recommendstarting supplemental O2. Dwayne Mendes MD I spent a total of 32 minutes on the date of the service which included preparing to see the patient, [id number] patient care, completing clinical documentation, obtaining and/or reviewing separately obtained history, performing a medically appropriate examination, counseling and educating the pat ient/family/caregiver, ordering medications, tests, or procedures, independently interpreting results (not separately reported), and communicating results to the patient/family/caregiver. documented in this encounterOhiohealth Nelsonville Health Center04-19-2023 Miscellaneous Notes* Telephone Encounter - Gloria Buckley Ma - 01/01/2023 3:57 PM EDT Request completed and faxed. Confirmed and filed. Gloria Buckley Ma * Telephone Encounter - Gloria Buckley Ma - 01/01/2023 2:48 PM EDT Type of letter/form/fax request - [facility] and placed on [facility]'s desk for completion. Completed form needs to be faxed to [phone]. Route to [place] when form completed for processing documented in this encounterOhiohealth Nelsonville Health Center03-17-2023 History of Present illness Narrative* Rodney Caldwell MD - 11/29/2022 4:52 PM EDT Images from the original note were not included. [facility] CONSULT NOTE [facility] PATIENT: Yuriy Souza (72 year old) PCP: Hermann Gonzales MD CHIEF COMPLAINT: Elevated PSA HISTORY OF PRESENT ILLNESS: Yuriy Souza is a 72 year old male returns for follow-up regarding recent PSA elevation. Patient stated during his last evaluation that he was using hair growth supplements, multivitamin, and riding a bike on a regular basis. He has refrain from these activities and repeated his PSA test. See trend below. FAMILY Hx OF MALIGNANCY: Yes Father in his mid 80s, did have a history of prostate cancer. Brother has been diagnosed with low-grade prostate cancer, undergoing active surveillance. LAB DATA: PSA (ng/mL) Date Value 11/27/2022 3.07 10/30/2022 3.50 04/29/2022 3.19 10/31/2021 2.74 10/26/2021 3.17 09/26/2020 2.04 05/02/2018 1.82 PSA, Percent Free (%) Date Value 11/27/2022 16 10/30/2022 14 04/29/2022 15 10/31/2021 18 No results found for: ISOPSA Creatinine Date Value Ref Range Status 04/29/2022 1.31 (H) 0.73 - 1.22 mg/dL Final 10/26/2021 1.27 (H) 0.73 - 1.22 mg/dL Final 05/31/2021 1.15 0.73 - 1.22 mg/dL Final 09/26/2020 1.28 (H) 0.73 - 1.22 mg/dL Final REVIEW OF SYSTEMS: Reviewed and otherwise non-contributory. 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 Davidson. Recommended surgery due to thinning skin- patient considering. PAST SURGICAL HISTORY Procedure Laterality Date COLONOSCOPY FLX DX W/COLLJ SPEC WHEN PFRMD 07/17/2007 Repeat [id number] abscess/[id number] EGD TRANSORAL BIOPSY SINGLE/MULTIPLE 11/21/2005 I/D PERIANAL ABSCESS, SUPERFICIAL 05/01/2007 Left anterolateral perianal abscess PAST SURGICAL HISTORY OF Kidney repair PAST SURGICAL HISTORY OF partial knee replacement REPAIR UMBILICAL ISAIAH,5+Y/O,REDUC 06/27/2022 TONSILLECTOMY & ADENOIDECTOMY <AGE 12 TOTAL KNEE REPLACEMENT Right 06/27/2021 Social History Tobacco Use Smoking status: Never Smokeless tobacco: Never Vaping Use Vaping Use: Never used Substance Use Topics Alcohol use: No Drug use: No FAMILY HISTORY Problem Relation Age of Onset Cancer Father VOCAL CORD Diabetes Father Prostate Cancer Father Stroke Mother Hypertension Mother Prostate Cancer Brother Stroke Brother Stroke Paternal Grandfather Coronary Artery Disease No Family History Thyroid No Family History Blood Disease No Family History Blood Clots No Family History DVT No Family History Factor 5 Leiden No Family History Systemic Lupus Erythematosus No Family History Multiple Sclerosis No Family History Bipolar disorder No Family History Schizophrenia No Family History Alzheimer's Disease No Family History Parkinson s Disease No Family History Dementia No Family History Aneurysm No Family History COPD No Family History MEDICATIONS: Current Outpatient Medications Medication Sig lansoprazole (PREVACID) 15 mg capsule Take 1 capsule by mouth once daily. gabapentin (NEURONTIN) 300 mg capsule Take 3 capsules by mouth daily at bedtime for 90 days. Take 1-3 capsules 30 minutes prior to bedtime as instructed. glucos sul 2KCl/msm/chond/C/Mn (GLUCOSAMINE CHONDROITIN ORAL) Take by mouth as directed. DAILY MULTI-VITAMIN ORAL Take by mouth as directed. propranolol (INDERAL) 20 mg tablet Take 1 tablet by mouth twice daily. CPAP 1 Device by MISCELLANEOUS route daily at bedtime. NEW SET UP: Settings 10 - 14 cm H2O, suitable mask per pt preference, chin strap, head gear, humidity, tubing, lifetime supplies. G47.33 JESSICA [id number] CPAP Change current settings: Settings 10 - 14 cm H2O, suitable mask per pt preference, chin strap,head gear, humidity, tubing, lifetime supplies. G47.33 JESSICA ergocalciferol, vitamin D2, (VITAMIN D2 ORAL) Take by mouth. No current facility-administered medications for this visit. PHYSICAL EXAMINATION: VITALS: Ht 182.9 cm (6') Wt 104.3 kg (230 lb) BMI 31.19 kg/m GENERAL: alert, no distress, normal affect RESPIRATORY: normal effort ABDOMEN: soft, non-tender examination deferred ASSESSMENT/PLAN: 1. Elevated PSA - ICD9: 790.93, ICD10: R97.20 -Repeat PSA appears to have decreased from his most recent study and is stable in comparison to 1 year ago. I have asked the patient to obtain screening PSAs on a 6-month basis because of the increased risk of prostate cancer based on family history. Patient is agreeable. He will do this through his PCP. I will be happy to see him back if he continues to have a significant rise in his PSA. Rodney Caldwell MD, MS Associate Staff [facility] Cc: Dr. Hermann Gonzales documented in this encounterOhiohealth Nelsonville Health Center03-02-2023 Instructions* Patient Instructions* Rodney Caldwell MD - 11/14/2022 12:06 PM EST I discussed the implications of an elevated total PSA value. I discussed possible causes of elevated, including BPH, prostatitis and prostate cancer. I also discussed causes of false elevations of PSA values, including sexual activity, bicycle/motorcycle riding, vigorous exercise, and taking vitamins containing biotin 48-72 hours prior to PSA test.We talked about approaches which would include surveillance with PSA rechecks at regular intervals, MRI of prostate followed by biopsy, Transperinealbiopsy, or standard TRUS Bx. After discussing the pros and cons of each approach we decided to proceed with repeating Free PSA. The below table lists the probability of finding prostate cancer upon needle biopsy, for men 50 years or older and total PSA concentrations from 4.0-10.0 ng/mL. Results should be interpreted within the broader clinical context. Free PSA(%) 50-59 years 60-69 years >69 years <11 49.2% 57.5% 64.5% 11-18 26.9% 33.9% 40.8% 19-25 18.3% 23.9% 29.7% >25 9.1% 12.2% 15.8% documented in this encounterOhiohealth [facility]03-02-[facility]23 History of Present illness Narrative* Rodney Caldwell MD - 11/14/2022 11:48 AM EST Images from the original note were not included. [facility] UROLOGICAL [facility] CONSULT NOTE [facility] PATIENT: Yuriy Souza (72 year old) PCP: Hermann Gonzales MD CHIEF COMPLAINT: Elevated PSA HISTORY OF PRESENT ILLNESS: Yuriy Souza is a 72 year old male with a recent history of elevated PSA who presents for evaluation. Patient's had a history of mildly elevated PSA over the last 1 year. Denies any voiding dysfunction. Patient admits that he has been using a hair growth vitamin over the past several months. This likely contains biotin. Additionally, patient rides his bicycle, either outdoors, or stationary, on a near daily basis. INTERNATIONAL PROSTATE SYMPTOM SCORE (I-PSS) 1)INCOMPLETE EMPTYING Over the past month, how often have you had a sensation of not emptying your bladder completely after you finished urinating? SCORE: 0- Not at all 2)FREQUENCY Over the past month, how often have you had to urinate again less than two hours after you finishedurinating? SCORE: 0- Not at all 3)INTERMITTENCY Over the past month, how often have you found you stopped and started again several times when you urinated? SCORE: 0- Not at all 4)URGENCY Over the past month, how often have you found it difficult to postpone urination? SCORE: 0- Not at all 5)WEAK STREAM Over the past month, how often have you had a weak stream? SCORE: 0- Not at all 6)STRAINING Over the past month, how often have you had to push or strain to begin urination SCORE: 0- Not at all 7)NOCTURIA Over the past month, how many times did you most typically get up to urinate from the time you wentto bed at night until the time you get up in the morning? SCORE:1 TOTAL I-PSS SCORE: 1 QUALITY OF LIFE DUE TO URINARY SYMPTOMS If you were to spend the rest of yur life with your urinary condition just the way it is now, how would you feel about that? 1- Pleased FAMILY Hx OF MALIGNANCY: Yes LAB DATA: PSA (ng/mL) Date Value 10/30/2022 3.50 04/29/2022 3.19 10/31/2021 2.74 10/26/2021 3.17 09/26/2020 2.04 05/02/2018 1.82 PSA, Percent Free (%) Date Value 10/30/2022 14 04/29/2022 15 10/31/2021 18 No results found for: ISOPSA Creatinine Date Value Ref Range Status 04/29/2022 1.31 (H) 0.73 - 1.22 mg/dL Final 10/26/2021 1.27 (H) 0.73 - 1.22 mg/dL Final 05/31/2021 1.15 0.73 - 1.22 mg/dL Final 09/26/2020 1.28 (H) 0.73 - 1.22 mg/dL Final OFFICE DATA: POST-VOID RESIDUAL BLADDER VOLUME: 0 cc , empties well URINE POC GLUCOSE UA (POCT) Negative 11/14/2022 BILIRUBIN UA (POCT) Negative 11/14/2022 KETONE UA (POCT) Negative 11/14/2022 SPECIFIC GRAVITY UA (POCT) 1.025 11/14/2022 HEMOGLOBIN/BLOOD UA (POCT) Negative 11/14/2022 PH UA (POCT) 6.0 11/14/2022 PROTEIN UA (POCT) Negative 11/14/2022 UROBILINOGEN UA (POCT) 0.2 11/14/2022 NITRITE UA (POCT) Negative 11/14/2022 LEUKOCYTES UA (POCT) Negative 11/14/2022 COLOR UA (POCT) Yellow 11/14/2022 CLARITY UA (POCT) Clear 11/14/2022 REVIEW OF SYSTEMS: Reviewed and otherwise non-contributory. 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 Davidson. Recommended surgery due to thinning skin- patient considering. PAST SURGICAL HISTORY Procedure Laterality Date COLONOSCOPY FLX DX W/COLLJ SPEC WHEN PFRMD 07/17/2007 Repeat [id number] abscess/kgjpujq-qe-rtd EGD TRANSORAL BIOPSY SINGLE/MULTIPLE 11/21/2005 I/D PERIANAL ABSCESS, SUPERFICIAL 05/01/2007 Left anterolateral perianal abscess PAST SURGICAL HISTORY OF Kidney repair PAST SURGICAL HISTORY OF partial knee replacement REPAIR UMBILICAL ISAIHA,5+Y/O,REDUC 06/27/2022 TONSILLECTOMY & ADENOIDECTOMY <AGE 12 TOTAL KNEE REPLACEMENT Right 06/27/2021 Social History Tobacco Use Smoking status: Never Smokeless tobacco: Never Vaping Use Vaping Use: Never used Substance Use Topics Alcohol use: No Drug use: No FAMILY HISTORY Problem Relation Age of Onset Cancer Father VOCAL CORD Diabetes Father Prostate Cancer Father Stroke Mother Hypertension Mother Prostate Cancer Brother Stroke Brother Stroke Paternal Grandfather Coronary Artery Disease No Family History Thyroid No Family History Blood Disease No Family History Blood Clots No Family History DVT No Family History Factor 5 Leiden No Family History Systemic Lupus Erythematosus No Family History Multiple Sclerosis No Family History Bipolar disorder No Family History Schizophrenia No Family History Alzheimer's Disease No Family History Parkinson s Disease No Family History Dementia No Family History Aneurysm No Family History COPD No Family History MEDICATIONS: Current Outpatient Medications Medication Sig lansoprazole (PREVACID) 15 mg capsule Take 1 capsule by mouth once daily. gabapentin (NEURONTIN) 300 mg capsule Take 3 capsules by mouth daily at bedtime for 90 days. Take 1-3 capsules 30 minutes prior to bedtime as instructed. glucos sul 2KCl/msm/chond/C/Mn (GLUCOSAMINE CHONDROITIN ORAL) Take by mouth as directed. DAILY MULTI-VITAMIN ORAL Take by mouth as directed. propranolol (INDERAL) 20 mg tablet Take 1 tablet by mouth twice daily. CPAP 1 Device by MISCELLANEOUS route daily at bedtime. NEW SET UP: Settings 10 - 14 cm H2O, suitable mask per pt preference, chin strap, head gear, humidity, tubing, lifetime supplies. G47.33 JESSICA [id number] CPAP Change current settings: Settings 10 - 14 cm H2O, suitable mask per pt preference, chin strap,head gear, humidity, tubing, lifetime supplies. G47.33 JESSICA ergocalciferol, vitamin D2, (VITAMIN D2 ORAL) Take by mouth. (Patient not taking: Reported on 11/01/2022) No current facility-administered medications for this visit. PHYSICAL EXAMINATION: VITALS: Ht 182.9 cm (6') Wt 104.3 kg (230 lb) BMI 31.19 kg/m GENERAL: alert, no distress, normal affect RESPIRATORY: normal effort ABDOMEN: soft, non-tender GENITOURINARY: Inguinal: No lesions, adenopathy, or hernias Phallus: normal, circumcised, no lesions Meatus: orthotopic, patent, no discharge Scrotum: no lesions, normal rugae Testes: Descended, nontender, and no masses bilaterally L: nl R:nl Epididymides: L nl R nl Vas deferens: palpable bilaterally Varicocele: none PEARL: Normal size prostate, approximately 20 g, without nodularity or tenderness, normal anal sphincter tone. EXTREMITIES: warm, no dependent edema, no malformations SKIN: no abnormal bruising, no rashes, no cyanosis NEUROLOGIC: normal gait, good manual dexterity, no paralysis ASSESSMENT/PLAN: 1. Elevated PSA - ICD9: 790.93, ICD10: R97.20 (primary diagnosis) I discussed the implications of an elevated total PSA value. I discussed possible causes of elevated, including BPH, prostatitis and prostate cancer. I also discussed causes of false elevations of PSA values, including sexual activity, bicycle/motorcycle riding, vigorous exercise, and taking vitamins containing biotin 48-72 hours prior to PSA test.We talked about approaches which would include surveillance with PSA rechecks at regular intervals, MRI of prostate followed by biopsy, Transperinealbiopsy, or standard TRUS Bx. After discussing the pros and cons of each approach we decided to proceed with a repeat total and free PSA, after the patient discontinues biotin containing vitamin and avoidance of bicycle riding for at least 72 hours prior to blood draw. The below table lists the probability of finding prostate cancer upon needle biopsy, for men 50 years or older and total PSA concentrations from 4.0-10.0 ng/mL. Results should be interpreted within the broader clinical context. Free PSA(%) 50-59 years 60-69 years >69 years <11 49.2% 57.5% 64.5% 11-18 26.9% 33.9% 40.8% 19-25 18.3% 23.9% 29.7% >25 9.1% 12.2% 15.8% - BLADDER SCAN - PSA FREE 2. FHx: prostate cancer - ICD9: V16.42, ICD10: Z80.[address] Hermann Gonzales [address] [facility] [id number] for an opinion regarding Mr. Souza and my final recommendations will be communicated back to the requesting physician by way of shared Medical record or letter via US mail. Rodney Caldwell MD, MS Associate Staff [facility] documented in this encounterOhiohealth [facility]03-02-2023 Nurse Note* Fauzia Rankin LPN - 11/14/2022 11:42 AM EST Bladder scan obtained 0 ml of urine documented in this encounterOhiohealth [facility]02-20-2023 Miscellaneous Notes* Telephone Encounter - Gina Villegas LPN - 11/04/2022 9:45 AM EST The following approved medication requests have been transmitted electronically. Requested Prescriptions Signed Prescriptions Disp Refills gabapentin (NEURONTIN) 300 mg capsule 270 capsule 0 Sig: Take 3 capsules by mouth daily at bedtime for 90 days. Take 1-3 capsules 30 minutes prior to bedtime as instructed. Authorizing Provider: SANJIV CLINTON LPN * Telephone Encounter - Sanjiv Clinton APRN.ICE DELIVERY DRIVER - 11/01/2022 6:19 PM EST PDMP website checked and validated. All prescriptions have been APPROPRIATELY filled. No suspiciousactivity was identified. 11/01/2022 by Sanjiv Clinton APRN.SANDRA Gabapentin 300mg cap - 3 caps QHS Last filled 06/02/2022 #270 for 90 days Rx approved. Sanjiv Clinton APRN.CNP 11/01/22 6:21 PM * Telephone Encounter - Ruddy Lewis RN - 11/01/2022 3:19 PM EST Last Office Visit: 02.08.2022 with Malvin in person Future Office Visit: 01.27.[address] Mendes in person Impression: G47.33, Z99.89 JESSICA on CPAP (primary encounter diagnosis) G25.81 RLS (restless legs syndrome) 71 yo sandoval who presents for follow up for JESSICA on CPAP and in need of Gabapentin 300 mg 1- 3 capsulesnightly. He is stable with regimen and denies SE or ADRs. He is doing well with regimen overall, but reports that CPAP device is quite noisy with use. Machine is about 5 years old and due for replacement. Orders sent to [facility] for replacement device. PDMP website checked and validated. All prescriptions have been APPROPRIATELY filled. No suspiciousactivity was identified. 02/08/2022 by Gabriella Coombs APRN.SANDRA Plan: - Continue Auto CPAP and lower pressure to 10-14 cmH2O. - Order for new device - sent to [facility] - Remember to clean your mask and equipment regularly, as directed. - You should be eligible for new supplies approximately every 3-6 months, depending on your insurance coverage. Contact your Durable Medical Equipment (DME) company for new supplies as needed. - Continue 900 mg Gabapentin spaced dosing, RF approved Follow up in 6 month(s) in [place] Gabriella Coombs APRN.CNP * Telephone Encounter - Magdalene Wray LPN - 11/01/2022 11:16 AM EST Patient has been identified by name and date of : Yes Requested Prescriptions Pending Prescriptions Disp Refills gabapentin (NEURONTIN) 300 mg capsule 270 capsule 1 Sig: Take 3 capsules by mouth daily at bedtime for 180 days. Take 1-3 capsules 30 minutes prior to bedtime as instructed. RX INSTRUCTIONS: Patient came into office for refill of medication. Has yearly follow up scheduled 01/27/23. Advised him would call with any issues. 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 Benign essential tremor 02/10/2014 BPH with obstruction/lower urinary tract symptoms 04/11/2009 CKD (chronic kidney disease), stage III (HCC) 07/08/2018 Essential hypertension, benign FHx: prostate cancer 08/24/2012 GERD without esophagitis 10/14/[address] 10/31/2021 DPA: (Ana) Medicare annual wellness visit, subsequent 10/31/2021 Medicare part B: Not able to find, Last done:10/31/2021 Mixed hyperlipidemia 10/14/2005 JESSICA (obstructive sleep apnea) 11/12/2017 DME [facility] for AutoPAP Plantar fasciitis, bilateral 06/03/2017 Radiculopathy, cervical region 11/14/2016 Tremor 10/26/2009 Umbilical hernia without obstruction or gangrene 05/10/[address] Davidson. Recommended surgery due to thinning skin- patient considering. PAST SURGICAL HISTORY Procedure Laterality Date COLONOSCOPY FLX DX W/COLLJ SPEC WHEN PFRMD 07/17/2007 Repeat [id number] abscess/xurmbmw-ci-xjc EGD TRANSORAL BIOPSY SINGLE/MULTIPLE 11/21/2005 I/D PERIANAL ABSCESS, SUPERFICIAL 05/01/2007 Left anterolateral perianal abscess PAST SURGICAL HISTORY OF Kidney repair PAST SURGICAL HISTORY OF partial knee replacement REPAIR UMBILICAL ISAIAH,5+Y/O,REDUC 06/27/2022 TONSILLECTOMY & ADENOIDECTOMY <AGE 12 TOTAL KNEE REPLACEMENT Right 06/27/2021 ALLERGIES: Vicodin [Hydrocodone-Acetaminophen] Medications reviewed: Yes FAMILY HISTORY Problem Relation Age of Onset Cancer Father VOCAL CORD Diabetes Father Prostate Cancer Father Stroke Mother Hypertension Mother Prostate Cancer Brother Stroke Brother Stroke Paternal Grandfather Coronary Artery Disease No Family History Thyroid No Family History Blood Disease No Family History Blood Clots No Family History DVT No Family History Factor 5 Leiden No Family History Systemic Lupus Erythematosus No Family History Multiple Sclerosis No Family History Bipolar disorder No Family History Schizophrenia No Family History Alzheimer's Disease No Family History Parkinson s Disease No Family History Dementia No Family History Aneurysm No Family History COPD No Family History SOCIAL HISTORY: Social History Tobacco Use Smoking status: Never Smokeless tobacco: Never Vaping Use Vaping Use: Never used Substance Use Topics Alcohol use: No Drug use: No Yuriy works out regularly 7 times per week with walking and stationary bicycling. He watches his diet for sodium, low fat and low cholesterol some of the time. List of current specialists seen: Dr. Page (Neuro) Dr. Mendes (Neuro, sleep) End of Live Planning discussed including patients advanced directive wishes: Yes I am willing to follow Yuriy's advanced directives. PHQ-2 / Depression screen Depression Screening 06/14/2019 02/04/2021 07/23/2021 11/01/2022 PHQ-2 Score 1 2 1 0 PHQ-9 Score - 7 4 - URI-2 Total Score - 1 0 - URI-7 Total Score - - 0 - Depression screening tool completed and reviewed. Based on score and interview, patient is not at risk for depression. Screening tool discussed with patient, and I recommended no further interventionat this time. Functional Ability/Safety Screen 1. Was the patient's timed Up and Go test unsteady or longer than 30 seconds? No 2. Does the patient need help with the phone, transportation, shopping,preparing meals, housework, laundry, medications or managing money? No 3. Does your home have rugs in the hallway (Y), lack of grab bars in the bathroom, lack of handrails on the stairs or have poor lighting? No Hearing Evaluation: hard of hearing and wears hearing aids PHYSICAL EXAM BP 128/82 (BP Site: Right Arm, BP Position: Sitting, BP Cuff Size: Large Adult) Pulse 68 Resp 16 Wt 104.8 kg (231 lb) BMI 31.33 kg/m Alert and oriented X 3: YES Body mass index is 31.33 kg/m . Visual acuity: seeing optho See below ASSESSMENT/PLAN: 72 year old male The following prevention plan was discussed during the office visit and provided to the patient: See below Hermann Gonzales MD Chief Complaint Patient presents with: F/U 6 months HPI Yuriy Souza is a 72 year old male who presents here today for extensive exam. Patient with Hx of HTN, GERD, Hyperlipidemia, CKD, RLS, autonomic disorder, JESSICA, essential tremor, BPH as well as those reviewed and addressed below and in ROS. Patient has been doing ok no new issues or concerns Past medical history, appointments, medications, allergies reviewed. Previous Medical History PAST MEDICAL HISTORY Diagnosis Date Abscess of anal and rectal regions Acute gastritis 11/21/2005 Anal fistula Arthritis of right ankle 11/23/2019 Arthritis of right knee 04/25/2021 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 Benign essential tremor 02/10/2014 BPH with obstruction/lower urinary tract symptoms 04/11/2009 CKD (chronic kidney disease), stage III (HCC) 07/08/2018 Essential hypertension, benign FHx: prostate cancer 08/24/2012 GERD without esophagitis 10/14/[address] 10/31/2021 DPA: (Ana) Medicare annual wellness visit, subsequent 10/31/2021 Medicare part B: Not able to find, Last done:10/31/2021 Mixed hyperlipidemia 10/14/2005 JESSICA (obstructive sleep apnea) 11/12/2017 DME [facility] for AutoPAP Plantar fasciitis, bilateral 06/03/2017 Radiculopathy, cervical region 11/14/2016 Tremor 10/26/2009 Previous Surgical History PAST SURGICAL HISTORY Procedure Laterality Date COLONOSCOPY FLX DX W/COLLJ SPEC WHEN PFRMD 07/17/2007 Repeat [id number] abscess/nidhbpy-rp-pyw EGD TRANSORAL BIOPSY SINGLE/MULTIPLE 11/21/2005 I/D PERIANAL ABSCESS, SUPERFICIAL 05/01/2007 Left anterolateral perianal abscess PAST SURGICAL HISTORY OF Kidney repair PAST SURGICAL HISTORY OF partial knee replacement TONSILLECTOMY & ADENOIDECTOMY <AGE 12 TOTAL KNEE REPLACEMENT Right 06/27/2021 Family History FAMILY HISTORY Problem Relation Age of Onset Cancer Father VOCAL CORD Diabetes Father Prostate Cancer Father Stroke Mother Hypertension Mother Prostate Cancer Brother Stroke Brother Stroke Paternal Grandfather Coronary Artery Disease No Family History Thyroid No Family History Blood Disease No Family History Blood Clots No Family History DVT No Family History Factor 5 Leiden No Family History Systemic Lupus Erythematosus No Family History Multiple Sclerosis No Family History Bipolar disorder No Family History Schizophrenia No Family History Alzheimer's Disease No Family History Parkinson s Disease No Family History Dementia No Family History Aneurysm No Family History COPD No Family History Patient Allergies ALLERGIES Allergen Reactions Vicodin [Hydrocodon* Other: See Comments Severe drop in blood pressure, Current Medications Current Outpatient Medications on File Prior to Visit Medication Sig lansoprazole (PREVACID) 15 mg capsule Take 1 capsule by mouth once daily. glucos sul 2KCl/msm/chond/C/Mn (GLUCOSAMINE CHONDROITIN ORAL) Take by mouth as directed. DAILY MULTI-VITAMIN ORAL Take by mouth as directed. propranolol (INDERAL) 20 mg tablet Take 1 tablet by mouth twice daily. gabapentin (NEURONTIN) 300 mg capsule Take 3 capsules by mouth daily at bedtime for 180 days. Take 1-3 capsules 30 minutes prior to bedtime as instructed. Do not start before February 17, 2022. CPAP 1 Device by MISCELLANEOUS route daily at bedtime. NEW SET UP: Settings 10 - 14 cm H2O, suitable mask per pt preference, chin strap, head gear, humidity, tubing, lifetime supplies. G47.33 JESSICA [id number] CPAP Change current settings: Settings 10 - 14 cm H2O, suitable mask per pt preference, chin strap,head gear, humidity, tubing, lifetime supplies. G47.33 JESSICA ergocalciferol, vitamin D2, (VITAMIN D2 ORAL) Take by mouth. (Patient not taking: Reported on 11/01/2022) No current facility-administered medications on file prior to visit. Social History Social History Tobacco Use Smoking status: Never Smokeless tobacco: Never Vaping Use Vaping Use: Never used Substance Use Topics Alcohol use: No Drug use: No Review of Symptoms REVIEW OF SYSTEMS GENERAL: No weight loss, malaise or fevers HEENT: Negative for frequent or significant headaches, No changes in hearing or vision, no nose bleeds or other nasal problems NECK: Negative for lumps, goiter, pain and significant neck swelling RESPIRATORY: Negative for cough, hemoptysis, wheezing, COPD, dyspnea or shortness of breath CARDIOVASCULAR: Negative for chest pain, leg swelling, hypertension, CHF or palpitations GI: No nausea, vomiting, or diarrhea, No heartburn or reflux symptoms, and no blood : No history of dysuria, blood MUSCULOSKELETAL: Negative for joint pain or swelling, back pain or muscle pain SKIN: Negative for lesions, rash, and itching PSYCH: Negative for sleep disturbance, mood disorder and recent psychosocial stressors HEMATOLOGY/LYMPHOLOGY: Negative for prolonged bleeding, bruising easily or swollen nodes ENDOCRINE: Negative for cold or heat intolerance, polyuria, polydipsia and goiter NEURO: No history of headaches, syncope, paralysis, seizures or increase in his tremors EXAM: BP 128/82 (BP Site: Right Arm, BP Position: Sitting, BP Cuff Size: Large Adult) Pulse 68 Resp 16 Wt 104.8 kg (231 lb) BMI 31.33 kg/m Last 4 Encounter Wt Readings: Date: Wt: 11/01/2022 104.8 kg (231 lb) 05/01/2022 102.1 kg (225 lb) 02/08/2022 99.8 kg (220 lb) 10/31/2021 102.5 kg (226 lb) General Appearance: Well appearing, alert, in no acute distress, well-hydrated, well nourished.. Skin: Skin color, texture, turgor normal, no suspicious rashes or lesions. Head: Normocephalic, no masses, lesions, tenderness or abnormalities. Eyes: Anicteric sclera. Pupils are equally round and reactive to light. Extraocular movements are intact. . Ears: External ears, TM's normal, canals clear. Neck: Supple, no adenopathy; thyroid symmetric, normal size, no bruits. Lungs: Lungs clear to auscultation. No wheezing, rhonchi, rales.. Heart: RRR without murmur, gallop, or rubs. No ectopy. Abdomen: Normal abdominal exam, Abdomen soft, non-tender. Bowel sounds normal. No masses, organomegaly. Extremities: No deformities, edema, skin discoloration, Good capillary refill. . Musculoskeletal: Spine range of motion normal. Muscular strength intact, No joint swelling, deformity, or tenderness. Peripheral Pulses: Normal. Neurologic: Gait normal. Reflexes normal and symmetric. Sensation to light touch and crainal nerves2-12 intact.. Genitalia: Normal, Penis normal. No urethral discharge. Scrotum normal to palpation. No hernia.. Rectal: Normal exam. Prostate enlarged but smooth firm capsule. Health Maintenance List ADVANCE DIRECTIVE DISCUSSION Never done DEPRESSION ASSESSMENT Never done BP CONTROLLED (<130/80) due on 10/31/2022 SERUM CREATININE due on 04/29/2023 ANNUAL PCP TEAM CHRONIC DISEASE VISIT due on 05/01/2023 HEMOGLOBIN/HEMATOCRIT due on 10/30/2023 DIABETES SCREEN due on 04/29/2025 LIPID SCREEN due on 10/30/2027 COLORECTAL CANCER SCREENING due on 06/02/2028 DTAP,TDAP,TD(5 - Td or Tdap) due on 05/16/2031 INFLUENZA Completed HEPATITIS C SCREENING Completed SHINGRIX VACCINE Completed COVID-19 VACCINE Completed PNEUMOCOCCAL: 65+ Completed Data reviewed Component Latest Ref Rng & Units 10/26/2021 10/31/2021 04/29/2022 10/30/2022 WBC 3.70 - 11.00 k/uL 5.44 5.69 RBC 4.20 - 6.00 m/uL 5.34 5.32 Hemoglobin 13.0 - 17.0 g/dL 16.4 16.5 Hematocrit 39.0 - 51.0 % 51.3 (H) 51.1 (H) MCV 80.0 - 100.0 fL 96.1 96.1 MCH 26.0 - 34.0 pg 30.7 31.0 MCHC 30.5 - 36.0 g/dL 32.0 32.3 RDW-CV 11.5 - 15.0 % 12.8 12.7 Platelet Count 150 - 400 k/uL 199 190 MPV 9.0 - 12.7 fL 10.9 10.7 Neut% % 60.1 57.2 Abs Neut (ANC) 1.45 - 7.50 k/uL 3.25 3.26 Lymph% % 25.4 26.9 Abs Lymph 1.00 - 4.00 k/uL 1.38 1.53 Glenn% % 12.1 12.5 Abs Glenn <0.87 k/uL 0.66 0.71 Eosin% % 1.5 1.6 Abs Eosin <0.46 k/uL 0.08 0.09 Baso% % 0.9 0.9 Abs Baso <0.11 k/uL 0.05 0.05 Immature Gran % % 0.9 IMMATURE GRANS (ABS) <0.10 k/uL 0.05 NRBC /100 WBC 0.0 Absolute nRBC <0.01 k/uL <0.01 <0.01 DTYPE Auto Nucleated Reds 0 /100 WBC 0.0 Diff Type Auto Diff Protein, Total 6.3 - 8.0 g/dL 6.8 Albumin 3.9 - 4.9 g/dL 4.2 Calcium 8.5 - 10.2 mg/dL 9.7 9.6 Bilirubin, Total 0.2 - 1.3 mg/dL 0.4 Alkaline Phosphatase 38 - 113 U/L 82 AST 14 - 40 U/L 20 Glucose 74 - 99 mg/dL 94 80 BUN 9 - 24 mg/dL 17 20 Creatinine 0.73 - 1.22 mg/dL 1.27 (H) 1.31 (H) Sodium 136 - 144 mmol/L 140 142 Potassium 3.7 - 5.1 mmol/L 4.5 4.1 Chloride 97 - 105 mmol/L 103 106 (H) CO2 22 - 30 mmol/L 28 27 Anion Gap 9 - 18 mmol/L 9 9 ALT 10 - 54 U/L 16 eGFR- >60 eGFR-All Other Races . 56 Color Yellow Light Yellow (A) Light Yellow Clarity Clear Clear Clear Glucose, Urine Trace, Negative Negative Negative Bilirubin, Urine Negative Negative Negative Ketones, Urine Trace, Negative Negative Negative Specific [place], Ur 1.005 - 1.030 1.015 1.020 Hemoglobin/Blood,Ur Negative, Trace Negative Negative pH, Urine 5.0 - 8.0 6.0 5.5 Protein, Urine Trace, Negative Negative Negative Urobilinogen Negative Negative Negative Nitrites Negative Negative Negative Leukest Negative, 25 Ban/uL Negative Negative Comment SEE COMMENT Urine Yoseph Comment SEE COMMENT WBC, Urine 0-5 /HPF 0-5 0-5 /HPF RBC, Urine 0-3 /HPF 0-3 0-3 /HPF Epithelial Cells /HPF SEE COMMENT eGFR >=60 mL/min/1.73m 58 (L) Total Cholesterol, Nonfasting <200 mg/dL 173 179 Triglycerides, Nonfasting <150 mg/dL 61 60 HDL Cholesterol, Nonfasting >39 mg/dL 63 62 LDL Cholesterol, Nonfasting <100 mg/dL 98 105 (H) Non HDL Cholesterol, Nonfasting <130 mg/dL 110 117 VLDL Cholesterol, Nonfasting <30 mg/dL 12 12 Total Chol/HDL Ratio, Nonfasting <5.10 mg/dL 2.75 2.89 LDL/HDL Ratio, Nonfasting <2.54 mg/dL 1.56 1.69 PSA <2.60 ng/mL 3.17 (H) 2.74 (H) 3.19 (H) 3.50 (H) PSA, Percent Free % 18 15 14 Vitamin B12 232 - 1,245 pg/mL 578 Magnesium 1.7 - 2.3 mg/dL 2.2 2.0 A/P ASSESSMENT/PLAN: 1. Medicare annual wellness visit, subsequent - ICD9: V70.0, ICD10: Z00.00 (primary diagnosis) - Counseled on healthy diet and regular exercise - Discussed need for and benefit of weight loss. BMI 31.33 kg/(m^2) - Follow up for annual exam in one year 2. Essential hypertension, benign - ICD9: 401.1, ICD10: I10 - good control - Continue current medication(s) - Recommended regular aerobic exercise. - Recommend home blood pressure monitoring, to bring results in on next visit - Goal of BP <130/80 3. Mixed hyperlipidemia - ICD9: 272.2, ICD10: E78.2 - good control - Encouraged following a low fat, low cholesterol diet. - Discussed the benefits of regular aerobic exercise and weight loss. - Encouraged following a low carbohydrate, healthy oil intake diet. - Continue current therapy. 4. GERD without esophagitis - ICD9: 530.81, ICD10: K21.9 - Continue treatment with Prevacid 15 mg QD 5. Stage 3a chronic kidney disease (HCC) - ICD9: 585.3, ICD10: N18.31 - stable no changes 6. Restless legs syndrome (RLS) - ICD9: 333.94, ICD10: G25.81 - stable no changes 7. JESSICA (obstructive sleep apnea) - ICD9: 327.23, ICD10: G47.33 - benefiting from nightly CPAP use 8. Benign essential tremor - ICD9: 333.1, ICD10: G25.0 - management per Neurology 9. Elevated PSA - ICD9: 790.93, ICD10: R97.20 - CONSULT TO UROLOGY 10. FHx: prostate cancer - ICD9: V16.42, ICD10: Z80.42 - CONSULT TO UROLOGY 11. Advance directive discussed with patient - ICD9: V65.49, ICD10: Z71.89 - patient to bring in copies. Requested Prescriptions Signed Prescriptions Disp Refills lansoprazole (PREVACID) 15 mg capsule 90 capsule 1 Sig: Take 1 capsule by mouth once daily. F/u 6 months routine check CMP prior I spent a total of 40 minutes on the date of the service which included preparing to see the patient, [id number] patient care, completing clinical documentation, performing a medically appropriate examination, counseling and educating the patient/family/caregiver and ordering medications, tests, or procedures. Hermann Gonzales MD documented in this encounterOhiohealth [facility]02-06-2023 Miscellaneous Notes* Telephone Encounter - Luanne Espino Ma - 10/21/2022 11:03 AM EST Pt notified that labs have been ordered. Luanne Espino Ma documented in this encounterOhiohealth Nelsonville [facility] Center12-12-2022 Miscellaneous Notes* Telephone Encounter - Sara Dudley RN - 08/26/2022 3:00 PM EST Called and left voicemail instructing patient he needs to schedule an appointment in order to have medications refilled. Informed patient at his last visit the provider wanted him to follow up in 6 months. * Telephone Encounter - Sara Dudley RN - 08/26/2022 10:45 AM EST [place] 02/08/22 In person Malvin ARIAS N/A Roojoom message sent to patient Impression: G47.33, Z99.89 JESSICA on CPAP (primary encounter diagnosis) G25.81 RLS (restless legs syndrome) 71 yo sandoval who presents for follow up for JESSICA on CPAP and in need of Gabapentin 300 mg 1- 3 capsulesnightly. He is stable with regimen and denies SE or ADRs. He is doing well with regimen overall, but reports that CPAP device is quite noisy with use. Machine is about 5 years old and due for replacement. Orders sent to [facility] device[facility] All prescriptions have been APPROPRIATELY filled. No suspiciousactivity was identified. 02/08/2022 by Gabriella Coombs APRN.ICE DELIVERY DRIVER Plan: - Continue Auto CPAP and lower pressure to 10-14 cmH2O. - Order for new device - sent to [facility] - Remember to clean your mask and equipment regularly, as directed. - You should be eligible for new supplies approximately every 3-6 months, depending on your insurance coverage. Contact your [employer] company for new supplies as needed. - Continue 900 mg Gabapentin spaced dosing, RF approved Follow up in 6 month(s) in [place] Gabriella Coombs APRN.ICE DELIVERY DRIVER documented in this encounterOhiohealth Nelsonville [facility] Center09-19-2022 Miscellaneous Notes* Telephone Encounter - Hermann Gonzales MD - 06/03/2022 5:16 PM EDT Requested Prescriptions Signed Prescriptions Disp Refills lansoprazole (PREVACID) 15 mg capsule 90 capsule 1 Sig: Take 1 capsule by mouth once daily. Authorizing Provider: HERMANN GONZALES * Telephone Encounter - Nick Marcelino LPN - 06/03/2022 5:00 PM EDT [place] 05/01/22 NOV 11/01/22 * Telephone Encounter - Lynn Hooker Pss - 06/03/2022 2:46 PM EDT Patient has been identified by name and date of : Yes Requested Prescriptions Pending Prescriptions Disp Refills lansoprazole (PREVACID) 15 mg capsule 90 capsule 1 Sig: Take 1 capsule by mouth once daily. RX INSTRUCTIONS: Patient is out tomorrow. Please send today. Patient aware RX will be sent to pharmacy. No need to notify patient. yLnn Hooker Pss documented in this encounterOhiohealth Nelsonville [facility] Center09-19-2022 [facility] Records Department [address] [place] [address] History Physical Exam 06/03/22 0632 MR#: [id number] Acct: [id number] Name: YURIY SOUZA Rep #: [id number] : 1950 72 From: Rashi Davidson MD PCP: Dr. Hermann Gonzales MD [place] [facility] [place] [address] History and Physical Date of Admission: 06/03/22 Visit Reasons:???Umbilical Hernia Chief Complaint: Umbilical Hernia Enrollment Management Manager Required: No Is patient in pain?: No Allergies hydrocodone [From Vicodin] Allergy (Verified 05/08/22 13:06) HYPOTENSION Medications lansoprazole 15 mg capsule,delayed release 15 mg PO DAILY 05/29/18 [History Confirmed 05/08/22] propranolol 20 mg tablet 20 mg PO BID 05/29/18 [History Confirmed 05/08/22] glucosamine sulf dipot chlr,msm,chond 550 mg-C 30 mg-shahbaz 1 mg capsule (Glucosamine Chondroitin) 1 cap PO DAILY 06/13/21 [History Confirmed 05/08/22] PFSH Medical History???(Updated 05/08/22 @ 13:[address] Rashi Davidson MD) Artery dissection Arthritis Back pain Benign essential tremor Blackout Cardiology follow-up encounter CPAP (continuous positive airway pressure) dependence DVT (deep venous thrombosis) Gastric reflux History of edema History of pain when walking History of stress test Hypertension Non-smoker Open wound Restless legs Wears glasses Wears hearing aid Surgical History???(Updated 05/08/22 @ 13:03 by Nancy Friday) History of kidney surgery History of right knee joint replacement Hx of colonoscopy Hx of left knee surgery Hx of left knee surgery Family History???(Updated 05/08/22 @ 13:04 by Nancy Friday) Father Cancer ? prostate DiabetesMother CVA (cerebral vascular accident)Sister Psoriatic arthritis Social History???(Updated 05/08/22 @ 13:04 by Nancy Friday) Smoking Status:??? Never smoker alcohol intake:??? current details:??? occasional substance use type:??? does not use HPI HPI HPI: YURIY SOUZA, is a 72 M who presents to the office today for Surgical consultation regarding an umbilical hernia.??? The patient is referred by Vane Mart PA-C and a written copy of my dale rgical consult and recommendations will return to her.??? I have assisted this gentleman June 02, 2018 with a screening colonoscopy.??? Those findings were notable for diverticulosis of the sigmoid colon but otherwise were not acute. Patient over the past years noted a progressively enlarging umbilical hernia.??? He has not had any surgery there.??? He is quite active.??? He walks and he rides bike and he does treadmill.??? He does not recall any specific injury.??? He has not had COVID-19.??? No coughing spells.??? Because its progressively enlarging however he thought that he better seek attention. ROS General General: No weight change, appetite, fatigue, colon cancer, breast cancer or weakness HEENT HEENT: No difficulty swallowing, eye injury, eye surgery, swollen glands or hoarseness Endo Endocrine: No thyroid disease, diabetes mellitus, thyroid cancer, Hair loss, heat intolerance or cold intolerance Skin Skin: No rash or changing moles Musc Musculoskeletal: Yes arthritis; No back problems, rheumatoid arthritis, gout or joint pain Cardio Cardiovascular: No murmur, pacemaker, heart disease, atrial fibrillation, high blood pressure, heart attack, heart stent, palpitations, shortness of breat with exertion or chest pain Psych Psychiatric: No depression, anxiety or hearing voices Resp Respiratory: No shortness of breath, Yes sleep apnea, No cough, No COPD, No asthma, No emphysema and No wheezing Gastro Gastrointestinal: No abdominal pain, No nausea or vomiting, No diarrhea, No constipation, No blood in stool, Yes acid reflux, Yes hemorrhoids, No ulcers, No gallbladder problem and No black,tarry stools Fel[place] Hematologic: No blood thinners, No blood disorders, No bleeding, No anemia and No blood clots Neuro Neurologic: No system reviewed and no additional complaints, except as documented, No as per HPI, No abnormal gait, No abnormal hearing, No abnormal movements, No abnormal speech, No behavioral changes, No burning sensations, No confusion, No convulsions, No disequilibrium, No dizziness, No localized weakness, No frequent falls, No headache(s), No lack of coordination, No loss of vision, No memory loss, No numbness, No other visual disturbances, No radicular pain, No restless legs, No sensory deficit, No syncope, No tingling, No tremor(s), No weakness and No other Exam Const General: cooperative, comfortable and no acute distress HENMT Head: normal to inspection Eyes General: appearance normal, both eyes and all related structures Neck Neck: normal visual inspection Chest Chest palpation inspection: normal inspection of the chest Resp Effort Inspection: normal respirator (more content not included)...[facility]08-26-[facility] History of Past illness Narrative* Problem Noted Date Resolved Date Umbilical hernia without obstruction or gangrene 05/10/2022 11/01/2022 Overview: Saw Dr. Davidson. Recommended surgery due to thinning skin- patient considering. Hypoglycemia 09/28/2013 04/27/2015 Vaso-vagal reaction 09/28/2013 04/27/2015 Primary localized osteoarthrosis, lower leg 06/0 04/200904/27/2015 FISTULA ANAL 07/17/2007 04/27/2015 Abscess of anal and rectal regions 05/01/2007 04/27/2015 Acute gastritis without mention of hemorrhage 04/27/2015 documented as of this encounter (statuses as of 11/01/2022) [facility] History of Past illness Narrative* Problem Noted Date Resolved Date Umbilical hernia without obstruction or gangrene 05/10/2022 11/01/2022 Overview: Saw Dr. Davidson. Recommended surgery due to thinning skin- patient considering. Hypoglycemia 09/28/2013 04/27/2015 Vaso-vagal reaction 09/28/2013 04/27/2015 Primary localized osteoarthrosis, lower leg 06/0 04/200904/27/2015 FISTULA ANAL 07/17/2007 04/27/2015 Abscess of anal and rectal regions 05/01/2007 04/27/2015 Acute gastritis without mention of hemorrhage 04/27/2015 documented as of this encounter (statuses as of 11/04/2022) [place] [id number] History of Past illness Narrative* Problem Noted Date Resolved Date Umbilical hernia without obstruction or gangrene 05/10/2022 11/01/2022 Overview: Saw Dr. Davidson. Recommended surgery due to thinning skin- patient considering. Hypoglycemia 09/28/2013 04/27/2015 Vaso-vagal reaction 09/28/2013 04/27/2015 Primary localized osteoarthrosis, lower leg 06/0 04/200904/27/2015 FISTULA ANAL 07/17/2007 04/27/2015 Abscess of anal and rectal regions 05/01/2007 04/27/2015 Acute gastritis without mention of hemorrhage 04/27/2015 documented as of this encounter (statuses as of 11/14/2022) [place] [address] History of Past illness Narrative* Problem Noted Date Resolved Date Umbilical hernia without obstruction or gangrene 05/10/2022 11/01/2022 Overview: Saw Dr. Davidson. Recommended surgery due to thinning skin- patient considering. Hypoglycemia 09/28/2013 04/27/2015 Vaso-vagal reaction 09/28/2013 04/27/2015 Primary localized osteoarthrosis, lower leg 06/0 04/200904/27/2015 FISTULA ANAL 07/17/2007 04/27/2015 Abscess of anal and rectal regions 05/01/2007 04/27/2015 Acute gastritis without mention of hemorrhage 04/27/2015 documented as of this encounter (statuses as of 11/29/2022) [address] History of Past illness Narrative* Problem Noted Date Resolved Date Umbilical hernia without obstruction or gangrene 05/10/2022 11/01/2022 Overview: Saw Dr. Davidson. Recommended surgery due to thinning skin- patient considering. Hypoglycemia 09/28/2013 04/27/2015 Vaso-vagal reaction 09/28/2013 04/27/2015 Primary localized osteoarthrosis, lower leg 06/0 04/200904/27/2015 FISTULA ANAL 07/17/2007 04/27/2015 Abscess of anal and rectal regions 05/01/2007 04/27/2015 Acute gastritis without mention of hemorrhage 04/27/2015 documented as of this encounter (statuses as of 01/02/2023) [address]22 History of Past illness Narrative* Problem Noted Date Resolved Date Umbilical hernia without obstruction or gangrene 05/10/2022 11/01/2022 Overview: Saw Dr. Davidson. Recommended surgery due to thinning skin- patient considering. Hypoglycemia 09/28/2013 04/27/2015 Vaso-vagal reaction 09/28/2013 04/27/2015 Primary localized osteoarthrosis, lower leg 06/0 04/200904/27/2015 FISTULA ANAL 07/17/2007 04/27/2015 Abscess of anal and rectal regions 05/01/2007 04/27/2015 Acute gastritis without mention of hemorrhage 04/27/2015 documented as of this encounter (statuses as of 01/28/2023) [address] History of Past illness Narrative* Problem Noted Date Resolved Date Umbilical hernia without obstruction or gangrene 05/10/2022 11/01/2022 Overview: Saw Dr. Davidson. Recommended surgery due to thinning skin- patient considering. Hypoglycemia 09/28/2013 04/27/2015 Vaso-vagal reaction 09/28/2013 04/27/2015 Primary localized osteoarthrosis, lower leg 06/0 04/200904/27/2015 FISTULA ANAL 07/17/2007 04/27/2015 Abscess of anal and rectal regions 05/01/2007 04/27/2015 Acute gastritis without mention of hemorrhage 04/27/2015 documented as of this encounter (statuses as of 01/28/2023) [address] History of Past illness Narrative* Problem Noted Date Diagnosed Date Resolved Date Umbilical hernia without obs truction or gangrene 05/10/2022 11/01/2022 Overview: Saw Dr. Davidson. Recommended surgery due to thinning skin- patient considering. Hypoglycemia 09/28/2013 04/27/2015 Vaso-vagal reaction 09/28/2013 04/27/20 15 Primary localized osteoarthrosis, lower leg 02/20/2009 04/27/2015 FISTULA ANAL 07/17/2007 04/27/2015 Abscess of anal and rectal regions 05/01/2007 04/27/2015 Acute gastritis without mention of hemorrhage 11/22/19 06 04/27/2015 documented as of this encounter (statuses as of 03/31/2023) [facility] of Past illness Narrative* Problem Noted Date Diagnosed Date Resolved Date Umbilical hernia without obs truction or gangrene 05/10/2022 11/01/2022 Overview: Saw Dr. Davidson. Recommended surgery due to thinning skin- patient considering. Hypoglycemia 09/28/2013 04/27/2015 Vaso-vagal reaction 09/28/2013 04/27/20 15 Primary localized osteoarthrosis, lower leg 02/20/2009 04/27/2015 FISTULA ANAL 07/17/2007 04/27/2015 Abscess of anal and rectal regions 05/01/2007 04/27/2015 Acute gastritis without mention of hemorrhage 11/22/19 06 04/27/2015 documented as of this encounter (statuses as of 04/18/2023) [facility] History of Past illness Narrative* Problem Noted Date Diagnosed Date Resolved Date Umbilical hernia without obs truction or gangrene 05/10/2022 11/01/2022 Overview: Saw Dr. Davidson. Recommended surgery due to thinning skin- patient considering. Hypoglycemia 09/28/2013 04/27/2015 Vaso-vagal reaction 09/28/2013 04/27/20 15 Primary localized osteoarthrosis, lower leg 02/20/2009 04/27/2015 FISTULA ANAL 07/17/2007 04/27/2015 Abscess of anal and rectal regions 05/01/2007 04/27/2015 Acute gastritis without mention of hemorrhage 11/22/19 06 04/27/2015 documented as of this encounter (statuses as of 05/26/2023) [place] [address] History of Past illness Narrative* Problem Noted Date Diagnosed Date Resolved Date Umbilical hernia without obs truction or gangrene 05/10/2022 11/01/2022 Overview: Saw Dr. Davidson. Recommended surgery due to thinning skin- patient considering. Hypoglycemia 09/28/2013 04/27/2015 Vaso-vagal reaction 09/28/2013 04/27/20 15 Primary localized osteoarthrosis, lower leg 02/20/2009 04/27/2015 FISTULA ANAL 07/17/2007 04/27/2015 Abscess of anal and rectal regions 05/01/2007 04/27/2015 Acute gastritis without mention of hemorrhage 11/22/19 06 04/27/2015 documented as of this encounter (statuses as of 06/03/2023) [facility] History of Past illness Narrative* Problem Noted Date Diagnosed Date Resolved Date Umbilical hernia without obs truction or gangrene 05/10/2022 11/01/2022 Overview: Saw Dr. Davidson. Recommended surgery due to thinning skin- patient considering. Hypoglycemia 09/28/2013 04/27/2015 Vaso-vagal reaction 09/28/2013 04/27/20 15 Primary localized osteoarthrosis, lower leg 02/20/2009 04/27/2015 FISTULA ANAL 07/17/2007 04/27/2015 Abscess of anal and rectal regions 05/01/2007 04/27/2015 Acute gastritis without mention of hemorrhage 11/22/19 06 04/27/2015 documented as of this encounter (statuses as of 07/24/2023) [facility] of Past illness Narrative* Problem Noted Date Diagnosed Date Resolved Date Umbilical hernia without obs truction or gangrene 05/10/2022 11/01/2022 Overview: Saw Dr. Davidson. Recommended surgery due to thinning skin- patient considering. Hypoglycemia 09/28/2013 04/27/2015 Vaso-vagal reaction 09/28/2013 04/27/20 15 Primary localized osteoarthrosis, lower leg 02/20/2009 04/27/2015 FISTULA ANAL 07/17/2007 04/27/2015 Abscess of anal and rectal regions 05/01/2007 04/27/2015 Acute gastritis without mention of hemorrhage 11/22/19 06 04/27/2015 documented as of this encounter (statuses as of 09/09/2023) [facility] of Past illness Narrative* Problem Noted Date Diagnosed Date Resolved Date Umbilical hernia without obs truction or gangrene 05/10/2022 11/01/2022 Overview: Saw Dr. Davidson. Recommended surgery due to thinning skin- patient considering. Hypoglycemia 09/28/2013 04/27/2015 Vaso-vagal reaction 09/28/2013 04/27/20 15 Primary localized osteoarthrosis, lower leg 02/20/2009 04/27/2015 FISTULA ANAL 07/17/2007 04/27/2015 Abscess of anal and rectal regions 05/01/2007 04/27/2015 Acute gastritis without mention of hemorrhage 11/22/19 06 04/27/2015 documented as of this encounter (statuses as of 11/03/2023) [facility] of Past illness Narrative* Problem Noted Date Diagnosed Date Resolved Date Umbilical hernia without obs truction or gangrene 05/10/2022 11/01/2022 Overview: Saw Dr. Davidson. Recommended surgery due to thinning skin- patient considering. Hypoglycemia 09/28/2013 04/27/2015 Vaso-vagal reaction 09/28/2013 04/27/20 15 Primary localized osteoarthrosis, lower leg 02/20/2009 04/27/2015 FISTULA ANAL 07/17/2007 04/27/2015 Abscess of anal and rectal regions 05/01/2007 04/27/2015 Acute gastritis without mention of hemorrhage 11/22/19 06 04/27/2015 documented as of this encounter (statuses as of 11/03/2023) [facility] History of Past illness Narrative* Problem Noted Date Diagnosed Date Resolved Date Umbilical hernia without obs truction or gangrene 05/10/2022 11/01/2022 Overview: Saw Dr. Davidson. Recommended surgery due to thinning skin- patient considering. Hypoglycemia 09/28/2013 04/27/2015 Vaso-vagal reaction 09/28/2013 04/27/20 15 Primary localized osteoarthrosis, lower leg 02/20/2009 04/27/2015 FISTULA ANAL 07/17/2007 04/27/2015 Abscess of anal and rectal regions 05/01/2007 04/27/2015 Acute gastritis without mention of hemorrhage 11/22/19 06 04/27/2015 documented as of this encounter (statuses as of 11/05/2023) [address] History of Past illness Narrative* Problem Noted Date Diagnosed Date Resolved Date Umbilical hernia without obs truction or gangrene 05/10/2022 11/01/2022 Overview: Saw Dr. Davidson. Recommended surgery due to thinning skin- patient considering. Hypoglycemia 09/28/2013 04/27/2015 Vaso-vagal reaction 09/28/2013 04/27/20 15 Primary localized osteoarthrosis, lower leg 02/20/2009 04/27/2015 FISTULA ANAL 07/17/2007 04/27/2015 Abscess of anal and rectal regions 05/01/2007 04/27/2015 Acute gastritis without mention of hemorrhage 11/22/19 06 04/27/2015 documented as of this encounter (statuses as of 11/12/2023) [place] [address] History of Past illness Narrative* Problem Noted Date Diagnosed Date Resolved Date Umbilical hernia without obs truction or gangrene 05/10/2022 11/01/2022 Overview: Saw Dr. Davidson. Recommended surgery due to thinning skin- patient considering. Hypoglycemia 09/28/2013 04/27/2015 Vaso-vagal reaction 09/28/2013 04/27/20 15 Primary localized osteoarthrosis, lower leg 02/20/2009 04/27/2015 FISTULA ANAL 07/17/2007 04/27/2015 Abscess of anal and rectal regions 05/01/2007 04/27/2015 Acute gastritis without mention of hemorrhage 11/22/19 06 04/27/2015 documented as of this encounter (statuses as of 12/01/2023) [address] History of Past illness Narrative* Problem Noted Date Diagnosed Date Resolved Date Umbilical hernia without obs truction or gangrene 05/10/2022 11/01/2022 Overview: Saw Dr. Davidson. Recommended surgery due to thinning skin- patient considering. Hypoglycemia 09/28/2013 04/27/2015 Vaso-vagal reaction 09/28/2013 04/27/20 15 Primary localized osteoarthrosis, lower leg 02/20/2009 04/27/2015 FISTULA ANAL 07/17/2007 04/27/2015 Abscess of anal and rectal regions 05/01/2007 04/27/2015 Acute gastritis without mention of hemorrhage 11/22/1904/27/2015 documented as of this encounter (statuses as of 12/02/2023) [facility]-05-[facility] Miscellaneous Notes* Telephone Encounter - Charlene Nunez - 03/19/2022 3:21 PM EDT Pharmacy verified in [facility]. Patient has been identified by name and date of : Yes Patient aware RX will be sent to pharmacy. No need to notify patient. Patient phones for refill(s): Pending Prescriptions Disp Refills PROPRANOLOL 20 MG TABLET 180 tablet 3 Sig: Take 1 tablet by mouth twice daily. RANJEET: No Date of last office visit : 07/23/2021 Date of next office visit : Visit date not found Last 2 Encounter Wt Readings: Date: Wt: 02/08/2022 99.8 kg (220 lb) 10/31/2021 102.5 kg (226 lb) Please advise. Charlene Nunez * Telephone Encounter - Mariya Chery - 03/19/2022 3:17 PM EDT Patient is completely out of medication. Did not realize RX on 02/05/2022. Pharmacy verified in [facility] Patient has been identified by name and date of : Yes Patient requesting a call when RX is approved and sent to the pharmacy. Please call patient at: [phone] Patient phones for refill(s): Pending Prescriptions Disp Refills PROPRANOLOL 20 MG TABLET 180 tablet 3 Sig: Take 1 tablet by mouth twice daily. RANJEET: No Date of last office visit : 07/23/2021 Date of next office visit : Visit date not found Last 2 Encounter Wt Readings: Date: Wt: 02/08/2022 99.8 kg (220 lb) 10/31/2021 102.5 kg (226 lb) Please adviseMarialuisa Chery documented in this encounter[facility] Miscellaneous Notes* Telephone Encounter - Charlene Ramos MA - 02/12/2022 3:00 PM EDT Orders were faxed 02/08/22. Confirmation received. documented in this encounterOhio[facility] Miscellaneous Notes* Telephone Encounter - Charlene Ramos MA - 02/12/2022 9:20 AM EDT Images from the original note were not included. documented in this encounterOhio[facility] History of Present illness Narrative* Gabriella Coombs APRN.ICE DELIVERY DRIVER - 02/08/2022 2:00 PM EDT Images from the original note were not included. [facility] Follow-up/Established patient visit Date of last visit: 11/06/2020 PLAN: - Sleep study results scanned into [employer] - Continue Auto CPAP but will increase pressure to 12-18 cmH2O. Download in 4 weeks. - Remember to clean your mask and equipment regularly, as directed. - You should be eligible for new supplies approximately every 3-6 months, depending on your insurance coverage. Contact your Durable Medical Equipment (DME) company for new supplies as needed. - Follow up in 2-3 months, sooner if any concerns Poor sleep quality, nocturnal wakings, insomnia vs. under-treated JESSICA? Sleep initiation improved on gabapentin (for essential tremor) Continues with night time waking ~2 xper night Re- evaluate after CPAP pressure change Consider insomnia treatment I spent a total of 25 minutes on the date of the service which included preparing to see the patient, completing clinical documentation, obtaining and/or reviewing separately obtained history and counseling and educating the patient/family/caregiver. Charlene Wahl, PHD, STUDENT COUNSELOR HPI: 71 yo sandoval who presents for follow up for JESSICA on CPAP and in need of Gabapentin 300 mg 1- 3 capsules nightly. He is stable with regimen and denies SE or ADRs. SLEEP APNEA Sleep apnea type : JESSICA, Most Recent Apnea-Hypopnea Index (AHI): 17.3 (08/26/17) Nocturnal pulse ox study 07/14/2020 shows 50% of the time pulse ox < 90% on PAP Treatment : PAP therapy DME: [facility] PAP History: Current PAP settin-18 cm H2O. Difficulties with AutoPAP: Yes: mask leaks, noisy machine, about 5 years old. Reviewed objective PAP compliance data: 01/08/2022 to 02/06/2022 Compliance download: 97% >=4 hours Average use: 6 hours 48 minutes 90/95th percentile pressure: 12.2 Leaks 32.6, residual AHI 2.8 Mask issues: air leak Uses chin strap: No Uses ramp function: Yes Uses humidity: Yes There is a perceived benefit by the patient INSOMNIA/RLS Current treatment : Medication(s) : Gabapentin 900 mg in spaced dosing prior to bed Status : Improved Denies SE or ADRS SLEEP FUNCTIONAL OUTCOME MEASURES: Not completed PAST MEDICAL HISTORY Diagnosis Date Abscess of anal and rectal regions Acute gastritis 11/21/2005 Anal fistula Arthritis of right ankle 11/23/2019 Arthritis of right knee 04/25/2021 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 Benign essential tremor 02/10/2014 BPH with obstruction/lower urinary tract symptoms 04/11/2009 CKD (chronic kidney disease), stage III (HCC) 07/08/2018 Essential hypertension, benign FHx: prostate cancer 08/24/2012 GERD without esophagitis 10/14/[address] 10/31/2021 DPA: (Ana) Medicare annual wellness visit, subsequent 10/31/2021 Medicare part B: Not able to find, Last done:10/31/2021 Mixed hyperlipidemia 10/14/2005 JESSICA (obstructive sleep apnea) 11/12/2017 DME [facility] for AutoPAP Plantar fasciitis, bilateral 06/03/2017 Radiculopathy, cervical region 11/14/2016 Tremor 10/26/2009 PSH, SH: Reviewed REVIEW OF SYSTEMS SLEEP RELATED ROS GENERAL: See HPI RESPIRATORY: negative dyspnea CARDIOVASCULAR: negative palpitations and chest pain MUSCULOSKELETAL: negative generalized body pain SKIN: negative mask irritation - skin marking PSYCH: negative depression and suicidal thoughts ENDOCRINE: negative thyroid problems NEURO: positive memory problems All other systems reviewed and are negative. ALLERGIES Allergen Reactions Vicodin [Hydrocodon* Other: See Comments Severe drop in blood pressure, CURRENT MEDICATIONS: [START ON 02/17/2022] gabapentin (NEURONTIN) 300 mg capsule Take 3 capsules by mouth daily at bedtimefor 180 days. Take 1-3 capsules 30 minutes prior to bedtime as instructed. Do not start before 2021. CPAP 1 Device by MISCELLANEOUS route daily at bedtime. NEW SET UP: Settings 10 - 14 cm H2O, suitable mask per pt preference, chin strap, head gear, humidity, tubing, lifetime supplies. G47.33 JESSICA [id number] lansoprazole (PREVACID) 15 mg capsule Take 1 capsule by mouth once daily. ergocalciferol, vitamin D2, (VITAMIN D2 ORAL) Take by mouth. CPAP Change current settings: Settings 10 - 14 cm H2O, suitable mask per pt preference, chin strap,head gear, humidity, tubing, lifetime supplies. G47.33 JESSICA propranolol (INDERAL) 20 mg tablet Take 1 tablet by mouth twice daily. Vital signs: BP 131/88 Pulse (!) 57 Ht 182.9 cm (6') Wt 99.8 kg (220 lb) BMI 29.84 kg/m PHYSICAL EXAM: General appearance: NAD, attire appropriate per season Mental status: A & O X3 Speech: Clear & Coherent Constitutional: WNL Skin: W/D/I on exposed skin Musculoskeletal/ Extremities: Neg BLE edema Neuro: Gait stable, hearing intact to conversation Impression: G47.33, Z99.89 JESSICA on CPAP (primary encounter diagnosis) G25.81 RLS (restless legs syndrome) 71 yo sandoval who presents for follow up for JESSICA on CPAP and in need of Gabapentin 300 mg 1- 3 capsulesnightly. He is stable with regimen and denies SE or ADRs. He is doing well with regimen overall, but reports that CPAP device is quite noisy with use. Machine is about 5 years old and due for replacement. Orders sent to [facility] for replacement device. [facility] website checked and validated. All prescriptions have been APPROPRIATELY filled. No suspiciousactivity was identified. 02/08/2022 by Gabriella Coombs APRN.ICE DELIVERY DRIVER Plan: - Continue Auto CPAP and lower pressure to 10-14 cmH2O. - Order for new device - sent to [facility] - Remember to clean your mask and equipment regularly, as directed. - You should be eligible for new supplies approximately every 3-6 months, depending on your insurance coverage. Contact your Durable Medical Equipment (DME) company for new supplies as needed. - Continue 900 mg Gabapentin spaced dosing, RF approved Follow up in 6 month(s) in Kahlil Coombs APRN.SANDRA I spent a total of 32 minutes on the date of the service which included preparing to see the patient, [id number] patient care, completing clinical documentation, obtaining and/or reviewing separately obtained history, performing a medically appropriate examination, counseling and educating the pat ient/family/caregiver, ordering medications, tests, or procedures and communicating results to the patient/family/caregiver. documented in this encounterOhio[facility]-2014 History of Past illness Narrative* Problem Noted Date Resolved Date Hypoglycemia 09/28/2013 04/27/2015 Vaso-vagal reaction 09/28/2013 04/27/2015 Primary localized osteoarthrosis, lower leg 06/0 04/200904/27/2015 FISTULA ANAL 07/17/2007 04/27/2015 Abscess of anal and rectal regions 05/01/2007 04/27/2015 Acute gastritis without mention of hemorrhage 04/27/2015 documented as of this encounter (statuses as of 02/08/2022) [facility] History of Past illness Narrative* Problem Noted Date Resolved Date Hypoglycemia 09/28/2013 04/27/2015 Vaso-vagal reaction 09/28/2013 04/27/2015 Primary localized osteoarthrosis, lower leg 06/0 04/200904/27/2015 FISTULA ANAL 07/17/2007 04/27/2015 Abscess of anal and rectal regions 05/01/2007 04/27/2015 Acute gastritis without mention of hemorrhage 04/27/2015 documented as of this encounter (statuses as of 02/12/2022) [facility] History of Past illness Narrative* Problem Noted Date Resolved Date Hypoglycemia 09/28/2013 04/27/2015 Vaso-vagal reaction 09/28/2013 04/27/2015 Primary localized osteoarthrosis, lower leg 06/0 04/200904/27/2015 FISTULA ANAL 07/17/2007 04/27/2015 Abscess of anal and rectal regions 05/01/2007 04/27/2015 Acute gastritis without mention of hemorrhage 04/27/2015 documented as of this encounter (statuses as of 03/19/2022) [facility] History of Past illness Narrative* Problem Noted Date Resolved Date Hypoglycemia 09/28/2013 04/27/2015 Vaso-vagal reaction 09/28/2013 04/27/2015 Primary localized osteoarthrosis, lower leg 06/0 04/200904/27/2015 FISTULA ANAL 07/17/2007 04/27/2015 Abscess of anal and rectal regions 05/01/2007 04/27/2015 Acute gastritis without mention of hemorrhage 04/27/2015 documented as of this encounter (statuses as of 06/03/2022) [facility] History of Past illness Narrative* Problem Noted Date Resolved Date Hypoglycemia 09/28/2013 04/27/2015 Vaso-vagal reaction 09/28/2013 04/27/2015 Primary localized osteoarthrosis, lower leg 06/0 04/200904/27/2015 FISTULA ANAL 07/17/2007 04/27/2015 Abscess of anal and rectal regions 05/01/2007 04/27/2015 Acute gastritis without mention of hemorrhage 04/27/2015 documented as of this encounter (statuses as of 08/26/2022) [facility] History of Past illness Narrative* Problem Noted Date Resolved Date Hypoglycemia 09/28/2013 04/27/2015 Vaso-vagal reaction 09/28/2013 04/27/2015 Primary localized osteoarthrosis, lower leg 06/0 04/200904/27/2015 FISTULA ANAL 07/17/2007 04/27/2015 Abscess of anal and rectal regions 05/01/2007 04/27/2015 Acute gastritis without mention of hemorrhage 04/27/2015 documented as of this encounter (statuses as of 10/21/2022) [facility] Diagnosis JESSICA on CPAP- Primary Obstructive sleep apnea (adult) (pediatric) RLS (restless legs syndrome) Restless legs syndrome (RLS) documented in this encounter [facility]* Diagnosis Onset Date Resolution Status Umbilical hernia without obstruction or gangrene acute Umbilical hernia without obstruction or gangrene acute [facility] Work Phone: Evaluation note* Diagnosis RLS (restless legs syndrome) Restless legs syndrome (RLS) [facility] Diagnosis Medicare annual wellness visit, subsequent- Primary Routine general medical examination at a health care facility Essential hypertension, benign Mixed hyperlipidemia GERD without esophagitis Esophageal reflux Stage 3a chronic kidney disease (HCC) Restless legs syndrome (RLS) JESSICA (obstructive sleep apnea) Obstructive sleep apnea (adult) (pediatric) Benign essential tremor Essential and other specified forms of tremor Elevated PSA Elevated prostate specific antigen (PSA) FHx: prostate cancer Family history of malignant neoplasm of prostate Advance directive discussed with patient Other specified counseling [facility]* Diagnosis RLS (restless legs syndrome) Restless legs syndrome (RLS) [facility] Elevated PSA- Primary Elevated prostate specific antigen (PSA) FHx: prostate cancer Family history of malignant neoplasm of prostate [facility] Diagnosis Elevated PSA- Primary Elevated prostate specific antigen (PSA) [facility] Diagnosis JSESICA (obstructive sleep apnea)- Primary Obstructive sleep apnea (adult) (pediatric) RLS (restless legs syndrome) Restless legs syndrome (RLS) Sleep related hypoxia Idiopathic sleep related nonobstructive alveolar hypoventilation [facility]* Diagnosis Screening PSA (prostate specific antigen)- Primary Special screening for malignant neoplasm of prostate Elevated PSA Elevated prostate specific antigen (PSA) GERD without esophagitis Esophageal reflux Medication management Encounter for long-term (current) use of other medications Essential hypertension, benign Stage 3a chronic kidney disease (HCC) [facility]* Diagnosis Essential tremor- Primary Essential and other specified forms of tremor [facility] Diagnosis JESSICA on CPAP- Primary Obstructive sleep apnea (adult) (pediatric) Sleep related hypoxia Idiopathic sleep related nonobstructive alveolar hypoventilation RLS (restless legs syndrome) Restless legs syndrome (RLS) [facility]* Diagnosis Medicare annual wellness visit, subsequent- Primary Routine general medical examination at a health care facility Essential hypertension, benign Mixed hyperlipidemia GERD without esophagitis Esophageal reflux Stage 3a chronic kidney disease (HCC) Restless legs syndrome (RLS) JESSICA (obstructive sleep apnea) Obstructive sleep apnea (adult) (pediatric) Benign essential tremor Essential and other specified forms of tremor Elevated PSA Elevated prostate specific antigen (PSA) BPH with obstruction/lower urinary tract symptoms Hypertrophy of prostate with urinary obstruction and other lower urinary tract symptoms (LUTS) Advance directive discussed with patient Other specified counseling Encounter for immunization Need for other specified prophylactic vaccination against single bacterial disease [facility] Diagnosis NO SHOW- Primary [facility]* Diagnosis Nocturnal hypoxia- Primary Hypoxemia JESSICA on CPAP Obstructive sleep apnea (adult) (pediatric) RLS (restless legs syndrome) Restless legs syndrome (RLS) [facility]* Diagnosis Nocturnal hypoxia- Primary Hypoxemia JESSICA (obstructive sleep apnea) Obstructive sleep apnea (adult) (pediatric) [facility]* Diagnosis Essential hypertension, benign- Primary Mixed hyperlipidemia GERD without esophagitis Esophageal reflux Stage 3a chronic kidney disease (HCC) Benign essential tremor Essential and other specified forms of tremor Restless legs syndrome (RLS) Elevated PSA Elevated prostate specific antigen (PSA) Medication management Encounter for long-term (current) use of other medications Elevated blood sugar Other abnormal glucose [facility] encounter [facility]* Diagnosis RLS (restless legs syndrome) Restless legs syndrome (RLS) [facility] Diagnosis Essential tremor- Primary Essential and other specified forms of tremor [facility]* Diagnosis Influenza-like symptoms- Primary Other general symptoms [facility]* Diagnosis Rash- Primary Rash and other nonspecific skin eruption [facility]* Diagnosis Type 2 diabetes mellitus without complication, without long-term current use of insulin ([facility])- Primary Essential hypertension, benign Mixed hyperlipidemia Screening for depression Elevated PSA Elevated prostate specific antigen (PSA) Prostate disorder Unspecified disorder of prostate Benign essential tremor Essential and other specified forms of tremor GERD without esophagitis Esophageal reflux BPH with obstruction/lower urinary tract symptoms Hypertrophy of prostate with urinary obstruction and other lower urinary tract symptoms (LUTS) Stage 3a chronic kidney disease (HCC) Elevated blood sugar Other abnormal glucose Medication management Encounter for long-term (current) use of other medications [facility] Diagnosis Type 2 diabetes mellitus without complication, without long-term current use of insulin ([facility])- Primary documented in this encounter [facility]* Diagnosis Obesity, Class I, BMI 30-34.9- Primary Obesity, unspecified Type 2 diabetes mellitus without complication, without long-term current use of insulin (HCC) Dietary counseling Dietary surveillance and counseling documented [facility]* Diagnosis JESSICA on CPAP- Primary Obstructive sleep apnea (adult) (pediatric) RLS (restless legs syndrome) Restless legs syndrome (RLS) Nocturnal hypoxia Hypoxemia documented in this encounter [facility]* Diagnosis Medicare annual wellness visit, subsequent- Primary Routine general medical examination at a health care facility Advance directive discussed with patient Other specified counseling Living will in place Type 2 diabetes mellitus without complication, without long-term current use of insulin (HCC) Essential hypertension, benign Mixed hyperlipidemia Elevated blood sugar Other abnormal glucose Stage 3a chronic kidney disease (HCC) BPH with obstruction/lower urinary tract symptoms Hypertrophy of prostate with urinary obstruction and other lower urinary tract symptoms (LUTS) JESSICA (obstructive sleep apnea) Obstructive sleep apnea (adult) (pediatric) Restless legs syndrome (RLS) Elevated PSA Elevated prostate specific antigen (PSA) Prostate disorder Unspecified disorder of prostate Medication management Encounter for long-term (current) use of other medications GERD without esophagitis Esophageal reflux Bowel habit changes Other symptoms involving digestive system documented [facility] this encounter [facility]* Diagnosis Essential tremor- Primary Essential and other specified forms of tremor documented in this encounter [facility] Summary Purpose Family History No Family History Records Found Relationship Condition Age at Onset Recorded Date/T monika father Malignant neoplasm Unknown Diabetes mellitus Unknown mother Cerebrovascular accident (CVA) Unknown sister Psoriatic arthritis Unknown Advance Directives No Advanced Directives Records Found Advance Directive Response Recorded Date/ Time Name of Medical Power of Meat Slicer Ana jacques May 27, 2022 8:07am Living Will Yes May 27, 2022 8:07am Power of Meat Slicer Yes May 8:07am Chief Complaint and Reason for Visit Chief Complaint Umbilical Hernia HERNIA, UMBILICAL REPAIR WITH MESH HERNIA, UMBILICAL REPAIR WITH MESH Reason for Visit Umbilical hernia wit hout obstruction or gangrene Umbilical hernia without obstruction or gangrene Reason for Referral Specialty Diagnoses / Procedures Referred By Eufemia cervantes Referred To Contact Urology Diagnoses FHx: prostate cancer Elevated PSA Procedures CONSULT TO UROLOGY OFFICE/OUTPATIENT [facility] MDM 60-74 MINUTES Hermann Gonzales MD [address] [place] [address] Referral ID Status Reason Start Date Expiration Date Visits Requested Visits Authorized [id number] Authorized PCP Requested Referral 11/01/2022 11/01/2023 1 1 Specialty Diagnoses / Procedures Referred By Contac t Referred To Contact Diagnoses Essential tremor Procedures PROVIDER ORDERED FOLLOW UP OFFICE/OUTPATIENT NEW HIGH MDM 60-74 MINUTES Lizbeth Perez MD [address] [address] Referral ID Status Reason Start Date Expiration Date Visits Requested Visits Authorized [id number] Authorized PCP Requested Referral 07/24/2023 10/22/2023 1 1 Specialty Diagnoses / Procedures Referred By Contac t Referred To Contact Diagnoses Essential tremor Procedures PROVIDER ORDERED FOLLOW UP OFFICE/OUTPATIENT NEW HIGH MDM 60 MINUTES Lizbeth Perez MD [address] [address] Referral ID Status Reason Start Date Expiration Date Visits Requested Visits Authorized [id number] Authorized PCP Requested Referral 07/19/2024 10/17/2024 1 1 Additional Source Comments (unrecognized sect ion and content) No Status Records FoundNo Status Records FoundNo Status Records FoundNo Status Records Found INFORMATION SOURCE (unrecogn ized section and content) DATE CREATED AUTHOR 11/11/2020 [facility] DATE CREATED AUTHOR AUTHOR'S ORGANIZ ATION 07/13/2021 [facility] DATE CREATED AUTHOR AUTHOR'S ORGANIZ ATION 06/26/2022 [facility] DATE CREATED AUTHOR AUTHOR'S ORGANIZ ATION 05/29/2025 [facility] Source Comments (unrecognize d section and content) In the event this informatio n is protected by the Federal Confidentiality of Alcohol and Drug Abuse Patient Records regulations: The Federal rules restrict any use of the information to criminally investigate or prosecute any alcohol or drug abuse patient.[facility] Center[facility] the event this information is protected by the Federal Confidentiality of Alcohol and Drug Abuse Patient Records regulations: The Federal rules restrict any use of the information to criminally investigate or prosecute any alcohol or drug abuse patient.[facility] CenterIn the event this information is protected by the Federal Confidentiality of Alcohol and Drug Abuse Patient Records regulations: The Federal rules restrict any use of the information to criminally investigate or prosecute any alcohol or drug abuse patient.[facility] CenterIn the event this information is protected by the Federal Confidentiality of Alcohol and Drug Abuse Patient Records regulations: The Federal rules restrict any use of the information to criminally investigate or prosecute any alcohol or drug abuse patient.[facility] CenterIn the event this information is protected by the Federal Confidentiality of Alcohol and Drug Abuse Patient Records regulations: The Federal rules restrict any use of the information to criminally investigate or prosecute any alcohol or drug abuse patient.[facility] CenterIn the event this information is protected by the Federal Confidentiality of Alcohol and Drug Abuse Patient Records regulations: The Federal rules restrict any use of the information to criminally investigate or prosecute any alcohol or drug abuse patient.[facility] CenterIn the event this information is protected by the Federal Confidentiality of Alcohol and Drug Abuse Patient Records regulations: The Federal rules restrict any use of the information to criminally investigate or prosecute any alcohol or drug abuse patient.[facility] CenterIn the event this information is protected by the Federal Confidentiality of Alcohol and Drug Abuse Patient Records regulations: The Federal rules restrict any use of the information to criminally investigate or prosecute any alcohol or drug abuse patient.[facility] CenterIn the event this information is protected by the Federal Confidentiality of Alcohol and Drug Abuse Patient Records regulations: The Federal rules restrict any use of the information to criminally investigate or prosecute any alcohol or drug abuse patient.[facility] CenterIn the event this information is protected by the Federal Confidentiality of Alcohol and Drug Abuse Patient Records regulations: The Federal rules restrict any use of the information to criminally investigate or prosecute any alcohol or drug abuse patient.[facility] CenterIn the event this information is protected by the Federal Confidentiality of Alcohol and Drug Abuse Patient Records regulations: The Federal rules restrict any use of the information to criminally investigate or prosecute any alcohol or drug abuse patient.[facility] CenterIn the event this information is protected by the Federal Confidentiality of Alcohol and Drug Abuse Patient Records regulations: The Federal rules restrict any use of the information to criminally investigate or prosecute any alcohol or drug abuse patient.[facility] CenterIn the event this information is protected by the Federal Confidentiality of Alcohol and Drug Abuse Patient Records regulations: The Federal rules restrict any use of the information to criminally investigate or prosecute any alcohol or drug abuse patient.[facility] CenterIn the event this information is protected by the Federal Confidentiality of Alcohol and Drug Abuse Patient Records regulations: The Federal rules restrict any use of the information to criminally investigate or prosecute any alcohol or drug abuse patient.[facility] CenterIn the event this information is protected by the Federal Confidentiality of Alcohol and Drug Abuse Patient Records regulations: The Federal rules restrict any use of the information to criminally investigate or prosecute any alcohol or drug abuse patient.[facility] CenterIn the event this information is protected by the Federal Confidentiality of Alcohol and Drug Abuse Patient Records regulations: The Federal rules restrict any use of the information to criminally investigate or prosecute any alcohol or drug abuse patient.[facility] CenterIn the event this information is protected by the Federal Confidentiality of Alcohol and Drug Abuse Patient Records regulations: The Federal rules restrict any use of the information to criminally investigate or prosecute any alcohol or drug abuse patient.[facility] CenterIn the event this information is protected by the Federal Confidentiality of Alcohol and Drug Abuse Patient Records regulations: The Federal rules restrict any use of the information to criminally investigate or prosecute any alcohol or drug abuse patient.[facility] CenterIn the event this information is protected by the Federal Confidentiality of Alcohol and Drug Abuse Patient Records regulations: The Federal rules restrict any use of the information to criminally investigate or prosecute any alcohol or drug abuse patient.[facility] CenterIn the event this information is protected by the Federal Confidentiality of Alcohol and Drug Abuse Patient Records regulations: The Federal rules restrict any use of the information to criminally investigate or prosecute any alcohol or drug abuse patient.[facility] CenterIn the event this information is protected by the Federal Confidentiality of Alcohol and Drug Abuse Patient Records regulations: The Federal rules restrict any use of the information to criminally investigate or prosecute any alcohol or drug abuse patient.[facility] CenterIn the event this information is protected by the Federal Confidentiality of Alcohol and Drug Abuse Patient Records regulations: The Federal rules restrict any use of the information to criminally investigate or prosecute any alcohol or drug abuse patient.[facility] CenterIn the event this information is protected by the Federal Confidentiality of Alcohol and Drug Abuse Patient Records regulations: The Federal rules restrict any use of the information to criminally investigate or prosecute any alcohol or drug abuse patient.[facility] CenterIn the event this information is protected by the Federal Confidentiality of Alcohol and Drug Abuse Patient Records regulations: The Federal rules restrict any use of the information to criminally investigate or prosecute any alcohol or drug abuse patient.[facility] CenterIn the event this information is protected by the Federal Confidentiality of Alcohol and Drug Abuse Patient Records regulations: The Federal rules restrict any use of the information to criminally investigate or prosecute any alcohol or drug abuse patient.[facility] CenterIn the event this information is protected by the Federal Confidentiality of Alcohol and Drug Abuse Patient Records regulations: The Federal rules restrict any use of the information to criminally investigate or prosecute any alcohol or drug abuse patient.[facility] CenterIn the event this information is protected by the Federal Confidentiality of Alcohol and Drug Abuse Patient Records regulations: The Federal rules restrict any use of the information to criminally investigate or prosecute any alcohol or drug abuse patient.[facility] CenterIn the event this information is protected by the Federal Confidentiality of Alcohol and Drug Abuse Patient Records regulations: The Federal rules restrict any use of the information to criminally investigate or prosecute any alcohol or drug abuse patient.[facility] CenterIn the event this information is protected by the Federal Confidentiality of Alcohol and Drug Abuse Patient Records regulations: The Federal rules restrict any use of the information to criminally investigate or prosecute any alcohol or drug abuse patient.[facility] CenterIn the event this information is protected by the Federal Confidentiality of Alcohol and Drug Abuse Patient Records regulations: The Federal rules restrict any use of the information to criminally investigate or prosecute any alcohol or drug abuse patient.[facility] CenterIn the event this information is protected by the Federal Confidentiality of Alcohol and Drug Abuse Patient Records regulations: The Federal rules restrict any use of the information to criminally investigate or prosecute any alcohol or drug abuse patient.[facility] CenterIn the event this information is protected by the Federal Confidentiality of Alcohol and Drug Abuse Patient Records regulations: The Federal rules restrict any use of the information to criminally investigate or prosecute any alcohol or drug abuse patient.[facility] CenterIn the event this information is protected by the Federal Confidentiality of Alcohol and Drug Abuse Patient Records regulations: The Federal rules restrict any use of the information to criminally investigate or prosecute any alcohol or drug abuse patient.[facility] CenterIn the event this information is protected by the Federal Confidentiality of Alcohol and Drug Abuse Patient Records regulations: The Federal rules restrict any use of the information to criminally investigate or prosecute any alcohol or drug abuse patient.[facility] CenterIn the event this information is protected by the Federal Confidentiality of Alcohol and Drug Abuse Patient Records regulations: The Federal rules restrict any use of the information to criminally investigate or prosecute any alcohol or drug abuse patient.[facility] CenterIn the event this information is protected by the Federal Confidentiality of Alcohol and Drug Abuse Patient Records regulations: The Federal rules restrict any use of the information to criminally investigate or prosecute any alcohol or drug abuse patient.[facility] CenterIn the event this information is protected by the Federal Confidentiality of Alcohol and Drug Abuse Patient Records regulations: The Federal rules restrict any use of the information to criminally investigate or prosecute any alcohol or drug abuse patient.[facility] CenterIn the event this information is protected by the Federal Confidentiality of Alcohol and Drug Abuse Patient Records regulations: The Federal rules restrict any use of the information to criminally investigate or prosecute any alcohol or drug abuse patient.[facility] CenterIn the event this information is protected by the Federal Confidentiality of Alcohol and Drug Abuse Patient Records regulations: The Federal rules restrict any use of the information to criminally investigate or prosecute any alcohol or drug abuse patient.[facility] CenterIn the event this information is protected by the Federal Confidentiality of Alcohol and Drug Abuse Patient Records regulations: The Federal rules restrict any use of the information to criminally investigate or prosecute any alcohol or drug abuse patient.[facility] CenterIn the event this information is protected by the Federal Confidentiality of Alcohol and Drug Abuse Patient Records regulations: The Federal rules restrict any use of the information to criminally investigate or prosecute any alcohol or drug abuse patient.[facility] CenterIn the event this information is protected by the Federal Confidentiality of Alcohol and Drug Abuse Patient Records regulations: The Federal rules restrict any use of the information to criminally investigate or prosecute any alcohol or drug abuse patient.[facility] CenterIn the event this information is protected by the Federal Confidentiality of Alcohol and Drug Abuse Patient Records regulations: The Federal rules restrict any use of the information to criminally investigate or prosecute any alcohol or drug abuse patient.[facility] Reason for Visit (unrecogniz ed section and content) Reason Comments Follow Up Reason Comments PAP Therapy Follow Up Reason Comments Orders Reason Onset Date Comments Refill Request 03/19/2022 Reason Onset Date Comments Refill Request 06/03/2022 OUT OF MEDICATIO N Reason Comments Refill Request Reason Comments F/U 6 months Reason Onset Date Comments Refill Request 11/01/2022 Reason Comments Consult Elevated PSA Specialty Diagnoses / Procedures Referred By Eufemia cervantes Referred To Contact Urology Diagnoses FHx: prostate cancer Elevated PSA Procedures CONSULT TO UROLOGY OFFICE/OUTPATIENT NEW HIGH MDM 60-74 MINUTES Hermann Gonzales MD [address] [place] [address] Referral ID Status Reason Start Date Expiration Date V isits Requested Visits Authorized [id number] Closed PCP Requested Referral 11/01/2022 11/01/2023 1 1 Reason Comments Elevated PSA Reason Comments CMN- PAP supplies [employer] Reason Onset Date Comments Refill Request 03/31/2023 Reason Comments Follow Up Reason Comments Follow Up Pt reported sleeping well. Reason Comments PAP Therapy Follow Up 10/04/23 - 11/02/23 Reason Comments Medicare Wellness Exam Reason Onset Date Comments No Show 11/11/2023 No show Reason Comments F/U 6 months Reason Onset Date Comments Refill Request 03/31/2024 Reason Onset Date Comments Refill Request 09/28/2024 Reason Comments Cough fever, chills, bodya ches and fever x 1 day Reason Comments Rash ? 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 Reason Comments Assessment Patient Education Specialty Diagnoses / Procedures Referred By Eufemia cervantes Referred To Contact Nutrition Diagnoses Type 2 diabetes mellitus without complication, without long-term current use of insulin (HCC) Procedures CONSULT TO NUTRITION THERAPY MEDICAL NUTRITION ASSMT&IVNTJ INDIV EACH 15 [address] Vane Mart PA-C [address] [place] [address] Phone: tel: fax: Referral ID Status Reason Start Date Expiration Date Visits Requested Visits Authorized [id number] Authorized PCP Requested Referral 11/26/2024 11/26/2025 1 4 Reason Onset Date Comments Population Health Navigation Outreach 2025 [employer] Reason Onset Date Comments Refill Request 05/17/2025 Care Teams (unrecognized sec tion and content) Park Naturalist Relationship Specialty Start Date End Date Hemrann Gonzales MD [address] [facility] [place] [address] PCP - General Family Practice 04/25/21 Park Naturalist Relationship Specialty Start Date End Date Hermann Gonzales MD [facility] [facility] [place] [address] PCP - General Family Practice 04/25/21 Park Naturalist Relationship Specialty Start Date End Date Hermann Gonzales MD [address] [place] [address], [place] [address] PCP - General Family Practice 04/25/21 Park Naturalist Relationship Specialty Start Date End Date Hermann Gonzales MD [address] [place] [address], [place] [address] PCP - General Family Practice 04/25/21 Park Naturalist Relationship Specialty Start Date End Date Hermann Gonzales MD [address] [place] [address], [place] [address] PCP - General Family Medicine 04/25/21 Park Naturalist Relationship Specialty Start Date End Date Hermann Gonzales MD [address] [place] [address], [place] [address] PCP - General Family Medicine 04/25/21 Park Naturalist Relationship Specialty Start Date End Date Hermann Gonzales MD [address] [place] [address], [place] [address] PCP - General Family Medicine 04/25/21 Park Naturalist Relationship Specialty Start Date End Date Hermann Gonzales MD [address] [place] [address], [place] [address] PCP - General Family Medicine 04/25/21 Park Naturalist Relationship Specialty Start Date End Date Hermann Gonzales MD [address] [place] [address] PCP - General Family Medicine 04/25/21 Park Naturalist Relationship Specialty Start Date End Date Hermann Gonzales MD [address] [place] [address] PCP - General Family Medicine 04/25/21 Park Naturalist Relationship Specialty Start Date End Date Hermann Gonzales MD [address] [place] [address] PCP - General Family Medicine 04/25/21 Park Naturalist Relationship Specialty Start Date End Date Hermann Gonzales MD [address] [place] [address] PCP - General Family Medicine 04/25/21 Park Naturalist Relationship Specialty Start Date End Date Hermann Gonzales MD [address] [place] [address] PCP - General Family Medicine 04/25/21 Park Naturalist Relationship Specialty Start Date End Date Hermann Gonzales MD [address] [place] [address] PCP - General Family Medicine 04/25/21 Park Naturalist Relationship Specialty Start Date End Date Hermann Gonzales MD [address] [place] [address] PCP - General Family Medicine 04/25/21 Park Naturalist Relationship Specialty Start Date End Date Hermann Gonzales MD [address] [place] [address] PCP - General Family Medicine 04/25/21 Park Naturalist Relationship Specialty Start Date End Date Hermann Gonzales MD [address] [facility] [place] [address] PCP - General Family Medicine 04/25/21 Park Naturalist Relationship Specialty Start Date End Date Hermann Gonzales MD [address] [facility] [place] [address] PCP - General Family Medicine 04/25/21 Park Naturalist Relationship Specialty Start Date End Date Hermann Gonzales MD [address] [place] [address] PCP - General Family Medicine 04/25/21 Park Naturalist Relationship Specialty Start Date End Date Hermann Gonzales MD [address] [place] [address] PCP - General Family Medicine 04/25/21 Park Naturalist Relationship Specialty Start Date End Date Hermann Gonzales MD [address] [place] [address] PCP - General Family Medicine 04/25/21 Park Naturalist Relationship Specialty Start Date End Date Hermann Gonzales MD [address] [place] [address] PCP - General Family Medicine 04/25/21 Park Naturalist Relationship Specialty Start Date End Date Hermann Gonzales MD [address] [place] [address] PCP - General Family Medicine 04/25/21 Park Naturalist Relationship Specialty Start Date End Date Hermann Gonzales MD [address] [place] [address] PCP - General Family Medicine 04/25/21 Park Naturalist Relationship Specialty Start Date End Date Hermann Gonzales MD [address] [place] [address] PCP - General Family Medicine 04/25/21 Madyson Ramos, VIVIAN.ICE DELIVERY DRIVER [address] [facility] [place] [address] Drug Safety Physician Family Medicine 08/21/24 Vane Mart PA-C [address] [place] [address] Drug Safety Physician Family Medicine 08/21/24 Park Naturalist Relationship Specialty Start Date End Date Hermann Gonzales MD [address] [place] [address] PCP - General Family Medicine 04/25/21 Madyson Ramos, STUDENT COUNSELOR.ICE DELIVERY DRIVER [address] [facility] [place] [address] Drug Safety Physician Family Medicine 08/21/24 Vane Mart PA-C [address] [place] [address] Drug Safety Physician Family Medicine 08/21/24 Park Naturalist Relationship Specialty Start Date End Date Hermann Gonzales MD [address] [place] [address] PCP - General Family Medicine 04/25/21 Madyson Ramos, STUDENT COUNSELOR.ICE DELIVERY DRIVER [address] [facility] [place] [address] Drug Safety Physician Family Medicine 08/21/24 Vane Mart PA-C [address] [place] [address] Drug Safety Physician Family Medicine 08/21/24 Park Naturalist Relationship Specialty Start Date End Date Hermann Gonzales MD [address] [place] [address] PCP - General Family Medicine 04/25/21 Madyson Ramos APRN.ICE DELIVERY DRIVER [address] [place] [address] Drug Safety Physician Family Medicine 08/21/24 Vane Mart PA-C [address] [place] [address] Drug Safety Physician Family Medicine 08/21/24 Park Naturalist Relationship Specialty Start Date End Date Hermann Gonzales MD [address] [place] [address] PCP - General Family Medicine 04/25/21 Madyson Ramos APRN.ICE DELIVERY DRIVER [address] [place] [address] Drug Safety Physician Family Medicine 08/21/24 Vane Mart PA-C [address] [place] [address] Drug Safety Physician Family Medicine 08/21/24 Park Naturalist Relationship Specialty Start Date End Date Hermann Gonzales MD [address] [place] [address] PCP - General Family Medicine 04/25/21 Madyson Ramos, VIVIAN.ICE DELIVERY DRIVER [address] [place] [address] Drug Safety Physician Family Medicine 08/21/24 Vane Mart PA-C [address] [place] [address] Drug Safety Physician Family Medicine 08/21/24 Park Naturalist Relationship Specialty Start Date End Date Hermann Gonzales MD [address] [place] [address] PCP - General Family Medicine 04/25/21 Madyson Ramos APRN.ICE DELIVERY DRIVER [address] [place] [address] Drug Safety Physician Family Medicine 08/21/24 Vane Mart PA-C [address] [place] [address] Drug Safety Physician Family Medicine 08/21/24 Park Naturalist Relationship Specialty Start Date End Date Hermann Gonzales MD [address] [place] [address] PCP - General Family Medicine 04/25/21 Madyson Ramos, STUDENT COUNSELOR.ICE DELIVERY DRIVER [address] [place] [address] Drug Safety Physician Family Medicine 02/14/25 Vane Mart PA-C [address] [place] [address] Drug Safety Physician Family Medicine 02/14/25 Park Naturalist Relationship Specialty Start Date End Date Hermann Gonzales MD [address] [place] [address] PCP - General Family Medicine 04/25/21 Madyson Ramos, STUDENT COUNSELOR.ICE DELIVERY DRIVER [address] [place] [address] [facility] 02/14/25 Vane Mart PA-C [address] [place] [address] [facility] 02/14/25 Park Naturalist Relationship Specialty Start Date End Date Hermann Gonzales MD [address] [place] [address] PCP - General Family Medicine 04/25/21 Madyson Ramos, VIVIAN.ICE DELIVERY DRIVER [address] [place] [address] [facility] 02/14/25 Vane Mart PA-C [address] [place] [address] [facility] 02/14/25 Park Naturalist Relationship Specialty Start Date End Date Hermann Gonzales MD [address] [place] [address] PCP - General Family Medicine 04/25/21 Madyson Ramos, VIVIAN.ICE DELIVERY DRIVER [address] [place] [address] [facility] 02/14/25 Vane Mart PA-C [address] [place] [address] [facility] 02/14/25 FOR RECORDS PERTAINING TO PATIENTS WHO ARE OR HAVE BEEN ENROLLED IN A CHEMICAL DEPENDENCY/SUBSTANCEABUSE PROGRAM, SOME INFORMATION MAY BE OMITTED. This clinical summary was aggregated from multiple sources. Caution should be exercised in using it in the provision of clinical care. This summary normalizes information from multiple sources, and as a consequence, information in this document may materially change the coding, format and clinical context of patient data. In addition, data may be omitted in some cases. CLINICAL DECISIONS SHOULD BE BASED ON THE PRIMARY CLINICAL RECORDS. [employer] [facility]. provides no warranty or guarantee of the accuracy or completeness of information in this document.
[2025-09-05] MEDS: 0.9% Saline Lock 10 ML Syringe IV (21:43)
[2025-09-05] MEDS: 0.9% Normal Saline (1000mL) 1,000 ML 100 ML IV (21:44)
--- NOTE | 2025-09-05 22:50 | CPS ---
Pt's stated that he would sleep with O2 on for tonight and she will bring his CPAP machine to sleep on tomorrow.
[2025-09-05 23:08] LABS: Procalcitonin 0.05 ng/mL (<=0.10)
[2025-09-06 02:25] VITALS: BP 118/65; PULSE 64; RESP 20; TEMP 37.1; O2SAT 95
[2025-09-06 05:22] LABS: Hematocrit 41.6 % (40-54); Hemoglobin 14.1 g/dL (13.0-16.5); Immature Granulocytes Count 0.020 X10^3/uL (0.0-0.0); Mean Corp Hgb Conc 33.9 g/dL (32-36); Mean Corpuscular Volume 93.5 fL (80-94); Mean Platelet Vol. 10.1 fl (6.2-12.0); NRBC Flagged by Analyzer 0 % (0-5); Platelet Count 142 K/mm3 (150-450); RBC Distribution Width CV 12.3 % (11.6-14.6); RBC Distribution Width SD 42.6 fl (35.1-43.9); Red Blood Count 4.45 M/mm3 (4.6-6.2); White Blood Count 4.9 K/mm3 (4.4-11.0)
[2025-09-06 06:00] VITALS: BMI 28.9
[2025-09-06 06:26] VITALS: BP 125/68; PULSE 63; RESP 19; TEMP 36.7; O2SAT 94
[2025-09-06 06:30] LABS: AST(SGOT) 18 U/L (<=37); Alanine Aminotransfer ALT/SGPT 12 U/L (<=46); Albumin, Serum 3.6 g/dL (3.4-4.8); Alkaline Phosphatase 52 U/L (40-129); Anion Gap 10 (7-18); BUN 18 mg/dL (4-19); BUN/Creat Ratio 13.6 RATIO (10-20); Calcium,Total 8.6 mg/dL (7.6-11.0); Carbon Dioxide 23.1 mmol/L (20.0-29.0); Chloride 105 mmol/L (96-106); Estimated Creatinine Clearance 57.85 ml/min (50-250); Globulin 2.3 g/dL (2.2-4.2); Glucose 101 mg/dL (70-99); Potassium 3.9 mmol/L (3.5-5.1)
--- NOTE | 2025-09-06 07:22 | PN.HOSP_ITS ---
Reason for Visit Chief Complaint: LH/dizziness, F/C, congestion. Subjective Subjective Overall feeling better. Was very unsteady yesterday. Objective Data Objective Data Vital Signs: Vital Signs Temp Pulse Resp BP Pulse Ox O2 Del Method O2 Flow Rate 36.7 C 63 19 H 125/68 H 94 Nasal Cannula 2 09/06/25 06:26 09/06/25 06:26 09/06/25 06:26 09/06/25 06:26 09/06/25 06:26 09/06/25 06:26 09/06/25 06:26 Oxygen Flow Rate (L/min) 2 Oxygen Delivery Method Nasal Cannula Weight: 93.7 kg Body Mass Index (BMI) 28.9 Intake & Output: Intake and Output for Last 24 Hours 09/04/25 09/05/25 09/06/25 23:59 23:59 23:59 Intake Total 1000 / 1000 Balance 1000 / 1000 Lab / Micro Data 09/06/25 04:50 09/06/25 04:50 Labs: Laboratory Results - last 24 hr 09/05/25 15:09: WBC Cancelled, Corrected WBC Cancelled, RBC Cancelled, Hgb Cancelled, Hct Cancelled, MCV Cancelled, MCH Cancelled, MCHC Cancelled, RDW Std Deviation Cancelled, RDW Coeff of Charly Cancelled, Plt Count Cancelled, MPV Cancelled, Immature Gran % (Auto) Cancelled, Neut % (Auto) Cancelled, Lymph % (Auto) Cancelled, Centre % (Auto) Cancelled, Eos % (Auto) Cancelled, Baso % (Auto) Cancelled, Absolute Neuts (auto) Cancelled, Absolute Lymphs (auto) Cancelled, Total Counted Cancelled, Neutrophils % (Manual) Cancelled, Band Neutrophils % Cancelled, Lymphocytes % (Manual) Cancelled, Monocytes % (Manual) Cancelled, Eosinophils % (Manual) Cancelled, Basophils % (Manual) Cancelled, Metamyelocytes % Cancelled, Myelocytes % Cancelled, Promyelocytes % Cancelled, Blast Cells % Cancelled, Plasma Cell % (Manual) Cancelled, Other Cells % Cancelled, Nucleated RBC % Cancelled, Nucleated RBCs/100 WBC Cancelled, Differential Comment Cancelled, Diff Path Review Cancelled, Hypersegmented Neuts Cancelled, Atypical Lymphocytes Cancelled, Reactive Lymphocytes Cancelled, Smudge Cells Cancelled, Toxic Granulation Cancelled, Toxic Vacuolation Cancelled, Dohle Bodies Cancelled, Monserrat Rods Cancelled, Platelet Estimate Cancelled, Plt Morphology Comment Cancelled, RBC Morphology Cancelled 09/05/25 15:09: RBC Morphology Cancelled, Polychromasia Cancelled, Hypochromasia Cancelled, Basophilic Stippling Cancelled, Anisocytosis Cancelled, Microcytosis Cancelled, Macrocytosis Cancelled, Spherocytes Cancelled, Sickle Cells Cancelled, Target Cells Cancelled, Tear Drop Cells Cancelled, Ovalocytes Cancelled, Stomatocytes Cancelled, [place] Bodies Cancelled, [place] Cells Cancelled, Bite Cells Cancelled, Crenated Cell Cancelled, Acanthocytes (Spur) Cancelled, Rouleaux Cancelled, Schistocytes Cancelled, PT Cancelled, INR Cancelled, APTT Cancelled, Sodium 137, Potassium 4.3, Chloride 102, Carbon Dioxide 25.0, Anion Gap 10, BUN 20 H, Creatinine 1.36 H, Estim Creat Clear Calc 56.18, Est GFR (MDRD) Non-Af 54 L, BUN/Creatinine Ratio 14.4, Glucose 96, Lactic Acid < 1.0, Calcium 9.6, Magnesium 2.5 H, Total Bilirubin 0.46, AST 23, ALT 14, Alkaline Phosphatase 65, Troponin T High Sens 16, Total Protein 7.1, Albumin 4.2, Globulin 2.9, Albumin/Globulin Ratio 1.5 09/05/25 15:31: Urine Color Yellow, Urine Clarity Clear, Urine pH 6.0, Ur Specific [place] 1.015, Urine Protein 15 H, Urine Glucose (UA) Normal, Urine Ketones Negative, Urine Occult Blood 10 H, Urine Nitrite Negative, Urine Bilirubin Negative, Urine Urobilinogen Normal, Ur Leukocyte Esterase Negative, Urine RBC 0-5 SEEN, Urine WBC 0 SEEN, Ur Squamous Epith Cells 0 SEEN, Urine Bacteria 0 SEEN, Urine Mucus 0 SEEN 09/05/25 15:58: WBC 6.0, RBC 4.92, Hgb 15.4, Hct 47.1, MCV 95.7 H, MCH 31.3, MCHC 32.7, RDW Std Deviation 44.2 H, RDW Coeff of Charly 12.5, Plt Count 171, MPV 10.0, Immature Gran % (Auto) 0.700, Neut % (Auto) 78.5 H, Lymph % (Auto) 9.3 L, Centre % (Auto) 11.0 H, Eos % (Auto) 0.2, Baso % (Auto) 0.3, Absolute Neuts (auto) 4.7, Absolute Lymphs (auto) 0.56 L, Nucleated RBC % 0, PT 13.4, INR 1.0, APTT 29.4, D-Dimer Quant (PE/DVT) 1.85 H* 09/05/25 17:38: Ferritin 252, Lactate Dehydrogenase 218, Total Creatine Kinase 88, Troponin T Hi Sens 2 Hr 20, C-React Prot Ext Range 11.20 H, NT pro BNP II 278, Procalcitonin 0.05 09/05/25 19:37: Troponin T Hi Sens 4Hr 18 09/06/25 04:50: WBC 4.9, RBC 4.45 L, Hgb 14.1, Hct 41.6, MCV 93.5, MCH 31.7, MCHC 33.9, RDW Std Deviation 42.6, RDW Coeff of Charly 12.3, Plt Count 142 L, MPV 10.1, Immature Gran % (Auto) 0.400, Neut % (Auto) 69.8, Lymph % (Auto) 16.0 L, M royal % (Auto) 13.6 H, Eos % (Auto) 0.0, Baso % (Auto) 0.2, Absolute Neuts (auto) 3.4, Absolute Lymphs (auto) 0.78 L, Nucleated RBC % 0, Sodium 138, Potassium 3.9, Chloride 105, Carbon Dioxide 23.1, Anion Gap 10, BUN 18, Creatinine 1.29 H, Estim Creat Clear Calc 57.85, Est GFR (MDRD) Non-Af 58 L, BUN/Creatinine Ratio 13.6, Glucose 101 H, Calcium 8.6, Total Bilirubin 0.48, AST 18, ALT 12, Alkaline Phosphatase 52, Total Protein 6.0, Albumin 3.6, Globulin 2.3, Albumin/Globulin Ratio 1.6 Micro: Microbiology 09/05/25 16:08 Mucosa - Nose SARS-CoV-2, Influenza & RSV (PCR) - Final SARS-CoV-2 (COVID 19 PCR) Radiography Diagnostic Testing: Radiology Impression Brain CT 09/05/25 14:18 IMPRESSION: 1. No acute intracranial abnormality. 2. Age-related senescent changes. Reading Location: [id number] Chest X-Ray 09/05/25 15:50 IMPRESSION: NO ACUTE FINDINGS. Reading Location[facility] Chest CTA 09/05/25 20:00 IMPRESSION: No evidence of pulmonary embolism. Normal caliber thoracic aorta with mild atherosclerosis. Coronary artery calcifications. Bilateral lower lobe linear opacities, most consistent with atelectasis or scarring. Incidental hepatic cysts and partially visualized right renal cyst. Reading Location: [facility] [place] Exam Const alert and no apparent distress HEENT head/scalp atraumatic and moist oral mucous membranes Resp normal respiratory effort and no retractions Resp Narrative: RLL crackles Extremity normal to inspection and full ROM Neuro Sensorium / Orientation: awake, alert, oriented to person, oriented to place and oriented to time Assessment & Plan Assessment/Plan (1) COVID: PLAN: Plan Failure to thrive * in elderly male with COVID-19. No reordered hypoxia in vital, but has been placed on oxygen. * PT OT eval and treat. Pneumonia * Suspected pneumococcal. * Reviewed CT of the chest and did not show any GGO but did show possible infiltrate in right lower lobe. These findings are would not be typical of COVID but I am concerned for secondary bacterial pneumonia. Patient does not require treatment for COVID-19 but would treat him with antibiotics. Patient received a dose of ceftriaxone and azithromycin. Will discharge him with Augmentin. Chronic medical conditions: * Hypertension: Continue home regimen including propranolol with hold parameters as needed, PRN hydralazine. * History VTE: Not currently chronically active coagulated, Will maintain on Lovenox therapy. * Restless leg syndrome: Will very cautiously continue gabapentin as needed nightly for symptoms. 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 * GERD: Will continue patient on PPI. * JESSICA: CPAP nightly. DVT prophylaxis: Lovenox.
[2025-09-06 09:07] VITALS: BP 135/78; PULSE 68; RESP 17; TEMP 36.8; O2SAT 93
[2025-09-06] MEDS: guaiFENesin 10 ML UDC (200MG/10ML) 20 ML PO (09:09)
[2025-09-06] MEDS: 0.9% Saline Lock 10 ML Syringe IV ×2 (09:09→10:59)
[2025-09-06 09:23] VITALS: O2SAT 88; O2SAT 93; O2SAT 95
[2025-09-06 10:17] VITALS: O2SAT 96
[2025-09-06] MEDS: 0.9% Normal Saline (250mL Bag) 250 ML IV (10:58)
--- NOTE | 2025-09-06 11:09 | NURSING ---
spoke with Tasia Holt P.T. and she verifies she worked with pt, he was able to safely ambulate and do steps meanwhile she was monitoring his pulse ox and it stayed at 96% on room air during all activity.
--- NOTE | 2025-09-06 11:37 | CASEMGMT ---
FRED PARTIDA Assessment Face to Face with patient for initial transition planning/care coordination assessment. FRED PARTIDA introduced self and role at [facility], pt voices understanding. Pt is A&Ox4 and is resting comfortably in the chair and is calm. Care providers, pharmacy, and demographics verified. Admitting dx: ELKIN PEDROZA Strata: 1 PCP: Hermann Funk Specialists: Juve (Neuro), Sleep specialist through [facility] but pt cannot recall the name Preferred Pharmacy: [facility] Insurance: [facility] Prescription Benefit: Yes LNOK: Ana (W) Living Arrangements: Pt lives with his in a 2 story home with 3 steps to enter ADLs/IADLs: Indep Transportation: Self, DME: Home oxygen through [employer]. EMail sent to [employer] to verify current orders. Pt states that he has a CPAP and wears 1L of additional oxygen bled in. Pt states that he has a concentrator but does not have any portable tanks or POC. Per PT's charting, pt was able to maintain a pulse ox reading above 96% with ambulation during their session. Per the pt's RN, pt to DC tomorrow. CM to follow for updated Rx and portability needs. Pt encouraged top buy a pulse ox. Pt states that he has a BP machine at home and denies further concerns. HHC/SNF: Denies hx or needs Pt?s goal: Home Plan: Home, follow for updated O2 rx and portable oxygen needs. Pt states that he feels safe returning home with his once medically ready and denies the need for any additional therapy or resources. Pt states that he feels safe with this plan and denies any further questions, concerns, or needs at this time. Report given to DIPAK IBARRA CM. Jesse Nunez RN, CM
[2025-09-06] MEDS: Azithromycin 500 MG in 0.9% Normal Saline (250mL Bag) 250 ML 250 MG IV (11:53)
--- NOTE | 2025-09-06 11:55 | DS.PCM_ITS ---
Providers Date of Admission: 09/05/25 Primary Care Physician: Dr. Hermann Funk MD Reason For Visit: COVID Diagnosis Discharge Diagnosis (1) COVID: Status: Acute Code(s): U07.1 - COVID-19 Plan Failure to thrive * in elderly male with COVID-19. No reordered hypoxia in vital, but has been placed on oxygen. * PT OT eval and treat. Pneumonia * Suspected pneumococcal. * Reviewed CT of the chest and did not show any GGO but did show possible infiltrate in right lower lobe. These findings are would not be typical of COVID but I am concerned for secondary bacterial pneumonia. Patient does not require treatment for COVID-19 but would treat him with antibiotics. Patient received a dose of ceftriaxone and azithromycin. Will discharge him with Augmentin. Chronic medical conditions: * Hypertension: Continue home regimen including propranolol with hold parameters as needed, PRN hydralazine. * History VTE: Not currently chronically active coagulated, Will maintain on Lovenox therapy. * Restless leg syndrome: Will very cautiously continue gabapentin as needed nightly for symptoms. 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 * GERD: Will continue patient on PPI. * JESSICA: CPAP nightly. DVT prophylaxis: Lovenox. Medications at Discharge Home Medications lansoprazole 15 mg capsule,delayed release 15 mg PO DAILY 05/29/18 propranolol 20 mg tablet 20 mg PO BID 05/29/18 glucosamine sulf dipot chlr,msm,chond 550 mg-C 30 mg-shahbaz 1 mg capsule (Glucosamine Chondroitin) 1 cap PO DAILY 06/13/21 gabapentin 300 mg capsule 900 mg PO QHS PRN PRN RLS 05/27/22 amoxicillin 875 mg-potassium clavulanate 125 mg tablet 1 tab PO BID #12 tabs 09/06/25 Hospital Course Operations None Procedures None Summary of Care Provided Hospital Course: Greater than 40 minutes spent on discharge 75-year-old male presents with weakness and unsteadiness. He was found to have COVID-19 but was not hypoxic. But CAT scan was concerning for possible infiltrate and patient was started on antibiotics with ceftriaxone and azithromycin. Patient strength overall is better. Patient will be discharged home with Augmentin. Weight / BMI Weight Weight: 93.7 kg Body Mass Index (BMI) 28.9 ABG / Lab / Microbiology Data 09/06/25 04:50 09/06/25 04:50 Laboratory: Laboratory Results - last 24 hr 09/05/25 15:09: WBC Cancelled, Corrected WBC Cancelled, RBC Cancelled, Hgb Cancelled, Hct Cancelled, MCV Cancelled, MCH Cancelled, MCHC Cancelled, RDW Std Deviation Cancelled, RDW Coeff of Charly Cancelled, Plt Count Cancelled, MPV Cancelled, Immature Gran % (Auto) Cancelled, Neut % (Auto) Cancelled, Lymph % (Auto) Cancelled, [place] % (Auto) Cancelled, Eos % (Auto) Cancelled, Baso % (Auto) Cancelled, Absolute Neuts (auto) Cancelled, Absolute Lymphs (auto) Cancelled, Total Counted Cancelled, Neutrophils % (Manual) Cancelled, Band Neutrophils % Cancelled, Lymphocytes % (Manual) Cancelled, Monocytes % (Manual) Cancelled, Eosinophils % (Manual) Cancelled, Basophils % (Manual) Cancelled, Metamyelocytes % Cancelled, Myelocytes % Cancelled, Promyelocytes % Cancelled, Blast Cells % Cancelled, Plasma Cell % (Manual) Cancelled, Other Cells % Cancelled, Nucleated RBC % Cancelled, Nucleated RBCs/100 WBC Cancelled, Differential Comment Cancelled, Diff Path Review Cancelled, Hypersegmented Neuts Cancelled, Atypical Lymphocytes Cancelled, Reactive Lymphocytes Cancelled, Smudge Cells Cancelled, Toxic Granulation Cancelled, Toxic Vacuolation Cancelled, Dohle Bodies Cancelled, Monserrat Rods Cancelled, Platelet Estimate Cancelled, Plt Morphology Comment Cancelled, RBC Morphology Cancelled 09/05/25 15:09: RBC Morphology Cancelled, Polychromasia Cancelled, Hypochromasia Cancelled, Basophilic Stippling Cancelled, Anisocytosis Cancelled, Microcytosis Cancelled, Macrocytosis Cancelled, Spherocytes Cancelled, Sickle Cells Cancelled, Target Cells Cancelled, Tear Drop Cells Cancelled, Ovalocytes Cancelled, Stomatocytes Cancelled, [place] Bodies Cancelled, [place] Cells Cancelled, Bite Cells Cancelled, Crenated Cell Cancelled, Acanthocytes (Spur) Cancelled, Rouleaux Cancelled, Schistocytes Cancelled, PT Cancelled, INR Cancelled, APTT Cancelled, Sodium 137, Potassium 4.3, Chloride 102, Carbon Dioxide 25.0, Anion Gap 10, BUN 20 H, Creatinine 1.36 H, Estim Creat Clear Calc 56.18, Est GFR (MDRD) Non-Af 54 L, BUN/Creatinine Ratio 14.4, Glucose 96, Lactic Acid < 1.0, Calcium 9.6, Magnesium 2.5 H, Total Bilirubin 0.46, AST 23, ALT 14, Alkaline Phosphatase 65, Troponin T High Sens 16, Total Protein 7.1, Albumin 4.2, Globulin 2.9, Albumin/Globulin Ratio 1.5 09/05/25 15:31: Urine Color Yellow, Urine Clarity Clear, Urine pH 6.0, Ur Specific [place] 1.015, Urine Protein 15 H, Urine Glucose (UA) Normal, Urine Ketones Negative, Urine Occult Blood 10 H, Urine Nitrite Negative, Urine Bilirubin Negative, Urine Urobilinogen Normal, Ur Leukocyte Esterase Negative, Urine RBC 0-5 SEEN, Urine WBC 0 SEEN, Ur Squamous Epith Cells 0 SEEN, Urine Bacteria 0 SEEN, Urine Mucus 0 SEEN 09/05/25 15:58: WBC 6.0, RBC 4.92, Hgb 15.4, Hct 47.1, MCV 95.7 H, MCH 31.3, MCHC 32.7, RDW Std Deviation 44.2 H, RDW Coeff of Charly 12.5, Plt Count 171, MPV 10.0, Immature Gran % (Auto) 0.700, Neut % (Auto) 78.5 H, Lymph % (Auto) 9.3 L, [place] % (Auto) 11.0 H, Eos % (Auto) 0.2, Baso % (Auto) 0.3, Absolute Neuts (auto) 4.7, Absolute Lymphs (auto) 0.56 L, Nucleated RBC % 0, PT 13.4, INR 1.0, APTT 29.4, D-Dimer Quant (PE/DVT) 1.85 H* 09/05/25 17:38: Ferritin 252, Lactate Dehydrogenase 218, Total Creatine Kinase 88, Troponin T Hi Sens 2 Hr 20, C-React Prot Ext Range 11.20 H, NT pro BNP II 278, Procalcitonin 0.05 09/05/25 19:37: Troponin T Hi Sens 4Hr 18 09/06/25 04:50: WBC 4.9, RBC 4.45 L, Hgb 14.1, Hct 41.6, MCV 93.5, MCH 31.7, MCHC 33.9, RDW Std Deviation 42.6, RDW Coeff of Charly 12.3, Plt Count 142 L, MPV 10.1, Immature Gran % (Auto) 0.400, Neut % (Auto) 69.8, Lymph % (Auto) 16.0 L, M royal % (Auto) 13.6 H, Eos % (Auto) 0.0, Baso % (Auto) 0.2, Absolute Neuts (auto) 3.4, Absolute Lymphs (auto) 0.78 L, Nucleated RBC % 0, Sodium 138, Potassium 3.9, Chloride 105, Carbon Dioxide 23.1, Anion Gap 10, BUN 18, Creatinine 1.29 H, Estim Creat Clear Calc 57.85, Est GFR (MDRD) Non-Af 58 L, BUN/Creatinine Ratio 13.6, Glucose 101 H, Calcium 8.6, Total Bilirubin 0.48, AST 18, ALT 12, Alkaline Phosphatase 52, Total Protein 6.0, Albumin 3.6, Globulin 2.3, Albumin/Globulin Ratio 1.6 Microbiology: Microbiology 09/05/25 16:08 Mucosa - Nose SARS-CoV-2, Influenza & RSV (PCR) - Final SARS-CoV-2 (COVID 19 PCR) Radiography Diagnostic Testing: Radiology Impression Brain CT 09/05/25 14:18 IMPRESSION: 1. No acute intracranial abnormality. 2. Age-related senescent changes. Reading Location: [id number] Chest X-Ray 09/05/25 15:50 IMPRESSION: NO ACUTE FINDINGS. Reading Location[facility] Chest CTA 09/05/25 20:00 IMPRESSION: No evidence of pulmonary embolism. Normal caliber thoracic aorta with mild atherosclerosis. Coronary artery calcifications. Bilateral lower lobe linear opacities, most consistent with atelectasis or scarring. Incidental hepatic cysts and partially visualized right renal cyst. Reading Location: [facility] Instructions DC O2, CPAP, BIPAP Needs Home O2 Discharge instructions: No Meaningful Use Info Meaningful Use Meaningful Use Diagnoses (Choose all that apply): None applicable Discharge Plan Admission Admit Date/Time: 09/05/25 18:34 Primary Reason for Your Visit: COVID-19. Pneumonia. Attending Provider: Gabe Downey Primary Care Provider: Hermann Funk Consulting Providers: Lesley Murray Instructions Additional Instructions / Restrictions: You have COVID-19. I would consider yourself contagious until your symptoms have resolved. When around others, I recommend wearing a mask so that they may not contracted it. Discharge Orders/Prescriptions Prescriptions: New amoxicillin-pot clavulanate 875-125 mg tablet 1 tab PO BID Qty: 12 0RF Continued lansoprazole 15 MG capsule,delayed release(DR/EC) 15 mg PO DAILY propranolol 20 MG tablet 20 mg PO BID Glucosamine Chondroitin 550-30-1 mg Capsule 1 cap PO DAILY gabapentin 300 mg capsule 900 mg PO QHS PRN PRN (Reason: RLS) Referrals / Follow Up: Hermann Funk MD [Primary Care Provider, Family Practice] - Within 1 Week Disposition Disposition (needs filled in before D/C Order can be placed): Home, Self Care Charges/Coding Visit Charges Inpatient E&M: 39897 Disch Hosp >30min
--- NOTE | 2025-09-06 12:06 | CASEMGMT ---
Pt worked with therapy post home oxygen trial and maintained oxygenation that did not require home oxygen. Pt to be dc'd this date.
--- NOTE | 2025-09-06 12:11 | PHA.DC.MR.R ---
Pharmacy [place] Med Reconciliation Pharmacy Service has performed discharge medication reconciliation for this patient. The patient's discharge medication list was reviewed for discrepancies and discrepancies were resolved. Medications at Discharge Home Medications lansoprazole 15 mg capsule,delayed release 15 mg PO DAILY 05/29/18 propranolol 20 mg tablet 20 mg PO BID 05/29/18 glucosamine sulf dipot chlr,msm,chond 550 mg-C 30 mg-shahbaz 1 mg capsule (Glucosamine Chondroitin) 1 cap PO DAILY 06/13/21 gabapentin 300 mg capsule 900 mg PO QHS PRN PRN RLS 05/27/22 amoxicillin 875 mg-potassium clavulanate 125 mg tablet 1 tab PO BID #12 tabs 09/06/25
[2025-09-06 14:02] VITALS: BP 118/72; PULSE 58; RESP 17; TEMP 36.6; O2SAT 95
== END 2025-09-06 14:53 | disposition home or self-care (01) ==
LOC: ED 18:39 → MS3 18:49
PROVIDERS: Admitting Provider Family Medicine; Emergency Provider Surgery; PCP Family Medicine
DX: U07.1 COVID-19 (principal); R53.81 Other malaise; G47.33 Obstructive sleep apnea (adult) (pediatric); E86.0 Dehydration; J18.9 Pneumonia, unspecified organism; Z86.718 Personal history of other venous thrombosis and embolism; I10 Essential (primary) hypertension; G25.81 Restless legs syndrome; N28.9 Disorder of kidney and ureter, unspecified; R42 Dizziness and giddiness; G25.0 Essential tremor; K21.9 Gastro-esophageal reflux disease without esophagitis; Z79.899 Other long term (current) drug therapy; I44.0 Atrioventricular block, first degree; R62.7 Adult failure to thrive
CPT/HCPCS: 36415; 70450; 71046; 71275; 80053; 81001; 82550; 82728; 83605; 83615; 83735; 83880; 84145; 84484; 85025; 85379; 85610; 85730; 86140; 87631; 93005; 96361; 96365; 96366; 96367; 96372; 97161; 97165; 99221; 99285; Q9967; A4216; G0378